=== PATIENT | male | born 1955 | race Caucasian/White ===

== ENCOUNTER 2022-09-03 15:00 | Outpatient (OUT) | payer MEDICAID, SELFPAY | END 2022-09-03 15:01 | disposition home or self-care (01) | LOC: PST 09-06 19:00 | PROVIDERS: PCP Internal Medicine; Visit Provider Surgery | DX: Z01.818 Encounter for other preprocedural examination (principal); Z86.010 Personal history of colon polyps ==

== ENCOUNTER 2022-09-11 06:20 | Day surgery (SDC) | payer BC, MEDICARE, SELFPAY ==
--- NOTE | 2022-09-11 | OP_ITS ---
OPERATION DATE: ??09/11/2022 PREOPERATIVE DIAGNOSIS:? Personal history of colon polyps. POSTOPERATIVE DIAGNOSIS:? Rectal polys x2. PROCEDURE:? Colonoscopy to cecum with hot snare polypectomy x2 for two 4 mm rectal polyps. SURGEON:? John Montalvo M.D. ANESTHESIA:? Monitored anesthesia care. ESTIMATED BLOOD LOSS:? Less than 1 mL. INDICATIONS AND CONSENT:? Patient is a 67-year-old male with a personal history of colon polyps.? Indications, risks, benefits, alternatives of proceeding with surveillance colonoscopy were explained extensively to the patient, including the risks of bleeding, colon perforation or anesthetic complications. ?All of his questions were answered.? Informed consent was obtained. PROCEDURE:? Patient brought to the operating room, placed in the left lateral decubitus position.? Monitored anesthesia care was provided.? Rectal exam was performed which showed no masses or blood.? The scope was inserted into the anal canal.? Under direct visualization was advanced.? With the aid of abdominal compression, it was advanced to the cecum where cecal markings were clearly identified.? There was noted to be a good prep.? Upon withdrawal of the scope, mucosal surfaces were carefully examined.? There were no mass lesions or inflammatory changes.? No significant diverticulosis.? With the upper rectum, there were noted to be two adjacent sessile, erythematous polyps, approximately 4 mm each in size.? These were removed with hot snare polypectomy with good hemostasis.? The scope was retroflexed in the anal canal.? There was no significant hemorrhoidal disease.? Scope was then withdrawn.? Patient tolerated procedure well, was sent to recovery room in good condition. f/u colonoscopy likely in 5 years. CC:? Son Scherer
[2022-09-11 06:36] VITALS: BP 173/92; PULSE 81; RESP 16; TEMP 36.2; O2SAT 93; BMI 33.9
[2022-09-11 06:41] LABS: Glucometer 147 mg/dL (74-106)
[2022-09-11] MEDS: LACTATED RINGER'S SOLUTION 1,000 ML 50 ML IV (06:58)
[2022-09-11 07:58] VITALS: BP 116/58; PULSE 77; RESP 16; O2SAT 98
[2022-09-11 08:08] VITALS: BP 132/71; PULSE 65; RESP 16; O2SAT 96
[2022-09-11 08:22] VITALS: BP 139/75; PULSE 63; RESP 16; O2SAT 96
== END 2022-09-11 08:22 | disposition home or self-care (01) ==
PROVIDERS: PCP Internal Medicine; Visit Provider Surgery
PROC: (CPT 45385; principal; 2022-09-11 07:30)
DX: D12.8 Benign neoplasm of rectum (principal); Z86.010 Personal history of colon polyps; K62.1 Rectal polyp; E11.9 Type 2 diabetes mellitus without complications; I10 Essential (primary) hypertension; Z86.73 Personal history of transient ischemic attack (TIA), and cerebral infarction without residual deficits; E78.00 Pure hypercholesterolemia, unspecified; Z79.02 Long term (current) use of antithrombotics/antiplatelets; Z79.899 Other long term (current) drug therapy; Z79.85 Long-term (current) use of injectable non-insulin antidiabetic drugs; Z87.891 Personal history of nicotine dependence; E66.9 Obesity, unspecified; Z68.33 Body mass index [BMI] 33.0-33.9, adult
CPT/HCPCS: 45385; 36415; 82948; 88305; J2704

== ENCOUNTER 2023-01-02 13:59 | Outpatient (OUT) | payer BC, MEDICARE, SELFPAY ==
--- NOTE | 2023-01-02 14:00 | CA_ITS ---
Patient Name: BURGESS CATES MR#: [id number] : 1955 Exam Date: 01/02/2023 Ordering Doctor: DR Librado Connor D.O. ECHOCARDIOGRAM REPORT PROCEDURE: CA ECHO DOPPLER COMPLETE INDICATIONS: Nonrheumatic aortic valve stenosis COMPARISON: None. DESCRIPTION: COMPLETE ECHOCARDIOGRAM Real-time transthoracic echocardiography with 2D, M-mode, spectral and color flow Doppler performed. QUALITY: Technical quality was good. LEFT VENTRICLE: Normal chamber size. Mild concentric left ventricular hypertrophy. LV EF: Global left ventricular systolic function is hyperdynamic. Visual estimation of left ventricular ejection fraction is 65-70%. No significant wall motion abnormalities. DIASTOLIC: Grade 1 diastolic dysfunction ATRIAL SEPTUM: Not well visualized. LEFT ATRIUM: Normal chamber size. RIGHT ATRIUM: Normal chamber size. RIGHT VENTRICLE: Normal chamber size. Normal right ventricular systolic function. TRICUSPID VALVE: Normal mobility and thickness. No stenosis with trivial regurgitation. No evidence of pulmonary hypertension. RVSP 18mmHg MITRAL VALVE: Normal mobility and thickness. No evidence of mitral valve stenosis. There is no mitral annular calcification. Trivial mitral regurgitation. AORTIC VALVE: Normal trileaflet appearance. Moderately calcified aortic valve. Doppler velocity suggests mild to moderate aortic valve stenosis. DVI 0.3, Vmax 2.9, Mean gradient 20mmHg. Gradients may be elevated in part due to the left ventricular hyperdynamic state. No aortic regurgitation. AORTIC ROOT: Normal diameter and appearance. PULMONIC VALVE: Normal thickness and mobility. Normal with No regurgitation. PERICARDIUM: Anterior free space; trivial effusion versus fat pad. IVC: Collapses with inspirations. Normal size. CONCLUSION: 1. Global left ventricular systolic function is hyperdynamic; visually estimated ejection fraction is 65 to 70% 2. The right ventricle is normal in size and systolic function 3. Mildly increased left ventricular wall thickness 4. Grade 1 diastolic dysfunction 5. Moderate aortic valve stenosis 6. Anterior free space; trivial effusion versus fat pad Adult Echocardiography Procedure Report Left Ventricle LVEDD (3.7 - 5.6 cm): 4.43 cm LVESD (2.2 - 4.0 cm): 3.18 cm LVIVS thickness (0.6 - 1.2 cm): 1.26 cm LVPW thickness (0.5 - 1.0 cm): 1.39 cm e': 0.08 m/s E - e': 10.12 LVOT Max Gradient: 3.61 mm[Hg] LVOT Area (cm2): 0.95 m/s Peak Velocity (LVOT): 0.95 m/s Mean Velocity (LVOT): 0.58 m/s LVOT Diameter 2.34 cm Left Ventricular Ejection Fraction: 70.29 % Left Atrium LA Volume Index (2D A2C): 25.38 ml/m2 Left Atrium Systolic Dimension: 3.22 cm Mitral Valve MV E to A Ratio: 0.86, 0.93 Mitral Valve A-Wave Peak Velocity: 0.91 m/s Mitral Valve E-Wave Peak Velocity: 0.81 m/s Right Ventricle RV Internal Diastolic Dimension: 3.39 cm Aorta AO Root Diam: 3.57 cm Ascending Ao Diam: 3.29 cm Aortic Valve AoV Area (Peak Maximilian): 1.43 cm2, 1.40 cm2 AoV Area (VTI): 1.45 cm2, 1.33 cm2 Peak Velocity(Antegrade Flow): 2.92 m/s, 2.73 m/s, 2.92 m/s Peak Gradient(Antegrade Flow): 34.02 mm[Hg], 29.78 mm[Hg], 34.09 mm[Hg] Mean Velocity(Antegrade Flow): 2.16 m/s, 1.85 m/s, 2.14 m/s Mean Gradient(Antegrade Flow): 20.44 mm[Hg], 15.83 mm[Hg], 20.95 mm[Hg] Velocity Time Integral: 66.19 cm, 52.71 cm, 63.57 cm Tricuspid Valve Peak Velocity (Regurgitant Flow): 1.74 m/s, 1.68 m/s, 1.92 m/s, 1.90 m/s Pulmonic Valve Mean Gradient: 3.40 mm[Hg] Mean Velocity: 0.86 m/s Peak Velocity: 1.18 m/s, 1.17 m/s Peak Gradient: 5.59 mm[Hg], 5.46 mm[Hg] Right Atrium Right Atrium Systolic Pressure: 37.07 ml, 37.07 ml Dictated by: Akshat Pratt M.D. on 01/03/2023 at 15:48 Approved by: Akshat Pratt M.D. on 01/03/2023 at 15:56
== END 2023-01-02 14:00 | disposition home or self-care (01) ==
LOC: CARD 13:59
PROVIDERS: PCP Internal Medicine; Visit Provider Internal Medicine
DX: I35.0 Nonrheumatic aortic (valve) stenosis (principal)
CPT/HCPCS: 93306

== ENCOUNTER 2023-01-02 15:00 | Outpatient (OUT) | payer BC, MEDICARE, SELFPAY ==
[2023-01-02] MEDS: COVID VAC 23-24(12UP)MODERNA/PF 50 MCG/0.5 ML VIAL IM (16:00)
== END 2023-01-02 15:01 | disposition home or self-care (01) ==
LOC: VACCLI 01-21 16:00
PROVIDERS: PCP Internal Medicine
DX: Z23 Encounter for immunization (principal)
CPT/HCPCS: 90480; 91322

== ENCOUNTER 2023-07-11 07:28 | Outpatient (OUT) | payer BC, MEDICARE, SELFPAY ==
--- OUTSIDE RECORDS SUMMARY | 2023-07-11 07:38 | XMS_ITS | CCD ---
Author Organization [facility] Care Team Providers Care [address] Magistrate Name Role Phone PHYSICIAN, DEFAULT Unavailable Unavailable PHYSICIAN, DEFAULT Unavailable Unavailable Wiecek, Sacha Unavailable Unavailable Wiecek, Sacha Unavailable Unavailable Ball, Librado Unavailable Unavailable Ball, Librado Unavailable NIKOLAS, DR KEITA Admitting Unavailable BALL, DR KEITA Attending Unavailable BALL, DR KEITA Primary Care Unavailable REQUEST, DR CALDWELL LISTED Admitting Unavaila ble REQUEST, DR CALDWELL LISTED Attending Unavaila ble REQUEST, DR CALDWELL LISTED Consulting Unavaila ble BALL, DR KEITA Primary Care Unavailable REQUEST, DR CALDWELL LISTED Admitting Unavaila ble REQUEST, DR CALDWELL LISTED Attending Unavaila ble REQUEST, DR CALDWELL LISTED Consulting Unavaila ble BALL, DR KEITA Primary Care Unavailable BALL, DR KEITA Admitting Unavailable BALL, DR KEITA Attending Unavailable BALL, DR KEITA Primary Care Unavailable BALL, DR KEITA Admitting Unavailable BALL, DR KEITA Attending Unavailable BALL, DR KEITA Consulting Unavailable BALL, DR KEITA Primary Care Unavailable BALL, DR KEITA Admitting Unavailable BALL, DR KEITA Attending Unavailable BALL, DR KEITA Consulting Unavailable BALL, DR KEITA Primary Care Unavailable HOY ., DR GONCALVES Attending Unavailable HOY ., DR GONCALVES Consulting Unavailable HOY ., DR GONCALVES Admitting Unavailable BALL, DR KEITA Primary Care Unavailable NILL, John Soriano Attending Unavailable BALL, LIBRADO Referring Unavailable NILL, John Soriano Attending Unavailable NILL, John Soriano Attending Unavailable NILL, John Soriano Attending Unavailable NILL, John Soriano Attending Unavailable BALL, LIBRADO Referring Unavailable Allergies Allergy Classification Reported Allergen(s) Allergy Type Date of Onset Reaction(s) Facility (9 sources) Sulfamethoxazole / Trimethoprim Drug Allergy Unknown [facility] Other (1 source) Sulfonamides (Antibiotic) Drug allergy (disorder) 02-18-19 [facility] (7 sources) sulfADIAZINE Drug Allergy 06-03-19 Unknown, Unknown Reaction [facility] (1 source) Allergies Reconciled Propensity to adverse reactions Unknown [facility] Other (6 sources) Substance with sulfonamide structure and antibacterial mechanism of action (substance) Drug allergy Unknown [facility] Other (6 sources) Sulf-10 Drug allergy Unknown [facility] Other (6 sources) Sulfamethoxazole-Tr imethoprim *ANTI-INFECTIVE AGEN Propensity to adverse reactions Unknown [facility] Other (1 source) patient allergy list reviewed by nurse or physicia Propensity to adverse reactions 06-30-19 Comment:Done [facility] Other (1 source) Sulfamethoxazole / Trimethoprim; Translations: [sulfamethoxazole-t rimethoprim] Drug Allergy [facility] Repository (1 source) Sulfamethoxazole Drug Allergy 06-03-19 24 Unknown Reaction [facility] (1 source) Trimethoprim Drug Allergy 06-03-19 24 Unknown Reaction [facility] Medications Current Medications Medication Drug Class(es) Dates Sig (Normalized) Sig (Original) Accu-Chek SmartView - (6 sources) Accu-Chek SmartView - USE TO TEST BLOOD SUGAR ONCE A DAY for 90 Active amLODIPine 10 mg oral tablet (10 sources) Dihydropyridine Calcium Channel Kristen Start: 06-03-2023 take 10 mg by mouth once daily Amlodipine Active 10 MG PO Daily June 03, 2023 12:00am take 1 tablet by mouth once bernardino y amLODIPine Besylate 10 MG TAKE 1 TABLET BY MOUTH EVERY DAY Active amoxicillin 875 mg oral tablet (1 source) Penicillin-class Antibacterial Start: 06-03-2023 take 875 mg by mouth twice daily Amoxicillin Active 875 MG PO Twice daily 20 10 June 03, 2023 12:00am atorvastatin 20 mg oral tablet (10 sources) HMG-CoA Reductase Inhibitor Start: 06-03-2023 take 20 mg by mouth once daily Atorvastatin Active 20 MG PO Daily June 03, 2023 12:00am take 1 tablet by dixon th every twenty-four hours Atorvastatin Calcium 20 MG 1 tablet Oral ly Once a day Active carvedilol 12.5 mg oral tablet (10 sources) alpha-Adrenergic Kristen, beta-Adrenergic Kristen Start: 06-03-2023 take 12.5 mg by mouth twice daily Carvedilol Active 12.5 MG PO Twice daily June 03, 2023 12:00am Start: 03-11-2023 take 1 tablet by dixon th every twelve hours Carvedilol 12.5 MG 1 tablet with food Orally Twice a day for 30 days Feb, Active take 1 tablet by dixon th every twelve hours Carvedilol 6.25 MG 1 tablet with food Orally Twice a day Active clopidogrel 75 mg oral tablet (10 sources) P2Y12 Platelet Inhibitor Start: 06-03-2023 take 75 mg by mouth once daily Clopidogrel Active 75 MG PO Daily June 03, 2023 12:00am take 1 tablet by mouth once bernardino y Clopidogrel Bisulfate 75 MG TAKE 1 TABLET BY MOUTH EVERY DAY Active dapagliflozin 10 mg oral tablet (10 sources) Sodium-Glucose Cotransporter 2 Inhibitor Start: 06-03-2023 take 1 tablet by mouth once daily Dapagliflozin Propanediol (Farxiga) 10 mg tablet Active 10 MG PO Daily June 03, 2023 12:00am take 1 tablet by mouth once bernardino y Farxiga 10 MG TAKE 1 TABLET BY MOUTH EVERY DAY Active trulicity 4.5 mg/0.5ml solution pen-injector (9 sources) GLP-1 Receptor Agonist inject 0.5 mL by subcutaneous injection every week Trulicity 4.5 MG/0.5ML INJECT 0.5ML SUBCUTANEOUSLY ONCE A WEEK Subcutaneous weekly Active inject 0.5 mL by sub cutaneous injection every week Trulicity 4.5 MG/0.5ML INJECT 0.5ML SUBCUTANEOUSLY ONCE A WEEK Subcutaneous weekly for 28 days Active inject 0.5 mL by sub cutaneous injection every week Trulicity 3 MG/0.5ML INJECT 0.5ML SUBCUTANEOUSLY ONCE A WEEK for 28 Active Trulicity 3 MG/0 .5ML as directed Subcutaneous Active Dulaglutide (Trulicity) 4.5 mg/0.5 mL pen injector (1 source) Start: 06-03-2023 Dulaglutide (T rulicity) 4.5 mg/0.5 mL pen injector Active 4.5 MG SUBCUT every week June 03, 2023 12:00am fluocinolone acetonide 0.1 mg/ml otic solution (8 sources) Corticosteroid Start: 07-01-2022 Fluocinolone A cetonide 0.01 % 5 drops into affected ear Otic weekly as needed for itching for 30 days June, Active Start: 07-01-2022 Fluocinolone A cetonide 0.01 % 5 drops into affected ear Otic weekly as needed for itching for 30 days June, Active hydrALAZINE hydrochloride 10 mg oral tablet (10 sources) Arteriolar Vasodilator Start: 06-03-2023 take 10 mg by mouth twice daily Hydralazine Active 10 MG PO Twice daily June 03, 2023 12:00am take 1 tablet by mouth twice kaleigh ly hydrALAZINE HCl 10 MG TAKE 1 TABLET BY MOUTH TWICE A DAY Active hydroCHLOROthiazide 25 mg / lisinopril 20 mg oral tablet (8 sources) Thiazide Diuretic, Angiotensin Converting Enzyme Inhibitor Lisinopril-hydroCHLO ROthiazide 20-25 MG TAKE 1 TABLET BY MOUTH TWICE A DAY FOR 30 DAYS for 90 Active take 1 tablet by dixon th once daily Lisinopril-hydroCHLOROthiazide 20-25 MG TAKE 1 TABLET BY MOUTH EVERY DAY Active lisinopril 40 mg oral tablet (2 sources) Angiotensin Converting Enzyme Inhibitor Start: 06-03-2023 take 40 mg by mouth once daily Lisinopril Active 40 MG PO Daily June 03, 2023 12:00am Start: 03-11-2023 take 1 tablet by dixon th every twenty-four hours Lisinopril 40 MG 1 tablet Orally Once a day for 30 days Feb, Active metFORMIN hydrochloride 1000 mg oral tablet (10 sources) Biguanide Start: 06-03-2023 take 1000 mg by mouth twice daily at mealtime Metformin Active 1000 MG PO Twice daily with meals June 03, 2023 12:00am take 1 tablet by mouth before br eakfast metFORMIN HCl 1000 MG TAKE 1 TABLET BY MOUTH BEFORE BREAKFAST AND EVENING MEAL Active simvastatin 40 mg oral tablet (2 sources) HMG-CoA Reductase Inhibitor take 1 tablet by mouth once daily Simvastatin 40 MG TAKE 1 TABLET BY MOUTH EVERY DAY for 90 Active Problems Active Problems Problem Classification Problem Date Documented Date Episodic/Chronic Acquired foot deformities (20 sources) Acquired claw toes; Translations: [Other deformities of toe(s) (acquired), left foot] Episodic Acute cerebrovascular disease (11 sources) Cerebral infarction; Translations: [Cerebral infarction, unspecified] 06-03-2023 Chronic Diabetes mellitus with complications (20 sources) Hyperglycemia due to type 2 diabetes mellitus; Translations: [Type 2 diabetes mellitus with hyperglycemia] Chronic Diabetes mellitus without complication (1 source) Type 2 diabetes mellitus without complication; Translations: [Type 2 diabetes mellitus without complications] Chronic Disorders of lipid metabolism (16 sources) Pure hypercholesterolemia; Translations: [Familial hypercholesterolemia] Onset: 02-14-2017 Chronic Essential hypertension (14 sources) Essential hypertension; Translations: [Essential (primary) hypertension] Chronic Heart valve disorders (16 sources) Aortic valve disorder; Translations: [Nonrheumatic aortic (valve) stenosis] Chronic Hyperplasia of prostate (1 source) Benign prostatic hypertrophy without outflow obstruction; Translations: [Hypertrophy (benign) of prostate without urinary obstruction and other lower urinary tract symptoms [LUTS]] Onset: 06-24-2017 Chronic Osteoarthritis (1 source) Osteoarthritis; Translations: [Unspecified osteoarthritis, unspecified site] Chronic Other acquired deformities (10 sources) Joint contracture of the ankle and/or foot; Translations: [Contracture, left ankle] Chronic Other aftercare (9 sources) H/O: high risk medication; Translations: [Other alf (current) drug therapy] Episodic Other aftercare (1 source) Long-term current use of drug therapy; Translations: [Other alf (current) drug therapy] Episodic Other and ill-defined cerebrovascular disease (10 sources) Cerebral atherosclerosis; Translations: [Cerebral atherosclerosis] 06-03-2023 Chronic Other and ill-defined cerebrovascular disease (4 sources) Cerebral atherosclerosis Chronic Other and ill-defined cerebrovascular disease (1 source) Cerebrovascular disease; Translations: [Cerebrovascular disease, unspecified] Onset: 02-17-2011 Chronic Other and unspecified benign neoplasm (9 sources) Benign neoplasm of colon; Translations: [Benign neoplasm of descending colon] Episodic Other circulatory disease (10 sources) Cardiovascular symptoms; Translations: [Other specified symptoms and signs involving the circulatory and respiratory systems] Episodic Other circulatory disease (1 source) Carotid bruit; Translations: [Other specified symptoms and signs involving the circulatory and respiratory systems] 06-03-2023 Episodic Other congenital anomalies (1 source) Congenital spondylolysis of lumbosacral region; Translations: [Congenital spondylolysis, lumbosacral region] Onset: 10-14-2018 Chronic Other connective tissue disease (9 sources) Pain in limb; Translations: [Pain in left foot] Episodic Other connective tissue disease (1 source) Pain in left foot; Translations: [Pain in left foot] Episodic Other ear and sense organ disorders (8 sources) Bilateral auditory canal chronic non-infective otitis externa; Translations: [Other otitis externa, bilateral] Chronic Other ear and sense organ disorders (1 source) Other otitis externa, bilateral Chronic Other ear and sense organ disorders (1 source) Tinnitus; Translations: [Tinnitus, unspecified ear] 06-03-2023 Episodic Other ear and sense organ disorders (1 source) Tinnitus, unspecified ear; Translations: [Tinnitus, unspecified] 06-03-2023 Episodic Other non-traumatic joint disorders (10 sources) Arthralgia of the lower leg; Translations: [Pain in left knee] Episodic Other nutritional; endocrine; and metabolic disorders (9 sources) Body mass index 30+ - obesity; Translations: [Body mass index (BMI) 33.0-33.9, adult] Chronic Other nutritional; endocrine; and metabolic disorders (10 sources) Obesity; Translations: [Other obesity due to excess calories] Chronic Other nutritional; endocrine; and metabolic disorders (4 sources) Other obesity due to excess calories Chronic Other nutritional; endocrine; and metabolic disorders (4 sources) Body mass index (BMI) 33.0-33.9, adult Chronic Other nutritional; endocrine; and metabolic disorders (1 source) Obese class I; Translations: [Body mass index 33.0-33.9, adult] Onset: 02-14-2017 Chronic Other screening for suspected conditions (not mental disorders or infectious disease) (5 sources) Encounter for screening for malignant neoplasm of prostate; Translations: [Encounter for screening for malignant neoplasm of colon] Onset: 07-19-2021 Episodic Other upper respiratory infections (1 source) Acute maxillary sinusitis; Translations: [Acute maxillary sinusitis, unspecified] Episodic Otitis media and related conditions (2 sources) Otitis media of left ear; Translations: [Otitis media, unspecified, left ear] 06-03-2023 Episodic Spondylosis; intervertebral disc disorders; other back problems (11 sources) Lumbar spondylosis; Translations: [Spondylosis without myelopathy or radiculopathy, lumbar region] 06-03-2023 Chronic Spondylosis; intervertebral disc disorders; other back problems (1 source) Low back pain; Translations: [Low back pain, unspecified] Episodic Unclassified (1 source) Long-term current use of drug therapy; Translations: [Long-term (current) use of other medications] Onset: 06-24-2017 Past or Other Problems Problem Classification Problem Date Documented Da te Episodic/Chronic Allergic reactions (1 source) Allergic urticaria; Translations: [Allergic urticaria] Onset: 02-14-2017 Episodic E Codes: Adverse effects of medical drugs (1 source) Adverse reaction to drug; Translations: [Adverse effect of other systemic antibiotics, initial encounter] Onset: 02-14-2017 Episodic Gastrointestinal hemorrhage (1 source) Hematochezia; Translations: [Blood in stool] Onset: 08-04-2017 Episodic Other and unspecified benign neoplasm (1 source) Benign neoplasm of descending colon; Translations: [Benign neoplasm of descending colon] Onset: 09-17-2017 Episodic Other ear and sense organ disorders (1 source) Acute actinic otitis externa; Translations: [Acute actinic otitis externa, bilateral] Onset: 09-23-2017 Episodic Screening and history of mental health and substance abuse codes (1 source) History of tobacco use; Translations: [Personal history of tobacco use, presenting hazards to health] Onset: 02-14-2017 Episodic Unclassified (9 sources) Low back pain with radiation; Translations: [Low back pain with radiation] Viral infection (10 sources) Disease caused by 2019-nCoV; Translations: [COVID-19] Results Test Name Value Interpretation Reference Range Facility Ambulatory Visit Summaryon 0 10-01-2022 Ambulatory Visit Summary BURGESS CATES JR :1955 Visit Date:10/01/2022 Ambulatory Visit Instructions Your Care Team Attending Physician - John MONTALVO MD Primary Care Physician - LIBRADO CONNOR DO This Is Your Medications List amlodipine (amLODIPine 10 mg Tab) carvedilol (carvedilol 3.125 mg Tab) clopidogrel (Plavix 75 mg Tab) dapagliflozin (Farxiga 10 mg oral tablet) dulaglutide (Trulicity Pen 3 mg/0.5 mL subcutaneous solution) hydrALAZINE (hydrALAZINE 10 mg Tab) hydrochlorothiazide-lisin opril (hydrochlorothiazide-kanu nopril 25 mg-20 mg Tab) metformin (metformin 1000 mg Tab) simvastatin (simvastatin 40 mg Tab) Procedures Performed Colonoscopy (09/11/2022), Colonoscopy (09/19/2017), Appendectomy, Correction of hammer toe. Medications What How Much When Instructions Unchanged amlodipine (amLODIPine 10 mg Tab) 1 Tablets By Mouth Every day Unchanged carvedilol (carvedilol 3.125 mg Tab) 1 Tablets By Mouth 2 times a day Unchanged clopidogrel (Plavix 75 mg Tab) 1 Tablets By Mouth Every day Unchanged dapagliflozin (Farxiga 10 mg oral tablet) 1 Tablets By Mouth Every day Unchanged dulaglutide (Trulicity Pen 3 mg/ 0.5 mL subcutaneous solution) 3 Milligram Subcutaneous Every week Unchanged hydrALAZINE (hydrALAZINE 10 mg Tab) 1 Tablets By Mouth 2 times a day Unchanged hydrochlorothiazide-lisin opril (hydrochlorothiazide-kanu nopril 25 mg-20 mg Tab) 1 Tablets By Mouth Every day Unchanged metformin (metformin 1000 mg Tab) 1 Tablets By Mouth 2 times a day Unchanged simvastatin (simvastatin 40 mg Tab) 1 Tablets By Mouth Once a day (in the evening) Allergies sulfamethoxazole-trimetho prim (Unknown) Problems Ongoing - Any problem that you are currently receiving treatment for. Aortic valve disorder Bilateral carotid bruits BMI 33.0-33.9,adult Cerebral atherosclerosis Cerebral infarction Diabetes Essential hypertension Hemiplegia affecting nondominant side History of colon polyps Hyperlipidemia Lumbar spondylosis Obesity Personal history of colonic polyps Pure hypercholesterolemia Normal [facility] General Surgery Office/Clini c Noteon 10-01-2022 General Surgery Office/Clinic Note Chief Complaint colonoscopy follow up HPI Staff 20 day post operative follow up post colonoscopy with rectal polypectomy. History of Present Illness s/p surveillance colonoscopy with rectal polypectomy x2, 4 mm tubular adenoma and 4 mm hyperplastic polyp removed; doing well, denies pain or bleeding. Review of Systems ROS - Provider Constitutional: no fever, no sweats, no weight loss. Eyes: no glasses, no blurred vision, no visual loss. ENMT: no dentures, no hoarseness, no swallowing difficulties, no hearing loss, no ear infection(s), no nose bleeds. Cardiovascular: normal blood pressure, no chest pain, regular heartbeat, no heart murmur. Respiratory: no shortness of breath, no cough, no asthma, no wheezing. Gastrointestinal: no nausea, no vomiting, no diarrhea, no constipation, no blood in stool, no change in bowel habits, no abdominal pain, no hepatitis. Genitourinary: no kidney stones, no urine infection, no dysuria. Musculoskeletal: no pain, no weakness. Skin: no changing moles, no rash, no skin lumps. Neurologic: no seizures, no epilepsy, no headache. Psychiatric: no emotional or psychiatric problem. Heme/Lymph: no bleeding problems, no anemia, no blood clots, no transfusions. Allergy/Immunologic: no swollen lymph nodes/glands, no IV drug abuse. Other: Additional ROS info: Except as noted in the above Review of Systems and in the History of Present Illness, all other systems have been reviewed and are negative or noncontributory. Assessment/Plan 1. Tubular adenoma of rectum (D12.8: Benign neoplasm of rectum) plan surveillance colonoscopy in 5 years, call sooner if problems/questions. 2. Hyperplastic rectal polyp (K62.1: Rectal polyp) see # 1 Follow-up No qualifying data available Problem List/Past Medical History Ongoing Aortic valve disorder Bilateral carotid bruits BMI 33.0-33.9,adult Cerebral atherosclerosis Cerebral infarction Diabetes Essential hypertension Hemiplegia affecting nondominant side History of colon polyps Hyperlipidemia Hyperplastic rectal polyp Lumbar spondylosis Obesity Personal history of colonic polyps Pure hypercholesterolemia Tubular adenoma of rectum Historical No qualifying data Procedure/Surgical History Colonoscopy (09/11/2022), Colonoscopy (09/19/2017), Appendectomy, Correction of hammer toe. Medications amLODIPine 10 mg Tab, 10 mg= 1 tab(s), Oral, Daily carvedilol 3.125 mg Tab, 3.125 mg= 1 tab(s), Oral, BID Farxiga 10 mg oral tablet, 10 mg= 1 tab(s), Oral, Daily hydrALAZINE 10 mg Tab, 10 mg= 1 tab(s), Oral, BID hydrochlorothiazide-lisin opril 25 mg-20 mg Tab, 1 tab(s), Oral, Daily metformin 1000 mg Tab, 1000 mg= 1 tab(s), Oral, BID Plavix 75 mg Tab, 75 mg= 1 tab(s), Oral, Daily simvastatin 40 mg Tab, 40 mg= 1 tab(s), Oral, qPM Trulicity Pen 3 mg/0.5 mL subcutaneous solution, 3 mg, SubCutaneous, qWeek Allergies sulfamethoxazole-trimetho prim (Unknown) Social History Alcohol - Denies Alcohol Use, 08/21/2022 Substance Abuse - Denies Substance Abuse, 08/21/2022 Tobacco Former smoker, quit more than 30 days ago Tobacco Use:. Never Smokeless Tobacco Use:. Cigarettes, 0.5 per day. Started age 21.0 Years. Stopped age 61 Years., 08/21/2022 Family History COPD: Mother. Esophageal cancer: Father. Heart disease: Mother and Sister. Immunizations Vaccine Date Status SARS-CoV-2 (COVID-19) mRNA-1273 vaccine 12/19/2021 Recorded SARS-CoV-2 (COVID-19) Ad26 vaccine 04/24/2020 Recorded Normal [facility] Comment on above: Result Comment: Elec tronically Signed By: RANDY MILLER, John Tejada\Date and Time Signed: 10/01/22 16:41 EDT Reminderson 10-01-2022 Reminders - From: Aimee France LPN To: N - Clinical; Sent: 10/01/2022 16:12:00 EDT Show up: 08/13/2027 07:00:00 EDT Subject: colonoscopy recall Due Date/Time: 09/12/2027 07:00:00 EDT Reminder/Recall Patient due for surveillance colonoscopy 09/12/2027. [facility] Pathology Noteon 09-17-2022 Pathology Note [id number]#1.00CD:[address] [facility] Outside Colonoscopyon 2022 Outside Colonoscopy [id number]:[address] [facility] Lab Reportson 09-11-2022 Lab Reports [id number]:[address] [facility] Ambulatory Visit Summaryon 0 08-22-2022 Ambulatory Visit Summary BURGESS CATES JR :1955 Visit Date:08/21/2022 Ambulatory Visit Instructions Your Diagnosis Personal history of colonic polyps Your Care Team Attending Physician - RANDY MILLER, John Soriano Primary Care Physician - LIBRADO CONNOR DO This Is Your Medications List Contact prescribing physician if questions or concerns amlodipine (amLODIPine 10 mg Tab) carvedilol (carvedilol 3.125 mg Tab) clopidogrel (Plavix 75 mg Tab) dapagliflozin (Farxiga 10 mg oral tablet) dulaglutide (Trulicity Pen 3 mg/0.5 mL subcutaneous solution) hydrALAZINE (hydrALAZINE 10 mg Tab) hydrochlorothiazide-lisin opril (hydrochlorothiazide-kanu nopril 25 mg-20 mg Tab) metformin (metformin 1000 mg Tab) simvastatin (simvastatin 40 mg Tab) Procedures Performed Colonoscopy (09/19/2017), Appendectomy, Correction of hammer toe. Discharge Vitals Heart Rate (Peripheral) 70 Respiratory Rate 16 Blood Pressure 140/70 Height 177.8 cm Height 70 in Weight 106 kg Weight 233.2 lb BMI 33.53 Medications What How Much When Instructions Unchanged amlodipine (amLODIPine 10 mg Tab) 1 Tablets By Mouth Every day Contact prescribing physician if questions or concerns Unchanged carvedilol (carvedilol 3.125 mg Tab) 1 Tablets By Mouth 2 times a day Contact prescribing physician if questions or concerns Unchanged clopidogrel (Plavix 75 mg Tab) 1 Tablets By Mouth Every day Contact prescribing physician if questions or concerns Unchanged dapagliflozin (Farxiga 10 mg oral tablet) 1 Tablets By Mouth Every day Contact prescribing physician if questions or concerns Unchanged dulaglutide (Trulicity Pen 3 mg/ 0.5 mL subcutaneous solution) 3 Milligram Subcutaneous Every week Contact prescribing physician if questions or concerns Unchanged hydrALAZINE (hydrALAZINE 10 mg Tab) 1 Tablets By Mouth 2 times a day Contact prescribing physician if questions or concerns Unchanged hydrochlorothiazide-lisin opril (hydrochlorothiazide-kanu nopril 25 mg-20 mg Tab) 1 Tablets By Mouth Every day Contact prescribing physician if questions or concerns Unchanged metformin (metformin 1000 mg Tab) 1 Tablets By Mouth 2 times a day Contact prescribing physician if questions or concerns Unchanged simvastatin (simvastatin 40 mg Tab) 1 Tablets By Mouth Once a day (in the evening) Contact prescribing physician if questions or concerns Allergies sulfamethoxazole-trimetho prim (Unknown) Problems Ongoing - Any problem that you are currently receiving treatment for. Aortic valve disorder Bilateral carotid bruits BMI 33.0-33.9,adult Cerebral atherosclerosis Cerebral infarction Diabetes Essential hypertension Hemiplegia affecting nondominant side History of colon polyps Hyperlipidemia Lumbar spondylosis Obesity Personal history of colonic polyps Pure hypercholesterolemia Normal [facility] Consent for Procedure/Surger yon 08-22-2022 Consent for Procedure/Surgery [id number]#[id number]:12 7 Normal [facility] Facesheeton 08-22-2022 Facesheet [id number]#[id number]:12 7 Normal [facility] A1C with Estimated Average G luo 07-03-2022 A1C with Estimated Average Glu [facility] Other CBC AUTO DIFFon 07-03-2022 BASO # 0.1 103/ul Normal 0.0-0.1 [facility] Comment on above: Performed By: #### C BC #### [facility] [address] [place] [address] Dr. Tai Godwin Basophils/100 WBC (Bld) 1.0 % Normal 0.2-2.0 [facility] Comment on above: Performed By: #### C BC #### [facility] [address] [place] [address] Dr. Tai Godwin EO # 0.1 103/ul Normal 0.0-0.7 [facility] Comment on above: Performed By: #### C BC #### [facility] [address] [address] [address] Tai Godwin Eosinophils/100 WBC (Bld) 1.2 % Normal 0.9-7.0 [facility] Comment on above: Performed By: #### C BC #### [facility] [address] [place] [address] Dr. Tai Godwin Erythrocyte distribution width (RBC) [Ratio] 14.3 % Normal 11.0-15.0 [facility] Comment on above: Performed By: #### C BC #### [facility] [address] [place] [address] Dr. Tai Godwin Hematocrit (Bld) [Volume fraction] 45.6 % Normal 42.0-54.0 [facility] Comment on above: Performed By: #### C BC #### [facility] [address] [place] [address] Dr. Tai Godwin Hemoglobin (Bld) [Mass/Vol] 15.4 g/dL Normal 14.0-18.0 [facility] Comment on above: Performed By: #### C BC #### [facility] [address] [place] [address] Dr. Tai Godwin IG # 0.03 10e3/ul Normal 0.00-0.03 [facility] Comment on above: Performed By: #### C BC #### [facility] [address] [place] [address] Dr. Tai Godwin IG % 0.3 % Normal 0.0-0.5 [facility] Comment on above: Performed By: #### C BC #### [facility] [address] [place] [address] Dr. Tai Godwin LYMPH # 3.1 103/ul Normal 1.2-3.8 [facility] Comment on above: Performed By: #### C BC #### [facility] [address] [place] [address] Dr. Tai Godwin Lymphocytes/100 WBC (Bld) 30.8 % Normal 20.5-60.0 [facility] Comment on above: Performed By: #### C BC #### [facility] [address] [place] [address] Dr. Tai Godwin MANUAL DIFF REQ NO Normal [facility] Comment on above: Performed By: #### C BC #### [facility] [address] [place] [address] Dr. Tai Godwin MCH (RBC) [Entitic mass] 29.3 pg Normal 25.9-34.0 [facility] Comment on above: Performed By: #### C BC #### [facility] [address] [place] [address] Dr. Tai Godwin MCHC (RBC) [Mass/Vol] 33.8 g/dL Normal 29.9-35.2 [facility] Comment on above: Performed By: #### C BC #### [facility] [address] [address] [address] Tai Godwin MCV (RBC) [Entitic vol] 86.9 fL Normal 80.0-94.0 [facility] Comment on above: Performed By: #### C BC #### [facility] [address] [address] [address] Tai Godwin MONO # 0.7 103/ul Normal 0.3-0.8 [facility] Comment on above: Performed By: #### C BC #### [facility] [address] [address] [address] Tai Godwin Monocytes/100 WBC (Bld) 7.3 % Normal 1.7-12.0 [facility] Comment on above: Performed By: #### C BC #### [facility] [address] [place] [address] Dr. Tai Godwin NEUT # 5.9 103/ul Normal 1.4-6.5 [facility] Comment on above: Performed By: #### C BC #### [facility] [address] [place] [address] Dr. Tai Godwin Neutrophils/100 WBC (Bld) 59.4 % Normal 43.0-75.0 [facility] Comment on above: Performed By: #### C BC #### [facility] [address] [place] [address] Dr. Tai Godwin Platelet mean volume (Bld) [Entitic vol] 10.1 fL Normal 9.5-13.5 [facility] Comment on above: Performed By: #### C BC #### [facility] [address] [place] [address] Dr. Tai Godwin PLT 184 103/ul Normal 150-450 [facility] Comment on above: Performed By: #### C BC #### [facility] [address] [place] [address] Dr. Tai Godwin RBC 5.25 106/ul Normal 4.70-6.10 [facility] Comment on above: Performed By: #### C BC #### [facility] [address] [address] [address] Tai Godwin WBC 9.9 103/ul Normal 4.0-11.0 [facility] Comment on above: Performed By: #### C BC #### [facility] [address] [address] [address] Tai Godwin Complete Blood Count and Dif chicho 07-03-2022 Anisocytosis Ql (Bld) [employer] Other Basophilic stippling LM Ql (Bld) [employer] Other RBC morphology finding Nom (Bld) [employer] Other Comprehensive Metabolic Pane eleazar 07-03-2022 Albumin [Mass/Vol] 4.638290 g/dL 3.4-5.0 g/dL [facility] [employer] Other Calcium [Mass/Vol] 9.0304784 mg/dL 8.5-10 .1 mg/dL [employer] Other CO2 [Moles/Vol] 26.20604061 mmol/L 21.0-3 2.0 mmol/L [employer] Other Creatinine [Mass/Vol] 0.58909642 mg/dL 0.70-1.30 mg/dL [employer] Other Potassium [Moles/Vol] 3.65866216 mmol/L 3.5-5.1 mmol/L [employer] Other Protein [Mass/Vol] 8.731308 g/dL Critically high 6.4-8.2 g /dL [employer] Other Urea nitrogen [Mass/Vol] 12.1960955 mg/dL 7.0-18.0 mg/dL [employer] Other Comprehensive Metabolic Panel see note [employer] Other Comprehensive Metabolic Panel 140 mmol/L 136-145 mmol/L [employer] Other Comprehensive Metabolic Panel 159 mg/dL Critically high 74-106 mg/dL [employer] [facility] [employer] Other Comprehensive Metabolic Panel >60 mL/min/1.73m2 >=60 mL/min/1.73m 2 [employer] Other Comprehensive Metabolic Panel 0.5 mg/dL 0.2-1.0 mg/dL [employer] Other Comprehensive Metabolic Panel 4.4 g/dL [employer] Other GLYCOHEMOGLOBIN A1Con 2022 ADA RECOMMENDATION SEE BELOW Normal [facility] Comment on above: Result Comment: ADA RECOMMENDED LIMIT 4.0 - 6.0 ADA THERAPEUTIC TARGET < 7.0 ACTION SUGGESTED > 7.0 Performed By: #### A 1C #### [facility] [address] [place] [address] Dr. Tai Godwin Glucose [Mass/Vol] 160 mg/dL Normal [facility] Comment on above: Performed By: #### A 1C #### [facility] [address] [place] [address] Dr. Tai Godwin HbA1c (Bld) [Mass fraction] 7.2 % Critically high 4.5-6.2 [facility] Comment on above: Performed By: #### A 1C #### [facility] [address] [place] [address] Dr. Tai Godwin LIPID PROFILEon 07-03-2022 CHOL-HDL RATIO NORM SEE BELOW Normal [facility] Comment on above: Result Comment: 3.3 - 4.4 LOW RISK 4.4 - 7.1 AVERAGE RISK 7.1 - 11.0 MODERATE RISK >11.0 HIGH RISK Performed By: #### L IPID, CMP #### [facility] [address] [address] [address] Tai Godwin Cholesterol [Mass/Vol] 102 mg/dL <=200 mg/dL [facility] Comment on above: Performed By: #### L IPID, CMP #### [facility] [address] [address] [address] Tai Godwin Cholesterol in HDL [Mass/Vol] 46 mg/dL 40-60 mg/dL [facility] Comment on above: Performed By: #### L IPID, CMP #### [facility] [address] [address] [address] Tai Godwin Cholesterol in LDL [Mass/Vol] 45.2 mg/dL Normal [facility] Comment on above: Performed By: #### L IPID, CMP #### [facility] [address] [address] [address] Tai Godwin Cholesterol.total/ Cholesterol in HDL [Mass ratio] 2.2 {ratio} [facility] Comment on above: Performed By: #### L IPID, CMP #### [facility] [address] [address] [address] Tai Godwin HDL NORMAL > or = 60 mg/dl - LO W CARDIOVASCULAR RISK <40 mg/dl - HIGH CARDIOVASCULAR RISK Normal [facility] Comment on above: Performed By: #### L IPID, CMP #### [facility] [address] [address] [address] Tai Godwin LDL CALC NORMAL SEE BELOW Normal [facility] Comment on above: Result Comment: <100 mg/dl OPTIMAL 100 - 129 mg/dl NEAR OR ABOVE OPTIMAL 130 - 159 mg/dl BORDERLINE HIGH 160 - 189 mg/dl HIGH >190 mg/dl VERY HIGH Performed By: #### L IPID, CMP #### [facility] [address] [address] [address] Tai Godwin Triglyceride [Mass/Vol] 54 mg/dL <=150 mg/dL [facility] Comment on above: Performed By: #### L IPID, CMP #### [facility] [address] [address] [address] Tai Godwin VLDL CALC 10.8 mg/dL Normal [facility] Comment on above: Performed By: #### L IPID, CMP #### [facility] [address] [place] [address] Dr. Tai Godwin Lipid Panelon 07-03-2022 Lipid Panel > or = 60 mg/dl - LO W CARDIOVASCULAR RISK <40 mg/dl - HIGH CARDIOVASCULAR RISK [employer] Other Lipid Panel SEE BELOW [employer] Other Lipid Panel 45.2 mg/dL [employer] Other Lipid Panel 10.8 mg/dL [employer] Other MICROALBUMIN, RAND URon 05- mALB 17.1 mg/dL Normal <=30.0 [facility] Comment on above: Performed By: #### M ALBR #### [facility] [address] [place] [address] Dr. Tai Godwin PROF 14(COMP METB)on 023 Albumin [Mass/Vol] 4.0 g/dL Normal 3.4-5.0 [facility] Comment on above: Performed By: #### L IPID, CMP #### [facility] [address] [place] [address] Dr. Tai Godwin Albumin/Globulin [Mass ratio] 0.9 {ratio} [facility] Comment on above: Performed By: #### L IPID, CMP #### [facility] [address] [place] [address] Dr. Tai Godwin ALP [Catalytic activity/Vol] 68 U/L 46-116 U/L [facility] Comment on above: Performed By: #### L IPID, CMP #### [facility] [address] [place] [address] Dr. Tai Godwin ALT [Catalytic activity/Vol] 58 U/L 16-63 U/L [facility] Comment on above: Performed By: #### L IPID, CMP #### [facility] [address] [place] [address] Dr. Tai Godwin Anion gap [Moles/Vol] 15.1 mmol/L [facility] Comment on above: Performed By: #### L IPID, CMP #### [facility] [address] [place] [address] Dr. Tai Godwin AST [Catalytic activity/Vol] 47 U/L Critically high 15-37 U/L [facility] Comment on above: Performed By: #### L IPID, CMP #### [facility] [address] [address] [address] Tai Godwin Bilirubin [Mass/Vol] 0.5 mg/dL Normal 0.2-1.0 [facility] Comment on above: Performed By: #### L IPID, CMP #### [facility] [address] [place] [address] Dr. Tai Godwin Calcium [Mass/Vol] 9.6 mg/dL Normal 8.5-10.1 [facility] Comment on above: Performed By: #### L IPID, CMP #### [facility] [address] [place] [address] Dr. Tai Godwin Chloride [Moles/Vol] 102 mmol/L 98-107 mmol/L [facility] Comment on above: Performed By: #### L IPID, CMP #### [facility] [address] [place] [address] Dr. Tai Godwin CO2 [Moles/Vol] 26.4 mmol/L Normal 21.0-32.0 [facility] Comment on above: Performed By: #### L IPID, CMP #### [facility] [address] [place] [address] Dr. Tai Godwin Creatinine [Mass/Vol] 0.77 mg/dL Normal 0.70-1.30 [facility] Comment on above: Performed By: #### L IPID, CMP #### [facility] [address] [place] [address] Dr. Tai Godwin EGFR-AF FIJIAN >60 Normal >=60 [facility] Comment on above: Performed By: #### L IPID, CMP #### [facility] [address] [place] [address] Dr. Tai Godwin EGFR-NON AF FIJIAN >60 Normal >=60 [facility] Comment on above: Performed By: #### L IPID, CMP #### [facility] [address] [place] [address] Dr. Tai Godwin Globulin (S) [Mass/Vol] 4.4 g/dL Normal [facility] Comment on above: Performed By: #### L IPID, CMP #### [facility] [address] [address] [address] Tai Godwin Glucose [Mass/Vol] 159 mg/dL Critically high 74-106 [facility] Comment on above: Performed By: #### L IPID, CMP #### [facility] [address] [address] [address] Tai Godwin Potassium [Moles/Vol] 3.5 mmol/L Normal 3.5-5.1 [facility] Comment on above: Performed By: #### L IPID, CMP #### [facility] [address] [address] [address] Tai Godwin Protein [Mass/Vol] 8.4 g/dL Critically high 6.4-8.2 [facility] Comment on above: Performed By: #### L IPID, CMP #### [facility] [address] [address] [address] Tai Godwin Sodium [Moles/Vol] 140 mmol/L Normal 136-145 [facility] Comment on above: Performed By: #### L IPID, CMP #### [facility] [address] [address] [address] Tai Godwin Urea nitrogen [Mass/Vol] 12.0 mg/dL Normal 7.0-18.0 [facility] Comment on above: Performed By: #### L IPID, CMP #### [facility] [address] [address] [address] Tai oGdwin Urea nitrogen/Creatinin e [Mass ratio] 15.6 mg/mg [facility] Comment on above: Performed By: #### L IPID, CMP #### [facility] [address] [address] [address] Tai Godwin Physician Referralon 023 Physician Referral [id number] Normal [facility] GLYCOHEMOGLOBIN A1Con 2021 ADA RECOMMENDATION SEE BELOW Normal [facility] Comment on above: Result Comment: ADA RECOMMENDED LIMIT 4.0 - 6.0 ADA THERAPEUTIC TARGET < 7.0 ACTION SUGGESTED > 7.0 Performed By: #### M ALBR #### [facility] [address] [address] [address] Tai Godwin Glucose [Mass/Vol] 174 mg/dL Normal [facility] Comment on above: Performed By: #### M ALBR #### [facility] [address] [place] [address] Dr. Tai Godwin HbA1c (Bld) [Mass fraction] 7.7 % Critically high 4.5-6.2 [facility] Comment on above: Performed By: #### M ALBR #### [facility] [address] [place] [address] Dr. Tai Godwin GLYCOHEMOGLOBIN A1Con 2021 ADA RECOMMENDATION SEE BELOW Normal [facility] Comment on above: Result Comment: ADA RECOMMENDED LIMIT 4.0 - 6.0 ADA THERAPEUTIC TARGET < 7.0 ACTION SUGGESTED > 7.0 Performed By: #### D ATA1C #### [facility] [address] [place] [address] Dr. Tai Godwin Glucose [Mass/Vol] 192 mg/dL Normal [facility] Comment on above: Performed By: #### D ATA1C #### [facility] [address] [place] [address] Dr. Tai Godwin HbA1c (Bld) [Mass fraction] 8.3 % Critically high 4.5-6.2 [facility] Comment on above: Performed By: #### D ATA1C #### [facility] [address] [place] [address] Dr. Tai Godwin CBC AUTO DIFFon 07-13-2021 BASO # 0.1 103/ul Normal 0.0-0.1 [facility] Comment on above: Performed By: #### M ALBR #### [facility] [address] [place] [address] Dr. Tai Gdowin Basophils/100 WBC (Bld) 1.1 % Normal 0.2-2.0 [facility] Comment on above: Performed By: #### M ALBR #### [facility] [address] [place] [address] Dr. Tai Godwin EO # 0.1 103/ul Normal 0.0-0.7 [facility] Comment on above: Performed By: #### M ALBR #### [facility] [address] [place] [address] Dr. Tai Godwin Eosinophils/100 WBC (Bld) 1.2 % Normal 0.9-7.0 [facility] Comment on above: Performed By: #### M ALBR #### [facility] [address] [place] [address] Dr. Tai Godwin Erythrocyte distribution width (RBC) [Ratio] 14.0 % Normal 11.0-15.0 [facility] Comment on above: Performed By: #### M ALBR #### [facility] [address] [place] [address] Dr. Tai Godwin Hematocrit (Bld) [Volume fraction] 45.7 % Normal 42.0-54.0 [facility] Comment on above: Performed By: #### M ALBR #### [facility] [address] [place] [address] Dr. Tai Godwin Hemoglobin (Bld) [Mass/Vol] 14.9 g/dL Normal 14.0-18.0 [facility] Comment on above: Performed By: #### M ALBR #### [facility] [address] [place] [address] Dr. Tai Godwin IG # 0.02 10e3/ul Normal 0.00-0.03 [facility] Comment on above: Performed By: #### M ALBR #### [facility] [address] [place] [address] Dr. Tai Godwin IG % 0.2 % Normal 0.0-0.5 [facility] Comment on above: Performed By: #### M ALBR #### [facility] [address] [place] [address] Dr. Tai Godwin LYMPH # 3.8 103/ul Normal 1.2-3.8 [facility] Comment on above: Performed By: #### M ALBR #### [facility] [address] [place] [address] Dr. Tai Godwin Lymphocytes/100 WBC (Bld) 38.0 % Normal 20.5-60.0 [facility] Comment on above: Performed By: #### M ALBR #### [facility] [address] [place] [address] Dr. Tai Godwin MANUAL DIFF REQ NO Normal [facility] Comment on above: Performed By: #### M ALBR #### [facility] [address] [place] [address] Dr. Tai Godwin MCH (RBC) [Entitic mass] 29.9 pg Normal 25.9-34.0 [facility] Comment on above: Performed By: #### M ALBR #### [facility] [address] [place] [address] Dr. Tai Godwin MCHC (RBC) [Mass/Vol] 32.6 g/dL Normal 29.9-35.2 [facility] Comment on above: Performed By: #### M ALBR #### [facility] [address] [place] [address] Dr. Tai Godwin MCV (RBC) [Entitic vol] 91.6 fL Normal 80.0-94.0 [facility] Comment on above: Performed By: #### M ALBR #### [facility] [address] [place] [address] Dr. Tai Godwin MONO # 0.7 103/ul Normal 0.3-0.8 [facility] Comment on above: Performed By: #### M ALBR #### [facility] [address] [place] [address] Dr. Tai Godwin Monocytes/100 WBC (Bld) 7.0 % Normal 1.7-12.0 [facility] Comment on above: Performed By: #### M ALBR #### [facility] [address] [place] [address] Dr. Tai Godwin NEUT # 5.3 103/ul Normal 1.4-6.5 [facility] Comment on above: Performed By: #### M ALBR #### [facility] [address] [address] [address] Tai Godwin Neutrophils/100 WBC (Bld) 52.5 % Normal 43.0-75.0 [facility] Comment on above: Performed By: #### M ALBR #### [facility] [address] [place] [address] Dr. Tai Godwin Platelet mean volume (Bld) [Entitic vol] 10.2 fL Normal 9.5-13.5 [facility] Comment on above: Performed By: #### M ALBR #### [facility] [address] [place] [address] Dr. Tai Godwin PLT 178 103/ul Normal 150-450 [facility] Comment on above: Performed By: #### M ALBR #### [facility] [address] [place] [address] Dr. Tai Godwin RBC 4.99 106/ul Normal 4.70-6.10 [facility] Comment on above: Performed By: #### M ALBR #### [facility] [address] [place] [address] Dr. Tai Godwin WBC 10.1 103/ul Normal 4.0-11.0 [facility] Comment on above: Performed By: #### M ALBR #### [facility] [address] [place] [address] Dr. Tai Godwin GLYCOHEMOGLOBIN A1Con 2021 ADA RECOMMENDATION SEE BELOW Normal [facility] Comment on above: Result Comment: ADA RECOMMENDED LIMIT 4.0 - 6.0 ADA THERAPEUTIC TARGET < 7.0 ACTION SUGGESTED > 7.0 Performed By: #### M ALBR #### [facility] [address] [place] [address] Dr. Tai Godwin Glucose [Mass/Vol] 180 mg/dL Normal [facility] Comment on above: Performed By: #### M ALBR #### [facility] [address] [place] [address] Dr. Tai Godwin HbA1c (Bld) [Mass fraction] 7.9 % Critically high 4.5-6.2 [facility] Comment on above: Performed By: #### M ALBR #### [facility] [address] [address] [address] Tai Godwin LIPID PROFILEon 07-13-2021 CHOL-HDL RATIO NORM SEE BELOW Normal [facility] Comment on above: Result Comment: 3.3 - 4.4 LOW RISK 4.4 - 7.1 AVERAGE RISK 7.1 - 11.0 MODERATE RISK >11.0 HIGH RISK Performed By: #### L IPID, CMP #### [facility] [address] [address] [address] Tai Godwin Cholesterol [Mass/Vol] 110 mg/dL Normal <=200 [facility] Comment on above: Performed By: #### L IPID, CMP #### [facility] [address] [address] [address] Tai Godwin Cholesterol in HDL [Mass/Vol] 48 mg/dL Normal 40-60 [facility] Comment on above: Performed By: #### L IPID, CMP #### [facility] [address] [address] [address] Tai Godwin Cholesterol in LDL [Mass/Vol] 48.0 mg/dL Normal [facility] Comment on above: Performed By: #### L IPID, CMP #### [facility] [address] [address] [address] Tai Godwin Cholesterol.total/ Cholesterol in HDL [Mass ratio] 2.3 {ratio} Normal [facility] Comment on above: Performed By: #### L IPID, CMP #### [facility] [address] [address] [address] Tai Godwin HDL NORMAL > or = 60 mg/dl - LO W CARDIOVASCULAR RISK <40 mg/dl - HIGH CARDIOVASCULAR RISK Normal [facility] Comment on above: Performed By: #### L IPID, CMP #### [facility] [address] [address] [address] Tai Godwin LDL CALC NORMAL SEE BELOW Normal [facility] Comment on above: Result Comment: <100 mg/dl OPTIMAL 100 - 129 mg/dl NEAR OR ABOVE OPTIMAL 130 - 159 mg/dl BORDERLINE HIGH 160 - 189 mg/dl HIGH >190 mg/dl VERY HIGH Performed By: #### L IPID, CMP #### [facility] [address] [address] [address] Tai Godwin Triglyceride [Mass/Vol] 70 mg/dL Normal <=150 [facility] Comment on above: Performed By: #### L IPID, CMP #### [facility] [address] [place] [address] Dr. Tai Godwin VLDL CALC 14.0 mg/dL Normal [facility] Comment on above: Performed By: #### L IPID, CMP #### [facility] [address] [address] [address] Tai Godwin MICROALBUMIN, RAND URon 06-18 mALB 1.4 mg/L Normal <=30.0 [facility] Comment on above: Performed By: #### M ALBR #### [facility] [address] [place] [address] Dr. Tai Godwin PROF 14(COMP METB)on 022 Albumin [Mass/Vol] 4.0 g/dL Normal 3.4-5.0 [facility] Comment on above: Performed By: #### L IPID, CMP #### [facility] [address] [place] [address] Dr. Tai Godwin Albumin/Globulin [Mass ratio] 0.9 {ratio} Normal [facility] Comment on above: Performed By: #### L IPID, CMP #### [facility] [address] [place] [address] Dr. Tai Godwin ALP [Catalytic activity/Vol] 65 U/L Normal 46-116 [facility] Comment on above: Performed By: #### L IPID, CMP #### [facility] [address] [place] [address] Dr. Tai Godwin ALT [Catalytic activity/Vol] 60 U/L Normal 16-63 [facility] Comment on above: Performed By: #### L IPID, CMP #### [facility] [address] [place] [address] Dr. Tai Godwin Anion gap [Moles/Vol] 14.9 mmol/L Normal [facility] Comment on above: Performed By: #### L IPID, CMP #### [facility] [address] [address] [address] Tai Godwin AST [Catalytic activity/Vol] 38 U/L Critically high 15-37 [facility] Comment on above: Performed By: #### L IPID, CMP #### [facility] [address] [place] [address] Dr. Tai Godwin Bilirubin [Mass/Vol] 0.5 mg/dL Normal 0.2-1.0 [facility] Comment on above: Performed By: #### L IPID, CMP #### [facility] [address] [place] [address] Dr. Tai Godwin Calcium [Mass/Vol] 9.4 mg/dL Normal 8.5-10.1 [facility] Comment on above: Performed By: #### L IPID, CMP #### [facility] [address] [place] [address] Dr. Tai Godwin Chloride [Moles/Vol] 98 mmol/L Normal 98-107 [facility] Comment on above: Performed By: #### L IPID, CMP #### [facility] [address] [place] [address] Dr. Tai Godwin CO2 [Moles/Vol] 27.3 mmol/L Normal 21.0-32.0 [facility] Comment on above: Performed By: #### L IPID, CMP #### [facility] [address] [place] [address] Dr. Tai Godwin Creatinine [Mass/Vol] 0.82 mg/dL Normal 0.70-1.30 [facility] Comment on above: Performed By: #### L IPID, CMP #### [facility] [address] [place] [address] Dr. Tai Godwin EGFR-AF FIJIAN >60 Normal >=60 [facility] Comment on above: Performed By: #### L IPID, CMP #### [facility] [address] [place] [address] Dr. Tai Godwin EGFR-NON AF FIJIAN >60 Normal >=60 [facility] Comment on above: Performed By: #### L IPID, CMP #### [facility] [address] [place] [address] Dr. Tai Godwin Globulin (S) [Mass/Vol] 4.4 g/dL Normal [facility] Comment on above: Performed By: #### L IPID, CMP #### [facility] [address] [place] [address] Dr. Tai Godwin Glucose [Mass/Vol] 178 mg/dL Critically high 74-106 [facility] Comment on above: Performed By: #### L IPID, CMP #### [facility] [address] [place] [address] Dr. Tai Godwin Potassium [Moles/Vol] 4.2 mmol/L Normal 3.5-5.1 [facility] Comment on above: Performed By: #### L IPID, CMP #### [facility] [address] [place] [address] Dr. Tai Godwin Protein [Mass/Vol] 8.4 g/dL Critically high 6.4-8.2 [facility] Comment on above: Performed By: #### L IPID, CMP #### [facility] [address] [place] [address] Dr. Tai Godwin Sodium [Moles/Vol] 136 mmol/L Normal 136-145 [facility] Comment on above: Performed By: #### L IPID, CMP #### [facility] [address] [place] [address] Dr. Tai Godwin Urea nitrogen [Mass/Vol] 14.0 mg/dL Normal 7.0-18.0 [facility] Comment on above: Performed By: #### L IPID, CMP #### [facility] [address] [place] [address] Dr. Tai Godwin Urea nitrogen/Creatinin e [Mass ratio] 17.1 mg/mg Normal [facility] Comment on above: Performed By: #### L IPID, CMP #### [facility] [address] [place] [address] Dr. Tai Godwin History and Physicalon 10-06 History and Physical [id number]#1.00OTGTLUCRETIA [facility] Operative Report - Surgeon/P jose guadalupe 10-06-2017 Operative Report - Surgeon/Physician [id number]#1.00OTCARROLLUniversity Hospitals Conneaut [facility] Coding Summaryon 09-29-2017 Coding Summary CODING DATE: 018 [facility] STATUS: Home PAYOR: [employer] APC DESCRIPTION 5312 Level 2 Lower GI Procedures ADMIT DX: REASON FOR VISIT DX: R19.5 Other fecal abnormalities FINAL DX: PRINCIPAL: D12.6 Benign neoplasm of colon, unspecified SECONDARY: PYMT PROC APC STAT DESCRIPTION DOCTOR NAME DATE 71581 5312 T Colonoscopy, flexible; Sacha Antonio MD 09/19/2017 with removal of tumor(s), polyp(s), or other lesion(s) by snare technique NOTE: The code number assigned matches the documented diagnosis and / or procedure in the patient's chart. However, the narrative phrase printed from the coding software may appear abbreviated, or result in slightly different terminology. Coded By: Carmelita Mcgregor Date Saved: 09/29/2017 01:52 pm [facility] - AP Resultson 8 Lab - AP Results [id number]#1.00[facility] Consent Formson 09-22-2017 Consent Forms [id number]#1.00OTGTUniversity Hospitals [facility]aut [facility] Intraoperative Noteon 2017 Intraoperative Note [id number]#1.00OTRiver[facility] Institute Intraoperative Note [id number]#1.00OTRiverview Health Institute Telemetry Stripson 8 Telemetry Strips [id number]#1.00OTGTUniversity Hospitals [facility] Inpatient Clinical Summaryon 09-19-2017 [facility]Clinical Discharge SummaryPERSON INFORMATIONName BURGESS CATES Jr Age 62 Years [birth year]/Sex MALE Language Qatari PCP Librado Connor EMarital Status Med Service Ambulatory SurgeryMRN [id number] Acct# Arrival 09/19/17 06:13:16Visit Reason COLONOSCOPY Acuity LOS 017 20:27Address:[address] [facility] [address]Rgaxfon:PROVIDER INFORMATIONVITALS INFORMATIONVital Sign Triage LatestTemp OralTemp TemporalTemp IntravascularTemp AxillaryTemp [id number] Sat 98 % 100 %Respiratory Rate 18 br/min 73 br/minPeripheral Pulse Rate 87 bpm 80 bpmApical Heart RateBlood Pressure 161 mmHg / 81 mmHg 93 mmHg / 69 mmHgComment:MEDICAL INFORMATIONAllergy Info:No known allergiesPrescriptions Given:Home Meds DisplayamLODIPine (amLODIPine 10 mg oral tablet) 1 tab(s) ( 10 mg ), PO, Daily, # 30 tab(s), 0 Refill(s)clopidogrel (clopidogrel 75 mg oral tablet) 1 tab(s) ( 75 mg ), PO, Daily, # 30 tab(s), 0 Refill(s)dapagliflozin (Farxiga 5 mg oral tablet) 0 Refill(s)hydrALAZINE (hydrALAZINE 10 mg oral tablet) 1 tab(s) ( 10 mg ), PO, BID, # 60 tab(s), 0 Refill(s)hydrochlorothiaz sd-lisinopril (Lisinopril/HCTZ 20/25 mg) 0 Refill(s)metFORMIN (metFORMIN 1000 mg oral tablet) 1 tab(s) ( 1,000 mg ), PO, BID, # 180 tab(s), 0 Refill(s)simvastatin (simvastatin 40 mg oral tablet) 1 tab(s) ( 40 mg ), PO, Once a day (at bedtime), # 90 tab(s), 0 Refill(s)SITagliptin (Januvia 100 mg oral tablet) 1 tab(s) ( 100 mg ), PO, Daily, # 30 tab(s), 0 Refill(s)Medication List:Continue These Medications:amLODIPine (amLODIPine 10 mg oral tablet) 10 mg Oral every dayclopidogrel (clopidogrel 75 mg oral tablet) 75 mg Oral every daydapagliflozin (Farxiga 5 mg oral tablet)hydrALAZINE (hydrALAZINE 10 mg oral tablet) 10 mg Oral 2 times a dayhydrochlorothiazide-li sinopril (Lisinopril/HCTZ 20/25 mg)metFORMIN (metFORMIN 1000 mg oral tablet) 1,000 mg Oral 2 times a daysimvastatin (simvastatin 40 mg oral tablet) 40 mg Oral once a day (at bedtime)SITagliptin (Januvia 100 mg oral tablet) 100 mg Oral every dayComment:Lab and Radiology ResultsLaboratory or Other Results This Visit (last charted value for your 09/19/2017 visit) Nursing Point of Care Testing 09/19/2017 7:05 AM Blood Glucose, Capillary. POC: 156 mg/dL -- Normal range between ( 60 and 150 )DIET & ACTIVITYPatient Activity Level:As ToleratedPatient Diet:RegularPatient Activity Restrictions:No drivingDISCHARGE INFORMATIONDischarge Disposition:Discharge Location:[facility] REASON INCOMPLETE INFORMATIONPATIENT EDUCATION INFORMATIONInstructions:Mesha washington up:With: Address: When:Sacha Antoino [address] [place] [address], [address] [place] [address] Business (1) Within 10 to 12 daysComments:Call for follow up appointmentWith: Address: When:Librado Connor [address] [place] [address] Business (1)DIAGNOSISColonic polyp; Heme positive stoolComment:PHYS DOC NOTES Normal [facility] Inpatient Patient Summaryon 09-19-2017 Inpatient Patient Summary [address] [id number] patient Discharge InstructionsName: CARRIE CATES JrOB: [birth year] Address: [address] [place], [place] [id number] Care Provider:Name: Librado Connor EPhone: After you are discharged if you find you have any questions, please, call [phone] ext [phone] to speak to a nurse.Discharge Diagnosis: Colonic polyp; Heme positive stoolIf you received any narcotics, sedation, or any other medication that causes drowsiness for the next 24 hours, unless otherwise directed:? Do not drive a car.? Do not operate machinery such as power tools, lawn mowers, drills, sewing machines, or stoves? Avoid alcoholic beverages and drugs for allergies, nerves, or sleep? Do not make important personal or business decisions or sign any legal documentsOhio State [facility]ing Hospital would like to thank you for allowing us to assist you with your healthcare needs. The following includes patient education materials and information regarding your injury/illness.BURGESS CATES Jr has been given the following list of follow-up instructions, prescriptions, and patient education materials:Follow-up InstructionsWith: Address: When:Sacha Antonio [address] [facility], [address] [place] [address] Business (1) Within 10 to 12 daysComments:Call for follow up appointmentWith: Address: When:Librado Connor [address] [place] [address] Business (1)MedicationsDuring the course of your visit, your medication list was updated with the most current information. The details of those changes are reflected below:Medications to Continue That Have Not ChangedOther MedicationsamLODIPine (amLODIPine 10 mg oral tablet) 1 tab(s) Oral every day.clopidogrel (clopidogrel 75 mg oral tablet) 1 tab(s) Oral every day.dapagliflozin (Farxiga 5 mg oral tablet)hydrALAZINE (hydrALAZINE 10 mg oral tablet) 1 tab(s) Oral 2 times a day.hydrochlorothiazide-l isinopril (Lisinopril/HCTZ 20/25 mg)metFORMIN (metFORMIN 1000 mg oral tablet) 1 tab(s) Oral 2 times a day.simvastatin (simvastatin 40 mg oral tablet) 1 tab(s) Oral once a day (at bedtime).SITagliptin (Januvia 100 mg oral tablet) 1 tab(s) Oral every day.It is important to always keep an active list of medications available so that you can share with other providers and manage your medications appropriately. As an additional courtesy, we are also providing you with your final active medications list that you can keep with you.amLODIPine (amLODIPine 10 mg oral tablet) 1 tab(s) Oral every day.clopidogrel (clopidogrel 75 mg oral tablet) 1 tab(s) Oral every day.dapagliflozin (Farxiga 5 mg oral tablet)hydrALAZINE (hydrALAZINE 10 mg oral tablet) 1 tab(s) Oral 2 times a day.hydrochlorothiazide-l isinopril (Lisinopril/HCTZ 20/25 mg)metFORMIN (metFORMIN 1000 mg oral tablet) 1 tab(s) Oral 2 times a day.simvastatin (simvastatin 40 mg oral tablet) 1 tab(s) Oral once a day (at bedtime).SITagliptin (Januvia 100 mg oral tablet) 1 tab(s) Oral every day.Take only the medications listed above. Contact your doctor prior to taking any medications not on this list.Diet & ActivityPatient Activity Level: As ToleratedPatient Diet: RegularPatient Activity Restrictions: No drivingComment:Patient education materials, if any, will display belowViruses or BacteriaWhat?s got you sick?Antibiotics only treat bacterial infections. Viral illnesses cannot be treated with antibiotics. When an antibiotic is not prescribed, ask your healthcare professional for tips on how to relieve symptoms and feel better. Usual CauseIllness Viruses Bacteria Antibiotic NeededCold/Runny Nose NOBronchitis/Chest Cold (in otherwise healthy children and adults) NOWhooping Cough YesFlu NOStrep Throat YesSore Throat (except strep) NOFluid in the middle ear (otitis media with effusion) NOUrinary Tract Infection YesAntibiotics Aren?t Always the Answerwww.cdc.gov/getsmar t GETSMARTKnow When Antibiotics [place] Department of Health and Human ServicesCenters for Disease Control and Prevention October 2013 [facility] MAGR Endo Intraoperative Rec ordon 09-19-2017 MAGR Endo Intraoperative Record MAGR Endo Intra-Op Record Summary Primary Physician: Sacha Antonio MD Finalized Date/Time: 09/19/17 07:46:44 Pt. Name: BURGESS Monica CATES Jr/Sex: 1955 MALE Med Rec #: [id number] Physician: Sacha Antonio MD Financial #: [id number] Pt. Type: D Room/Bed: / Admit/Disch: 09/19/17 06:13:16 - Institution: Case Times EN MAGR Entry 1 Patient In Room Time 09/19/17 07:20:00 Out Room Time 09/19/17 07:45:00 Anesthesia Start Time 09/19/17 07:27:00 Stop Time 09/19/17 07:44:00 Surgery Start Time 09/19/17 07:27:00 Stop Time 09/19/17 07:44:00 Last Modified By: Angie Pedersen RN 09/19/17 07:45:53 General Comments: 0732 cecum time Case Attendance EN MAGR Entry 1 Entry 2 Entry 3 Case Attendee Sacha Antonio MD, Barbara RN Fresch, Lora RN Role Performed Surgeon - Primary Plater Barrel Plater Barrel Time In 09/19/17 07:20:00 09/19/17 07:20:00 09/19/17 07:20:00 Time Out 09/19/17 07:45:00 09/19/17 07:45:00 09/19/17 07:45:00 Procedure Colonoscopy Colonoscopy Colonoscopy Last Modified By: Angie Pedersen RN, Barbara RN Long, Barbara RN 09/19/17 07:45:57 09/19/17 07:45:57 09/19/17 07:45:57 Entry 4 Case Attendee Charlene Aguilera Role Performed Scrub Personnel Time In 09/19/17 07:20:00 Time Out 09/19/17 07:45:00 Procedure Colonoscopy Last Modified By: Angie Pedersen RN 09/19/17 07:45:57 Surgical Procedures EN MAGR Pre-Care Text: A.20 Verifies operative procedure, surgical site, and laterality Im.150 Develops individualized plan of care Entry 1 Procedure Colonoscopy Primary Procedure Yes Primary Surgeon Sacha Antonio MD Surgeon Comment COLONOSCOPY Start 09/19/17 07:27:00 Stop 09/19/17 07:44:00 Anesthesia Type Conscious Sedation Surgical Service General Wound Class Clean-Contaminated Last Modified By: Angie Pedersen RN 09/19/17 07:45:47 Post-Care Text: O.730 The patient's care is consistent with the individualized perioperative plan of care General Case Data EN MAGR Pre-Care Text: A.350.1 Classifies surgical wound Entry 1 Case Information OR MAGR Endo Room Case Level Level 3 Wound Class Clean-Contaminated Specialty Gastroenterology ASA Class 2 Diagnosis Preop Diagnosis HEME POSTIVE STOOL Postop Same As Preop No Postop Diagnosis HEME POSTIVE STOOL Last Modified By: Angie Pedersen RN 09/19/17 07:22:38 Post-Care Text: O.760 Patient receives consistent and comparable care regardless of the setting Time Out EN MAGR Entry 1 Time out date/time 09/19/17 07:26:00 All team members Yes have introduced themselves by name and role Surgeon, Yes Surgeon reviews Yes anesthesia, nurse critical or confirm patient, unexpected steps, site, procedure operative duration, anticipated blood loss Anesthesia team No Nursing team Yes reviews any reviews sterility patient-specific (including concerns indicator results) and equipment issues/concerns Antibiotic Antibiotic N/A prophylaxis given within the last 60 minutes Is essential N/A imaging displayed? Last Modified By: Angie Pedersen RN 09/19/17 07:33:23 Patient Positioning EN MAGR Pre-Care Text: A.280 Identifies baseline musculoskeletal status Im.40 Positions the patient Im.80 Applies safety devices Entry 1 Procedure Colonoscopy Body Position Lateral Left Arm Position Resting at Side Right Arm Position Resting at Side Left Leg Position Extended Right Leg Position Extended Feet Uncrossed? Yes Press Points Checked Yes Additional LATERAL LEFT SIDE Outcome Met (O.80) Yes Information Last Modified By: Angie Pedersen RN 09/19/17 07:25:34 Post-Care Text: E.290 Evaluates musculoskeletal status O.80 Patient is free from signs and symptoms of injury related to positioning Cautery EN MAGR Pre-Care Text: A.240 Assesses baseline skin condition A.40 Verifies presence of prosthetics or corrective devices Im.50 Implements protective measures to prevent injury due to electrical sources Entry 1 ESU Type Electrosurgical Unit Identification [id number] Number ESU Settings Syntegrity Coag Setting 20 Grounding Pad Details Grounding Pad Yes Grounding Pad Site Thigh Needed? Grounding Pad Site Right Within Expiration Yes Detail Date? Outcome Met (O.10) Yes Last Modified By: Angie Pedersen RN 09/19/17 07:33:49 Post-Care Text: E.10 Evaluates for signs and symptoms of physical injury to skin and tissue O.10 Patient is free from signs and symptoms of injury related to thermal sources Cultures and Specimens EN MAGR Pre-Care Text: A.350 Assesses susceptibility for infection A.10 Confirms patient identity Im.320 Manages culture specimen collection Im.330 Manages specimen handling and disposition Entry 1 Cultures Ordered No Specimens Ordered Yes Outcome Met (O.40) Yes Last Modified By: Angie Pedersen RN 09/19/17 07:34:21 Post-Care Text: E.40 Evaluates correct processes have been performed for specimen handling and disposition O.40 Patient's specimen(s) is managed in the appropriate manner Communication EN MAGR Pre-Care Text: A.520 Identifies barriers to communication (Patient and Family Communications) A.20 Verifies operative procedure, surgical site, and laterality (Hand-off Communications) Im.500 Provides status reports to family members Im.150 Develops individualized plan of care Entry 1 Communication Face to face Communication By Marcie Flores RN Date and Time 09/19/17 07:45:00 Outcome Met (0.50) Yes Last Modified By: Angie Pedersen RN 09/19/17 07:45:44 Post-Care Text: E.520 Evaluates psychosocial response to plan of care E.800 Ensures continuity of care O.500 Patient or designated support person demonstrates knowledge of the expected psychosocial responses to the procedure O.50 Patient's current status is communicated throughout the continuum of care Case Comments Finalized By: Angie Pedersen RN Document Signatures Signed By: Angie Pedersen RN 09/19/17 07:46 [facility] MAGR Endo Postoperative Brayan rdon 09-19-2017 MAGR Endo Postoperative Record MAGR Endo Phase II Record Summary Primary Physician: Sacha Antonio MD Finalized Date/Time: 09/19/17 08:52:37 Pt. Name: LOAN Cervantes /Sex: 1955 MALE Med Rec #: [id number] Physician: Sacha Antonio MD Financial #: [id number] Pt. Type: D Room/Bed: / Admit/Disch: 09/19/17 06:13:16 - Institution: Phase II Case Times EN MAGR Pre-Care Text: Patient is free from s/s of injury. Patient remains free from compromised physical state related to surgery or anesthesia. Patient comfort maintained. Patient/family verbalize understanding of discharge instructions. Entry 1 In PACU II 09/19/17 07:48:00 Discharge from PACU 09/19/17 08:55:00 II Last Modified By: Sandra Mckeon RN 09/19/17 08:52:35 Post-Care Text: The patient remains free from s/s of injury. Patient's vital signs stable, circulation maintained, return to preop mental and physical status, opsite/dressing intact, minimal or absent nausea and vomiting, tolerates po intake. Patient verbalizes adequate pain control. Patient/family express understanding of discharge instructions. Finalized By: Sandra Mckeon RN Document Signatures Signed By: Sandra Mckeon RN 09/19/17 08:52 [facility] MAGR Endo Preoperative Recor don 09-19-2017 MAGR Endo Preoperative Record MAGR Endo Pre-Op Record Summary Primary Physician: Sacha Antonio MD Finalized Date/Time: 09/19/17 07:17:51 Pt. Name: LOAN BURGESS Billy /Sex: 1955 MALE Med Rec #: [id number] Physician: Sacha Antonio MD Financial #: [id number] Pt. Type: D Room/Bed: / Admit/Disch: 09/19/17 06:13:16 - Institution: Pre-Op [facility] Pre-Care Text: Patient will be optimally prepared for surgery. Patient is free from s/s of injury. Provide information to patient/family related to plan of care. Verify patient allergies. Confirm identity and verify consent before the operative or invasive procedure. Entry 1 Patient Arrival Time 09/19/17 06:30:00 Preop Departure 09/19/17 07:17:00 Last Modified By: Sandra Mckeon RN 09/19/17 07:17:47 Post-Care Text: Patient is prepared mentally and physically and is ready for surgery. The patient remains free from s/s of injury. Patient/family express understanding of plan of care and participate in decisions affecting his or her perioperrative plan of care. Allergies documented appropriately. Patient identifiers and consent correct. General Comments: arrives ambulatory to [facility], denies recent cp, sob, new illnesses, pacemaker, defibrillator or sleep apnea Finalized By: Sandra Mckeon RN Document Signatures Signed By: Sandra Mckeon RN 09/19/17 07:17 [facility] Operative Report - Surgeon/P jose guadalupe 09-19-2017 Operative Report - Surgeon/Physician DATE OF PROCEDURE: 09/19/17URGEON: Sacha Antonio MDANESTHESIA: Conscious sedation with Versed 8 mg IV and Demerol 50 mg IV.PREOPERATIVE DIAGNOSIS: Heme positive stools.POSTOPERATIVE DIAGNOSIS: Polyp at 45 cm.PROCEDURE: Colonoscopy with snare polypectomy.FINDINGS: As above.DISPOSITION: To the holding area in fair condition.INDICATIONS: The patient is a 62-year-old man with heme positive stools. Hehas never had a colonoscopy.PROCEDURE: The patient was brought into the endoscopy suite and placed inthe left lateral decubitus position. He was sedated with Versed and Demerol.Digital rectal examination was performed that showed no evidence of anymasses, hemorrhoids or fissures. The colonoscope was lubricated andintroduced into the anus and advanced slowly. At 45 cm, a pedunculated polypwas visualized. The colonoscope continued to be advanced until reaching thececum. Cecal markings were identified. The scope was then removed. The polypat 45 cm was removed using electrocautery snare. There was some oozing fromthe base of the polyp and this was cauterized using the snare. Hemostasiswas evident. The colonoscope was retroflexed and there was no evidence ofany lesions. The patient tolerated the procedure without any difficulty.He will follow up with me in 2 weeks.Sacha Antonio M.D.JOB #: [id number]: 09/19/2017T: 09/19/2017[Electronically Signed on: 09/30/2017 16:04 EDT] Sacha Antonio MD[Verified on: 09/30/2017 16:04 EDT] Sacha Antonio MD[Transcribed on: 09/19/2017 08:02 EDT][facility] Vital Signs Date Time Vital Sign Value Performing Clinician Facility 06-03-2023 09:35-0400 Body height 177.[address] [facility] 06-03-2023 09:35-0400 Body mass index (BMI) [Ratio] 32.7 kg/m2 [facility] 06-03-2023 09:35-0400 Body weight 103.[address] [facility] 06-03-2023 09:35-0400 Diastolic blood pressure 88 mm[Hg] [facility] 06-03-2023 09:35-0400 Systolic blood pressure 172 mm[Hg] [facility] 03-11-2023 08:30-0500 Body height 177.8 cm Librado Ball Other [facility] 03-11-2023 08:30-0500 Body mass index (BMI) [Ratio] 33.26 kg/m2 Librado Ball Other [facility] [employer] Other 03-11-2023 08:30-0500 Body weight 105.14 kg Librado Ball Other [facility] 03-11-2023 08:30-0500 Diastolic blood pressure 76 mm[Hg] Librado Ball Other [facility] 03-11-2023 08:30-0500 Respiratory rate 12 /min Librado Ball Other [facility] [employer] Other 03-11-2023 08:30-0500 Systolic blood pressure 156 mm[Hg] Librado Ball Other [facility] 11-12-2022 10:00-0400 Body height 177.8 cm Librado Ball Other [facility] [employer] Other 11-12-2022 10:00-0400 Body mass index (BMI) [Ratio] 33.34 kg/m2 Librado Ball Other [facility] [employer] Other 11-12-2022 10:00-0400 Body weight 105.42 kg Librado Ball Other [facility] Other 11-12-2022 10:00-0400 Diastolic blood pressure 81 mm[Hg] Librado Ball Other [facility] Other 11-12-2022 10:00-0400 Respiratory rate 12 /min Librado Ball Other [facility] Other 11-12-2022 10:00-0400 Systolic blood pressure 174 mm[Hg] Librado Ball Other [facility] Other 07-01-2022 09:30-0400 Body height 177.8 cm Librado Ball Other [facility] Other 07-01-2022 09:30-0400 Body mass index (BMI) [Ratio] 33.28 kg/m2 Librado Ball Other [facility] Other 07-01-2022 09:30-0400 Body weight 105.24 kg Librado Ball Other [facility] Other 07-01-2022 09:30-0400 Diastolic blood pressure 79 mm[Hg] Librado Ball Other [facility] Other 07-01-2022 09:30-0400 Respiratory rate 12 /min Librado Ball Other [facility] Other 07-01-2022 09:30-0400 Systolic blood pressure 183 mm[Hg] Librado Ball Other [facility] Other 07-01-2022 08:30-0400 Body height 177.8 cm Librado Ball Other [facility] Other 07-01-2022 08:30-0400 Body mass index (BMI) [Ratio] 33.28 kg/m2 Librado Ball Other [facility] Other 07-01-2022 08:30-0400 Body weight 105.24 kg Librado Ball Other [facility] Other 07-01-2022 08:30-0400 Diastolic blood pressure 79 mm[Hg] Librado Ball Other [facility] Other 07-01-2022 08:30-0400 Respiratory rate 12 /min Librado Ball Other [facility] Other 07-01-2022 08:30-0400 Systolic blood pressure 183 mm[Hg] Librado Ball Other [facility] Other Encounters Encounter Date Encounter Type Care Provider Facility Start: 06-03-2023 End: 06-03-2023 ambulatory [facility] Work Phone: Start: 06-03-2023 End: 06-03-2023 Patient encounter procedure [facility] Work Phone: Start: 03-11-2023 End: 03-11-2023 ambulatory Librado Ball Other [facility] Other Start: 03-11-2023 Office outpatient vi sit 25 minutes Librado Ball [facility] Start: 03-11-2023 End: 03-11-2023 Patient encounter procedure [facility]- Start: 01-06-2023 End: 01-06-2023 ambulatory Librado Ball Other [facility] Other Start: 01-06-2023 Telephone encounter Librado Ball [facility] Start: 01-04-2023 End: 01-04-2023 ambulatory Librado Ball Other [facility] Other Start: 01-04-2023 Telephone encounter Librado Ball [facility] Start: 11-12-2022 End: 11-12-2022 ambulatory Librado Ball Other [facility] Other Start: 11-12-2022 Office outpatient vi sit 25 minutes Librado Connor [facility] Start: 10-01-2022 End: 10-02-2022 ambulatory John R NILL Facility:[facility] Start: 09-12-2022 End: 09-12-2022 ambulatory Librado Connor Other [facility] Other Start: 09-12-2022 Telephone encounter Librado Connor [facility] Start: 09-11-2022 End: 09-12-2022 ambulatory John R NILL Facility:CD:[id number] Start: 08-21-2022 End: 08-22-2022 ambulatory John R NILL Facility:[facility] Start: 07-03-[address] LIBRADO CONNOR Facili ty:[facility] Start: 07-02-2022 ambulatory John R NILL Facility :[facility] Start: 07-02-2022 ambulatory John R NILL Facility :[facility] Start: 07-01-2022 End: 07-01-2022 ambulatory Librado Connor Other [facility] Other Start: 07-01-2022 Encounter for genera l adult medical examination without abnormal findings Librado Connor [facility] Start: 07-01-2022 Periodic preventive med est patient 65yrs& older Librado Connor [facility] Start: 07-01-2022 Telephone encounter Librado Connor [facility] Start: 01-28-2022 Encounter for genera l adult medical examination without abnormal findings DR LIBRADO CONNOR [facility] Start: 01-25-2022 End: 01-26-[address] NONE LISTED REQUEST Facility:[facility] Start: 01-23-2022 End: 01-24-[address] LIBRADO CONNOR Facility:[facility] Start: 01-23-2022 End: 01-24-2022 Encounter for general adult medical examination without abnormal findings DR LIBRADO CONNOR Facility:[facility] Start: 12-19-2021 End: 12-20-[address] IVANNA HERNANDEZ . Facility:[facility] Start: 10-31-2021 End: 11-01-[address] NONE LISTED REQUEST Facility:[facility] Start: 07-13-2021 End: 07-14-[address] LIBRADO CONNOR Facility:[facility] Start: 07-12-2021 Adult health examination Librado Connor Other [facility] Other Start: 09-19-2017 End: 09-20-2017 Patient encounter Sacha Antonio Facility:[facility] Start: 01-17-2017 End: 01-17-2017 Ambulatory DEFAULT PHYSICIAN Facility:[facility] Procedures Date Procedure Procedure Detail Performing Clinician Start: 07-03-2022 End: 07-03-[address] LIBRADO CONNOR Comment on above: Performed By: #### M ALBR #### [facility] [address] [address] [address] Tai Godwin Start: 07-13-[address] KIRSTIN CONNOR Comment on above: Performed By: #### P SASC #### [facility] [address] [address] [address] Tai Godwin Start: 06-24-2017 General examination of patient Librado Connor Other Start: 06-24-2017 Screening for malign ant neoplasm of colon Librado Connor Other Start: 06-24-2017 Screening for malign ant neoplasm of prostate Librado Connor Other Depression screening Ashley Connor Other Screening for malign ant neoplasm of prostate Librado Connor Other Immunizations Immunization Date Immunization Notes Care Provider Fa cili 11-12-2022 influenza virus vaccine, unspecified formulation [facility] 11-12-2022 influenza, high dose seasonal, preservative-free Librado Connor Other [facility] Other 12-19-2021 COVID-19 Vaccine Moderna - Documentation Purposes Only Librado Connor Other [facility] 11-29-2020 influenza virus vaccine, split virus (incl. purified surface antigen) Librado Connor Other [facility] Other 11-29-2020 influenza virus vaccine, unspecified formulation [facility] 11-29-2020 influenza, injectabl e, quadrivalent, preservative free Librado Connor Other [facility] 04-24-2020 COVID-19 Vaccine Ayesha - Documentation Purposes Only Librado Connor Other [facility] Payers Date Payer Category Payer [employer] [id number] 2019 Unknown [id number] 1958 [facility] [place] Blue Shield [id number] 1958 Medicare [id number] 2.1 [id number] 1959 Self-pay 1959 Unknown [id number] 1956 Unknown [id number] 2.16.84 [id number] 1956 Unknown [id number] 2.16.84 [id number] 1956 Unknown [id number] 2.16.84 [id number] 1956 Unknown [id number] 2.16.8 [id number] 1956 Unknown [id number] 2.16.8 [id number] 1956 Unknown [id number] 2.16.8 [id number] 1956 Unknown [id number] 2.16.8 [id number] 1956 Unknown [id number] 2.16.8 [id number] Unknown Unknown [id number] 2.16.84 [id number] Unknown [id number] 2.16.84 [id number] Unknown [id number] 2.16.84 [id number] Unknown [id number] 2.16.84 [id number] Social History Date Type Detail Facility Sex Assigned At [facility] Other Start: 06-03-2023 [facility] Start: 1955 Sex Assigned At Male F [facility] Clinical Notes 07-01-2022 to 03-11-2023 Note Date & Type Note Facility 03-11-2023 Evaluation note Encounter Date Diagnosis Assessment Notes Feb, Type 2 diabetes mellitus with diabetic polyneuropathy, without long-term current use of insulin (ICD-10 - E11.42) Inspect feet daily for cuts and calluses.Recommen d diabetic shoes and inserts to prevent callus formation.Fall precautions. Feb, Controlled type 2 diabetes mellitus with hyperglycemia, without long-term current use of insulin (ICD-10 - E11.65) This patient is following a comprehensive diabetic treatment plan. They are checking their feet daily for calluses and nonhealing ulcers. They are being seen for yearly dilated eye examinations. Goals: SBP less than 130, LDL less than 100, FBS less than 140, A1C less than 7%. They are checking their BS daily, will which are reviewed at the office visit. Continue regular routine monitoring of A1C, Microalbumin, Dilated eye exam and Foot exam Due for A1C w/ goal < 7% Feb, Essential (primary) hypertension (ICD-10 - I10) This patient is instructed to consume a healthy, low-fat, low-salt diet. They are also encouraged to continue exercise to achieve/maintain a normal BMI. Patient is instructed on home BP measurements: - rest for 5 minutes w/o talking.- positioned w/ feet on floor and arm supported.- average best 2/3 readings w/ goal < 135/85.- update office w/ home readings in 2 weeks. Increasing Lisinopril to 40mg Increasing Carvedilol to 12.5mg d/c HCTZ may initiated MRA Feb, Nonrheumatic aortic (valve) stenosis (ICD-10 - I35.0) Echo: 07/2020 - LVEF 65%, LAE, LOVELY 1.3, velocity 199, gradient 42/20 ECHO: 12/2022 - LVEF 65 to 70% - Moderate aortic valve stenosis - LOVELY 1.4cm, Velocity 292, Gradient 34/20 Stressed importance of improved BP control. Denies CP, palpitations or lightheadedness Reviewed Echo results and will continue to monitor on annual basis. Feb, Hyperlipidemia type II (ICD-10 - E78.01) Instructed on diet and exercise with continued statin therapy.Discussed the beneficial effects of lowering cholesterol in reducing the risk for cerebrovascular and cardiovascular disease. Feb, Cerebral atherosclerosis (ICD-10 - I67.2) No focal neurologic deficits. Reviewed stroke symptoms and instructed to go to ER for suspicious symptoms. Contionue secondary preventive measures. Feb, Other obesity due to excess calories (ICD-10 - E66.09) This patient has been instructed on a low-fat, high-fiber diet. They are instructed to reduce calories, portion sizes and snacks. It is recommended that they exercise for 30 minutes, 3-5 times weekly. Feb, Body mass index [BMI] 33.0-33.9, adult (ICD-10 - Z68.33) [facility] Other 11-18-2023 Evaluation note* Encounter Date Diagnosis Assessment Notes Treatment Notes Treatment Clinical Notes Dec, Nonrheumatic aortic (valve) stenosis (ICD-10 - I35.0) Echo: LVEF 65%, LAE, LOVELY 1.3, velocity 199, gradient 2020 Echo: LVEF 65 to 70%, RV is normal, LVH, velocity 292, gradient 34/20 - 2022 [facility] Other 11-18-2023 Evaluation note* Encounter Date Diagnosis Assessment Notes Treatment Notes Treatment Clinical Notes Dec, Nonrheumatic aortic (valve) stenosis (ICD-10 - I35.0) Echo: LVEF 65%, LAE, LOVELY 1.3, velocity 199, gradient 42/ - 2020 Echo: LVEF 65 to 70%, RV is normal, LVH, [facility] Other 09-26-2023 Evaluation note* Encounter Date Diagnosis Assessment Notes Treatment Notes Treatment Clinical Notes Oct, Type 2 diabetes mellitus with diabetic polyneuropathy, without long-term current use of insulin (ICD-10 - E11.42) Inspect feet daily for cuts and calluses.Recommend diabetic shoes and inserts to prevent callus formation.Fall precautions. Oct, Controlled type 2 diabetes mellitus with hyperglycemia, without long-term current use of insulin (ICD-10 - E11.65) This patient is following a comprehensive diabetic treatment plan. They are checking their feet daily for calluses and nonhealing ulcers. They are being seen for yearly dilated eye examinations. Goals: SBP less than 130, LDL less than 100, FBS less than 140, A1C less than 7%. They are checking their BS daily, will which are reviewed at the office visit. Continue regular routine monitoring of A1C,] Microalbumin, Dilated eye exam and Foot exam Last A1C 7.7% Increase Trulicity to 4.5 weekly Oct, Essential (primary) hypertension (ICD-10 - I10) This patient is instructed to consume a healthy, low-fat, low-salt diet. They are also encouraged to continue exercise to achieve/maintain a normal BMI. Increase Lisinopril/HCTZ to bid Patient is instructed on home BP measurements: - rest for 5 minutes w/o talking- positioned w/ feet on floor and arm supported- average best 2/3 readings w/ goal < 135/85 Oct, Nonrheumatic aortic (valve) stenosis (ICD-10 - I35.0) Echo: 07/2020 - LVEF 65%, LAE, LOVELY 1.3, velocity 199, gradient 42/20 Asymptomatic w/o CP, tachycardia or syncope. Must improve control of SBP Echo to quantitate degree of Oct, Hyperlipidemia type II (ICD-10 - E78.01) Instructed on diet and exercise with continued statin therapy.Discussed the beneficial effects of lowering cholesterol in reducing the risk for cerebrovascular and cardiovascular disease. Oct, Cerebral atherosclerosis (ICD-10 - I67.2) Continue secondary prevention measures. Continue Plavix despite minor bleeding compliations Oct, Other obesity due to excess calories (ICD-10 - E66.09) This patient has been instructed on a low-fat, high-fiber diet. They are instructed to reduce calories, portion sizes and snacks. It is recommended that they exercise for 30 minutes, 3-5 times weekly. Oct, Body mass index [BMI ] 33.0-33.9, adult (ICD-10 - Z68.33) Goal BMI is < 30 Instructed on diet and exercise GLP-1 use for DM should be helpful in reducing caloric intake [facility] Other 07-05-2023 NoteChief Complaint consultation for surveillance colonoscopy HPI Staff 67 year old male presents on consultation from Dr. Connor for surveillance colonoscopy. Last colonoscopy completed 09/2017 with tubular adenoma. Denies abdominal or rectal pain. No rectal bleeding or change in bowel habits. Denies nausea or vomiting. No unexplained weight loss. No known family historyof colon cancer. History of Present Illness 67 yo male with h/o DMII, htn, hyperlipidemia, CVA, referred for surveillance colonoscopy; last colonoscopy 2017 with removal of 7 mm tubular adenoma from sigmoid colon; denies change in bms or bloodin stools, no abd complaints; abd operations significant for appendectomy; on Plavix daily, no asa or NSAID use; no SBE prophylaxis; no fmhx of colon cancer or IBD; no tobacco use. Review of Systems PHQ Score Initial Depression Screen Score: 0 ROS - Provider Constitutional: no fever, no sweats, no weight loss. Eyes: no glasses, no blurred vision, no visual loss. ENMT: no dentures, no hoarseness, no swallowing difficulties, no hearing loss, no ear infection(s),no nose bleeds. Cardiovascular: normal blood pressure, no chest pain, regular heartbeat, no heart murmur. Respiratory: no shortness of breath, no cough, no asthma, no wheezing. Gastrointestinal: no nausea, no vomiting, no diarrhea, no constipation, no blood in stool, no change in bowel habits, no abdominal pain, no hepatitis. Genitourinary: no kidney stones, no urine infection, no dysuria. Musculoskeletal: no pain, no weakness. Skin: no changing moles, no rash, no skin lumps. Neurologic: no seizures, no epilepsy, no headache. Psychiatric: no emotional or psychiatric problem. Heme/Lymph: no bleeding problems, no anemia, no blood clots, no transfusions. Allergy/Immunologic: no swollen lymph nodes/glands, no IV drug abuse. Other: Additional ROS info: Except as noted in the above Review of Systems and in the History of Present Illness, all other systems have been reviewed and are negative or noncontributory. Physical Exam Vitals & Measurements HR: 70(Peripheral) RR: 16 BP: 140/70 HT: 70 in HT: 177.8 cm WT: 106 kg WT: 233.2 lb BMI: 33.53 HEENT: normal conjunctiva, sclera clear, no scleral icterus, EOM intact, PERRLA, oral mucosa moist without lesions. Neck: trachea midline, no mass, symmetric, no thyromegaly or nodules, no adenopathy Respiratory: lungs CTA, respirations non labored. Cardiovascular: regular rate and rhythm, no murmur, no pedal edema or varicosities. Gastrointestinal: obese, soft, non distended, no tenderness, no masses, small, reducible umbilical henria, nontender, diastasis recti yes, no hepatosplenomegaly; normal bs Lymphatic: no cervical adenopathy, no supraclavicular adenopathy. Musculoskeletal: abnormal gait, digits and nails without infection, nodes, cyanosis, clubbing. lefthemiplegia Skin: no rashes, no lesions, no ulcers, no subcutaneous nodules, induration. Psychiatric/Neuro: oriented to time, place, person, judgement normal, affect appropriate for age, insight intact, no focal deficits. Tests: review of old records completed, Discussed surgical options, risks, and possible complications with patient. Assessment/Plan 1. Personal history of colonic polyps (Z86.010: Personal history of colonic polyps) plan surveillance colonoscopy under anesthesia, informed consent obtained. Follow-up No qualifying data available Problem List/Past Medical History Ongoing Aortic valve disorder Bilateral carotid bruits BMI 33.0-33.9,adult Cerebral atherosclerosis Cerebral infarction Diabetes Essential hypertension Hemiplegia affecting nondominant side History of colon polyps Hyperlipidemia Lumbar spondylosis Obesity Personal history of colonic polyps Pure hypercholesterolemia Historical No qualifying data Procedure/Surgical History Colonoscopy (09/19/2017), Appendectomy, Correction of hammer toe. Medications amLODIPine 10 mg Tab, 10 mg= 1 tab(s), Oral, Daily carvedilol 3.125 mg Tab, 3.125 mg= 1 tab(s), Oral, BID Farxiga 10 mg oral tablet, 10 mg= 1 tab(s), Oral, Daily hydrALAZINE 10 mg Tab, 10 mg= 1 tab(s), Oral, BID hydrochlorothiazide-lisinopril 25 mg-20 mg Tab, 1 tab(s), Oral, Daily metformin 1000 mg Tab, 1000 mg= 1 tab(s), Oral, BID Plavix 75 mg Tab, 75 mg= 1 tab(s), Oral, Daily simvastatin 40 mg Tab, 40 mg= 1 tab(s), Oral, qPM Trulicity Pen 3 mg/0.5 mL subcutaneous solution, 3 mg, SubCutaneous, qWeek Allergies sulfamethoxazole-trimethoprim (Unknown) Social History Alcohol - Denies Alcohol Use, 08/21/2022 Substance Abuse - Denies Substance Abuse, 08/21/2022 Tobacco Former smoker, quit more than 30 days ago Tobacco Use:. Never Smokeless Tobacco Use:. Cigarettes, 0.5 per day. Started age 21.0 Years. Stopped age 61 Years., 08/21/2022 Family History COPD: Mother. Esophageal cancer: Father. Heart disease: Mother and Sister. Immunizations Vaccine Date Status SARS-CoV-2 (COVID-19) (more content not included)...[facility] Comment on above:Result Comment: Electronically Signed By: RANDY MILLER, John Tejada\Date and Time Signed: 08/21/22 13:40 [id number] Evaluation note* Encounter Date Diagnosis Assessment Notes Treatment Notes Treatment Clinical Notes June, Wellness examination (ICD-10 - Z00.00) Healthy diet and exercise. Reviewed age-appropriate preventive testing recommended. June, Type 2 diabetes mellitus with diabetic polyneuropathy, without long-term current use of insulin (ICD-10 - E11.42) Inspect feet daily for cuts and calluses.Recommend diabetic shoes and inserts to prevent callus formation.Fall precautions. June, Controlled type 2 diabetes mellitus with hyperglycemia, without long-term current use of insulin (ICD-10 - E11.65) This patient is following a comprehensive diabetic treatment plan. They are checking their feet daily for calluses and nonhealing ulcers. They are being seen for yearly dilated eye examinations. Goals: SBP less than 130, LDL less than 100, FBS less than 140, AC and A1C less than 7%. They are checking their BS daily, will which are reviewed at the office visit. A1C: [ ] Microalbumin: [ ] Eye exam: [ ] Foot exam: [ ] Gradual improvement w/ A1C, goal < 7% June, Essential (primary) hypertension (ICD-10 - I10) This patient is instructed to consume a healthy, low-fat, low-salt diet. They are also encouraged to continue exercise to achieve/maintain a normal BMI. June, Nonrheumatic aortic (valve) stenosis (ICD-10 - I35.0) Mild noted on Echo in 2020 Denies CP, tachycardia or syncope. Plan to repeat next year. Instructed on strict control of BP June, Hyperlipidemia type II (ICD-10 - E78.01) Instructed on diet and exercise with continued statin therapy.Discussed the beneficial effects of lowering cholesterol in reducing the risk for cerebrovascular and cardiovascular disease. June, Other obesity due to excess calories (ICD-10 - E66.09) June, Cerebral atherosclerosis (ICD-10 - I67.2) June, Body mass index [BMI ] 33.0-33.9, adult (ICD-10 - Z68.33) June, Screening PSA (prostate specific antigen) (ICD-10 - Z12.5) June, Screening for colon cancer (ICD-10 - Z12.11) [facility] Other 05-15-2023 Evaluation note* Encounter Date Diagnosis Assessment Notes Treatment Notes Treatment Clinical Notes June, 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) [facility] Other Evaluation noteNo [facility] Other Evaluation note* Diagnosis Onset Date Resolution Status Left otitis media acute Tinnitus acute [facility] Work Phone: History general Narrative - Reported* Type Description Date Medical History Adenomatous polyp of descending colon Medical History Cerebral atherosclerosis Medical History HEMIPLEGIA OF LEFT N ONDOMINANT SIDE DUE TO CEREBROVASCULAR DISEASE Medical History Hyperlipidemia type II Medical History Nonrheumatic aortic (valve) sten osis Medical History Essential (primary) hypertension Medical History Type 2 diabetes carley itus with diabetic polyneuropathy, without long-term current use of insulin Medical History Controlled type 2 di abetes mellitus with hyperglycemia, without long-term current use of insulin Medical History Acute pain of left knee Medical History COVID Medical History Bilateral carotid bruits Medical History Lumbar spondylosis Medical History Low back pain with radiation Medical History Claw toe, left Medical History Contracture of left ankle Medical History Calcaneus deformity, acquired, l eft Medical History Foot pain, left Medical History High risk medication use Medical History Cerebrovascular accident (CVA) Surgical History RELEASE OF HAMMERTOE OF LEFT FO OT 2013 Surgical History APPENDECTOMY 1960 Surgical History FOOT SURGERY - LEFT Surgical History COLONOSCOPY 2018 Hospitalization History SEE SURGICAL HX [facility] Other History general Narrative - Reported* Type Description Date Medical History Adenomatous polyp of descending colon Medical History Cerebral atherosclerosis Medical History HEMIPLEGIA OF LEFT N ONDOMINANT SIDE DUE TO CEREBROVASCULAR DISEASE Medical History Hyperlipidemia type II Medical History Nonrheumatic aortic (valve) sten osis Medical History Essential (primary) hypertension Medical History Type 2 diabetes carley itus with diabetic polyneuropathy, without long-term current use of insulin Medical History Controlled type 2 di abetes mellitus with hyperglycemia, without long-term current use of insulin Medical History Acute pain of left knee Medical History COVID Medical History Bilateral carotid bruits Medical History Lumbar spondylosis Medical History Low back pain with radiation Medical History Claw toe, left Medical History Contracture of left ankle Medical History Calcaneus deformity, acquired, l eft Medical History Foot pain, left Medical History High risk medication use Medical History Cerebrovascular accident (CVA) Surgical History RELEASE OF HAMMERTOE OF LEFT FO OT 2013 Surgical History APPENDECTOMY 1960 Surgical History FOOT SURGERY - LEFT Surgical History COLONOSCOPY 2018 Surgical History Colonoscopy w/ polypectomy, rep eat in 5 years 08/2022 Hospitalization History SEE SURGICAL HX [facility] Other History general Narrative - Reported* Type Description Date Medical History Adenomatous polyp of descending colon Medical History Cerebral atherosclerosis Medical History HEMIPLEGIA OF LEFT N ONDOMINANT SIDE DUE TO CEREBROVASCULAR DISEASE Medical History Hyperlipidemia type II Medical History Nonrheumatic aortic (valve) sten osis Medical History Essential (primary) hypertension Medical History Type 2 diabetes carley itus with diabetic polyneuropathy, without long-term current use of insulin Medical History Controlled type 2 di abetes mellitus with hyperglycemia, without long-term current use of insulin Medical History Acute pain of left knee Medical History COVID Medical History Bilateral carotid bruits Medical History Lumbar spondylosis Medical History Low back pain with radiation Medical History Claw toe, left Medical History Contracture of left ankle Medical History Calcaneus deformity, acquired, l eft Medical History Foot pain, left Medical History High risk medication use Medical History Cerebrovascular accident (CVA) Surgical History RELEASE OF HAMMERTOE OF LEFT FO OT 2013 Surgical History APPENDECTOMY 1960 Surgical History FOOT SURGERY - LEFT Surgical History COLONOSCOPY 2017 Surgical History Colonoscopy w/ polypectomy, rep eat in 5 years 08/2022 Surgical History B/L Cataract extraction 08/2022 Hospitalization History SEE SURGICAL HX [facility] Other Reason for referral (narrative)* Reason *FU 07/08 Referral for screening colonoscopy Diagnosis 1 Screening for colon cancer (Z12.11) Referral Organization [facility] [employer] Referring Provider First Name Librado Referring Provider Last Name Nikolas Referring Provider Specialty Internal [facility] Referred Organization [facility] Referred Provider John Montalvo Referred Address [address], [place],[address] Referred Provider Specialty Surgery Referral Priority Routine General Notes Asymptomatic, low ri sk patient. Naila Sosa 07/01/2022 12:14:34 PM >received today, notes locked, referral faxed Clinical Notes [id number] [facility] Other reason for referral (narrative)* Reason 08/21/22 Referral for screening colonoscopy Diagnosis 1 Screening for colon cancer (Z12.11) Referral Organization [facility] Nikolas [facility] artie Referring Provider First Name Librado Referring Provider Last Name Nikolas Referring Provider Specialty Internal [facility] Referred Organization [facility] Referred Provider John Montalvo Referred Address [address], [place],[address] Referred Provider Specialty Surgery Referral Priority Routine Referral Appointment Date 2022-08-21 General Notes Asymptomatic, low ri sk patient. Naila Sosa 07/01/2022 12:14:34 PM >received today, notes locked, referral faxed Naila Sosa 07/04/2022 09:23:22 AM >received fax that they need 2018 report in order to schedule pt. all we have is the path report, so I faxed that Naila Sosa 07/11/2022 07:48:02 AM >faxed first attempt letter Naila Sosa 07/12/2022 09:56:26 AM >received fax with appt date Clinical Notes [id number] [facility] Other Summary Purpose Family History Relationship Condition Age at Onset Recorded Date/T chloé father Malignant neoplasm of esophagus Unknown Malignant neoplasm Unknown Not Specified Disorder of lung Unknown Heart disease Unknown sister Heart disease Unknown Advance Directives Advance Directive Response Recorded Date/ Time Advance Directives No March 12, 2023 1:04pm Chief Complaint and Reason for Visit Chief Complaint 4 Month Follow Up left ear infection Reason for Visit Left otitis media Tinnitus Additional Source Comments (unrecognized sect ion and content) No Status Records FoundNo Status Records FoundNo Status Records FoundNo Status Records FoundNo Status Records Found INFORMATION SOURCE (unrecogn ized section and content) DATE CREATED AUTHOR 08/12/2017 [facility] DATE CREATED AUTHOR AUTHOR'S ORGANIZ ATION 10/07/2017 [facility] DATE CREATED AUTHOR AUTHOR'S ORGANIZ ATION 07/03/2022 [facility] DATE CREATED AUTHOR AUTHOR'S ORGANIZ ATION 07/03/2022 [facility] DATE CREATED AUTHOR AUTHOR'S ORGANIZ ATION 10/02/2022 [facility] REASON FOR VISIT (unrecogniz ed section and content) WELLNESSNo InformationWELLNE SSNo Information4 month Follow upNo InformationNo InformationEcho results4 month Follow up Care Teams (unrecognized sec tion and content) Team Status: Active Member Role Status Dates Librado Connor DO Primary Care Provider Active Team Status: Inactive Member Role Status Dates Librado Connor DO Attending Provider Active Sta rt: March 11, 2023 End: March 11, 2023 Team Status: Inactive Member Role Status Dates Librado Connor DO Primary Care Provider Active Start: June 03, 2023 End: June 03, 2023 Kinjal Butler APRN LPN CARE MANAGER-C Attending Provider Act mateo Start: June 03, 2023 End: June 03, 2023 Goals (unrecognized section and content) Goals may be documented in a n alternate section FOR RECORDS PERTAINING TO PATIENTS WHO ARE OR HAVE BEEN ENROLLED IN A CHEMICAL DEPENDENCY/SUBSTANCEABUSE PROGRAM, SOME INFORMATION MAY BE OMITTED. This clinical summary was aggregated from multiple sources. Caution should be exercised in using it in the provision of clinical care. This summary normalizes information from multiple sources, and as a consequence, information in this document may materially change the coding, format and clinical context of patient data. In addition, data may be omitted in some cases. CLINICAL DECISIONS SHOULD BE BASED ON THE PRIMARY CLINICAL RECORDS. [facility] [employer] [facility]. provides no warranty or guarantee of the accuracy or completeness of information in this document.
[2023-07-11 07:50] LABS: Basophils Absolute Auto 0.1 10^3/uL (0.0-0.1); Basophils Percent Auto 1.1 % (0.2-2.0); Eosinophils Absolute Auto 0.1 10^3/uL (0.0-0.7); Eosinophils Percent Auto 0.9 % (0.9-7.0); Hematocrit 45.4 % (42.0-54.0); Hemoglobin 14.6 g/dL (14.0-18.0); Immature Granulocytes Abs Auto 0.03 10^3/uL (0.00-0.03); Immature Granulocytes Pct Auto 0.3 % (0.0-0.5); Lymphocytes Absolute Auto 3.8 10^3/uL (1.2-3.8); Lymphocytes Percent Auto 31.6 % (20.5-60.0); Mean Corpuscular HGB Conc 32.2 g/dL (29.9-35.2); Mean Corpuscular Hemoglobin 28.2 pg (25.9-34.0); Mean Corpuscular Volume 87.8 fL (80.0-94.0); Mean Platelet Volume 10.2 fL (9.5-13.5); Monocytes Absolute Auto 0.7 10^3/uL (0.3-0.8); Monocytes Percent Auto 6.2 % (1.7-12.0); Neutrophils Absolute Auto 7.2 10^3/uL (1.4-6.5); Neutrophils Percent Auto 59.9 % (43.0-75.0); Platelet Count 180 10^3/uL (150-450); Red Blood Count 5.17 10^6/uL (4.70-6.10); Red Cell Distribution Width 14.7 % (11.0-15.0)
[2023-07-11 08:04] LABS: Microalbumin Urine Random 24.1 mg/dL (<=30.0)
[2023-07-11 08:06] LABS: Estimated Average Glucose 183 mg/dL
[2023-07-11 09:03] LABS: Alanine Aminotransferase 49 U/L (16-63); Albumin Level 3.9 g/dL (3.4-5.0); Alkaline Phosphatase 82 U/L (46-116); Anion Gap 16.5; Aspartate Amino Transferase 30 U/L (15-37); BUN Creatinine Ratio 20.5; Bilirubin Total 0.5 mg/dL (0.2-1.0); Calcium 9.4 mg/dL (8.5-10.1); Carbon Dioxide 24.5 mmol/L (21.0-32.0); Chloride 101 mmol/L (98-107); Chol HDL Ratio 2.4; Cholesterol 122 mg/dL (<=200); Estimated GFR (African America >60 (>=60); Estimated GFR (Non-African Ame >60 (>=60); Globulin 4.1 g/dL; Glucose 217 mg/dL (74-106); HDL Cholesterol 50 mg/dL (40-60); LDL Cholesterol Calculated 55.8 mg/dL; Sodium 138 mmol/L (136-145); Triglycerides 81 mg/dL (<=150); VLDL CHOLESTEROL 16.2 mg/dL
[2023-07-11 10:17] LABS: Prostate Specific Antigen Scrn 0.75 ng/mL (<=4.00)
== END 2023-07-11 07:29 | disposition home or self-care (01) ==
LOC: LAB 07:28
PROVIDERS: PCP Internal Medicine; Visit Provider Internal Medicine
DX: Z00.00 Encounter for general adult medical examination without abnormal findings (principal)
CPT/HCPCS: 36415; 80053; 80061; 82043; 83036; 85025; G0103

== ENCOUNTER 2023-09-10 12:05 | Emergency (ER) | payer BC, MEDICARE, SELFPAY ==
--- OUTSIDE RECORDS SUMMARY | 2023-09-10 12:15 | XMS_ITS ---
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 Name Role Phone PHYSICIAN, DEFAULT Unavailable Unavailable [...] sources) Sulfamethoxazole / Trimethoprim Drug Allergy Unknown [facility] Other (1 source) Sulfonamides (Antibiotic) Drug allergy (disorder) 02-18-19 [facility] (8 sources) sulfADIAZINE Drug Allergy 06-03-19 Unknown, Unknown Reaction [facility] (1 source) Allergies Reconciled Propensity to adverse reactions Unknown [facility] Other (6 sources) Substance with sulfonamide structure and antibacterial mechanism of action (substance) Drug allergy Unknown [facility] Other (6 sources) Sulf-10 Drug allergy Unknown [facility] Other (6 sources) Sulfamethoxazole-Tr imethoprim *ANTI-INFECTIVE AGEN Propensity to adverse reactions Unknown [facility] Other (1 source) patient allergy list reviewed by nurse or physicia Propensity to adverse reactions 06-30-19 Comment:Done [facility] Other (1 source) Sulfamethoxazole / Trimethoprim; Translations: [sulfamethoxazole-t rimethoprim] Drug Allergy [facility] (2 sources) Sulfamethoxazole Drug Allergy 06-03-19 24 Unknown Reaction [facility] (2 sources) Trimethoprim Drug Allergy 06-03-19 Unknown Reaction [facility] Encounters Encounter Date Encounter Type Care Provider Facility Start: 07-10-2023 End: 07-10-2023 ambulatory [facility] Work Phone: Start: 07-10-2023 End: 07-10-2023 Encounter for general adult medical examination without abnormal findings [facility] Start: 07-10-2023 End: 07-10-2023 Patient encounter procedure [facility] Work Phone: Start: 06-10-2023 Non-patient / Non-visit [facility] Work Phone: Start: 06-03-2023 End: 06-03-2023 ambulatory [facility] Work Phone: Start: 06-03-2023 End: 06-03-2023 Patient encounter procedure [facility] Work Phone: Start: 03-11-2023 End: 03-11-2023 ambulatory Librado Connor Other [facility] Other Start: 03-11-2023 Office outpatient vi sit 25 minutes Librado Connor [facility] Start: 03-11-2023 End: 03-11-2023 Patient encounter procedure [facility] Start: 01-06-2023 End: 01-06-2023 ambulatory Librado Connor Other [facility] Other Start: 01-06-2023 Telephone encounter Librado Connor [facility] Start: 01-04-2023 End: 01-04-2023 ambulatory Librado Connor Other [facility] Other Start: 01-04-2023 Telephone encounter Librado JADE [facility] Start: 11-12-2022 End: 11-12-2022 ambulatory Librado Connor Other [facility] Other Start: 11-12-2022 Office outpatient vi sit 25 minutes Librado Connor [facility] Start: 10-01-2022 End: 10-02-2022 ambulatory John R YESIKAL Facility: [facility] Start: 09-12-2022 End: 09-12-2022 ambulatory Librado Connor Other [facility] Other Start: 09-12-2022 Telephone encounter Librado JADE [facility] Start: 09-11-2022 End: 09-12-2022 ambulatory John R NILL Facility:CD:[id number] Start: 08-21-2022 End: 08-22-2022 ambulatory John R NILL Facility: [facility] Start: 07-03-[address] LIBRADO CONNOR Facili ty:[facility] Start: 07-02-2022 ambulatory John R NILL Facility : [place] Start: 07-02-2022 ambulatory John R NILL Facility : [facility] Start: 07-01-2022 End: 07-01-2022 ambulatory Librado Nikolas Other [facility] Other Start: 07-01-2022 Encounter for genera l adult medical examination without abnormal findings Librado Connor [facility] Start: 07-01-2022 Periodic preventive med est patient 65yrs& older Librado Connor [facility] Start: 07-01-2022 Telephone encounter [facility] Start: 01-28-2022 Encounter for genera l adult medical examination without abnormal findings DR LIBRADO CONNOR [facility] Start: 01-25-2022 End: 01-26-2022 ambulatory NONE LISTED REQUEST Facility:[facility] Start: 01-23-2022 End: 01-24-[address] LIBRADO CONNOR Facility:[facility] Start: 01-23-2022 End: 01-24-2022 Encounter for general adult medical examination without abnormal findings DR LIBRADO CONNOR Facility:[facility] Start: 12-19-2021 End: 12-20-[address] IVANNA HERNANDEZ . Facility:[facility] Start: 10-31-2021 End: 11-01-2021 ambulatory NONE LISTED REQUEST Facility:[facility] Start: 07-13-2021 End: 07-14-[address] LIBRADO CONNOR Facility:[facility] Start: 07-12-2021 Adult health examination Librado Connor Other [facility] Other Start: 09-19-2017 End: 09-20-2017 Patient encounter Sacha Antonio Facility:[facility] Start: 01-17-2017 End: 01-17-2017 Ambulatory DEFAULT PHYSICIAN Facility:[facility] Medical Equipment Procedure Code Equipment Code Equipment Origin al Text Equipment Identifier Dates Blood Sugar Diagnostic (Accu-Chek Smartview Test Strip) strip Start: 06-20-2023 Blood Sugar Diagnostic (Accu-Chek Smartview Test Strip) strip Start: 06-20-2023 End: 06-20-2023 Immunizations Immunization Date Immunization Notes Care Provider Nabor davis 11-12-2022 influenza virus vaccine, unspecified formulation [facility] 11-12-2022 influenza, high dose seasonal, preservative-free Librado Connor Other [facility] Other 12-19-2021 COVID-19 Vaccine Moderna - Documentation Purposes Only Librado Connor Other [facility] 11-29-2020 influenza virus vaccine, split virus (incl. purified surface antigen) Librado Connor Other [facility] Other 11-29-2020 influenza virus vaccine, unspecified formulation [facility] 11-29-2020 influenza, injectabl e, quadrivalent, preservative free Librado Connor Other [facility] 04-24-2020 COVID-19 Vaccine Ayesha - Documentation Purposes Only Librado Connor Other [facility] Medications Current Medications Medication Drug Class(es) Dates Sig (Normalized) Sig (Original) Accu-Chek SmartView - (6 sources) Accu-Chek SmartView - USE TO TEST BLOOD SUGAR ONCE A DAY for 90 Active amLODIPine 10 mg oral tablet (11 sources) Dihydropyridine Calcium Channel Kristen Start: 06-03-2023 take 10 mg by mouth once daily Amlodipine Active 10 MG PO Daily June 03, 2023 12:00am take 1 tablet by mouth once bernardino y amLODIPine Besylate 10 MG TAKE 1 TABLET BY MOUTH EVERY DAY Active atorvastatin 20 mg oral tablet (11 sources) HMG-CoA Reductase Inhibitor Start: 06-03-2023 take 20 mg by mouth once daily Atorvastatin Active 20 MG PO Daily June 03, 2023 12:00am take 1 tablet by dixon th every twenty-four hours Atorvastatin Calcium 20 MG 1 tablet Oral ly Once a day Active carvedilol 12.5 mg oral tablet (11 sources) alpha-Adrenergic Kristen, beta-Adrenergic Kristen Start: 06-03-2023 [...] day Active clopidogrel 75 mg oral tablet (11 sources) P2Y12 Platelet Inhibitor Start: 06-03-2023 take 75 mg by mouth once daily Clopidogrel Active 75 MG PO Daily June 03, 2023 12:00am take 1 tablet by mouth once bernardino y Clopidogrel Bisulfate 75 MG TAKE 1 TABLET BY MOUTH EVERY DAY Active dapagliflozin 10 mg oral tablet (12 sources) Sodium-Glucose Cotransporter 2 Inhibitor Start: 06-19-2023 take 1 tablet by mouth once daily Dapagliflozin Propanediol (Farxiga) 10 mg tablet Active 0 .ROUTE .COMPLEX 90 June 19, 2023 10:52pm TAKE 1 TABLET BY MOUTH EVERY DAY Start: 06-03-2023 End: 06-19-2023 take 1 tablet by mouth once daily Dapagliflozin Propanediol (Farxiga) 10 mg tablet Discontinued 10 MG PO Daily June 03, 2023 12:00am June 19, 2023 10:52pm take 1 tablet by dixon th once daily Farxiga 10 MG TAKE 1 TABLET BY [...] 3 MG/0 .5ML as directed Subcutaneous Active fluocinolone acetonide 0.1 mg/ml otic solution (8 sources) Corticosteroid Start: 07-01-2022 Fluocinolone A cetonide 0.01 % 5 drops into affected ear Otic weekly as needed for itching for 30 days June, Active Start: 07-01-2022 Fluocinolone A cetonide 0.01 % 5 drops into affected ear Otic weekly as needed for itching for 30 days June, Active hydrALAZINE hydrochloride 10 mg oral tablet (11 sources) Arteriolar Vasodilator Start: 06-03-2023 take 10 [...] DAY Active lisinopril 40 mg oral tablet (3 sources) Angiotensin Converting Enzyme Inhibitor Start: 06-03-2023 take 40 mg by mouth once daily Lisinopril Active 40 MG PO Daily June 03, 2023 12:00am Start: 03-11-2023 take 1 tablet by dixon th every twenty-four hours Lisinopril 40 MG 1 tablet Orally Once a day for 30 days Feb, Active metFORMIN hydrochloride 1000 mg oral tablet (12 sources) Biguanide Start: 06-05-2023 take 1 tablet by mouth before breakfast Metformin Active 0 .ROUTE .COMPLEX 180 June 05, 2023 7:39am TAKE 1 TABLET BY MOUTH BEFORE BREAKFAST AND EVENING MEAL Start: 06-03-2023 End: 06-05-2023 take 1000 mg by mouth twice daily at mealtime Metformin Discontinued 1000 MG PO Twice daily with meals June 03, 2023 12:00am June 05, 2023 7:39am take 1 tablet by dixon th before breakfast metFORMIN HCl 1000 MG TAKE 1 TABLET BY MOUTH BEFORE BREAKFAST AND EVENING MEAL Active Semaglutide (Rybelsus) 3 mg tablet (1 source) Start: 07-10-2023 take 1 tablet by mouth once daily Semaglutide (Rybelsus) 3 mg tablet Active 3 MG PO Daily 30 July 10, 2023 12:00am simvastatin 40 mg oral tablet (3 sources) HMG-CoA Reductase Inhibitor Start: 06-10-2023 take 40 mg by mouth once daily Simvastatin Active 40 MG PO Daily June 10, 2023 12:00am take 1 tablet by mouth once bernardino y Simvastatin 40 MG TAKE 1 TABLET BY MOUTH EVERY DAY for 90 Active Completed/Discontinued Medications Medication Drug Class(es) Dates Sig (Normalized) Sig (Original) amoxicillin 875 mg oral tablet (2 sources) Penicillin-class Antibacterial Start: 06-03-2023 End: 07-10-2023 take 875 mg by mouth twice daily Amoxicillin Discontinued 875 MG PO Twice daily 06 12June 03, 2023 12:00am July 10, 2023 8:58am Dulaglutide (Trulicity) 4.5 mg/0.5 mL pen injector (2 sources) Start: 06-03-2023 End: 07-10-2023 Dulaglutide (Trulicity) 4.5 mg/0.5 mL pen injector Discontinued 4.5 MG SUBCUT every week June 03, 2023 12:00am July 10, 2023 9:15am Start: 06-03-2023 Dulaglutide (T rulicity) 4.5 mg/0.5 mL pen injector Active 4.5 MG SUBCUT every week June 03, 2023 12:00am Payers Date Payer Category Payer [employer] [id number] 2019 Unknown [id number] 1959 [employer] [id number] 1958 Medicare [id number] 2.1 [id number] 1958 Self-pay 1959 Unknown [id number] 1955 Unknown [id number] 2.16.84 [id number] 1955 Unknown [id number] 2.16.84 [id number] 1955 Unknown [id number] 2.16.84 [id number] 1955 Unknown [id number] 2.16.8 [id number] 1955 Unknown [id number] 2.16.8 [id number] 1955 Unknown [id number] 2.16.8 [id number] 1955 Unknown [id number] 2.16.8 [id number] 1955 Unknown [id number] 2.16.8 [id number] Unknown Unknown [id number] 2.16.84 [id number] Unknown [id number] 2.16.84 [id number] Unknown [id number] 2.16.84 [id number] Unknown [id number] 2.16.84 [id number] Plan of Treatment Date Care Activity Detail Author Comprehensive metabo lic 2000 panel - Serum or Plasma [facility] enter Microalbumin [Mass/volume] in Urine [facility] Problems Active Problems Problem Classification Problem Date Documented Date Episodic/Chronic Acquired foot deformities (20 sources) Acquired claw toes; Translations: [Other deformities of toe(s) (acquired), left foot] Episodic Acute cerebrovascular disease (12 sources) Cerebral infarction; Translations: [Cerebral infarction, unspecified] 06-03-2023 Chronic Diabetes mellitus with complications (20 sources) Hyperglycemia due to type 2 diabetes mellitus; Translations: [Type 2 diabetes mellitus with hyperglycemia] Chronic Diabetes mellitus without complication (1 source) Type 2 diabetes mellitus without complication; Translations: [Type 2 diabetes mellitus without complications] Chronic Disorders of lipid metabolism (18 sources) Pure hypercholesterolemia; Translations: [Familial hypercholesterolemia] Onset: 02-14-2017 Chronic Essential hypertension (16 sources) Essential hypertension; Translations: [Essential (primary) hypertension] Chronic Heart valve disorders (18 sources) Aortic valve disorder; Translations: [Nonrheumatic aortic [...] sources) H/O: high risk medication; Translations: [Other fdc (current) drug therapy] Episodic Other aftercare (1 source) Long-term current use of drug therapy; Translations: [Other long term care phlebotomist (current) drug therapy] Episodic Other and ill-defined cerebrovascular disease (11 sources) Cerebral atherosclerosis; Translations: [Cerebral atherosclerosis] 06-03-2023 Chronic Other and ill-defined cerebrovascular disease (5 sources) Cerebral atherosclerosis; Translations: [Cerebral atherosclerosis] Chronic Other and ill-defined cerebrovascular disease (1 source) Cerebrovascular disease; Translations: [Cerebrovascular disease, unspecified] Onset: 02-17-2011 Chronic Other and unspecified benign neoplasm (9 sources) Benign neoplasm of colon; Translations: [Benign neoplasm of descending colon] Episodic Other circulatory disease (10 sources) Cardiovascular symptoms; Translations: [Other specified symptoms and signs involving the circulatory and respiratory systems] Episodic Other circulatory disease (2 sources) Carotid bruit; Translations: [Other specified symptoms and [...] Spondylosis; intervertebral disc disorders; other back problems (12 sources) Lumbar spondylosis; Translations: [Spondylosis without myelopathy [...] sources) Disease caused by 2019-nCoV; Translations: [COVID-19] Procedures Date Procedure Procedure Detail Performing Clinician Start: 07-03-2022 End: 07-03-[address] LIBRADO CONNOR Comment on above: Performed By: #### M ALBR #### [facility] [address] [address] [address] Tai Godwin Start: 07-13-[address] KIRSTIN CONNOR Comment on above: Performed By: #### P SASC #### [facility] [address] [address] [address] Tai Godwin Start: 06-24-2017 General examination of patient Librado Connor Other Start: 06-24-2017 Screening for malign ant neoplasm of colon Librado Connor Other Start: 06-24-2017 Screening for malign ant neoplasm of prostate Librado Connor Other Depression screening Ashley Connor Other Screening for malign ant neoplasm of prostate Librado Connor Other Results Test Name Value Interpretation Reference Range [...] history of colonic polyps Pure hypercholesterolemia Normal [facility] General Surgery Office/Clini c Noteon 10-01-2022 [...] SARS-CoV-2 (COVID-19) Ad26 vaccine 04/24/2020 Recorded Normal [facility] Comment on above: Result Comment: Elec tronically Signed By: RANDY MILLER, John Soriano\.br\Date and Time Signed: 10/01/22 16:41 EDT Reminderson 10-01-2022 Reminders - From: Aimee France LPN To: N - Clinical; Sent: 10/01/2022 16:12:00 EDT Show up: 08/13/2027 07:00:00 EDT Subject: colonoscopy recall Due Date/Time: 09/12/2027 07:00:00 EDT Reminder/Recall Patient due for surveillance colonoscopy 09/12/2027. Normal [facility] Pathology Noteon 09-17-2022 Pathology Note [id number]:12 7 Normal [facility] Outside Colonoscopyon 2022 Outside Colonoscopy [id number]#1.00CD:12 7 Normal [facility] Lab Reportson 09-11-2022 Lab Reports [id number]#1.00CD:12 7 Normal [facility] Ambulatory Visit Summaryon 0 08-22-2022 Ambulatory [...] history of colonic polyps Pure hypercholesterolemia Normal [facility] Consent for Procedure/Surger yon 08-22-2022 Consent for Procedure/Surgery [id number]#1.00CD:12 7 Normal [facility] Facesheeton 08-22-2022 Facesheet [id number]#1.00CD:12 7 Normal [facility] A1C with Estimated Average G luon 07-03-2022 A1C with Estimated Average Glu [facility] Other CBC AUTO DIFFon 07-03-2022 BASO # 0.1 103/ul Normal 0.0-0.1 [facility] Comment on above: Performed By: #### C BC #### [facility] [address] [place] [address] Dr. Tai Godwin Basophils/100 WBC (Bld) 1.0 % Normal 0.2-2.0 [facility] Comment on above: Performed By: #### C BC #### [facility] [address] [place] [address] Dr. Tai Godwin EO # 0.1 103/ul Normal 0.0-0.7 [facility] Comment on above: Performed By: #### C BC #### [facility] [address] [place] [address] Dr. Tai Godwin Eosinophils/100 WBC (Bld) 1.2 % Normal 0.9-7.0 [facility] Comment on above: Performed By: #### C BC #### [facility] [address] [place] [address] Dr. Tai Godwin Erythrocyte distribution width (RBC) [Ratio] 14.3 % Normal 11.0-15.0 [facility] Comment on above: Performed By: #### C BC #### [facility] [address] [place] [address] Dr. Tai Godwin Hematocrit (Bld) [Volume fraction] 45.6 % Normal 42.0-54.0 [facility] Comment on above: Performed By: #### C BC #### [facility] [address] [place] [address] Dr. Tai Godwin Hemoglobin (Bld) [Mass/Vol] 15.4 g/dL Normal 14.0-18.0 [facility] Comment on above: Performed By: #### C BC #### [facility] [address] [place] [address] Dr. Tai Godwin IG # 0.03 10e3/ul Normal 0.00-0.03 [facility] Comment on above: Performed By: #### C BC #### [facility] [address] [place] [address] Dr. Tai Godwin IG % 0.3 % Normal 0.0-0.5 [facility] Comment on above: Performed By: #### C BC #### [facility] [address] [place] [address] Dr. Tai Godwin LYMPH # 3.1 103/ul Normal 1.2-3.8 [facility] Comment on above: Performed By: #### C BC #### [facility] [address] [place] [address] Dr. Tai Godwin Lymphocytes/100 WBC (Bld) 30.8 % Normal 20.5-60.0 [facility] Comment on above: Performed By: #### C BC #### [facility] [address] [place] [address] Dr. Tai Godwin MANUAL DIFF REQ NO Normal [facility] Comment on above: Performed By: #### C BC #### [facility] [address] [place] [address] Dr. Tai Godwin MCH (RBC) [Entitic mass] 29.3 pg Normal 25.9-34.0 [facility] Comment on above: Performed By: #### C BC #### [facility] [address] [place] [address] Dr. Tai Godwin MCHC (RBC) [Mass/Vol] 33.8 g/dL Normal 29.9-35.2 [facility] Comment on above: Performed By: #### C BC #### [facility] [address] [place] [address] Dr. Tai Godwin MCV (RBC) [Entitic vol] 86.9 fL Normal 80.0-94.0 [facility] Comment on above: Performed By: #### C BC #### [facility] [address] [place] [address] Dr. Tai Godwin MONO # 0.7 103/ul Normal 0.3-0.8 [facility] Comment on above: Performed By: #### C BC #### [facility] [address] [place] [address] Dr. Tai Godwin Monocytes/100 WBC (Bld) 7.3 % Normal 1.7-12.0 [facility] Comment on above: Performed By: #### C BC #### [facility] [address] [place] [address] Dr. Tai Godwin NEUT # 5.9 103/ul Normal 1.4-6.5 [facility] Comment on above: Performed By: #### C BC #### [facility] [address] [place] [address] Dr. Tai Godwin Neutrophils/100 WBC (Bld) 59.4 % Normal 43.0-75.0 [facility] Comment on above: Performed By: #### C BC #### [facility] [address] [place] [address] Dr. Tai Godwin Platelet mean volume (Bld) [Entitic vol] 10.1 fL Normal 9.5-13.5 [facility] Comment on above: Performed By: #### C BC #### [facility] [address] [place] [address] Dr. Tai Godwin PLT 184 103/ul Normal 150-450 [facility] Comment on above: Performed By: #### C BC #### [facility] [address] [place] [address] Dr. Tai Godwin RBC 5.25 106/ul Normal 4.70-6.10 [facility] Comment on above: Performed By: #### C BC #### [facility] [address] [place] [address] Dr. Tai Godwin WBC 9.9 103/ul Normal 4.0-11.0 [facility] Comment on above: Performed By: #### C BC #### [facility] [address] [address] [address] Tai Godwin Complete Blood Count and Dif chicho 07-03-2022 Anisocytosis Ql (Bld) [facility] Other Basophilic stippling LM Ql (Bld) [facility] Other RBC morphology finding Nom (Bld) [facility] Other Comprehensive Metabolic Pane eleazar 07-03-2022 Albumin [Mass/Vol] 4.972181 g/dL 3.4-5.0 g/dL [facility] Other Calcium [Mass/Vol] 9.8436479 mg/dL 8.5-10 .1 mg/dL [facility] Other CO2 [Moles/Vol] 26.15221895 mmol/L 21.0-3 2.0 mmol/L [facility] Other Creatinine [Mass/Vol] 0.52785357 mg/dL 0.70-1.30 mg/dL [facility] Other Potassium [Moles/Vol] 3.79841547 mmol/L 3.5-5.1 mmol/L [facility] Other Protein [Mass/Vol] 8.946028 g/dL Critically high 6.4-8.2 g /dL [facility] Other Urea nitrogen [Mass/Vol] 12.5450464 mg/dL 7.0-18.0 mg/dL [facility] Other Comprehensive Metabolic Panel see note [facility] Other Comprehensive Metabolic Panel 140 mmol/L 136-145 mmol/L [facility] Other Comprehensive Metabolic Panel 159 mg/dL Critically high 74-106 mg/dL [facility] Other Comprehensive Metabolic Panel >60 mL/min/1.73m2 >=60 mL/min/1.73m 2 [facility] Other Comprehensive Metabolic Panel 0.5 mg/dL 0.2-1.0 mg/dL [facility] Other Comprehensive Metabolic Panel 4.4 g/dL [facility] Other GLYCOHEMOGLOBIN A1Con 2022 ADA RECOMMENDATION SEE BELOW Normal [facility] Comment on above: Result Comment: ADA RECOMMENDED LIMIT 4.0 - 6.0 ADA THERAPEUTIC TARGET < 7.0 ACTION SUGGESTED > 7.0 Performed By: #### A 1C #### [facility] [address] [place] [address] Dr. Tai Godwin Glucose [Mass/Vol] 160 mg/dL Normal [facility] Comment on above: Performed By: #### A 1C #### [facility] [address] [place] [address] Dr. Tai Godwin HbA1c (Bld) [Mass fraction] 7.2 % Critically high 4.5-6.2 [facility] Comment on above: Performed By: #### A 1C #### [facility] [address] [place] [address] Dr. Tai Godwin LIPID PROFILEon 07-03-2022 CHOL-HDL RATIO NORM SEE BELOW Normal [facility] Comment on above: Result Comment: 3.3 - 4.4 LOW RISK 4.4 - 7.1 AVERAGE RISK 7.1 - 11.0 MODERATE RISK >11.0 HIGH RISK Performed By: #### L IPID, CMP #### [facility] [address] [place] [address] Dr. Tai Godwin Cholesterol [Mass/Vol] 102 mg/dL <=200 mg/dL [facility] Comment on above: Performed By: #### L IPID, CMP #### [facility] [address] [place] [address] Dr. Tai Godwin Cholesterol in HDL [Mass/Vol] 46 mg/dL 40-60 mg/dL [facility] Comment on above: Performed By: #### L IPID, CMP #### [facility] [address] [place] [address] Dr. Tai Godwin Cholesterol in LDL [Mass/Vol] 45.2 mg/dL Normal [facility] Comment on above: Performed By: #### L IPID, CMP #### [facility] [address] [address] [address] Tai Godwin Cholesterol.total/ Cholesterol in HDL [Mass ratio] 2.2 {ratio} [facility] Comment on above: Performed By: #### L IPID, CMP #### [facility] [address] [address] [address] Tai Godwin HDL NORMAL > or = 60 mg/dl - LO W CARDIOVASCULAR RISK <40 mg/dl - HIGH CARDIOVASCULAR RISK Normal [facility] Comment on above: Performed By: #### L IPID, CMP #### [facility] [address] [address] [address] Tai Godwin LDL CALC NORMAL SEE BELOW Normal [facility] Comment on above: Result Comment: <100 mg/dl OPTIMAL 100 - 129 mg/dl NEAR OR ABOVE OPTIMAL 130 - 159 mg/dl BORDERLINE HIGH 160 - 189 mg/dl HIGH >190 mg/dl VERY HIGH Performed By: #### L IPID, CMP #### [facility] [address] [address] [address] Tai [place] Triglyceride [Mass/Vol] 54 mg/dL <=150 mg/dL [facility] Comment on above: Performed By: #### L IPID, CMP #### [facility] [address] [address] [address] Tai [place] VLDL CALC 10.8 mg/dL Normal [facility] Comment on above: Performed By: #### L IPID, CMP #### [facility] [address] [address] [address] Tai [place] Lipid Panelon 07-03-2022 Lipid Panel > or = 60 mg/dl - LO W CARDIOVASCULAR RISK <40 mg/dl - HIGH CARDIOVASCULAR RISK [facility] Other Lipid Panel SEE BELOW [facility] Other Lipid Panel 45.2 mg/dL [facility] Other Lipid Panel 10.8 mg/dL [facility] Other MICROALBUMIN, RAND URon 05- mALB 17.1 mg/dL Normal <=30.0 [facility] Comment on above: Performed By: #### M ALBR #### [facility] [address] [address] [address] Tai [place] PROF 14(COMP METB)on 023 Albumin [Mass/Vol] 4.0 g/dL Normal 3.4-5.0 [facility] Comment on above: Performed By: #### L IPID, CMP #### [facility] [address] [address] [address] Tai [place] Albumin/Globulin [Mass ratio] 0.9 {ratio} [facility] Comment on above: Performed By: #### L IPID, CMP #### [facility] [address] [place] [address] Dr. Tai [place] ALP [Catalytic activity/Vol] 68 U/L 46-116 U/L [facility] Comment on above: Performed By: #### L IPID, CMP #### [facility] [address] [address] [address] Tai [place] ALT [Catalytic activity/Vol] 58 U/L 16-63 U/L [facility] Comment on above: Performed By: #### L IPID, CMP #### [facility] [address] [address] [address] Tai [place] Anion gap [Moles/Vol] 15.1 mmol/L [facility] Comment on above: Performed By: #### L IPID, CMP #### [facility] [address] [address] [address] Tai [place] AST [Catalytic activity/Vol] 47 U/L Critically high 15-37 U/L [facility] Comment on above: Performed By: #### L IPID, CMP #### [facility] [address] [address] [address] Tai [place] Bilirubin [Mass/Vol] 0.5 mg/dL Normal 0.2-1.0 [facility] Comment on above: Performed By: #### L IPID, CMP #### [facility] [address] [address] [address] Tai [place] Calcium [Mass/Vol] 9.6 mg/dL Normal 8.5-10.1 [facility] Comment on above: Performed By: #### L IPID, CMP #### [facility] [address] [place] [address] Dr. Tai [place] Chloride [Moles/Vol] 102 mmol/L 98-107 mmol/L [facility] Comment on above: Performed By: #### L IPID, CMP #### [facility] [address] [place] [address] Dr. Tai [place] CO2 [Moles/Vol] 26.4 mmol/L Normal 21.0-32.[address] [facility] Comment on above: Performed By: #### L IPID, CMP #### [facility] [address] [place] [address] Dr. Tai [place] Creatinine [Mass/Vol] 0.77 mg/dL Normal 0.70-1.30 [facility] Comment on above: Performed By: #### L IPID, CMP #### [facility] [address] [place] [address] Dr. Tai [place] EGFR-AF ARMENIAN >60 Normal >=[address] [facility] Comment on above: Performed By: #### L IPID, CMP #### [facility] [address] [place] [address] Dr. Tai [place] EGFR-NON AF ARMENIAN >60 Normal >=60 [facility] Comment on above: Performed By: #### L IPID, CMP #### [facility] [address] [place] [address] Dr. Tai [place] Globulin (S) [Mass/Vol] 4.4 g/dL Normal [facility] Comment on above: Performed By: #### L IPID, CMP #### [facility] [address] [place] [address] Dr. Tai [place] Glucose [Mass/Vol] 159 mg/dL Critically high 74-106 T [facility] Comment on above: Performed By: #### L IPID, CMP #### [facility] [address] [place] [address] Dr. Tai [place] Potassium [Moles/Vol] 3.5 mmol/L Normal 3.5-5.1 [facility] Comment on above: Performed By: #### L IPID, CMP #### [facility] [address] [place] [address] Dr. Tai [place] Protein [Mass/Vol] 8.4 g/dL Critically high 6.4-8.2 [facility] Comment on above: Performed By: #### L IPID, CMP #### [facility] [address] [place] [address] Dr. Tai [place] Sodium [Moles/Vol] 140 mmol/L Normal 136-145 [facility] Comment on above: Performed By: #### L IPID, CMP #### [facility] [address] [place] [address] Dr. Tai [place] Urea nitrogen [Mass/Vol] 12.0 mg/dL Normal 7.0-18.0 [facility] Comment on above: Performed By: #### L IPID, CMP #### [facility] [address] [place] [address] Dr. Tai [place] Urea nitrogen/Creatinin e [Mass ratio] 15.6 mg/mg [facility] Comment on above: Performed By: #### L IPID, CMP #### [facility] [address] [place] [address] Dr. Tai [place] Physician Referralon 023 Physician Referral [id number]:12 7 Normal [facility] GLYCOHEMOGLOBIN A1Con 2021 ADA RECOMMENDATION SEE BELOW Normal [facility] Comment on above: Result Comment: ADA RECOMMENDED LIMIT 4.0 - 6.0 ADA THERAPEUTIC TARGET < 7.0 ACTION SUGGESTED > 7.0 Performed By: #### M ALBR #### [facility] [address] [place] [address] Dr. Tai [place] Glucose [Mass/Vol] 174 mg/dL Normal [facility] Comment on above: Performed By: #### M ALBR #### [facility] [address] [place] [address] Dr. Tai [place] HbA1c (Bld) [Mass fraction] 7.7 % Critically high 4.5-6.2 [facility] Comment on above: Performed By: #### M ALBR #### [facility] [address] [place] [address] Dr. Tai [place] GLYCOHEMOGLOBIN A1Con 2021 ADA RECOMMENDATION SEE BELOW Normal [facility] Comment on above: Result Comment: ADA RECOMMENDED LIMIT 4.0 - 6.0 ADA THERAPEUTIC TARGET < 7.0 ACTION SUGGESTED > 7.0 Performed By: #### D ATA1C #### [facility] [address] [place] [address] Dr. Tai [place] Glucose [Mass/Vol] 192 mg/dL Normal [facility] Comment on above: Performed By: #### D ATA1C #### [facility] [address] [place] [address] Dr. Tai [place] HbA1c (Bld) [Mass fraction] 8.3 % Critically high 4.5-6.2 [facility] Comment on above: Performed By: #### D ATA1C #### [facility] [address] [place] [address] Dr. Tai [place] CBC AUTO DIFFon 07-13-2021 BASO # 0.1 103/ul Normal 0.0-0.1 [facility] Comment on above: Performed By: #### M ALBR #### [facility] [address] [place] [address] Dr. Tai [place] Basophils/100 WBC (Bld) 1.1 % Normal 0.2-2.0 [facility] Comment on above: Performed By: #### M ALBR #### [facility] [address] [place] [address] Dr. Tai [place] EO # 0.1 103/ul Normal 0.0-0.7 [facility] Comment on above: Performed By: #### M ALBR #### [facility] [address] [place] [address] Dr. Tai [place] Eosinophils/100 WBC (Bld) 1.2 % Normal 0.9-7.0 [facility] Comment on above: Performed By: #### M ALBR #### [facility] [address] [place] [address] Dr. Tai [place] Erythrocyte distribution width (RBC) [Ratio] 14.0 % Normal 11.0-15.0 [facility] Comment on above: Performed By: #### M ALBR #### [facility] [address] [place] [address] Dr. Tai [place] Hematocrit (Bld) [Volume fraction] 45.7 % Normal 42.0-54.0 [facility] Comment on above: Performed By: #### M ALBR #### [facility] [address] [place] [address] Dr. Tai [place] Hemoglobin (Bld) [Mass/Vol] 14.9 g/dL Normal 14.0-18.0 [facility] Comment on above: Performed By: #### M ALBR #### [facility] [address] [place] [address] Dr. Tai [place] IG # 0.02 10e3/ul Normal 0.00-0.03 [facility] Comment on above: Performed By: #### M ALBR #### [facility] [address] [place] [address] Dr. Tai [place] IG % 0.2 % Normal 0.0-0.5 [facility] Comment on above: Performed By: #### M ALBR #### [facility] [address] [place] [address] Dr. Tai [place] LYMPH # 3.8 103/ul Normal 1.2-3.8 [facility] Comment on above: Performed By: #### M ALBR #### [facility] [address] [place] [address] Dr. Tai [place] Lymphocytes/100 WBC (Bld) 38.0 % Normal 20.5-60.0 [facility] Comment on above: Performed By: #### M ALBR #### [facility] [address] [place] [address] Dr. Tai [place] MANUAL DIFF REQ NO Normal [facility] Comment on above: Performed By: #### M ALBR #### [facility] [address] [place] [address] Dr. Tai Godwin MCH (RBC) [Entitic mass] 29.9 pg Normal 25.9-34.0 [facility] Comment on above: Performed By: #### M ALBR #### [facility] [address] [place] [address] Dr. Tai [place] MCHC (RBC) [Mass/Vol] 32.6 g/dL Normal 29.9-35.2 [facility] Comment on above: Performed By: #### M ALBR #### [facility] [address] [place] [address] Dr. Tai [place] MCV (RBC) [Entitic vol] 91.6 fL Normal 80.0-94.0 [facility] Comment on above: Performed By: #### M ALBR #### [facility] [address] [place] [address] Dr. Tai Godwin MONO # 0.7 103/ul Normal 0.3-0.8 [facility] Comment on above: Performed By: #### M ALBR #### [facility] [address] [place] [address] Dr. Tai God[place] Monocytes/100 WBC (Bld) 7.0 % Normal 1.7-12.0 [facility] Comment on above: Performed By: #### M ALBR #### [facility] [address] [place] [address] Dr. Tai Godwin NEUT # 5.3 103/ul Normal 1.4-6.5 [facility] Comment on above: Performed By: #### M ALBR #### [facility] [address] [place] [address] Dr. Tai Godwin Neutrophils/100 WBC (Bld) 52.5 % Normal 43.0-75.0 [facility] Comment on above: Performed By: #### M ALBR #### [facility] [address] [address] [address] Tai [place] Platelet mean volume (Bld) [Entitic vol] 10.2 fL Normal 9.5-13.5 [facility] Comment on above: Performed By: #### M ALBR #### [facility] [address] [place] [address] Dr. Tai God[place] PLT 178 103/ul Normal 150-450 [facility] Comment on above: Performed By: #### M ALBR #### [facility] [address] [place] [address] Dr. Tai God[place] RBC 4.99 106/ul Normal 4.70-6.10 [facility] Comment on above: Performed By: #### M ALBR #### [facility] [address] [place] [address] Dr. Tai [place] WBC 10.1 103/ul Normal 4.0-11.0 [facility] Comment on above: Performed By: #### M ALBR #### [facility] [address] [place] [address] Dr. Tai [place] GLYCOHEMOGLOBIN A1Con 2021 ADA RECOMMENDATION SEE BELOW Normal [facility] Comment on above: Result Comment: ADA RECOMMENDED LIMIT 4.0 - 6.0 ADA THERAPEUTIC TARGET < 7.0 ACTION SUGGESTED > 7.0 Performed By: #### M ALBR #### [facility] [address] [place] [address] Dr. Tai [place] Glucose [Mass/Vol] 180 mg/dL Normal [facility] Comment on above: Performed By: #### M ALBR #### [facility] [address] [place] [address] Dr. Tai Godwin HbA1c (Bld) [Mass fraction] 7.9 % Critically high 4.5-6.2 [facility] Comment on above: Performed By: #### M ALBR #### [facility] [address] [place] [address] Dr. Tai [place]win LIPID PROFILEon 07-13-2021 CHOL-HDL RATIO NORM SEE BELOW Normal [facility] Comment on above: Result Comment: 3.3 - 4.4 LOW RISK 4.4 - 7.1 AVERAGE RISK 7.1 - 11.0 MODERATE RISK >11.0 HIGH RISK Performed By: #### L IPID, CMP #### [facility] [address] [address] [address] Tai [place] Cholesterol [Mass/Vol] 110 mg/dL Normal <=200 [facility] Comment on above: Performed By: #### L IPID, CMP #### [facility] [address] [address] [address] Tai [place] Cholesterol in HDL [Mass/Vol] 48 mg/dL Normal 40-60 [facility] Comment on above: Performed By: #### L IPID, CMP #### [facility] [address] [address] [address] Tai [place]win Cholesterol in LDL [Mass/Vol] 48.0 mg/dL Normal [facility] Comment on above: Performed By: #### L IPID, CMP #### [facility] [address] [address] [address] Tai [place]win Cholesterol.total/ Cholesterol in HDL [Mass ratio] 2.3 {ratio} Normal [facility] Comment on above: Performed By: #### L IPID, CMP #### [facility] [address] [address] [address] Tai [place] HDL NORMAL > or = 60 mg/dl - LO W CARDIOVASCULAR RISK <40 mg/dl - HIGH CARDIOVASCULAR RISK Normal [facility] Comment on above: Performed By: #### L IPID, CMP #### [facility] [address] [address] [address] Tai [place] LDL CALC NORMAL SEE BELOW Normal [facility] Comment on above: Result Comment: <100 mg/dl OPTIMAL 100 - 129 mg/dl NEAR OR ABOVE OPTIMAL 130 - 159 mg/dl BORDERLINE HIGH 160 - 189 mg/dl HIGH >190 mg/dl VERY HIGH Performed By: #### L IPID, CMP #### [facility] [address] [address] [address] Tai [place] Triglyceride [Mass/Vol] 70 mg/dL Normal <=150 [facility] Comment on above: Performed By: #### L IPID, CMP #### [facility] [address] [address] [address] Tai [place] VLDL CALC 14.0 mg/dL Normal [facility] Comment on above: Performed By: #### L IPID, CMP #### [facility] [address] [place] [address] Dr. Tai [place] MICROALBUMIN, RAND URon 06-18 mALB 1.4 mg/L Normal <=30.0 [facility] Comment on above: Performed By: #### M ALBR #### [facility] [address] [place] [address] Dr. Tai [place] PROF 14(COMP METB)on 022 Albumin [Mass/Vol] 4.0 g/dL Normal 3.4-5.0 [facility] Comment on above: Performed By: #### L IPID, CMP #### [facility] [address] [place] [address] Dr. Tai Godwin Albumin/Globulin [Mass ratio] 0.9 {ratio} Normal [facility] Comment on above: Performed By: #### L IPID, CMP #### [facility] [address] [place] [address] Dr. Tai Godwin ALP [Catalytic activity/Vol] 65 U/L Normal 46-116 [facility] Comment on above: Performed By: #### L IPID, CMP #### [facility] [address] [place] [address] Dr. Tai [place] ALT [Catalytic activity/Vol] 60 U/L Normal 16-63 [facility] Comment on above: Performed By: #### L IPID, CMP #### [facility] [address] [place] [address] Dr. Tai Godwin Anion gap [Moles/Vol] 14.9 mmol/L Normal [facility] Comment on above: Performed By: #### L IPID, CMP #### [facility] [address] [place] [address] Dr. Tai [place] AST [Catalytic activity/Vol] 38 U/L Critically high 15-37 [facility] Comment on above: Performed By: #### L IPID, CMP #### [facility] [address] [place] [address] Dr. Tai [place] Bilirubin [Mass/Vol] 0.5 mg/dL Normal 0.2-1.0 [facility] Comment on above: Performed By: #### L IPID, CMP #### [facility] [address] [place] [address] Dr. Tai [place] Calcium [Mass/Vol] 9.4 mg/dL Normal 8.5-10.1 [facility] Comment on above: Performed By: #### L IPID, CMP #### [facility] [address] [place] [address] Dr. Tai [place] Chloride [Moles/Vol] 98 mmol/L Normal 98-107 [facility] Comment on above: Performed By: #### L IPID, CMP #### [facility] [address] [place] [address] Dr. Tai Godwin CO2 [Moles/Vol] 27.3 mmol/L Normal 21.0-32.[address] [facility] Comment on above: Performed By: #### L IPID, CMP #### [facility] [address] [place] [address] Dr. Tai [place] Creatinine [Mass/Vol] 0.82 mg/dL Normal 0.70-1.30 [facility] Comment on above: Performed By: #### L IPID, CMP #### [facility] [address] [place] [address] Dr. Tai [place] EGFR-AF ARMENIAN >60 Normal >=60 [facility] Comment on above: Performed By: #### L IPID, CMP #### [facility] [address] [place] [address] Dr. Tai [place] EGFR-NON AF ARMENIAN >60 Normal >=60 [facility] Comment on above: Performed By: #### L IPID, CMP #### [facility] [address] [place] [address] Dr. Tai [place] Globulin (S) [Mass/Vol] 4.4 g/dL Normal [facility] Comment on above: Performed By: #### L IPID, CMP #### [facility] [address] [place] [address] Dr. Tai [place] Glucose [Mass/Vol] 178 mg/dL Critically high 74-106 [facility] Comment on above: Performed By: #### L IPID, CMP #### [facility] [address] [place] [address] Dr. Tai [place] Potassium [Moles/Vol] 4.2 mmol/L Normal 3.5-5.1 [facility] Comment on above: Performed By: #### L IPID, CMP #### [facility] [address] [place] [address] Dr. Tai [place] Protein [Mass/Vol] 8.4 g/dL Critically high 6.4-8.2 [facility] Comment on above: Performed By: #### L IPID, CMP #### [facility] [address] [place] [address] Dr. Tai [place] Sodium [Moles/Vol] 136 mmol/L Normal 136-145 [facility] Comment on above: Performed By: #### L IPID, CMP #### [facility] [address] [place] [address] Dr. Tai [place] Urea nitrogen [Mass/Vol] 14.0 mg/dL Normal 7.0-18.0 [facility] Comment on above: Performed By: #### L IPID, CMP #### [facility] [address] [place] [address] Dr. Tai [place] Urea nitrogen/Creatinin e [Mass ratio] 17.1 mg/mg Normal [facility] Comment on above: Performed By: #### L IPID, CMP #### [facility] [address] [place] [address] Dr. Tai [place] History and Physicalon 10-06 History and Physical [id number]#1.00OTGTIF F Normal [facility] Operative Report - Surgeon/P jose guadalupe 10-06-2017 Operative Report - Surgeon/Physician [id number]#1.00OTGTLUCRETIA [facility] Coding Summaryon 09-29-2017 Coding Summary CODING DATE: 018 [facility] STATUS: Home PAYOR: [employer] APC DESCRIPTION 5312 Level 2 Lower GI Procedures ADMIT DX: REASON FOR VISIT DX: R19.5 Other fecal abnormalities FINAL DX: PRINCIPAL: D12.6 Benign neoplasm of colon, unspecified SECONDARY: PYMT PROC APC STAT DESCRIPTION DOCTOR NAME DATE 70295 5334 T Colonoscopy, flexible; Sacha Antonio MD 09/19/2017 with removal of tumor(s), polyp(s), or other lesion(s) by snare technique NOTE: The code number assigned matches the documented diagnosis and / or procedure in the patient's chart. However, the narrative phrase printed from the coding software may appear abbreviated, or result in slightly different terminology. Coded By: Carmelita Mcgregor Date Saved: 09/29/2017 01:52 pm [facility] - AP Resultson 8 Lab - AP Results [id number]#1.00[facility] Consent Formson 09-22-2017 Consent Forms [id number]#1.00OTGTIF [facility] Intraoperative Noteon 2017 Intraoperative Note [id number]#1.00[facility] Intraoperative Note [id number]#1.00OTGTIF [facility] Telemetry Stripson 8 Telemetry Strips [id number]#1.00[facility] Inpatient Clinical Summaryon 09-19-2017 Inpatient Clinical Summary [facility] SURGERYClinical Discharge SummaryPERSON INFORMATIONName BURGESS CATES Jr Age 62 Years 56Sex MALE Language Peruvian PCP Librado Connor EMarital Status Med Service Ambulatory SurgeryMRN [id number] Acct# Arrival 09/19/17 06:13:16Visit Reason COLONOSCOPY Acuity LOS 017 20:27Address:[address] [place] [address]Xmnvhee:PROVIDER INFORMATIONVITALS INFORMATIONVital Sign Triage LatestTemp OralTemp TemporalTemp IntravascularTemp AxillaryTemp [id number] Sat 98 % 100 %Respiratory Rate 18 [...] ToleratedPatient Diet:RegularPatient Activity Restrictions:No drivingDISCHARGE INFORMATIONDischarge Disposition:Discharge Location:DEPART REASON INCOMPLETE INFORMATIONPATIENT EDUCATION INFORMATIONInstructions:Mesha [place] up:With: Address: When:Sacha Antonio [address] [place] [address], [address] [place], [place] [id number] Business (1) Within 10 to 12 daysComments:Call for follow up appointmentWith: Address: When:Librado Connor [address] [place] [address] Business (1)DIAGNOSISColonic polyp; Heme positive stoolComment:PHYS DOC NOTES Normal [facility] Inpatient Patient Summaryon 09-19-2017 Inpatient Patient Summary [address] [id number] patient Discharge InstructionsName: CARRIE CATES JrOB: [birth year] Address: [address] [place] [address] Care Provider:Name: Librado Connor EPhone: After you are discharged if you find you have any questions, please, call [phone] ext [phone] to speak to a nurse.Discharge Diagnosis: Colonic [...] or business decisions or sign any legal documentsPromedica Flower Hospital would like to thank you for allowing us to assist you with your healthcare needs. The following includes patient education materials and information regarding your injury/illness.BURGESS CATES Jr has been given the following list of follow-up instructions, prescriptions, and patient education materials:Follow-up InstructionsWith: Address: When:Sacha Antonio [address] [facility], [address] [place] [address] Business (1) Within 10 to 12 daysComments:Call for follow up appointmentWith: Address: When:Librado Connor [address] [place] [address] Business (1)MedicationsDuring the course of [...] for Disease Control and Prevention October 2013 [facility] Endo Intraoperative Rec ordon 09-19-2017 [facility] Intraoperative Record [facility] Intra-Op Record Summary Primary Physician: Sacha Antonio MD Finalized Date/Time: 09/19/17 07:46:44 Pt. Name: BURGESS Monica CATES Jr/Sex: 1955 MALE Med Rec #: [id number] Physician: Sacha Antonio MD Financial #: [id number] Pt. Type: D Room/Bed: / Admit/Disch: 09/19/17 [...] Lora RN Role Performed Surgeon - Primary In Flight Crew Member In Flight Crew Member Time In 09/19/17 07:20:00 09/19/17 07:20:00 09/19/17 [...] Signed By: Angie Pedersen RN 09/19/17 07:46 [facility]o Postoperative Brayan rdon 09-19-2017 [facility] Postoperative Record [facility] Phase II Record Summary Primary Physician: Sacha Antonio MD Finalized Date/Time: 09/19/17 08:52:37 Pt. Name: BURGESS CATES Jr /Sex: 1955 MALE Med Rec #: [id number] Physician: Sacha Antonio MD Financial #: [id number] Pt. Type: D Room/Bed: / Admit/Disch: 09/19/17 [...] Signed By: Sandra Mckeon RN 09/19/17 08:52 [facility]-19-2017 [facility] Preoperative Record [facility] Pre-Op Record Summary Primary Physician: Sacha Antonio MD Finalized Date/Time: 09/19/17 07:17:51 Pt. Name: BURGESS CATES Jr /Sex: 1955 MALE Med Rec #: [id number] Physician: Sacha Antonio MD Financial #: [id number] Pt. Type: D Room/Bed: / Admit/Disch: 09/19/17 06:13:16 - Institution: Pre-Op Case Times EN MAGR Pre-Care Text: Patient will be optimally prepared [...] consent correct. General Comments: arrives ambulatory to [facility], denies recent cp, sob, new illnesses, pacemaker, defibrillator or sleep apnea Finalized By: Sandra Mckeon RN Document Signatures Signed By: Sandra Mckeon RN 09/19/17 07:17 [facility] Operative Report - Surgeon/P jose guadalupe [...] me in 2 weeks.Sacha Antonio M.D.JOB #: [id number]: 09/19/2017T: 09/19/2017[Electronically Signed on: 09/30/2017 16:04 EDT] Sacha Antonio MD[Verified on: 09/30/2017 16:04 EDT] Sacha Antonio MD[Transcribed on: 09/19/2017 08:02 EDT][facility] Social History Date Type Detail Facility Start: 06-03-2023 Tobacco smoking stat us NHIS Never smoked tobacco (finding) [facility] Start: 1955 Sex Assigned At Male F [facility] Sex Assigned At [facility] Other Vital Signs Date Time Vital Sign Value Performing Clinician Facility 07-10-2023 08:58-0400 Body height 177.8 cm [facility] 07-10-2023 08:58-0400 Body mass index (BMI) [Ratio] 33.3 kg/m2 [facility] 07-10-2023 08:58-0400 Body weight 105.29 kg [facility] 07-10-2023 08:58-0400 Diastolic blood pressure 89 mm[Hg] [facility] 07-10-2023 08:58-0400 Heart rate 69 /min [facility] 07-10-2023 08:58-0400 Respiratory rate 12 /min [facility] 07-10-2023 08:58-0400 Systolic blood pressure 191 mm[Hg] [facility] 06-03-2023 09:35-0400 Body height 177.8 cm [facility] 06-03-2023 09:35-0400 Body mass index (BMI) [Ratio] 32.7 kg/m2 [facility] 06-03-2023 09:35-0400 Body weight 103.41 kg [facility] 06-03-2023 09:35-0400 Diastolic blood pressure 88 mm[Hg] [facility] 06-03-2023 09:35-0400 Systolic blood pressure 172 mm[Hg] [facility] 03-11-2023 08:30-0500 Body height 177.8 cm Librado Ball Other [facility] 03-11-2023 08:30-0500 Body mass index (BMI) [Ratio] 33.26 kg/m2 Librado Ball Other [facility] Other 03-11-2023 08:30-0500 Body weight 105.14 kg Librado Ball Other [facility] 03-11-2023 08:30-0500 Diastolic blood pressure 76 mm[Hg] Librado Ball Other [facility] 03-11-2023 08:30-0500 Respiratory rate 12 /min Librado Ball Other [facility] Other 03-11-2023 08:30-0500 Systolic blood pressure 156 mm[Hg] Librado Ball Other [facility] 11-12-2022 10:00-0400 Body height 177.8 cm Librado Ball Other [facility] Other 11-12-2022 10:00-0400 Body mass index (BMI) [Ratio] 33.34 kg/m2 Librado Ball Other [facility] Other 11-12-2022 10:00-0400 Body weight 105.42 kg Librado Ball Other [facility] Other 11-12-2022 10:00-0400 Diastolic blood pressure 81 mm[Hg] Librado Ball Other [facility] Other 11-12-2022 10:00-0400 Respiratory rate 12 /min Librado Ball Other [facility] Other 11-12-2022 10:00-0400 Systolic blood pressure 174 mm[Hg] Librado Ball Other [facility] Other 07-01-2022 09:30-0400 Body height 177.8 cm Librado Ball Other [facility] Other 07-01-2022 09:30-0400 Body mass index (BMI) [Ratio] 33.28 kg/m2 Librado Ball Other [facility] Other 07-01-2022 09:30-0400 Body weight 105.24 kg Librado Ball Other [facility] Other 07-01-2022 09:30-0400 Diastolic blood pressure 79 mm[Hg] Librado Ball Other [facility] Other 07-01-2022 09:30-0400 Respiratory rate 12 /min Librado Connor Other [facility] Other 07-01-2022 09:30-0400 Systolic blood pressure 183 mm[Hg] Librado Connor Other [facility] Other Clinical Notes 07-01-2022 to 03-11-2023 Note Date [...] index [BMI] 33.0-33.9, adult (ICD-10 - Z68.33) [facility] Other 11-18-2023 Evaluation note* Encounter Date Diagnosis Assessment Notes Treatment Notes Treatment Clinical Notes Dec, Nonrheumatic aortic (valve) stenosis (ICD-10 - I35.0) Echo: LVEF 65%, LAE, LOVELY 1.3, velocity 199, gradient 2020 Echo: LVEF 65 to 70%, RV is normal, LVH, velocity 292, gradient 34/2022 [facility] Other 11-18-2023 Evaluation note* Encounter Date Diagnosis Assessment Notes Treatment Notes Treatment Clinical Notes Dec, Nonrheumatic aortic (valve) stenosis (ICD-10 - I35.0) Echo: LVEF 65%, LAE, LOVELY 1.3, velocity 199, gradient /2020 Echo: LVEF 65 to 70%, RV is normal, LVH, [facility] Other 09-26-2023 Evaluation note* Encounter Date Diagnosis [...] should be helpful in reducing caloric intake [facility] Other 07-05-2023 NoteChief Complaint consultation for surveillance colonoscopy [facility] 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 Other Evaluation note* Diagnosis Onset Date Resolution Status Left otitis media acute Tinnitus acute [facility] Work Phone: Evaluation note* Diagnosis Onset Date Resolution Status Cerebral atherosclerosis acu te Essential (primary) hypertension acute Hypercholesterolemia acute Nonrheumatic aortic (valve) stenosis acute Wellness examination noneact mateo [facility] Work Phone: History general Narrative - [...] History COLONOSCOPY 2018 Hospitalization History SEE SURGICAL [facility] Other History general Narrative - Reported* Type [...] 5 years 08/2022 Hospitalization History SEE SURGICAL [facility] Other Hisjpet general Narrative - Reported* Type Description Date [...] extraction 08/2022 Hospitalization History SEE SURGICAL HX [facility] Other Repchj for referral (narrative)* Reason *FU 07/08 Referral for screening colonoscopy Diagnosis 1 Screening for colon cancer (Z12.11) Referral Organization [facility] artie Referring Provider First Name Librado Referring Provider Last Name Nikolas Referring Provider Specialty Internal Ks jonathan Referred Organization [facility] Referred Provider John Montalvo Referred Address [address] [place], [place],[address] Referred Provider Specialty Surgery Referral Priority Routine General Notes Asymptomatic, low ri sk patient. Naila Sosa 07/01/2022 12:14:34 PM >received today, notes locked, referral faxed Clinical Notes [id number] [facility] Other Regbpa for referral (narrative)* Reason 08/21/22 Referral for screening colonoscopy Diagnosis 1 Screening for colon cancer (Z12.11) Referral Organization [facility] artie Referring Provider First Name Librado Referring Provider Last Name Nikolas Referring Provider Specialty Internal Ks dicine Referred Organization [facility] Referred Provider John Montalvo Referred Address [address] [place], [place],[address] Referred Provider Specialty Surgery Referral Priority Routine [...] >received fax with appt date Clinical Notes [id number] [facility] Other Summary Purpose Family History Relationship Condition [...] Reason for Visit Left otitis media Tinnitus Chief Complaint left ear infection Amb Documentation 3 month follow up Reason for Visit Cerebral atheroscler osis Essential (primary) hypertension Hypercholesterolemia Nonrheumatic aortic (valve) stenosis Wellness examination Additional Source Comments (unrecognized sect ion and content) No Status Records FoundNo Status Records FoundNo Status Records FoundNo Status Records FoundNo Status Records Found INFORMATION SOURCE (unrecogn ized section and content) DATE CREATED AUTHOR 08/12/2017 [facility] DATE CREATED AUTHOR AUTHOR'S ORGANIZ ATION 10/07/2017 [facility] DATE CREATED AUTHOR AUTHOR'S ORGANIZ ATION 07/03/2022 [facility] DATE CREATED AUTHOR AUTHOR'S ORGANIZ ATION 07/03/2022 [facility] DATE CREATED AUTHOR AUTHOR'S ORGANIZ ATION 10/02/2022 [facility] REASON FOR VISIT (unrecogniz ed section and [...] June 03, 2023 End: June 03, 2023 JAYNE CardC Attending Provider [facility] Start: June 03, 2023 End: June 03, 2023 Team Status: Active Member Role Status Dates Librado Connor DO Primary Care Provider Active Start: June 10, 2023 LILIA Kate Attending Provider Active Start : June 10, 2023 Team Status: Inactive Member Role Status Dates Librado Connor , DO Primary Care Provide r, Attending Provider Active Start: July 10, 2023 End: July 10, 2023 Goals (unrecognized section and content) Goals [...] BE BASED ON THE PRIMARY CLINICAL RECORDS. [facility] [employer] provides no warranty or guarantee of the accuracy or completeness of information in this document.
[2023-09-10 12:21] VITALS: BP 140/99; PULSE 66; TEMP 36.6; O2SAT 97; BMI 33.9
[2023-09-10 12:58] LABS: Basophils Absolute Auto 0.1 10^3/uL (0.0-0.1); Basophils Percent Auto 0.8 % (0.2-2.0); Eosinophils Absolute Auto 0.3 10^3/uL (0.0-0.7); Eosinophils Percent Auto 2.4 % (0.9-7.0); Hematocrit 48.4 % (42.0-54.0); Immature Granulocytes Abs Auto 0.03 10^3/uL (0.00-0.03); Immature Granulocytes Pct Auto 0.2 % (0.0-0.5); Lymphocytes Absolute Auto 4.5 10^3/uL (1.2-3.8); Mean Corpuscular HGB Conc 33.1 g/dL (29.9-35.2); Mean Corpuscular Hemoglobin 29.1 pg (25.9-34.0); Mean Corpuscular Volume 88.2 fL (80.0-94.0); Mean Platelet Volume 10.3 fL (9.5-13.5); Monocytes Absolute Auto 1.1 10^3/uL (0.3-0.8); Monocytes Percent Auto 8.6 % (1.7-12.0); Neutrophils Absolute Auto 6.7 10^3/uL (1.4-6.5); Platelet Count 237 10^3/uL (150-450); Red Blood Count 5.49 10^6/uL (4.70-6.10); Red Cell Distribution Width 14.5 % (11.0-15.0); White Blood Count 12.7 10^3/uL (4.0-11.0)
--- NOTE | 2023-09-10 12:58 | ED.NAVMDI1 ---
HPI - Nausea/Vomiting/Diarrhea General Chief complaint: Nausea/Vomiting/Diarrhea Stated complaint: DIARRHEA, POSSIBLE DEHYDRATION Time Seen by Provider: 09/10/23 12:36 Source: patient and family Mode of arrival: walk-in Limitations: no limitations History of Present Illness HPI Narrative: Patient presents to ED with complaints of diarrhea for the past 5 days. He said he ate at [employer] and then later that night started feeling nauseated and having stomach cramping. He said he had diarrhea ever since. He did have some vomiting yesterday. He is diabetic. No fevers, no acute abdominal pain. He denies any blood in the stool. He denies history of C. difficile. He was worried about dehydration because his lips seem dry and the thought he looked a little bit pale this morning so they came in for further evaluation. He is resting comfortably in the bed in no acute distress. Related Data Home Medications ?Medication ?Instructions ?Recorded ?Confirmed amlodipine 10 mg tablet 10 mg PO DAILY 09/03/22 09/10/23 carvedilol 3.125 mg tablet 3.125 mg PO BID 09/03/22 09/10/23 clopidogrel 75 mg tablet (Plavix) 75 mg PO DAILY 09/03/22 09/10/23 dapagliflozin propanediol 10 mg 10 mg PO DAILY 09/03/22 09/10/23 tablet (Farxiga) dulaglutide 3 mg/0.5 mL 4.5 mg subcut QWEEK 09/03/22 09/10/23 subcutaneous pen injector (Trulicity) hydralazine 10 mg tablet 10 mg PO BID 09/03/22 09/10/23 lisinopril 20 1 tab PO DAILY 09/03/22 09/10/23 mg-hydrochlorothiazide 25 mg tablet metformin 1,000 mg tablet 1,000 mg PO BID 09/03/22 09/10/23 simvastatin 40 mg tablet 40 mg PO DAILY 09/03/22 09/10/23 Previous Rx's ?Medication ?Instructions ?Recorded ciprofloxacin HCl 500 mg tablet 500 mg PO BID 5 days #10 tabs 09/10/23 (Cipro) Allergies Allergy/AdvReac Type Severity Reaction Status Date / Time sulfamethoxazole Allergy Mild Hives Verified 09/10/23 12:25 [From Bactrim] trimethoprim [From Bactrim] Allergy Mild Hives Verified 09/10/23 12:25 Review of Systems ROS Status of ROS 10 or more systems reviewed and unremarkable except as noted in history and below [facility] Medical History (Updated 09/10/23 @ 14:01 by Domonique Loya DO) Obesity ?E66.9 - Obesity, unspecified (ICD-10) Lumbar spondylosis ?M47.816 - Spondylosis without myelopathy or radiculopathy, lumbar region (ICD-10) Hyperlipidemia ?E78.5 - Hyperlipidemia, unspecified (ICD-10) Hypertension ?I10 - Essential (primary) hypertension (ICD-10) Diabetes ?E11.9 - Type 2 diabetes mellitus without complications (ICD-10) Cerebral infarction ?I63.9 - Cerebral infarction, unspecified (ICD-10) Cerebral atherosclerosis ?I67.2 - Cerebral atherosclerosis (ICD-10) Bilateral carotid bruits ?R09.89 - Other specified symptoms and signs involving the circulatory and respiratory systems (ICD-10) Aortic valve disorder ?I35.9 - Nonrheumatic aortic valve disorder, unspecified (ICD-10) Surgical History (Updated 09/03/22 @ 14:13 by Vivi Hubbard) H/O hammer toe correction ?Z98.890 - Other specified postprocedural states (ICD-10) ?Z87.39 - Personal history of other diseases of the musculoskeletal system and connective tissue (ICD-10) History of appendectomy ?Z90.49 - Acquired absence of other specified parts of digestive tract (ICD-10) H/O colonoscopy ?Z98.890 - Other specified postprocedural states (ICD-10) Family History (Updated 09/03/22 @ 14:14 by Vivi Hubbard) Mother Family history of COPD (chronic obstructive pulmonary disease) Heart disease Father Family history of cancer Sister Heart disease Social History (Updated 09/11/22 @ 06:33 by Deysi Mercado) Within the past year, how often did you have a drink containing alcohol: never Score interpretation: A score less than 4 is consistent with normal alcohol consumption. Smoking status: Former smoker What tobacco products do you use: cigarettes Packs per day: 0.5 Years smoked: 39 Smoking pack-years: 19.50 Smoking quit date/years: <= 15 years ago Non-prescribed substance use: denies use Highest level of school completed/degree received: high school graduate Exam Narrative Exam Narrative: General: alert, no acute distress Cardiovascular: regular rate and rhythm, normal peripheral perfusion. Respiratory: Lungs CTA, respirations non labored. Extremities: no deformity, no trauma. Neurological: oriented x 4, LOC appropriate for age. Abdomen soft nontender nondistended no peritoneal Signs no rebound no guarding Constitutional Vital Signs, click to edit/add: Last Vital Signs Temp 97.9 F 09/10/23 12:21 Pulse 66 09/10/23 12:21 Resp 18 09/10/23 12:21 BP 140/99 H 09/10/23 12:21 Pulse Ox 97 09/10/23 12:21 O2 Del Method Room Air 09/10/23 12:21 Course Vital Signs Vital signs: Vital Signs Temperature 97.9 F 09/10/23 12:21 Pulse Rate 66 09/10/23 12:21 Respiratory Rate 18 09/10/23 12:21 Blood Pressure 140/99 H 09/10/23 12:21 Pulse Oximetry 97 09/10/23 12:21 Oxygen Delivery Method Room Air 09/10/23 12:21 Temperature 97.9 F 09/10/23 12:21 Pulse Rate 66 09/10/23 12:21 Respiratory Rate 18 09/10/23 12:21 Blood Pressure 140/99 H 09/10/23 12:21 Pulse Oximetry 97 09/10/23 12:21 Oxygen Delivery Method Room Air 09/10/23 12:21 MDM - Nausea/Vomiting/Diarrhea MDM Narrative Medical decision making narrative: Labs are nonacute including potassium and BUN/creatinine. Patient was feeling better after IV fluids. I will send the patient home on a 5-day course of Cipro for the diarrhea. If he is not improving after the Cipro, please return to ED or follow-up with family doctor as he may need some further testing including stool studies. Patient's vitals are stable and he is comfortable care plan for home. Differential Diagnosis Differential diagnosis: Likely food poisoning, gastroenteritis and dehydration Medical Records Attestation: I reviewed the patient's medical records. Lab Data Attestation: I reviewed the patient's lab results. Labs: Lab Results 09/10/23 Range/Units 12:36 WBC 12.7 H (4.0-11.0) 10^3/uL RBC 5.49 (4.70-6.10) 10^6/uL Hgb 16.0 (14.0-18.0) g/dL Hct 48.4 (42.0-54.0) % MCV 88.2 (80.0-94.0) fL MCH 29.1 (25.9-34.0) pg MCHC 33.1 (29.9-35.2) g/dL RDW 14.5 (11.0-15.0) % Plt Count 237 (150-450) 10^3/uL MPV 10.3 (9.5-13.5) fL Neut % (Auto) 53.0 (43.0-75.0) % Lymph % (Auto) 35.0 (20.5-60.0) % [place] % (Auto) 8.6 (1.7-12.0) % Eos % (Auto) 2.4 (0.9-7.0) % Baso % (Auto) 0.8 (0.2-2.0) % Neut # (Auto) 6.7 H (1.4-6.5) 10^3/uL Lymph # (Auto) 4.5 H (1.2-3.8) 10^3/uL [place] # (Auto) 1.1 H (0.3-0.8) 10^3/uL Eos # (Auto) 0.3 (0.0-0.7) 10^3/uL Baso # (Auto) 0.1 (0.0-0.1) 10^3/uL Abs Immat Gran (auto) 0.03 (0.00-0.03) 10^3/uL Imm/Tot Granulo (auto) 0.2 (0.0-0.5) % Sodium 136 (136-145) mmol/L Potassium 3.9 (3.5-5.1) mmol/L Chloride 102 (98-107) mmol/L Carbon Dioxide 20.7 L (21.0-32.0) mmol/L Anion Gap 17.2 BUN 26.0 H (7.0-18.0) mg/dL Creatinine 1.01 (0.70-1.30) mg/dL Est GFR ( Amer) >60 (>=60) Est GFR (Non-Af Amer) >60 (>=60) BUN/Creatinine Ratio 25.7 Glucose 151 H (74-106) mg/dL Calcium 10.2 H (8.5-10.1) mg/dL Total Bilirubin 0.6 (0.2-1.0) mg/dL AST 23 (15-37) U/L ALT 47 (16-63) U/L Alkaline Phosphatase 86 (46-116) U/L Total Protein 8.2 (6.4-8.2) g/dL Albumin 4.1 (3.4-5.0) g/dL Globulin 4.1 g/dL Albumin/Globulin Ratio 1.0 Discharge Plan Discharge Stand Alone Forms: Portal Instructions Chief Complaint: Nausea/Vomiting/Diarrhea Clinical Impression: Gastroenteritis Patient Disposition: Home, Self-Care Time of Disposition Decision: 14:01 Mode of Transportation: Private Vehicle Prescriptions / Home Meds: New ciprofloxacin HCl [Cipro] 500 mg tablet 500 mg PO BID 5 Days Qty: 10 0RF No Action amlodipine 10 mg tablet 10 mg PO DAILY carvedilol 3.125 mg tablet 3.125 mg PO BID Rx Instructions: must administer with a meal/food dapagliflozin propanediol [Farxiga] 10 mg tablet 10 mg PO DAILY hydralazine 10 mg tablet 10 mg PO BID lisinopril-hydrochlorothiazide 20-25 mg tablet 1 tab PO DAILY metformin 1,000 mg tablet 1,000 mg PO BID clopidogrel [Plavix] 75 mg tablet 75 mg PO DAILY simvastatin 40 mg tablet 40 mg PO DAILY Trulicity 3 mg/0.5 mL pen injector 4.5 mg subcut QWEEK Print Language: Chinese Instructions: Acute Diarrhea (ED) Referrals: Librado Connor DO [Primary Care Provider] - 1 week
[2023-09-10] MEDS: 0.9 % SODIUM CHLORIDE 1,000 ML 1000 ML IV (13:04)
[2023-09-10 13:13] LABS: Alanine Aminotransferase 47 U/L (16-63); Albumin Level 4.1 g/dL (3.4-5.0); Alkaline Phosphatase 86 U/L (46-116); Anion Gap 17.2; Aspartate Amino Transferase 23 U/L (15-37); BUN Creatinine Ratio 25.7; Bilirubin Total 0.6 mg/dL (0.2-1.0); Calcium 10.2 mg/dL (8.5-10.1); Carbon Dioxide 20.7 mmol/L (21.0-32.0); Chloride 102 mmol/L (98-107); Estimated GFR (African America >60 (>=60); Estimated GFR (Non-African Ame >60 (>=60); Globulin 4.1 g/dL; Glucose 151 mg/dL (74-106); Potassium 3.9 mmol/L (3.5-5.1); Sodium 136 mmol/L (136-145); Total Protein 8.2 g/dL (6.4-8.2)
== END 2023-09-10 14:17 | disposition home or self-care (01) ==
PROVIDERS: Emergency Provider Emergency Medicine; PCP Internal Medicine
DX: K52.9 Noninfective gastroenteritis and colitis, unspecified (principal); E11.9 Type 2 diabetes mellitus without complications; Z79.84 Long term (current) use of oral hypoglycemic drugs; Z79.85 Long-term (current) use of injectable non-insulin antidiabetic drugs; Z87.891 Personal history of nicotine dependence
CPT/HCPCS: 36415; 80053; 85025; 99283

== ENCOUNTER 2024-06-17 14:10 | Outpatient (OUT) | payer BC, MEDICARE, SELFPAY ==
--- NOTE | 2024-06-17 15:25 | PM.WCHP ---
Wound Care H&P: HPI History of Present Illness Narrative: The patient is a pleasant 68-year-old gentleman with history of previous stroke with residual left-sided hemiparesis, also history of type 2 diabetes with last A1c of 8.1. He presents today for routine nail care. He has no complaints of foot pain at this time. [facility] Medical History (Updated 06/17/24 @ 15:35 by NEERU Soto) Obesity ?E66.9 - Obesity, unspecified (ICD-10) Lumbar spondylosis ?M47.816 - Spondylosis without myelopathy or radiculopathy, lumbar region (ICD-10) Hyperlipidemia ?E78.5 - Hyperlipidemia, unspecified (ICD-10) Hypertension ?I10 - Essential (primary) hypertension (ICD-10) Diabetes ?E11.9 - Type 2 diabetes mellitus without complications (ICD-10) Cerebral infarction ?I63.9 - Cerebral infarction, unspecified (ICD-10) Cerebral atherosclerosis ?I67.2 - Cerebral atherosclerosis (ICD-10) Bilateral carotid bruits ?R09.89 - Other specified symptoms and signs involving the circulatory and respiratory systems (ICD-10) Aortic valve disorder ?I35.9 - Nonrheumatic aortic valve disorder, unspecified (ICD-10) Surgical History (Updated 09/03/22 @ 14:13 by Vivi Hubbard) H/O hammer toe correction ?Z98.890 - Other specified postprocedural states (ICD-10) ?Z87.39 - Personal history of other diseases of the musculoskeletal system and connective tissue (ICD-10) History of appendectomy ?Z90.49 - Acquired absence of other specified parts of digestive tract (ICD-10) H/O colonoscopy ?Z98.890 - Other specified postprocedural states (ICD-10) Family History (Updated 09/03/22 @ 14:14 by Vivi Hubbard) Mother Family history of COPD (chronic obstructive pulmonary disease) Heart disease Father Family history of cancer Sister Heart disease Social History (Updated 09/11/22 @ 06:33 by Deysi Mercado) Within the past year, how often did you have a drink containing alcohol: never Score interpretation: A score less than 4 is consistent with normal alcohol consumption. Smoking status: Former smoker What tobacco products do you use: cigarettes Packs per day: 0.5 Years smoked: 39 Smoking pack-years: 19.50 Smoking quit date/years: <= 15 years ago Non-prescribed substance use: denies use Highest level of school completed/degree received: high school graduate Meds Home Medications and Allergies Home Medications ?Medication ?Instructions ?Recorded ?Confirmed ?Type amlodipine 10 mg tablet 10 mg PO DAILY 09/03/22 09/10/23 History carvedilol 3.125 mg tablet 3.125 mg PO BID 09/03/22 09/10/23 History clopidogrel 75 mg tablet (Plavix) 75 mg PO DAILY 09/03/22 09/10/23 History dapagliflozin propanediol 10 mg 10 mg PO DAILY 09/03/22 09/10/23 History tablet (Farxiga) dulaglutide 3 mg/0.5 mL 4.5 mg subcut QWEEK 09/03/22 09/10/23 History subcutaneous pen injector (Trulicity) hydralazine 10 mg tablet 10 mg PO BID 09/03/22 09/10/23 History lisinopril 20 1 tab PO DAILY 09/03/22 09/10/23 History mg-hydrochlorothiazide 25 mg tablet metformin 1,000 mg tablet 1,000 mg PO BID 09/03/22 09/10/23 History simvastatin 40 mg tablet 40 mg PO DAILY 09/03/22 09/10/23 History ciprofloxacin HCl 500 mg tablet 500 mg PO BID 5 days #10 tabs 09/10/23 Rx (Cipro) Allergies Allergy/AdvReac Type Severity Reaction Status Date / Time sulfamethoxazole (From Allergy Mild Hives Verified 09/10/23 12:25 Bactrim) trimethoprim (From Bactrim) Allergy Mild Hives Verified 09/10/23 12:25 Exam Narrative: Exam Narrative: Derm: Skin is diffusely dry. No ulcerative or preulcerative lesions are noted. Toenails 1 through 10 are elongated, thickened, mycotic, and dystrophic. No evidence of paronychia on examination. Vascular: DP pulses are 2/4 bilaterally. PT pulses nonpalpable on the left, but 1/4 on the right. Capillary refill is less than 3 seconds. Superficial varicosities are noted bilaterally. Skin is warm to the touch. There is trace foot and ankle edema bilaterally. Digital hair is absent. There is hemosiderin staining of the lower legs bilaterally. Musculoskeletal: Hammertoe deformities of the lesser toes on the left. Mallet toe deformity of the hallux on the left. Generalized weakness noted of the left leg Neuro: Protective sensation intact in 5/5 areas tested with the monofilament on each foot. Vibratory sensation is normal. He is hyperreflexic on the right side and Achilles reflexes absent on the left. Assessment and Plan Assessment and Plan (1) Type 2 diabetes mellitus with other circulatory complications: (2) Tinea unguium: (3) Gait instability: (4) Unsteady gait when walking: (5) Hemiparesis affecting left side as late effect of cerebrovascular accident: Plan Routine nail care performed. Follow-up in 3 months or as needed. Acute Procedures Podiatry Nail Debridement Class B Findings Absent posterior tibial pulse: left Advanced trophic changes as evidenced by any three of the following: decreased hair growth, nail changes (thickening), pigmentary changes (discoloring) and skin texture (thin or shiny) Class C Findings Temperature changes: No Edema: Yes Nail debridement paresthesia (abnormal spontaneous sensations in the feet): No Burning: No Qualifies If: Qualifiers If:: A patient qualifies for nail debridement if they have: 1 class A finding (Q7) 2 class B findings (Q8) OR 1 class B & 2 class C findings in addition to a primary condition (Q9) Nail Procedure Nail Procedure Time out: Yes Nail procedure: other (Toenail debridement) Number of affected nails: 10 Location (toes): left, right, first digit, second digit, third digit, fourth digit and fifth digit Procedure successful: Yes Patient tolerated procedure: well and no complications Additional comments: Toenails 1 through 10 were sharply debrided with nail nippers without incident and to the patient's satisfaction.
== END 2024-06-17 14:11 | disposition home or self-care (01) ==
LOC: WC 14:10
PROVIDERS: Visit Provider Physician Assistant
DX: E11.59 Type 2 diabetes mellitus with other circulatory complications (principal); B35.1 Tinea unguium; R26.89 Other abnormalities of gait and mobility; I69.954 Hemiplegia and hemiparesis following unspecified cerebrovascular disease affecting left non-dominant side; R26.2 Difficulty in walking, not elsewhere classified
CPT/HCPCS: 11721

== ENCOUNTER 2024-08-09 07:02 | Outpatient (OUT) | payer BC, MEDICARE, SELFPAY ==
--- OUTSIDE RECORDS SUMMARY | 2024-08-09 07:05 | XMS_ITS | CCD ---
Author Organization [facility] Providers Care Trout Farmer Name Role Phone PHYSICIAN, DEFAULT Unavailable Unavailable [...] sources) Sulfamethoxazole / Trimethoprim Drug Allergy Unknown Acucela Other (1 source) Sulfonamides (Antibiotic) Drug allergy (disorder) 02-18-19 [facility] Repository (12 sources) sulfADIAZINE Drug Allergy 06-03-19 Unknown, Unknown Reaction [facility] (1 source) Allergies Reconciled Propensity to adverse reactions Unknown Acucela Other (6 sources) Substance with sulfonamide structure and antibacterial mechanism of action (substance) Drug allergy Unknown Acucela Other (6 sources) Sulf-10 Drug allergy Unknown Acucela Other (6 sources) Sulfamethoxazole-Tr imethoprim *ANTI-INFECTIVE AGEN Propensity to adverse reactions Unknown Acucela Other (1 source) patient allergy list reviewed by nurse or physicia Propensity to adverse reactions 06-30-19 Comment:Done Acucela Other (1 source) Sulfamethoxazole / Trimethoprim; Translations: [sulfamethoxazole-t rimethoprim] Drug Allergy [facility] Repository (6 sources) Sulfamethoxazole Drug Allergy 06-03-19 Unknown Reaction [facility] (6 sources) Trimethoprim Drug Allergy 06-03-19 Unknown Reaction [facility] Medications Current Medications Medication Drug Class(es) Dates Sig (Normalized) Sig (Original) Accu-Chek SmartView - (6 sources) Accu-Chek SmartView - USE TO TEST BLOOD SUGAR ONCE A DAY for 90 Active amLODIPine 10 mg oral tablet (20 sources) Dihydropyridine Calcium Channel Kristen Start: 09-21-2023 End: 09-22-2023 take 1 tablet by mouth once daily Amlodipine 10 mg tablet Active 0 .ROUTE .COMPLEX September 22, 2023 11:02am TAKE 1 TABLET BY MOUTH EVERY DAY Start: 06-03-2023 End: 09-21-2023 take 1 tablet by mouth once daily Amlodipine 10 mg tablet Discontinued 10 MG PO Daily June 03, 2023 12:00am September 21, 2023 11:51am take 1 tablet by dixon th once daily amLODIPine Besylate 10 MG TAKE 1 TABLET BY MOUTH EVERY DAY Active atorvastatin 20 mg oral tablet (19 sources) HMG-CoA Reductase Inhibitor Start: 06-03-2023 End: 11-06-2023 take 1 tablet by mouth once daily in the evening Atorvastatin 20 mg tablet Active 20 MG PO Every evening November 06, 2023 12:00am take 1 tablet by dixon th every twenty-four hours Atorvastatin Calcium 20 MG 1 tablet Oral ly Once a day Active carvedilol 12.5 mg oral tablet (18 sources) alpha-Adrenergic Kristen, beta-Adrenergic Kristen Start: 11-18-2023 take 1 tablet by mouth twice daily at mealtime Carvedilol 12.5 mg tablet Active 0 .ROUTE .COMPLEX 180 November 18, 2023 8:52pm TAKE 1 TABLET BY MOUTH TWICE A DAY WITH FOOD FOR 30 DAYS Start: 06-03-2023 End: 11-18-2023 take 1 tablet by mouth twice daily Carvedilol 12.5 mg tablet Discontinued 12.5 MG PO Twice daily June 03, 2023 12:00am November 18, 2023 8:52pm Start: 03-11-2023 take 1 tablet by dixon th every twelve hours Carvedilol 12.5 MG 1 tablet with food Orally Twice a day for 30 days Feb, Active take 1 tablet by dixon th every twelve hours Carvedilol 6.25 MG 1 tablet with food Orally Twice a day Active clopidogrel 75 mg oral tablet (20 sources) [id number] Platelet Inhibitor Start: 09-21-2023 End: 09-22-2023 take 1 tablet by mouth once daily Clopidogrel 75 mg tablet Active 0 .ROUTE .COMPLEX 90 September 22, 2023 11:02am TAKE 1 TABLET BY MOUTH EVERY DAY Start: 06-03-2023 End: 09-21-2023 take 1 tablet by mouth once daily Clopidogrel 75 mg tablet Discontinued 75 MG PO Daily June 03, 2023 12:00am September 21, 2023 11:51am take 1 tablet by dixon th once daily Clopidogrel Bisulfate 75 MG TAKE 1 TABLET [...] 3 MG/0 .5ML as directed Subcutaneous Active eplerenone 25 mg oral tablet (1 source) Aldosterone Antagonist Start: 07-14-2024 take 1 tablet by mouth once daily Eplerenone 25 mg tablet Active 25 MG PO Daily July 14, 2024 12:00am fluocinolone acetonide 0.1 mg/ml otic solution (8 sources) Corticosteroid Start: 07-01-2022 Fluocinolone Acetonide 0.01 % 5 drops into affected ear Otic weekly as needed for itching for 30 days June, Active Start: 07-01-2022 Fluocinolone A cetonide 0.01 % 5 drops into affected ear Otic weekly as needed for itching for 30 days June, Active hydrALAZINE hydrochloride 10 mg oral tablet (18 sources) Arteriolar Vasodilator Start: 11-18-2023 take 1 tablet by mouth twice daily Hydralazine 10 mg tablet Active 0 .ROUTE .COMPLEX 180 November 18, 2023 8:52pm TAKE 1 TABLET BY MOUTH TWICE A DAY Start: 06-03-2023 End: 11-18-2023 take 1 tablet by mouth twice daily Hydralazine 10 mg tablet Discontinued 10 MG PO Twice daily June 03, 2023 12:00am November 18, 2023 8:52pm take 1 tablet by dixon th twice daily hydrALAZINE HCl 10 MG TAKE 1 TABLET [...] 1 TABLET BY MOUTH EVERY DAY Active hydrocortisone 10 mg/ml / neomycin 3.5 mg/ml / polymyxin b 76434 unt/ml otic suspension (2 sources) Aminoglycoside Antibacterial, Polymyxin-class Antibacterial, Corticosteroid Start: 01-08-2024 Jykacxjn-Bniedmtpv-Sr 3.5-10,000-1 mg/mL-unit/mL-% drops,suspension Active 4 DROPS OTIC Every 8 hours 10 7 January 08, 2024 1:00am lisinopril 40 mg oral tablet (10 sources) Angiotensin Converting Enzyme Inhibitor Start: 11-18-2023 take 1 tablet by mouth once daily Lisinopril 40 mg tablet Active 0 .ROUTE .COMPLEX November 18, 2023 8:52pm TAKE 1 TABLET BY MOUTH EVERY DAY FOR 30 DAYS Start: 06-03-2023 End: 11-18-2023 take 1 tablet by mouth once daily Lisinopril 40 mg tablet Discontinued 40 MG PO Daily June 03, 2023 12:00am November 18, 2023 8:52pm Start: 03-11-2023 take 1 tablet by dixon th every twenty-four hours Lisinopril 40 MG 1 tablet Orally Once a day for 30 days Feb, Active metFORMIN hydrochloride 1000 mg oral tablet (20 sources) Biguanide Start: 11-11-2023 take 1 tablet by mouth once daily Metformin 1,000 mg tablet Active 1000 MG PO Daily 90 November 11, 2023 9:46am Start: 06-05-2023 End: 11-11-2023 take 1 tablet by mouth before breakfast Metformin 1,000 mg tablet Discontinued 0 .ROUTE .COMPLEX 180 June 05, 2023 7:39am November 11, 2023 9:47am TAKE 1 TABLET BY MOUTH BEFORE BREAKFAST AND EVENING MEAL Start: 06-05-2023 End: 11-11-2023 take 1 tablet by mouth before breakfast Metformin Discontinued 0 .ROUTE .COMPLEX 180 June 05, 2023 7:39am November 11, 2023 9:47am TAKE 1 TABLET BY MOUTH BEFORE BREAKFAST AND EVENING MEAL Start: 06-03-2023 End: 06-05-2023 take 1 tablet by mouth twice daily at mealtime Metformin 1,000 mg tablet Discontinued 1000 MG PO Twice daily with meals June 03, 2023 12:00am June 05, 2023 7:39am take 1 tablet by dixon th before breakfast metFORMIN HCl 1000 MG TAKE 1 TABLET BY MOUTH BEFORE BREAKFAST AND EVENING MEAL Active Semaglutide (1 source) Start: 03-16-2024 Semaglutide (O zempic) 0.25 mg or 0.5 mg (2 mg/3 mL) pen injector Active 0.25 MG SUBCUT every week 1.472 March 16, 2024 1:00am for 4 weeks Completed/Discontinued Medications Medication Drug Class(es) Dates Sig (Normalized) Sig (Original) amoxicillin 875 mg oral tablet (8 sources) Penicillin-class Antibacterial Start: 01-08-2024 End: 07-14-2024 take 1 tablet by mouth twice daily Amoxicillin 875 mg tablet Discontinued 875 MG PO Twice daily 14 January 08, 2024 1:00am July 14, 2024 8:32am Start: 06-03-2023 End: 07-10-2023 take 1 tablet by mouth twice daily Amoxicillin 875 mg tablet Discontinued 875 MG PO Twice daily 20 June 03, 2023 12:00am July 10, 2023 8:58am dapagliflozin 10 mg oral tablet (20 sources) Sodium-Glucose Cotransporter 2 Inhibitor Start: 06-19-2023 End: 03-30-2024 take 1 tablet by mouth once daily Dapagliflozin Propanediol (Farxiga) 10 mg tablet Discontinued 0 .ROUTE .COMPLEX June 19, 2023 10:52pm March 30, 2024 1:41pm TAKE 1 TABLET BY MOUTH EVERY DAY Start: 06-03-2023 End: 06-19-2023 take 1 tablet by mouth once daily Dapagliflozin Propanediol (Farxiga) 10 mg tablet Discontinued 10 MG PO Daily June 03, 2023 12:00am June 19, 2023 10:52pm take 1 tablet by dixon th once daily Farxiga 10 MG TAKE 1 TABLET BY MOUTH EVERY DAY Active Dulaglutide (Trulicity) 4.5 mg/0.5 mL pen injector (13 sources) Start: 11-30-2023 End: 03-16-2024 inject 4.5 mg by subcutaneous injection every week Dulaglutide (Trulicity) 4.5 mg/0.5 mL pen injector Discontinued 0 .ROUTE .COMPLEX November 30, 2023 12:20pm March 16, 2024 9:52am INJECT 4.5MG SUBCUTANEOUSLY ONCE A WEEK; Start: 11-30-2023 inject 4.5 mg by sub cutaneous injection every week Dulaglutide (Trulicity) 4.5 mg/0.5 mL pen injector Active 0 .ROUTE .COMPLEX November 30, 2023 11:20am INJECT 4.5MG SUBCUTANEOUSLY ONCE A WEEK; Start: 08-28-2023 End: 11-30-2023 Dulaglutide (Trulicity) 4.5 mg/0.5 mL pen injector Discontinued 4.5 MG SUBCUT every week August 28, 2023 12:00am November 30, 2023 12:21pm Start: 08-28-2023 End: 11-30-2023 Dulaglutide (Trulicity) 4.5 mg/0.5 mL pen injector Discontinued 4.5 MG SUBCUT every week August 27, 2023 11:00pm November 30, 2023 11:21am Start: 08-28-2023 Dulaglutide (T rulicity) 4.5 mg/0.5 mL pen injector Active 4.5 MG SUBCUT every week August 28, 2023 12:00am Start: 06-03-2023 End: 07-10-2023 Dulaglutide (Trulicity) 4.5 mg/0.5 mL pen injector Discontinued 4.5 MG SUBCUT every week June 02, 2023 11:00pm July 10, 2023 8:15am Start: 06-03-2023 End: 07-10-2023 Dulaglutide (Trulicity) 4.5 mg/0.5 mL pen injector Discontinued 4.5 MG SUBCUT every week June 03, 2023 12:00am July 10, 2023 9:15am Start: 06-03-2023 Dulaglutide (T rulicity) 4.5 mg/0.5 mL pen injector Active 4.5 MG SUBCUT every week June 03, 2023 12:00am Semaglutide (1 source) Start: 08-12-2023 End: 08-28-2023 take 7 mg by mouth once daily Semaglutide Discontinued 7 MG PO Daily August 12, 2023 5:46pm August 28, 2023 3:36pm Semaglutide (Rybelsus) 3 mg tablet (5 sources) Start: 07-10-2023 End: 08-12-2023 take 1 tablet by mouth once daily Semaglutide (Rybelsus) 3 mg tablet Discontinued 3 MG PO Daily July 09, 2023 11:00pm August 12, 2023 4:46pm Start: 07-10-2023 End: 08-12-2023 take 1 tablet by mouth once daily Semaglutide (Rybelsus) 3 mg tablet Discontinued 3 MG PO Daily July 10, 2023 12:00am August 12, 2023 5:46pm Start: 07-10-2023 take 1 tablet by dixon once daily Semaglutide (Rybelsus) 3 mg tablet Active 3 MG PO Daily July 10, 2023 12:00am Semaglutide 7 mg tablet (3 sources) Start: 08-12-2023 End: 08-28-2023 take 1 tablet by mouth once daily Semaglutide 7 mg tablet Discontinued 7 MG PO Daily August 12, 2023 5:46pm August 28, 2023 3:36pm Start: 08-12-2023 End: 08-28-2023 take 1 tablet by mouth once daily Semaglutide 7 mg tablet Discontinued 7 MG PO Daily August 12, 2023 4:46pm August 28, 2023 2:36pm simvastatin 40 mg oral tablet (15 sources) HMG-CoA Reductase Inhibitor Start: 11-06-2023 End: 11-06-2023 take 1 tablet by mouth once daily Simvastatin 40 mg tablet Discontinued 40 MG PO Daily November 06, 2023 12:00am November 06, 2023 12:39pm Start: 07-28-2023 End: 09-22-2023 take 1 tablet by mouth once daily Simvastatin 40 mg tablet Discontinued 0 .ROUTE .COMPLEX 90 July 28, 2023 6:03pm September 22, 2023 11:14am TAKE 1 TABLET BY MOUTH EVERY DAY Start: 06-10-2023 End: 07-28-2023 take 1 tablet by mouth once daily Simvastatin 40 mg tablet Discontinued 40 MG PO Daily June 10, 2023 12:00am July 28, 2023 6:04pm take 1 tablet by dixon th once daily Simvastatin 40 MG TAKE 1 TABLET BY MOUTH EVERY DAY for 90 Active Problems Active Problems Problem Classification Problem Date Documented Date Episodic/Chronic Acquired foot deformities (20 sources) Acquired claw toes; Translations: [Other deformities of toe(s) (acquired), left foot] Episodic Acute cerebrovascular disease (15 sources) Cerebral infarction; Translations: [Cerebral infarction, unspecified] 06-03-2023 Chronic Diabetes mellitus with complications (20 sources) Hyperglycemia due to type 2 diabetes mellitus; Translations: [Type 2 diabetes mellitus with hyperglycemia] Chronic Diabetes mellitus without complication (1 source) Type 2 diabetes mellitus without complication; Translations: [Type 2 diabetes mellitus without complications] Chronic Disorders of lipid metabolism (20 sources) Pure hypercholesterolemia; Translations: [Familial hypercholesterolemia] Onset: 02-14-2017 Chronic Essential hypertension (20 sources) Essential hypertension; Translations: [Essential (primary) hypertension] Chronic Heart valve disorders (20 sources) Aortic valve disorder; Translations: [Nonrheumatic aortic (valve) stenosis] Chronic Comment on above: Echo: LVEF 65%, LOVELY 1.45, Velocity 292, gradient / - 01/2023 Hyperplasia of prostate (1 source) Benign prostatic [...] sources) H/O: high risk medication; Translations: [Other longwall foreman (current) drug therapy] Episodic Other aftercare (1 source) Long-term current use of drug therapy; Translations: [Other detention (current) drug therapy] Episodic Other and ill-defined cerebrovascular disease (15 sources) Cerebral atherosclerosis; Translations: [Cerebral atherosclerosis] 06-03-2023 Chronic Comment on above: Carotid US: < 50% B/ L - 2017 Other and ill-defined cerebrovascular disease (9 sources) Cerebral atherosclerosis; Translations: [Cerebral atherosclerosis] Chronic [...] and respiratory systems] Episodic Other circulatory disease (6 sources) Carotid bruit; Translations: [Other specified symptoms [...] Chronic Other ear and sense organ disorders (2 sources) Otitis externa; Translations: [Unspecified otitis externa, left ear] 01-08-2024 Chronic Other ear and sense organ disorders (1 source) Unspecified otitis externa, left ear; Translations: [Infective otitis externa, unspecified] 01-08-2024 Chronic Other ear and sense organ disorders (1 source) Tinnitus; Translations: [Tinnitus, unspecified ear] 06-03-2023 Episodic Other ear and sense organ disorders (1 source) Tinnitus, unspecified ear; Translations: [Tinnitus, unspecified] 06-03-2023 Episodic Other ear and sense organ disorders (2 sources) Impacted cerumen; Translations: [Impacted cerumen, unspecified ear] 01-08-2024 Episodic Other ear and sense organ disorders (1 source) Impacted cerumen, unspecified ear; Translations: [Impacted cerumen] 01-08-2024 Episodic Other non-traumatic joint disorders (10 sources) Arthralgia of the lower leg; Translations: [Pain in left knee] Episodic Other nutritional; endocrine; and metabolic disorders (9 sources) Body mass index 30+ - obesity; Translations: [Body mass index (BMI) 33.0-33.9, adult] Chronic Other nutritional; endocrine; and metabolic disorders (14 sources) Obesity; Translations: [Other obesity due to excess calories] 11-11-2023 Chronic Other nutritional; endocrine; and metabolic disorders (4 sources) Other obesity due to excess calories Chronic Other nutritional; endocrine; and metabolic disorders (4 sources) Body mass index (BMI) 33.0-33.9, adult Chronic Other nutritional; endocrine; and metabolic disorders (1 source) Obese class I; Translations: [Body mass index 33.0-33.9, adult] Onset: 02-14-2017 Chronic Other nutritional; endocrine; and metabolic disorders (4 sources) Hypercalcemia; Translations: [Hypercalcemia] 11-08-2023 Chronic Other nutritional; endocrine; and metabolic disorders (3 sources) Hypercalcemia; Translations: [Hypercalcemia] 11-11-2023 Chronic Other nutritional; endocrine; and metabolic disorders (3 sources) Obesity, unspecified; Translations: [Obesity, unspecified] 11-11-2023 Chronic Other screening for suspected conditions (not mental disorders or infectious disease) (7 sources) Encounter for screening for malignant neoplasm of prostate; Translations: [Encounter for screening for malignant neoplasm of colon] Onset: 07-19-2021 Episodic Comment on above: PSA: 0.75 - 06/2023 Other upper respiratory infections (1 source) Acute maxillary sinusitis; Translations: [Acute maxillary sinusitis, unspecified] Episodic Otitis media and related conditions (2 sources) Otitis media of left ear; Translations: [Otitis media, unspecified, left ear] 06-03-2023 Episodic Spondylosis; intervertebral disc disorders; other back problems (16 sources) Lumbar spondylosis; Translations: [Spondylosis without myelopathy [...] Test Name Value Interpretation Reference Range Facility Basophils Auto (Bld) [#/Vol] on 09-10-2023 Basophils (Bld) [#/Vol] 0.1 10 3/uL 0.0-0.1 [facility] Basophils/100 WBC Auto (Bld) on 09-10-2023 Basophils/100 WBC (Bld) 0.8 % 0.2-2.0 [facility] Eosinophils/100 WBC Auto (Bl d)on 09-10-2023 Eosinophils/100 WBC (Bld) 2.4 % 0.9-7.0 [facility] Erythrocyte distribution wid th Auto (RBC) [Ratio]on 09-10-2023 Erythrocyte distribution width (RBC) [Ratio] 14.5 % 11.0-15.0 [facility] Estimated glomerular filtrat ion rate (GFR) non- Americanon 09-10-2023 GFR/1.73 sq M.predicted among non-blacks MDRD (S/P/Bld) [Vol rate/Area] mL/min/{1.73_m2} >=60 [facility] Globulin Calc (S) [Mass/Vol] on 09-10-2023 Globulin (S) [Mass/Vol] 4.1 g/dL [facility] Hematocrit Auto (Bld) [Volum e fraction]on 09-10-2023 Hematocrit (Bld) [Volume fraction] 48.4 % 42.0-54.0 [facility] Hemoglobin [Mass/volume] in Bloodon 09-10-2023 Hemoglobin (Bld) [Mass/Vol] 16.0 g/dL 14.0-18.0 [facility] Laboratory - Chemistry and C hemistry - challengeon 09-10-2023 Albumin [Mass/Vol] 4.1 g/dL 3.4-5.0 [facility] ALP [Catalytic activity/Vol] 86 U/L 46-116 [facility] ALT [Catalytic activity/Vol] 47 U/L 16-63 [facility] AST [Catalytic activity/Vol] 23 U/L 15-37 [facility] Bilirubin [Mass/Vol] 0.6 mg/dL 0.2-1.0 [facility] Calcium [Mass/Vol] 10.2 mg/dL High 8.5-10.1 [facility] Chloride [Moles/Vol] 102 mmol/L 98-107 [facility] CO2 [Moles/Vol] 20.7 mmol/L Low 21.0-32.0 [facility] Creatinine [Mass/Vol] 1.01 mg/dL 0.70-1.30 [facility] GFR/1.73 sq M.predicted MDRD (S/P/Bld) [Vol rate/Area] mL/min/{1.73_m2} >=60 [facility] Glucose [Mass/Vol] 151 mg/dL High 74-106 [facility] Potassium [Moles/Vol] 3.9 mmol/L 3.5-5.1 [facility] Protein [Mass/Vol] 8.2 g/dL 6.4-8.2 [facility] Sodium [Moles/Vol] 136 mmol/L 136-145 [facility] Urea nitrogen [Mass/Vol] 26.0 mg/dL High 7.0-18.0 [facility] Urea nitrogen/Creatinin e [Mass ratio] 25.7 mg/mg [facility] Laboratory - Hematology and Cell countson 09-10-2023 Immature granulocytes/100 WBC (Bld) 0.2 % 0.0-0.5 [facility] Leukocytes [#/volume] correc demian for nucleated erythrocytes in Blood by Automated counon 09-10-2023 WBC corrected for nucl RBC Auto (Bld) [#/Vol] 12.7 10 3/uL High 4.0-11.0 [facility] Lymphocytes Auto (Bld) [#/Vo l]on 09-10-2023 Lymphocytes (Bld) [#/Vol] 4.5 10 3/uL High 1.2-3.8 [facility] Lymphocytes/100 WBC Auto (Bl d)on 09-10-2023 Lymphocytes/100 WBC (Bld) 35.0 % 20.5-60.0 [facility] MCH Auto (RBC) [Entitic mass ]on 09-10-2023 MCH (RBC) [Entitic mass] 29.1 pg 25.9-34.0 [facility] MCHC Auto (RBC) [Mass/Vol]on 09-10-2023 MCHC (RBC) [Mass/Vol] 33.1 g/dL 29.9-35.2 [facility] MCV Auto (RBC) [Entitic vol] on 09-10-2023 MCV (RBC) [Entitic vol] 88.2 fL 80.0-94.0 [facility] Monocytes Auto (Bld) [#/Vol] on 09-10-2023 Monocytes (Bld) [#/Vol] 1.1 10 3/uL High 0.3-0.8 [facility] Monocytes/100 WBC Auto (Bld) on 09-10-2023 Monocytes/100 WBC (Bld) 8.6 % 1.7-12.0 [facility] Neutrophils Auto (Bld) [#/Vo l]on 09-10-2023 Neutrophils (Bld) [#/Vol] 6.7 10 3/uL High 1.4-6.5 [facility] Neutrophils/100 WBC Auto (Bl d)on 09-10-2023 Neutrophils/100 WBC (Bld) 53.0 % 43.0-75.0 [facility] No Panel Informationon 09-09 Eosinophils # (Auto) 0.3 10 3/uL 0.0-0.7 [facility] Immature Granulocyte # (Auto) 0.03 10 3/uL 0.00-0.03 [facility] Platelet mean volume Auto (B ld) [Entitic vol]on 09-10-2023 Platelet mean volume (Bld) [Entitic vol] 10.3 fL 9.5-13.5 [facility] Platelets Auto (Bld) [#/Vol] on 09-10-2023 Platelets (Bld) [#/Vol] 237 10 3/uL 150-450 [facility] RBC Auto (Bld) [#/Vol]on RBC (Bld) [#/Vol] 5.49 10 6/uL 4.70-6.10 [facility] Serum or plasma albumin/glob ulin mass ratioon 09-10-2023 Albumin/Globulin [Mass ratio] 1.0 {ratio} [facility] Serum or plasma anion gap de terminationon 09-10-2023 Anion gap [Moles/Vol] 17.2 mmol/L [facility] Ambulatory Visit Summaryon 0 10-01-2022 Ambulatory Visit Summary BURGESS CATES JR :1955 Visit Date:10/01/2022 Ambulatory Visit Instructions Your Care Team Attending Physician - RANDY [...] history of colonic polyps Pure hypercholesterolemia Normal [facility] General Surgery Office/Clini c Noteon 10-01-2022 General [...] SARS-CoV-2 (COVID-19) Ad26 vaccine 04/24/2020 Recorded Normal [facility] Comment on above: Result Comment: Elec tronically Signed By: RANDY MILLER, John Tejada\Date and Time Signed: 10/01/22 16:41 EDT Reminderson 10-01-2022 Reminders - From: Aimee France LPN To: N - Clinical; Sent: 10/01/2022 16:12:00 EDT Show up: 08/13/2027 07:00:00 EDT Subject: colonoscopy recall Due Date/Time: 09/12/2027 07:00:00 EDT Reminder/Recall Patient due for surveillance colonoscopy 09/12/2027. Normal [facility] Pathology Noteon 09-17-2022 Pathology Note [id number]#[id number]:12 7 Normal [facility] Outside Colonoscopyon 2022 Outside Colonoscopy [id number]#[id number]:12 7 Normal [facility] Lab Reportson 09-11-2022 Lab Reports [id number]#[id number]:12 7 Normal [facility] Ambulatory Visit Summaryon 0 08-22-2022 Ambulatory Visit Summary BURGESS CATES JR :1955 Visit Date:08/21/2022 Ambulatory Visit Instructions Your Diagnosis Personal history of colonic polyps Your Care Team Attending Physician - RANDY MILLER, John Soriano Primary Care Physician - NIKOLAS STYLES, LIBRADO This Is Your Medications List Contact prescribing [...] history of colonic polyps Pure hypercholesterolemia Normal [facility] Consent for Procedure/Surger yon 08-22-2022 Consent for Procedure/Surgery [id number]#[id number]:12 7 Normal [facility] Facesheeton 08-22-2022 Facesheet [id number]#[id number]:12 7 Normal [facility] A1C with Estimated Average [facility] 07-03-2022 A1C with Estimated Average Glu Acucela Other CBC AUTO DIFFon 07-03-2022 BASO # 0.1 103/ul Normal 0.0-0.1 [facility] Comment on above: Performed By: #### C BC #### [facility] [address] [place] [address] Dr. Tai Godwin Basophils/100 WBC (Bld) 1.0 % Normal 0.2-2.0 [facility] Comment on above: Performed By: #### C BC #### [facility] [address] [place] [address] Dr. Tai Godwin EO # 0.1 103/ul Normal 0.0-0.7 [facility] Comment on above: Performed By: #### C BC #### [facility] [address] [place] [address] Dr. Tai Godwin Eosinophils/100 WBC (Bld) 1.2 % Normal 0.9-7.0 [facility] Comment on above: Performed By: #### C BC #### [facility] [address] [place] [address] Dr. Tai Godwin Erythrocyte distribution width (RBC) [Ratio] 14.3 % Normal 11.0-15.0 [facility] Comment on above: Performed By: #### C BC #### [facility] [address] [place] [address] Dr. Tai Godwin Hematocrit (Bld) [Volume fraction] 45.6 % Normal 42.0-54.0 [facility] Comment on above: Performed By: #### C BC #### [facility] [address] [place] [address] Dr. Tai Godwin Hemoglobin (Bld) [Mass/Vol] 15.4 g/dL Normal 14.0-18.0 [facility] Comment on above: Performed By: #### C BC #### [facility] [address] [place] [address] Dr. Tai Godwin IG # 0.03 10e3/ul Normal 0.00-0.03 [facility] Comment on above: Performed By: #### C BC #### [facility] [address] [place] [address] Dr. Tai Godwin IG % 0.3 % Normal 0.0-0.5 [facility] Comment on above: Performed By: #### C BC #### [facility] [address] [place] [address] Dr. Tai Godwin LYMPH # 3.1 103/ul Normal 1.2-3.8 [facility] Comment on above: Performed By: #### C BC #### [facility] [address] [place] [address] Dr. Tai Godwin Lymphocytes/100 WBC (Bld) 30.8 % Normal 20.5-60.0 [facility] Comment on above: Performed By: #### C BC #### [facility] [address] [place] [address] Dr. Tai Godwin MANUAL DIFF REQ NO Normal [facility] Comment on above: Performed By: #### C BC #### [facility] [address] [place] [address] Dr. Tai Godwin MCH (RBC) [Entitic mass] 29.3 pg Normal 25.9-34.0 [facility] Comment on above: Performed By: #### C BC #### [facility] [address] [place] [address] Dr. Tai Godwin MCHC (RBC) [Mass/Vol] 33.8 g/dL Normal 29.9-35.2 [facility] Comment on above: Performed By: #### C BC #### [facility] [address] [place] [address] Dr. Tai Godwin MCV (RBC) [Entitic vol] 86.9 fL Normal 80.0-94.0 [facility] Comment on above: Performed By: #### C BC #### [facility] [address] [place] [address] Dr. Tai Godwin MONO # 0.7 103/ul Normal 0.3-0.8 [facility] Comment on above: Performed By: #### C BC #### [facility] [address] [place] [address] Dr. Tai Godwin Monocytes/100 WBC (Bld) 7.3 % Normal 1.7-12.0 [facility] Comment on above: Performed By: #### C BC #### [facility] [address] [place] [address] Dr. Tai Godwin NEUT # 5.9 103/ul Normal 1.4-6.5 [facility] Comment on above: Performed By: #### C BC #### [facility] [address] [address] [address] Tai Godwin Neutrophils/100 WBC (Bld) 59.4 % Normal 43.0-75.0 [facility] Comment on above: Performed By: #### C BC #### [facility] [address] [address] [address] Tai Godwin Platelet mean volume (Bld) [Entitic vol] 10.1 fL Normal 9.5-13.5 [facility] Comment on above: Performed By: #### C BC #### [facility] [address] [address] [address] Tai Godwin PLT 184 103/ul Normal 150-450 [facility] Comment on above: Performed By: #### C BC #### [facility] [address] [place] [address] Dr. Tai Godwin RBC 5.25 106/ul Normal 4.70-6.10 [facility] Comment on above: Performed By: #### C BC #### [facility] [address] [address] [address] Tai Godwin WBC 9.9 103/ul Normal 4.0-11.0 [facility] Comment on above: Performed By: #### C BC #### [facility] [address] [place] [address] Dr. Tai Godwin Complete Blood Count and Dif chicho 07-03-2022 Anisocytosis Ql (Bld) [facility] Other Basophilic stippling LM Ql (Bld) [facility] Other RBC morphology finding Nom (Bld) [facility] Other Comprehensive Metabolic Pane eleazar 07-03-2022 Albumin [Mass/Vol] 4.326618 g/dL 3.4-5.0 g/dL N [email or web address] Other Calcium [Mass/Vol] 9.8334748 mg/dL 8.5-10 .1 mg/dL [facility] Other CO2 [Moles/Vol] 26.24280078 mmol/L 21.0-3 2.0 mmol/L [facility] Other Creatinine [Mass/Vol] 0.60949350 mg/dL 0.70-1.30 mg/dL [facility] Other Potassium [Moles/Vol] 3.89059105 mmol/L 3.5-5.1 mmol/L [facility] Other Protein [Mass/Vol] 8.042593 g/dL Critically high 6.4-8.2 g /dL [facility] Other Urea nitrogen [Mass/Vol] 12.3790748 mg/dL 7.0-18.0 mg/dL [facility] Other Comprehensive Metabolic Panel see note [facility] Other Comprehensive Metabolic Panel 140 mmol/L 136-145 mmol/L [facility] Other Comprehensive Metabolic Panel 159 mg/dL Critically high 74-106 mg/dL [facility] Other Comprehensive Metabolic Panel >60 mL/min/1.73m2 >=60 mL/min/1.73m 2 [facility] Other Comprehensive Metabolic Panel 0.5 mg/dL 0.2-1.0 mg/dL [facility] Other Comprehensive Metabolic Panel 4.4 g/dL [facility] Other GLYCOHEMOGLOBIN A1Con 2022 ADA RECOMMENDATION SEE BELOW Normal [facility] Comment on above: Result Comment: ADA RECOMMENDED LIMIT 4.0 - 6.0 ADA THERAPEUTIC TARGET < 7.0 ACTION SUGGESTED > 7.0 Performed By: #### A 1C #### [facility] [address] [place] [address] Dr. Tai Godwin Glucose [Mass/Vol] 160 mg/dL Normal [facility] Comment on above: Performed By: #### A 1C #### [facility] [address] [address] [address] Tai Godwin HbA1c (Bld) [Mass fraction] 7.2 % Critically high 4.5-6.2 [facility] Comment on above: Performed By: #### A 1C #### [facility] [address] [address] [address] Tai Godwin LIPID PROFILEon 07-03-2022 CHOL-HDL RATIO NORM SEE BELOW Normal [facility] Comment on above: Result Comment: 3.3 - 4.4 LOW RISK 4.4 - 7.1 AVERAGE RISK 7.1 - 11.0 MODERATE RISK >11.0 HIGH RISK Performed By: #### L IPID, CMP #### [facility] [address] [address] [address] Tai Godwin Cholesterol [Mass/Vol] 102 mg/dL <=200 mg/dL [facility] Comment on above: Performed By: #### L IPID, CMP #### [facility] [address] [address] [address] Tai Godwin Cholesterol in HDL [Mass/Vol] 46 mg/dL 40-60 mg/dL [facility] Comment on above: Performed By: #### L IPID, CMP #### [facility] [address] [address] [address] Tai Godwin Cholesterol in LDL [Mass/Vol] 45.2 mg/dL Normal [facility] Comment on above: Performed By: #### L IPID, CMP #### [facility] [address] [address] [address] Tai Godwin Cholesterol.total/ Cholesterol in HDL [Mass ratio] 2.2 {ratio} [facility] Comment on above: Performed By: #### L IPID, CMP #### [facility] [address] [address] [address] Tai Godwin HDL NORMAL > or = 60 mg/dl - LO W CARDIOVASCULAR RISK <40 mg/dl - HIGH CARDIOVASCULAR RISK Normal [facility] Comment on above: Performed By: #### L IPID, CMP #### [facility] [address] [address] [address] Tai Godwin LDL CALC NORMAL SEE BELOW Normal [facility] Comment on above: Result Comment: <100 mg/dl OPTIMAL 100 - 129 mg/dl NEAR OR ABOVE OPTIMAL 130 - 159 mg/dl BORDERLINE HIGH 160 - 189 mg/dl HIGH >190 mg/dl VERY HIGH Performed By: #### L IPID, CMP #### [facility] [address] [address] [address] Tai Godwin Triglyceride [Mass/Vol] 54 mg/dL <=150 mg/dL [facility] Comment on above: Performed By: #### L IPID, CMP #### [facility] [address] [address] [address] Tai Godwin VLDL CALC 10.8 mg/dL Normal [facility] Comment on above: Performed By: #### L IPID, CMP #### [facility] [address] [address] [address] Tai Godwin Lipid Panelon 07-03-2022 Lipid Panel > or = 60 mg/dl - LO W CARDIOVASCULAR RISK <40 mg/dl - HIGH CARDIOVASCULAR RISK [facility] Other Lipid Panel SEE BELOW [facility] Other Lipid Panel 45.2 mg/dL [facility] Other Lipid Panel 10.8 mg/dL [facility] Other MICROALBUMIN, RAND URon 05- mALB 17.1 mg/dL Normal <=30.0 [facility] Comment on above: Performed By: #### M ALBR #### [facility] [address] [address] [address] Tai Godwin PROF 14(COMP METB)on 023 Albumin [Mass/Vol] 4.0 g/dL Normal 3.4-5.0 [facility] Comment on above: Performed By: #### L IPID, CMP #### [facility] [address] [address] [address] Tai Godwin Albumin/Globulin [Mass ratio] 0.9 {ratio} [facility] Comment on above: Performed By: #### L IPID, CMP #### [facility] [address] [address] [address] Tai Godwin ALP [Catalytic activity/Vol] 68 U/L 46-116 U/L [facility] Comment on above: Performed By: #### L IPID, CMP #### [facility] [address] [place] [address] Dr. Tai Godwin ALT [Catalytic activity/Vol] 58 U/L 16-63 U/L [facility] Comment on above: Performed By: #### L IPID, CMP #### [facility] [address] [place] [address] Dr. Tai Godwin Anion gap [Moles/Vol] 15.1 mmol/L [facility] Comment on above: Performed By: #### L IPID, CMP #### [facility] [address] [place] [address] Dr. Tai Godwin AST [Catalytic activity/Vol] 47 U/L Critically high 15-37 U/L [facility] Comment on above: Performed By: #### L IPID, CMP #### [facility] [address] [place] [address] Dr. Tai Godwin Bilirubin [Mass/Vol] 0.5 mg/dL Normal 0.2-1.0 [facility] Comment on above: Performed By: #### L IPID, CMP #### [facility] [address] [place] [address] Dr. Tai Godwin Calcium [Mass/Vol] 9.6 mg/dL Normal 8.5-10.1 [facility] Comment on above: Performed By: #### L IPID, CMP #### [facility] [address] [place] [address] Dr. Tai Godwin Chloride [Moles/Vol] 102 mmol/L 98-107 mmol/L [facility] Comment on above: Performed By: #### L IPID, CMP #### [facility] [address] [place] [address] Dr. Tai Godwin CO2 [Moles/Vol] 26.4 mmol/L Normal 21.0-32.0 [facility] Comment on above: Performed By: #### L IPID, CMP #### [facility] [address] [address] [address] Tai Godwin Creatinine [Mass/Vol] 0.77 mg/dL Normal 0.70-1.30 [facility] Comment on above: Performed By: #### L IPID, CMP #### [facility] [address] [address] [address] Tai Godwin EGFR-AF LAO >60 Normal >=60 [facility] Comment on above: Performed By: #### L IPID, CMP #### [facility] [address] [address] [address] Tai Godwin EGFR-NON AF LAO >60 Normal >=60 [facility] Comment on above: Performed By: #### L IPID, CMP #### [facility] [address] [address] [address] Tai Godwin Globulin (S) [Mass/Vol] 4.4 g/dL Normal [facility] Comment on above: Performed By: #### L IPID, CMP #### [facility] [address] [address] [address] Tai Godwin Glucose [Mass/Vol] 159 mg/dL Critically high 74-106 [facility] Comment on above: Performed By: #### L IPID, CMP #### [facility] [address] [address] [address] Tai Godwin Potassium [Moles/Vol] 3.5 mmol/L Normal 3.5-5.1 [facility] Comment on above: Performed By: #### L IPID, CMP #### [facility] [address] [address] [address] Tai Godwin Protein [Mass/Vol] 8.4 g/dL Critically high 6.4-8.2 [facility] Comment on above: Performed By: #### L IPID, CMP #### [facility] [address] [address] [address] Tai Godwin Sodium [Moles/Vol] 140 mmol/L Normal 136-145 [facility] Comment on above: Performed By: #### L IPID, CMP #### [facility] [address] [address] [address] Tai Godwin Urea nitrogen [Mass/Vol] 12.0 mg/dL Normal 7.0-18.0 [facility] Comment on above: Performed By: #### L IPID, CMP #### [facility] [address] [place] [address] Dr. Tai Godwin Urea nitrogen/Creatinin e [Mass ratio] 15.6 mg/mg [facility] Comment on above: Performed By: #### L IPID, CMP #### [facility] [address] [place] [address] Dr. Tai Godwin Physician Referralon 023 Physician Referral [id number] Normal [facility] GLYCOHEMOGLOBIN A1Con 2021 ADA RECOMMENDATION SEE BELOW Normal [facility] Comment on above: Result Comment: ADA RECOMMENDED LIMIT 4.0 - 6.0 ADA THERAPEUTIC TARGET < 7.0 ACTION SUGGESTED > 7.0 Performed By: #### M ALBR #### [facility] [address] [place] [address] Dr. Tai Godwin Glucose [Mass/Vol] 174 mg/dL Normal [facility] Comment on above: Performed By: #### M ALBR #### [facility] [address] [place] [address] Dr. Tai Godwin HbA1c (Bld) [Mass fraction] 7.7 % Critically high 4.5-6.2 [facility] Comment on above: Performed By: #### M ALBR #### [facility] [address] [place] [address] Dr. Tai Godwin GLYCOHEMOGLOBIN A1Con 2021 ADA RECOMMENDATION SEE BELOW Normal [facility] Comment on above: Result Comment: ADA RECOMMENDED LIMIT 4.0 - 6.0 ADA THERAPEUTIC TARGET < 7.0 ACTION SUGGESTED > 7.0 Performed By: #### D ATA1C #### [facility] [address] [place] [address] Dr. Tai Godwin Glucose [Mass/Vol] 192 mg/dL Normal [facility] Comment on above: Performed By: #### D ATA1C #### [facility] [address] [place] [address] Dr. Tai Godwin HbA1c (Bld) [Mass fraction] 8.3 % Critically high 4.5-6.2 [facility] Comment on above: Performed By: #### D ATA1C #### [facility] [address] [place] [address] Dr. aTi Godwin CBC AUTO DIFFon 07-13-2021 BASO # 0.1 103/ul Normal 0.0-0.1 [facility] Comment on above: Performed By: #### M ALBR #### [facility] [address] [place] [address] Dr. Tai Godwin Basophils/100 WBC (Bld) 1.1 % Normal 0.2-2.0 [facility] Comment on above: Performed By: #### M ALBR #### [facility] [address] [place] [address] Dr. Tai Godwin EO # 0.1 103/ul Normal 0.0-0.7 [facility] Comment on above: Performed By: #### M ALBR #### [facility] [address] [place] [address] Dr. Tai Godwin Eosinophils/100 WBC (Bld) 1.2 % Normal 0.9-7.0 [facility] Comment on above: Performed By: #### M ALBR #### [facility] [address] [place] [address] Dr. Tai Godwin Erythrocyte distribution width (RBC) [Ratio] 14.0 % Normal 11.0-15.0 [facility] Comment on above: Performed By: #### M ALBR #### [facility] [address] [place] [address] Dr. Tai Godwin Hematocrit (Bld) [Volume fraction] 45.7 % Normal 42.0-54.0 [facility] Comment on above: Performed By: #### M ALBR #### [facility] [address] [address] [address] Tai Godwin Hemoglobin (Bld) [Mass/Vol] 14.9 g/dL Normal 14.0-18.0 [facility] Comment on above: Performed By: #### M ALBR #### [facility] [address] [place] [address] Dr. Tai Godwin IG # 0.02 10e3/ul Normal 0.00-0.03 [facility] Comment on above: Performed By: #### M ALBR #### [facility] [address] [place] [address] Dr. Tai Godwin IG % 0.2 % Normal 0.0-0.5 [facility] Comment on above: Performed By: #### M ALBR #### [facility] [address] [place] [address] Dr. Tai Godwin LYMPH # 3.8 103/ul Normal 1.2-3.8 [facility] Comment on above: Performed By: #### M ALBR #### [facility] [address] [place] [address] Dr. Tai Godwin Lymphocytes/100 WBC (Bld) 38.0 % Normal 20.5-60.0 [facility] Comment on above: Performed By: #### M ALBR #### [facility] [address] [place] [address] Dr. Tai Godwin MANUAL DIFF REQ NO Normal [facility] Comment on above: Performed By: #### M ALBR #### [facility] [address] [place] [address] Dr. Tai Godwin MCH (RBC) [Entitic mass] 29.9 pg Normal 25.9-34.0 [facility] Comment on above: Performed By: #### M ALBR #### [facility] [address] [place] [address] Dr. Tai Godwin MCHC (RBC) [Mass/Vol] 32.6 g/dL Normal 29.9-35.2 [facility] Comment on above: Performed By: #### M ALBR #### [facility] [address] [place] [address] Dr. Tai Godwin MCV (RBC) [Entitic vol] 91.6 fL Normal 80.0-94.0 [facility] Comment on above: Performed By: #### M ALBR #### [facility] [address] [place] [address] Dr. Tai Godwin MONO # 0.7 103/ul Normal 0.3-0.8 [facility] Comment on above: Performed By: #### M ALBR #### [facility] [address] [place] [address] Dr. Tai Godwin Monocytes/100 WBC (Bld) 7.0 % Normal 1.7-12.0 [facility] Comment on above: Performed By: #### M ALBR #### [facility] [address] [place] [address] Dr. Tai Godwin NEUT # 5.3 103/ul Normal 1.4-6.5 [facility] Comment on above: Performed By: #### M ALBR #### [facility] [address] [place] [address] Dr. Tai Godwin Neutrophils/100 WBC (Bld) 52.5 % Normal 43.0-75.0 [facility] Comment on above: Performed By: #### M ALBR #### [facility] [address] [place] [address] Dr. Tai Godwin Platelet mean volume (Bld) [Entitic vol] 10.2 fL Normal 9.5-13.5 [facility] Comment on above: Performed By: #### M ALBR #### [facility] [address] [place] [address] Dr. Tai Godwin PLT 178 103/ul Normal 150-450 [facility] Comment on above: Performed By: #### M ALBR #### [facility] [address] [place] [address] Dr. Tai Godwin RBC 4.99 106/ul Normal 4.70-6.10 [facility] Comment on above: Performed By: #### M ALBR #### [facility] [address] [place] [address] Dr. Tai Godwin WBC 10.1 103/ul Normal 4.0-11.0 [facility] Comment on above: Performed By: #### M ALBR #### [facility] [address] [address] [address] Tai Godwin GLYCOHEMOGLOBIN A1Con 2021 ADA RECOMMENDATION SEE BELOW Normal [facility] Comment on above: Result Comment: ADA RECOMMENDED LIMIT 4.0 - 6.0 ADA THERAPEUTIC TARGET < 7.0 ACTION SUGGESTED > 7.0 Performed By: #### M ALBR #### [facility] [address] [address] [address] Tai Godwin Glucose [Mass/Vol] 180 mg/dL Normal [facility] Comment on above: Performed By: #### M ALBR #### [facility] [address] [place] [address] Dr. Tai Godwin HbA1c (Bld) [Mass fraction] 7.9 % Critically high 4.5-6.2 [facility] Comment on above: Performed By: #### M ALBR #### [facility] [address] [place] [address] Dr. Tai Godwin LIPID PROFILEon 07-13-2021 CHOL-HDL RATIO NORM SEE BELOW Normal [facility] Comment on above: Result Comment: 3.3 - 4.4 LOW RISK 4.4 - 7.1 AVERAGE RISK 7.1 - 11.0 MODERATE RISK >11.0 HIGH RISK Performed By: #### L IPID, CMP #### [facility] [address] [place] [address] Dr. Tai Godwin Cholesterol [Mass/Vol] 110 mg/dL Normal <=200 [facility] Comment on above: Performed By: #### L IPID, CMP #### [facility] [address] [place] [address] Dr. Tai Godwin Cholesterol in HDL [Mass/Vol] 48 mg/dL Normal 40-60 [facility] Comment on above: Performed By: #### L IPID, CMP #### [facility] [address] [place] [address] Dr. Tai Godwin Cholesterol in LDL [Mass/Vol] 48.0 mg/dL Normal [facility] Comment on above: Performed By: #### L IPID, CMP #### [facility] [address] [address] [address] Tai Godwin Cholesterol.total/ Cholesterol in HDL [Mass ratio] 2.3 {ratio} Normal [facility] Comment on above: Performed By: #### L IPID, CMP #### [facility] [address] [address] [address] Tai Godwin HDL NORMAL > or = 60 mg/dl - LO W CARDIOVASCULAR RISK <40 mg/dl - HIGH CARDIOVASCULAR RISK Normal [facility] Comment on above: Performed By: #### L IPID, CMP #### [facility] [address] [address] [address] Tai Godwin LDL CALC NORMAL SEE BELOW Normal [facility] Comment on above: Result Comment: <100 mg/dl OPTIMAL 100 - 129 mg/dl NEAR OR ABOVE OPTIMAL 130 - 159 mg/dl BORDERLINE HIGH 160 - 189 mg/dl HIGH >190 mg/dl VERY HIGH Performed By: #### L IPID, CMP #### [facility] [address] [address] [address] Tai Godwin Triglyceride [Mass/Vol] 70 mg/dL Normal <=150 [facility] Comment on above: Performed By: #### L IPID, CMP #### [facility] [address] [place] [address] Dr. Tai Godwin VLDL CALC 14.0 mg/dL Normal [facility] Comment on above: Performed By: #### L IPID, CMP #### [facility] [address] [address] [address] Tai Godiwn MICROALBUMIN, RAND URon 06-18 mALB 1.4 mg/L Normal <=30.0 [facility] Comment on above: Performed By: #### M ALBR #### [facility] [address] [address] [address] Tai Godwin PROF 14(COMP METB)on 022 Albumin [Mass/Vol] 4.0 g/dL Normal 3.4-5.0 [facility] Comment on above: Performed By: #### L IPID, CMP #### [facility] [address] [address] [address] Tai Godwin Albumin/Globulin [Mass ratio] 0.9 {ratio} Normal [facility] Comment on above: Performed By: #### L IPID, CMP #### [facility] [address] [address] [address] Tai Godwin ALP [Catalytic activity/Vol] 65 U/L Normal 46-116 [facility] Comment on above: Performed By: #### L IPID, CMP #### [facility] [address] [address] [address] Tai Godwin ALT [Catalytic activity/Vol] 60 U/L Normal 16-63 [facility] Comment on above: Performed By: #### L IPID, CMP #### [facility] [address] [address] [address] Tai Godwin Anion gap [Moles/Vol] 14.9 mmol/L Normal [facility] Comment on above: Performed By: #### L IPID, CMP #### [facility] [address] [address] [address] Tai Godwin AST [Catalytic activity/Vol] 38 U/L Critically high 15-37 [facility] Comment on above: Performed By: #### L IPID, CMP #### [facility] [address] [address] [address] Tai Godwin Bilirubin [Mass/Vol] 0.5 mg/dL Normal 0.2-1.0 [facility] Comment on above: Performed By: #### L IPID, CMP #### [facility] [address] [address] [address] Tai Godwin Calcium [Mass/Vol] 9.4 mg/dL Normal 8.5-10.1 [facility] Comment on above: Performed By: #### L IPID, CMP #### [facility] [address] [address] [address] Tai Godwin Chloride [Moles/Vol] 98 mmol/L Normal 98-107 [facility] Comment on above: Performed By: #### L IPID, CMP #### [facility] [address] [address] [address] Tai Godwin CO2 [Moles/Vol] 27.3 mmol/L Normal 21.0-32.0 [facility] Comment on above: Performed By: #### L IPID, CMP #### [facility] [address] [address] [address] Tai Godwin Creatinine [Mass/Vol] 0.82 mg/dL Normal 0.70-1.30 [facility] Comment on above: Performed By: #### L IPID, CMP #### [facility] [address] [address] [address] Tai Godwin EGFR-AF LAO >60 Normal >=60 [facility] Comment on above: Performed By: #### L IPID, CMP #### [facility] [address] [place] [address] Dr. Tai Godwin EGFR-NON AF LAO >60 Normal >=60 [facility] Comment on above: Performed By: #### L IPID, CMP #### [facility] [address] [address] [address] Tai Godwin Globulin (S) [Mass/Vol] 4.4 g/dL Normal [facility] Comment on above: Performed By: #### L IPID, CMP #### [facility] [address] [address] [address] Tai Godwin Glucose [Mass/Vol] 178 mg/dL Critically high 74-106 [facility] Comment on above: Performed By: #### L IPID, CMP #### [facility] [address] [address] [address] Tai Godwin Potassium [Moles/Vol] 4.2 mmol/L Normal 3.5-5.1 [facility] Comment on above: Performed By: #### L IPID, CMP #### [facility] [address] [address] [address] Tai Godwin Protein [Mass/Vol] 8.4 g/dL Critically high 6.4-8.2 T [facility] Comment on above: Performed By: #### L IPID, CMP #### [facility] [address] [address] [address] Tai Godwin Sodium [Moles/Vol] 136 mmol/L Normal 136-145 [facility] Comment on above: Performed By: #### L IPID, CMP #### [facility] [address] [address] [address] Tai Godwin Urea nitrogen [Mass/Vol] 14.0 mg/dL Normal 7.0-18.0 [facility] Comment on above: Performed By: #### L IPID, CMP #### [facility] [address] [place] [address] Dr. Tai Godwin Urea nitrogen/Creatinin e [Mass ratio] 17.1 mg/mg Normal [facility] Comment on above: Performed By: #### L IPID, CMP #### [facility] [address] [place] [address] Dr. Tai Godwin History and Physicalon 10-06 History and Physical [id number]#1.00OTGTIF F [facility] Operative Report - Surgeon/P jose guadalupe 10-06-2017 Operative Report - Surgeon/Physician [id number]#1.00OTGTIF F [facility] Coding Summaryon 09-29-2017 Coding Summary CODING DATE: 018 [facility] STATUS: Home PAYOR: [facility] APC DESCRIPTION 5312 Level 2 Lower GI Procedures ADMIT DX: REASON FOR VISIT DX: R19.5 Other fecal abnormalities FINAL DX: PRINCIPAL: D12.6 Benign neoplasm of colon, unspecified SECONDARY: PYMT PROC APC STAT DESCRIPTION DOCTOR NAME DATE [id number] 4275 T Colonoscopy, flexible; Sacha Antonio MD 09/19/2017 with removal of tumor(s), polyp(s), or other lesion(s) by snare technique NOTE: The code number assigned matches the documented diagnosis and / or procedure in the patient's chart. However, the narrative phrase printed from the coding software may appear abbreviated, or result in slightly different terminology. Coded By: Carmelita Mcgregor Date Saved: 09/29/2017 01:52 pm [facility] Lab - AP Resultson 8 Lab - AP Results [id number]#1.00OTGTIF [facility] Consent Formson 09-22-2017 Consent Forms [id number]#1.00OTGTIF [facility] Intraoperative Noteon 2017 Intraoperative Note [id number] Intraoperative Note [id number]#[facility] 8 Telemetry Strips [id number]#1.00[facility] Clinical Summaryon 09-19-2017 Inpatient Clinical Summary [facility] SURGERYClinical Discharge SummaryPERSON INFORMATIONName BURGESS CATES Jr Age 62 Years 07/[birth year]/Sex MALE Language Hungarian PCP Librado Connor EMar[facility] [birth year] Acct# Arrival 09/19/17 06:13:16Visit Reason COLONOSCOPY Acuity LOS 017 20:27Address:[address] [address]Comment:PROVIDER INFORMATIONVITALS INFORMATIONVital Sign Triage LatestTemp OralTemp TemporalTemp IntravascularTemp AxillaryTemp Iknxgu06 Sat 98 % 100 %Respiratory Rate 18 [...] EDUCATION INFORMATIONInstructions:Mesha washington up:With: Address: When:Sacha Antonio [address], [address] [place] [address] Business (1) Within 10 to 12 daysComments:Call for follow up appointmentWith: Address: When:Librado Connor [address] [place] [address] Business (1)DIAGNOSISColonic polyp; Heme positive stoolComment:PHYS DOC NOTES Normal [facility] Inpatient Patient Summaryon 09-19-2017 Inpatient Patient Summary [address] [address] patient Discharge InstructionsName: DEJAH CATES JrSDOB: [birth year] Address: [address] [place] [address] Care Provider:Name: Librado Connor EPhone: After you are discharged if you find you have any questions, please, call [phone] ext [phone] to speak to a nurse.Discharge Diagnosis: Colonic [...] or business decisions or sign any legal documentsK[facility]tering Health [facility] would like to thank you for allowing us to assist you with your healthcare needs. The following includes patient education materials and information regarding your injury/illness.BURGESS CATES Jr has been given the following list of follow-up instructions, prescriptions, and patient education materials:Follow-up InstructionsWith: Address: When:Sacha Antonio [address], [address] [place] [address] Business (1) Within 10 to 12 daysComments:Call for follow up appointmentWith: Address: When:Librado Connor [address] [place] [address] [id number] Business (1)MedicationsDuring the course of your visit, [...] Always the Answerwww.cdc.gov/getsmar t GETSMARTKnow When Antibiotics Amilcar.[place] Department of Health and Human ServicesWadsworth-Rittman Hospitalers for Disease Control and Prevention October 2013 [facility] ordon 09-19-2017 [facility] Intraoperative Record [facility] Intra-Op Record Summary Primary Physician: Sacha Antonio MD Finalized Date/Time: 09/19/17 07:46:44 Pt. Name: BURGESS Tran CATES JrO.B./Sex: 1955 MALE Med Rec #: [id number] Physician: Sacha Antonio MD Financial #: [id number] Pt. Type: D Room/Bed: / Admit/Disch: 09/19/17 [...] Lora RN Role Performed Surgeon - Primary Insurance Coder Insurance Coder Time In 09/19/17 07:20:00 09/19/17 07:20:00 09/19/17 [...] Signed By: Angie Pedersen RN 09/19/17 07:46 [facility] Endo Postoperative Brayan rdon 09-19-2017 [facility] Endo Postoperative Record [facility] Phase II Record Summary Primary Physician: Sacha Antonio MD Finalized Date/Time: 09/19/17 08:52:37 Pt. Name: BURGESS Monica CATES Jr/Sex: 1955 MALE Med Rec #: [id number] Physician: Sacha Antonio MD Financial #: [id number] Pt. Type: D Room/Bed: / Admit/Disch: 09/19/17 [...] Signed By: Sandra Mckeon RN 09/19/17 08:52 [facility] Endo Preoperative Recor don 09-19-2017 [facility]o Preoperative Record [facility] Pre-Op Record Summary Primary Physician: Sacha Antonio MD Finalized Date/Time: 09/19/17 07:17:51 Pt. Name: BURGESS Monica CATES Jr/Sex: 1955 MALE Med Rec #: [id number] Physician: Sacha Antonio MD Financial #: [id number] Pt. Type: D Room/Bed: / Admit/Disch: 09/19/17 [...] consent correct. General Comments: arrives ambulatory [facility], denies recent cp, sob, new illnesses, pacemaker, defibrillator or sleep apnea Finalized By: Sandra Mckeon RN Document Signatures Signed By: Sandra Mckeon RN 09/19/17 07:17 [facility] Operative Report - Surgeon/P jose guadalupe 09-19-2017 Operative Report - Surgeon/Physician DATE OF PROCEDURE: 09/19/17URGEON: DULCE MedranoTHESIA: Conscious sedation with Versed 8 mg IV [...] me in 2 weeks.Sacha Antonio M.D.JOB #: [id number]: 09/19/2017T: 09/19/2017[Electronically Signed on: 09/30/2017 16:04 EDT] Sacha Antonio MD[Verified on: 09/30/2017 16:04 EDT] Sacha Antonio MD[Transcribed on: 09/19/2017 08:02 EDT][facility] Vital Signs Date Time Vital Sign Value Performing Clinician Facility 07-14-2024 08:36-0400 Body height 177.8 cm [facility] 07-14-2024 08:36-0400 Body mass index (BMI) [Ratio] 32.8 kg/m2 [facility] 07-14-2024 08:36-0400 Body weight 103.98 kg [facility] 07-14-2024 08:36-0400 Diastolic blood pressure 89 mm[Hg] [facility] 07-14-2024 08:36-0400 Heart rate 74 /min [facility] 07-14-2024 08:36-0400 Respiratory rate 12 /min [facility] 07-14-2024 08:36-0400 Systolic blood pressure 139 mm[Hg] [facility] 03-16-2024 08:35-0500 Body height 177.8 cm [facility] 03-16-2024 08:35-0500 Body mass index (BMI) [Ratio] 32.5 kg/m2 [facility] 03-16-2024 08:35-0500 Body weight 103.02 kg [facility] 03-16-2024 08:35-0500 Diastolic blood pressure 89 mm[Hg] [facility] 03-16-2024 08:35-0500 Heart rate 67 /min [facility] 03-16-2024 08:35-0500 Respiratory rate 12 /min [facility] 03-16-2024 08:35-0500 Systolic blood pressure 139 mm[Hg] [facility] 01-08-2024 10:43-0500 Body mass index (BMI) [Ratio] 33 kg/m2 [facility] 01-08-2024 10:43-0500 Diastolic blood pressure 89 mm[Hg] [facility] 01-08-2024 10:43-0500 Systolic blood pressure 139 mm[Hg] [facility] 01-08-2024 10:29-0500 Body height 177.8 cm [facility] 01-08-2024 10:29-0500 Body weight 104.32 kg [facility] 01-08-2024 10:29-0500 Heart rate 66 /min [facility] 01-08-2024 10:29-0500 Respiratory rate 12 /min [facility] 11-11-2023 09:32-0400 Body height 177.8 cm [facility] 11-11-2023 09:32-0400 Body mass index (BMI) [Ratio] 33.3 kg/m2 [facility] 11-11-2023 09:32-0400 Body weight 105.46 kg [facility] 11-11-2023 09:32-0400 Diastolic blood pressure 89 mm[Hg] [facility] 11-11-2023 09:32-0400 Heart rate 65 /min [facility] 11-11-2023 09:32-0400 Respiratory rate 16 /min [facility] 11-11-2023 09:32-0400 SaO2% (BldA) [Mass fraction] 96 % [facility] 11-11-2023 09:32-0400 Systolic blood pressure 139 mm[Hg] [facility] 07-10-2023 08:58-0400 Body height 177.8 cm [facility] 07-10-2023 08:58-0400 Body mass index (BMI) [Ratio] 33.3 kg/m2 [facility] 07-10-2023 08:58-0400 Body weight 105.29 kg [facility] 07-10-2023 08:58-0400 Diastolic blood pressure 89 mm[Hg] [facility] 07-10-2023 08:58-0400 Heart rate 69 /min [facility] 07-10-2023 08:58-0400 Respiratory rate 12 /min [facility] 07-10-2023 08:58-0400 Systolic blood pressure 191 mm[Hg] [facility] 06-03-2023 09:35-0400 Body height 177.8 cm [facility] 06-03-2023 09:35-0400 Body mass index (BMI) [Ratio] 32.7 kg/m2 [facility] 06-03-2023 09:35-0400 Body weight 103.41 kg [facility] 06-03-2023 09:35-0400 Diastolic blood pressure 88 mm[Hg] [facility] 06-03-2023 09:35-0400 Systolic blood pressure 172 mm[Hg] [facility] 03-11-2023 08:30-0500 Body height 177.8 cm Librado Ball Other [facility] 03-11-2023 08:30-0500 Body mass index (BMI) [Ratio] 33.26 kg/m2 Librado Ball Other [facility] [employer] Other 03-11-2023 08:30-0500 Body weight 105.14 kg Librado Ball Other [facility] 03-11-2023 08:30-0500 Diastolic blood pressure 76 mm[Hg] Librado Ball Other [facility] 03-11-2023 08:30-0500 Respiratory rate 12 /min Librado Ball Other [facility] [employer] Other 03-11-2023 08:30-0500 Systolic blood pressure 156 mm[Hg] Librado Ball Other [facility] 11-12-2022 10:00-0400 Body height 177.8 cm Librado Ball Other [facility] Other 11-12-2022 10:00-0400 Body mass index (BMI) [Ratio] 33.34 kg/m2 Librado Ball Other [facility] Other 11-12-2022 10:00-0400 Body weight 105.42 kg Librado Ball Other [facility] Other 11-12-2022 10:00-0400 Diastolic blood pressure 81 mm[Hg] Librado Ball Other [facility] Other 11-12-2022 10:00-0400 Respiratory rate 12 /min Librado Ball Other [facility] Other 11-12-2022 10:00-0400 Systolic blood pressure 174 mm[Hg] Librado Ball Other [facility] Other 07-01-2022 09:30-0400 Body height 177.8 cm Librado Ball Other [facility] Other 07-01-2022 09:30-0400 Body mass index (BMI) [Ratio] 33.28 kg/m2 Librado Ball Other [facility] Other 07-01-2022 09:30-0400 Body weight 105.24 kg Librado Ball Other [facility] Other 07-01-2022 09:30-0400 Diastolic blood pressure 79 mm[Hg] Librado Ball Other [facility] Other 07-01-2022 09:30-0400 Respiratory rate 12 /min Librado Ball Other [facility] Other 07-01-2022 09:30-0400 Systolic blood pressure 183 mm[Hg] Librado Ball Other [facility] Other 07-01-2022 08:30-0400 Body height 177.8 cm Librado Ball Other [facility] Other 07-01-2022 08:30-0400 Body mass index (BMI) [Ratio] 33.28 kg/m2 Librado Ball Other [facility] Other 07-01-2022 08:30-0400 Body weight 105.24 kg Librado Ball Other [facility] Other 07-01-2022 08:30-0400 Diastolic blood pressure 79 mm[Hg] Librado Ball Other [facility] Other 07-01-2022 08:30-0400 Respiratory rate 12 /min Librado Ball Other [facility] Other 07-01-2022 08:30-0400 Systolic blood pressure 183 mm[Hg] Librado Ball Other [facility] Other Encounters Encounter Date Encounter Type Care Provider Facility Start: 07-14-2024 End: 07-14-2024 ambulatory [facility] Work Phone: Start: 07-14-2024 End: 07-14-2024 Encounter for general adult medical examination without abnormal findings [facility] Start: 07-14-2024 End: 07-14-2024 Patient encounter procedure [facility] Physician [facility] Work Phone: Start: 03-16-2024 End: 03-16-2024 ambulatory [facility] Work Phone: Start: 03-16-2024 End: 03-16-2024 Patient encounter procedure [facility] Physician [facility] Work Phone: Start: 01-08-2024 End: 01-08-2024 ambulatory [facility] Work Phone: Start: 01-08-2024 End: 01-08-2024 Patient encounter procedure [facility] Work Phone: Start: 11-11-2023 End: 11-11-2023 ambulatory [facility] Work Phone: Start: 11-11-2023 End: 11-11-2023 Patient encounter procedure [facility] Physician [facility] Work Phone: Start: 09-10-2023 Non-patient / Non-visit [facility] Physician [facility] [employer] Work Phone: Start: 07-10-2023 End: 07-10-2023 ambulatory [facility] Work Phone: Start: 07-10-2023 End: 07-10-2023 Encounter for general adult medical examination without abnormal findings [facility] Start: 07-10-2023 End: 07-10-2023 Patient encounter procedure [facility] Physician [facility] Work Phone: Start: 06-10-2023 Non-patient / Non-visit [facility] Physician [facility] Work Phone: Start: 06-03-2023 End: 06-03-2023 ambulatory [facility] Work Phone: Start: 06-03-2023 End: 06-03-2023 Patient encounter procedure [facility] Work Phone: Start: 03-11-2023 End: 03-11-2023 ambulatory Librado Connor Other [facility] Other Start: 03-11-2023 Office outpatient vi sit 25 minutes Librado Connor [facility] Start: 03-11-2023 End: 03-11-2023 Patient encounter procedure [facility]- Start: 01-06-2023 End: 01-06-2023 ambulatory Librado Connor Other [facility] Other Start: 01-06-2023 Telephone encounter Librado Connor [facility] Start: 01-04-2023 End: 01-04-2023 ambulatory Librado Connor Other [facility] Other Start: 01-04-2023 Telephone encounter Librado JADE [facility] Start: 11-12-2022 End: 11-12-2022 ambulatory Librado Connor Other [facility] Other Start: 11-12-2022 Office outpatient vi sit 25 minutes Librado Connor [facility] Start: 10-01-2022 End: 10-02-2022 ambulatory [facility] Start: 09-12-2022 End: 09-12-2022 ambulatory Librado Connor Other [facility] Other Start: 09-12-2022 Telephone encounter Librado JADE [facility] Start: 09-11-2022 End: 09-12-2022 ambulatory John R NILL Facility:[id number] Start: 08-21-2022 End: 08-22-2022 ambulatory [facility] NILL [facility] Start: 07-03-[address] LIBRADO CONNOR Facili ty:[facility]1 Start: 07-02-2022 [facility] Start: 07-02-2022 [facility]ulatory [facility] Start: 07-01-2022 End: 07-01-2022 ambulatory Librado Connor Other [facility] Other Start: 07-01-2022 Encounter for genera l adult medical examination without abnormal findings Librado Connor [facility] Start: 07-01-2022 Periodic preventive med est patient 65yrs& older Librado Connor [facility] Start: 07-01-2022 Telephone encounter Librado JADE [facility] Start: 01-28-2022 Encounter for genera l adult medical examination without abnormal findings DR LIBRADO CONNOR [facility] Start: 01-25-2022 End: 01-26-2022 ambulatory NONE LISTED [...] 07-12-2021 Adult health examination Librado Connor Other [employer] Other Start: 09-19-2017 End: 09-20-2017 [facility] Start: 01-17-2017 End: 01-17-2017 Ambulatory DEFAULT PHYSICIAN Facility:[facility] Procedures Date Procedure Procedure Detail Performing Clinician Start: 07-03-2022 End: 07-03-[address] LIBRADO CNONOR Comment on above: Performed By: #### M ALBR #### [facility] [address] [place] [address] Dr. Tai Godwin Start: 07-13-[address] KIRSTIN CONNOR Comment on above: Performed By: #### P SASC #### [facility] [address] [place] [address] Dr. Tai Godwin Start: 06-24-2017 General examination of patient Librado Connor Other Start: 06-24-2017 Screening for malign ant neoplasm of colon Librado Connor Other Start: 06-24-2017 Screening for malign ant neoplasm of prostate Librado Connor Other Depression screening Ashley Connor Other Screening for malign ant neoplasm of prostate Librado Connor Other Plan of Treatment Date Care Activity Detail Author Comprehensive metabo lic 1999 panel - Serum or Plasma [facility] enter Comprehensive metabo lic 2000 panel - Serum or Plasma [facility] enter Microalbumin [Mass/volume] in Urine [facility] US Heart Transthoracic [facility] Immunizations Immunization Date Immunization Notes Care Provider Fa cilisherry 11-11-2023 influenza, high dose seasonal, preservative-free [facility] 11-12-2022 influenza virus vaccine, unspecified formulation [facility] 11-12-2022 influenza, high dose seasonal, preservative-free Librado Connor Other [facility] [employer] Other 12-19-2021 COVID-19 Vaccine Moderna - Documentation Purposes Only Librado Connor Other [facility] 11-29-2020 influenza virus vaccine, split virus (incl. purified surface antigen) Librado Connor Other [employer] [facility] [employer] Other 11-29-2020 influenza virus vaccine, unspecified formulation [facility] 11-29-2020 influenza, injectabl e, quadrivalent, preservative free Librado Connor Other [facility] 04-24-2020 COVID-19 Vaccine Ayesha - Documentation Purposes Only Librado Connor Other [facility] Payers Date Payer Category Payer [facility] [id number] 2019 Unknown [id number] 1959 [facility] [id number] 1958 Medicare [id number] 2.1 [id number] 1959 Self-pay 1959 Unknown [id number] 1955 Unknown [id number] 2.16.84 [id number] 1955 Unknown [id number] 2.16.84 [id number] 1955 Unknown [id number] 2.16.84 [id number] 1955 Unknown [id number] 2.16.8 [id number] 1955 Unknown [id number] 2.16.8 [id number] 1955 Unknown [id number] 2.16.8 [id number] 1955 Unknown [id number] 2.16.8 [id number] 1955 Unknown [id number] 2.16.8 [id number] Unknown Unknown [id number] 2.16.84 [id number] Unknown [id number] 2.16.84 [id number] Unknown [id number] 2.16.84 [id number] Unknown [id number] 2.16.84 [id number] Social History Date Type Detail Facility Sex Assigned At [facility] Other Start: 06-03-2023 End: 07-14-2024 Tobacco smoking status CAIS Never smoked tobacco (finding) [facility] Start: 1955 Sex Assigned At Male F [facility] Start: 01-08-2024 End: 07-14-2024 Sex Male (finding) [facility] Medical Equipment Procedure Code Equipment Code Equipment Origin al Text Equipment Identifier Dates Blood Sugar Diagnostic (Accu-Chek Smartview Test Strip) strip Start: 06-20-2023 Blood Sugar Diagnostic (Accu-Chek Smartview Test Strip) strip Start: 06-20-2023 End: 06-20-2023 Blood Sugar Diagnostic (Accu-Chek Smartview Test Strip) strip Start: 06-20-2023 Blood Sugar Diagnostic (Accu-Chek Smartview Test Strip) strip Start: 06-20-2023 End: 06-20-2023 Blood Sugar Diagnostic (Accu-Chek Smartview Test Strip) strip Start: 06-20-2023 Blood Sugar Diagnostic (Accu-Chek Smartview Test Strip) strip Start: 06-20-2023 End: 06-20-2023 Blood Sugar Diagnostic (Accu-Chek Smartview Test Strip) strip Start: 06-20-2023 Blood Sugar Diagnostic (Accu-Chek Smartview Test Strip) strip Start: 06-20-2023 End: 06-20-2023 Blood Sugar Diagnostic (Accu-Chek Smartview Test Strip) strip Start: 06-20-2023 Blood Sugar Diagnostic (Accu-Chek Smartview Test Strip) strip Start: 06-20-2023 End: 06-20-2023 Clinical Notes 07-01-2022 to 01-08-2024 Note Date & Type Note Facility 01-08-2024 Evaluation note Diagnosis Onset Date Resolution Cerumen impaction acute 2023 10:25am Essential (primary) hypertension acute January 08, 2024 10:25am External otitis of left ear acute January 08, 2024 10:25am Cerebral atherosclerosis acute March 16, 2024 8:23am Essential (primary) hypertension acute March 16, 2024 8:23am Hypercholesterolemia acute Donny2024 8:23am Nonrheumatic aortic (valve) stenosis acute March 16, 2024 8:23am Obesity acute March 16, 2024 8:23am Type 2 diabetes mellitus with hyperglycemia acute March 16, 2024 8:23am [facility] Work Phone: 1(268) 398-575409-24-2024 Evaluation note* Diagnosis Onset Date Resolution Status Admit Date Cerebral atherosclerosis acute November 11, 2023 9:23am Essential (primary) hypertension acu te November 11, 2023 9:23am Hypercalcemia acute October 192023 9:23am Hypercholesterolemia acute Oct 9:23am Nonrheumatic aortic (valve) stenosis acute November 11, 2023 9:23am Obesity acute October 9:23am Type 2 diabetes mellitus wit h hyperglycemia acute November 11, 2023 9:23am [facility] Work Phone: 1(286) 736-382901-23-2024 Evaluation note* Encounter Date Diagnosis Assessment Notes Treatment Notes Treatment Clinical Notes Feb, Type 2 diabetes mellitus with [...] 3-5 times weekly. Feb, Body mass index [BMI ] 33.0-33.9, adult (ICD-10 - Z68.33) [facility] Other 11-18-2023 Evaluation note* Encounter Date Diagnosis Assessment Notes Treatment Notes Treatment Clinical Notes Dec, Nonrheumatic aortic (valve) stenosis (ICD-10 - I35.0) Echo: LVEF 65%, LAE, LOVELY 1.3, velocity 199, gradient 2020 Echo: LVEF 65 to 70%, RV is normal, LVH, velocity 292, gradient /2022 [facility] Other 11-18-2023 Evaluation note* Encounter Date Diagnosis Assessment Notes Treatment Notes Treatment Clinical Notes Dec, Nonrheumatic aortic (valve) stenosis (ICD-10 - I35.0) Echo: LVEF 65%, LAE, LOVELY 1.3, velocity 199, gradient 2020 Echo: LVEF 65 to 70%, RV is normal, LVH, [facility] Other 09-26-2023 Evaluation note* Encounter Date Diagnosis [...] should be helpful in reducing caloric intake [facility] Other 07-05-2023 NoteChief Complaint consultation for surveillance colonoscopy [facility] Staff 67 year old male presents on [...] Date Status SARS-CoV-2 (COVID-19) (more content not included)...[facility] Comment on above:Result Comment: Electronically Signed By: RANDY MILLER, John Tejada\Date and Time Signed: 08/21/22 13:40 [id number] Evaluation note* Encounter Date Diagnosis Assessment Notes [...] Screening for colon cancer (ICD-10 - Z12.11) [facility] Other 05-15-2023 Evaluation note* Encounter Date Diagnosis Assessment Notes Treatment Notes Treatment Clinical Notes June, 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) [facility] Other Evaluation noteNo InformationNort Ticket [employer] Other Evaluation note* Diagnosis Onset Date Resolution Status Left otitis media acute Tinnitus acute [facility] Work Phone: Evaluation note* Diagnosis Onset Date Resolution Status Cerebral atherosclerosis acu te Essential (primary) hypertension acute Hypercholesterolemia acute Nonrheumatic aortic (valve) stenosis acute Wellness examination noneact mateo [facility] Work Phone: Evaluation note* Diagnosis Onset Date Resolution Status Cerebral atherosclerosis acu te Essential (primary) hypertension acute Hypercalcemia acute Hypercholesterolemia acute Nonrheumatic aortic (valve) stenosis acute Obesity acute Type 2 diabetes mellitus with hyperglycemia acute [facility] Work Phone: Evaluation note* Diagnosis Onset Date Resolution Status Admit Date Cerebral atherosclerosis acute July 14, 2024 8:31am Essential (primary) hypertension acu te July 14, 2024 8:31am Hypercalcemia acute July 14, 2 025 8:31am Hypercholesterolemia acute July 14, 2024 8:31am Nonrheumatic aortic (valve) stenosis acute July 14, 2024 8:31am Screening PSA (prostate spec ific antigen) acute July 14, 2024 8:31am Type 2 diabetes mellitus wit h hyperglycemia acute July 14, 2024 8:31am Wellness examination noneactive July 14, 2024 8:31am [facility] Work Phone: History general Narrative - [...] COLONOSCOPY 2018 Hospitalization History SEE SURGICAL HX [facility] Other History general Narrative - Reported* Type [...] years 08/2022 Hospitalization History SEE SURGICAL HX [facility] Other History general Narrative - Reported* Type [...] extraction 08/2022 Hospitalization History SEE SURGICAL HX [facility] Other Reason for referral (narrative)* Reason *FU 07/08 Referral for screening colonoscopy Diagnosis 1 Screening for colon cancer (Z12.11) Referral Organization [facility] BTC Trip Claudio alva Referring Provider First Name Librado Referring Provider Last Name Nikolas Referring Provider Specialty Internal Al dicblade Referred Organization [facility] Referred Provider John Montalvo Referred Address [address], [place],[address] Referred Provider Specialty Surgery Referral Priority Routine General Notes Asymptomatic, low ri sk patient. Naila Sosa 07/01/2022 12:14:34 PM >received today, notes locked, referral faxed Clinical Notes [id number] [facility] Other Reason for referral (narrative)* Reason 08/21/22 Referral for screening colonoscopy Diagnosis 1 Screening for colon cancer (Z12.11) Referral Organization [facility] [employer] artie Referring Provider First Name Librado Referring Provider Last Name Nikolas Referring Provider Specialty Internal Al dicine Referred Organization [facility] Referred Provider John Montalvo Referred Address [address], [place],[address] Referred Provider Specialty Surgery Referral Priority Routine [...] >received fax with appt date Clinical Notes [id number] [facility] Other Summary Purpose Family History Relationship Condition Age at Onset Recorded Date/T chloé father Malignant neoplasm of esophagus Unknown Malignant neoplasm Unknown Not Specified Disorder of lung Unknown Heart disease Unknown sister Heart disease Unknown Relationship Condition Age at Onset Recorded Date/T chloé father Malignant neoplasm of esophagus Unknown Malignant neoplasm Unknown mother Disorder of lung Unknown Heart disease Unknown sister Heart disease Unknown Advance Directives Advance Directive Response Recorded Date/ Time Advance Directives No March 12, 2023 1:04pm Advance Directive Response Recorded Date/ Time Advance Directives No March 12, 2023 12:04pm Chief Complaint and Reason for Visit Chief Complaint 4 Month Follow Up left ear infection Reason for Visit Left otitis media Tinnitus Chief Complaint left ear infection Amb Documentation 3 month follow up Reason for Visit Cerebral atheroscler osis Essential (primary) hypertension Hypercholesterolemia Nonrheumatic aortic (valve) stenosis Wellness examination Chief Complaint 4 month f/u Reason for Visit Cerebral atheroscler osis Essential (primary) hypertension Hypercalcemia Hypercholesterolemia Nonrheumatic aortic (valve) stenosis Obesity Type 2 diabetes mellitus with hyperglycemia Chief Complaint Admit Date 4 month f/u November 11, 2023 9:23am bilateral ear pain January 08, 2024 10:25am Reason for Visit Admit Date Cerebral atherosclerosis November 11, 2023 9:23am Essential (primary) hypertension Septemb 2023 9:23am Hypercalcemia November 11, 2023 9:23am Hypercholesterolemia November 10 9:23am Nonrheumatic aortic (valve) stenosis Sep tember 2023 9:23am Obesity November 11, 2023 9:23am Type 2 diabetes mellitus with hyperglyce joaquin November 11, 2023 9:23am Chief Complaint Admit Date bilateral ear pain January 08, 2024 10:25am 4 month f/u March 16, 2024 8 :23am Reason for Visit Admit Date Cerumen impaction January 08, 2024 10:25am Essential (primary) hypertension Novembe r 2023 10:25am External otitis of left ear December 10:25am Cerebral atherosclerosis March 16, 2 025 8:23am Essential (primary) hypertension March 16, 2024 8:23am Hypercholesterolemia March 16, 2024 8:23am Nonrheumatic aortic (valve) stenosis Bird uary 2024 8:23am Obesity March 16, 2024 8 :23am Type 2 diabetes mellitus with hyperglyce joaquin March 16, 2024 8:23am Chief Complaint Admit Date 3 month f/u July 14, 2024 8:31a m Reason for Visit Admit Date Cerebral atherosclerosis July 14, 2024 8:31am Essential (primary) hypertension June 8:31am Hypercalcemia July 14, 2024 8:31a m Hypercholesterolemia July 14, 2024 8:31 am Nonrheumatic aortic (valve) stenosis July 14, 2024 8:31am Screening PSA (prostate specific antigen ) July 14, 2024 8:31am Type 2 diabetes mellitus with hyperglyce joaquin July 14, 2024 8:31am Wellness examination July 14, 2024 8:31 am Additional Source Comments (unrecognized sect ion and content) No Status Records FoundNo Status Records FoundNo Status Records FoundNo Status Records FoundNo Status Records Found INFORMATION SOURCE (unrecogn ized section and content) DATE CREATED AUTHOR 08/12/2017 [facility] DATE CREATED AUTHOR AUTHOR'S ORGANIZ ATION 10/07/2017 [facility] DATE CREATED AUTHOR AUTHOR'S ORGANIZ ATION 07/03/2022 [facility] DATE CREATED AUTHOR AUTHOR'S ORGANIZ ATION 07/03/2022 [facility] DATE CREATED AUTHOR AUTHOR'S ORGANIZ ATION 10/02/2022 [facility] REASON FOR VISIT (unrecogniz ed section and content) WELLNESSNo InformationWELLNE SSNo Information4 month Follow upNo InformationNo InformationEcho results4 month Follow up Care Teams (unrecognized sec tion and content) Team Status: Active Member Role Status Dates Librado Connor , Primary Care Provider Active Team Status: Inactive Member Role Status Dates Librado Connor DO Primary Care Provide r, Attending Provider Active Start: November 11, 2023 End: November 11, 2023 Team Status: Inactive Member Role Status Dates Librado Connor DO Primary Care Provide r, Attending Provider Active Start: January 08, 2024 End: January 08, 2024 Team Status: Active Member Role Status Dates Librado Connor DO Primary Care Provider Active Start: September 10, 2023 Domonique Loya DO Attending Provider Active Sta rt: September 10, 2023 Team Status: Inactive Member Role Status Chele Connor DO Attending Provider Active Sta rt: March 11, 2023 End: March 11, 2023 Team Status: Inactive Member Role Status Dates Librado Connor DO Primary Care Provider Active Start: June 03, 2023 End: June 03, 2023 Kinjal Butler APRN AUTHOR-C Attending Provider Act mateo Start: June 03, 2023 End: June 03, 2023 Team Status: Active Member Role Status Dates Librado Connor DO Primary Care Provider Active Start: June 10, 2023 LILIA Kate Attending Provider Active Start : June 10, 2023 Team Status: Inactive Member Role Status Chele Connor DO Primary Care Provide r, Attending Provider Active Start: July 10, 2023 End: July 10, 2023 Team Status: Inactive Member Role Status Dates Librado Connor DO Primary Care Provide r, Attending Provider Active Start: March 16, 2024 End: March 16, 2024 Team Status: Inactive Member Role Status Chele Connor DO Primary Care Provide r, Attending Provider Active Start: July 14, 2024 End: July 14, 2024 Goals (unrecognized section and content) Goals may [...] BE BASED ON THE PRIMARY CLINICAL RECORDS. [employer] provides no warranty or guarantee of the accuracy or completeness of information in this document.
== END 2024-08-09 07:03 | disposition home or self-care (01) ==
LOC: US 07:03
PROVIDERS: PCP Internal Medicine; Visit Provider Internal Medicine
DX: E11.65 Type 2 diabetes mellitus with hyperglycemia (principal); E78.00 Pure hypercholesterolemia, unspecified; I10 Essential (primary) hypertension; Z12.5 Encounter for screening for malignant neoplasm of prostate; I67.2 Cerebral atherosclerosis; R09.89 Other specified symptoms and signs involving the circulatory and respiratory systems
CPT/HCPCS: 93880

== ENCOUNTER 2024-08-19 07:29 | Outpatient (OUT) | payer BC, MEDICARE, SELFPAY ==
--- OUTSIDE RECORDS SUMMARY | 2023-09-29 05:45 | XMS_ITS ---
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 Wood Preserving Plant Name Role Phone None, Unknown or Primary Care Provider Unavailab Alicia Escobar Unavailable [phone] Allergies Allergen (clinical drug ingredient) Drug/Non Drug Allergy documented on EMR Reaction Allergy Type Onset Date Status Substance with sulfonamide structure and antibacterial mechanism of action (substance) Sulfa Antibiotics Unknown Drug Allergy Active REASON FOR VISIT Nail Care Medications Medication SIG (Take, Route, Frequency, Duration) Notes Start Date End Date Status Trulicity 3mg/0.5mL 3 mg/0.5mL As directed Subcutaneous Once weekly Active Farxiga 10 MG 1 tablet Orally Once a day Active hydrALAZINE HCl 10 MG 1 tablet with food Orally Four times a day Active Lisinopril-hydroCHLOROthia zide 20-25 MG 1 tablet Orally Once a day Active metFORMIN HCl 1000 MG 1 tablet with a me al Orally Once a day Active amLODIPine Besylate 10 MG 1 tablet Orally Once a day Active Atorvastatin Calcium 20 MG 1 tablet Orally Once a day Active Carvedilol 6.25 MG 1 tablet with food O rally Twice a day Active Clopidogrel Bisulfate 75 MG 1 tablet Orally Once a day A ctive Social History Tobacco Use: Social History Observation Description Date Details (start date - stop date) Former Smoker 02/18/1976 - 02/17/2015 Tobacco Use/Smoking Question Answer Notes Patient is a former smoker When did you start smoking? 02/18/1976 When did you stop smoking? 02/17/2015 How long has it been since you last smoked? 5-10 years Section Notes: former smoker, quit in 2016 Vital Signs Temperature 97.8 degrees Fahrenheit 09/29/19 24 Heart Rate 72 /min 09/29/2023 Height 68 in 09/29/2023 Weight 235 lbs 09/29/2023 BMI 35.73 kg/m2 09/29/2023 Oximetry 98 % 09/29/2023 Encounters Encounter Location Date Provider Diagnosis [facility] (PODIATRY) [address] [place] [address] [place] [address] 09/29/2023 Alicia Hayden Skin callus L84 and Type 2 diabetes mellitus with diabetic neuropathy, unspecified whether intermediate insulin use E11.40 Assessments Encounter Date Diagnosis (ICD Code) Assessment Notes Treatment Notes Treatment Clinical Notes Section Notes 09/29/2023 Skin callus (ICD-10 - L84) 09/29/2023 Type 2 diabetes mellitus with diabetic neuropathy, unspecified whether intermediate insulin use (ICD-10 - E11.40) Plan Of Treatment No Information Progress Notes * Brandon CATESOB:[birth year] (68 yo M)Acc No.[id number]:09/29/2023 Nurse Visit Patient: Lorelei Burgess JUJU Provider: Andrez Blake PA-C :1955 A ge:68 Y S ex:Male Date:09/29/2023 Address:[address] [place], [place] [address] Pcp:Unknown or None Check In:09:35 AM ESTCheck O ut:09:56 AM EST Subjective: * Chief Complaints: * N ail Care * HPI: G eneral: Patient in office today for nailcare. Nails were trimmed and filed with no issues. 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, unspecified hemiplegia type Modified On:11/20/2022U Status:confirmed L84 Skin callus Modified On:12/31/2022U Status:confirmed B35.1 Tinea unguium Modified On:12/31/2022/U Status:confirmed M21.6X2 Other acquired defor mities of left foot Modified On:12/31/2022/U Status:confirmed M20.32 Hallux varus (acquir ed), left foot Modified On:12/31/2022/U Status:confirmed Z76.89 Persons encountering health services in other specified circumstances Modified On:05/08/2023W/U Status:confirmed * Medical History: * Surgical History: r elease of hammertoe left foot 2014appendectomy 1960 * Hospitalization/Major Diagno stic Procedure: s ee above * Family History: F ather: esophageal cancer, diagnosed with Other malignant neoplasm of unspecified site. M other: respiratory diseases, diagnosed with Unspecified heart disease. S ister(s): diagnosed with Unspecified heart disease. P aternal Grandfather: diagnosed with Diabetes mellitus without mention of complication, type II or unspecified type, not stated as uncontrolled. M aternal Grandmother: diagnosed with Other malignant neoplasm of unspecified site. * Social History: T obacco Use: T obacco Use/Smoking P atient is a f ormelodie smoker W hen did you start smoking? 0 02/18/1976 W hen did you stop smoking? 0 02/17/2015 H ow long has it been since you last smoked?�5-10 years f ormer smoker, quit in 2015. * Medications: T akingamLODIPine Besylate 10 MG Tablet 1 tablet Orally Once a day Atorvastatin Calcium 20 MG Tablet 1 tablet Orally Once a day Carvedilol 6.25 MG Tablet 1 tablet with food Orally Twice a day Clopidogrel Bisulfate 75 MG Tablet 1 tablet Orally Once a day Farxiga(Dapagliflozin Propanediol) 10 MG Tablet 1 tablet Orally Once a day hydrALAZINE HCl 10 MG Tablet 1 tablet with food Orally Four times a day Lisinopril-hydroCHLOROthiazide 20-25 MG Tablet 1 tablet Orally Once a day metFORMIN HCl 1000 MG Tablet 1 tablet with a meal Orally Once a day Trulicity 3mg/0.5mL 3 mg/0.5mL Solution Pen-injector As directed Subcutaneous Once weekly Medication List reviewed and reconciled with the patientTaking amLODIPine Besylate 10 MG Tablet 1 tablet Orally Once a day Taking Atorvastatin Calcium 20 MG Tablet 1 tablet Orally Once a day Taking Carvedilol 6.25 MG Tablet 1 tablet with food Orally Twice a day Taking Clopidogrel Bisulfate 75 MG Tablet 1 tablet Orally Once a day Taking Farxiga(Dapagliflozin Propanediol) 10 MG Tablet 1 tablet Orally Once a day Taking hydrALAZINE HCl 10 MG Tablet 1 tablet with food Orally Four times a day Taking Lisinopril-hydroCHLOROthiazide 20-25 MG Tablet 1 tablet Orally Once a day Taking metFORMIN HCl 1000 MG Tablet 1 tablet with a meal Orally Once a day Taking Trulicity 3mg/0.5mL 3 mg/0.5mL Solution Pen-injector As directed Subcutaneous Once weekly Medication List reviewed and reconciled with the patient * Allergies: S tatiana Linette[Allergies Verified] Objective: * Vitals: W t:235lbs, Ht: 68 in, Temp:97.8F, HR:72/min, BMI:35.73Index, Pain scale:01-10, Oxygen sat %:98%, Ht-cm: 172.72 cm, Wt-k.59 kg. Assessment: * Assessment: 1. S kin callus - L84 (Primary) 2 . T ype 2 diabetes mellitus with diabetic neuropathy, unspecified whether manager intermediate insulin use - E11.40 Plan: * Treatment: * Procedure Codes: 9 9211 OFFICEOUTPT VISIT, EST * * Sign off status: Completed Visit Status: C HK (Check Out) true * Provider: Andrez Blake PA-C Date: 0 09/29/2023 [facility]Leanna/eTransmitting on: 0 08/19/2024 07:31 AM EDT History and Physical Notes * HPI (History of Present Illness) Category Sub-Category Detail Notes Category Not es General Patient in offi ce today for nailcare. Nails were trimmed and filed with no issues.
--- OUTSIDE RECORDS SUMMARY | 2023-12-29 09:00 | XMS_ITS ---
Author Organization The [facility] in [place] Address [address] [place] [address] Care Team Providers Care Forcer Maker Name Role Phone None, Unknown or Primary Care Provider Unavailab Alicia Escobar Unavailable [phone] Allergies Allergen (clinical drug ingredient) Drug/Non Drug [...] Once a day A ctive Vital Signs Temperature 97.1 degrees Fahrenheit 12/29/19 24 Heart Rate 67 /min 12/29/2023 Height 68 in 12/29/2023 Weight 235 lbs 12/29/2023 BMI 35.73 kg/m2 12/29/2023 Oximetry 99 % 12/29/2023 Encounters Encounter Location Date Provider Diagnosis [facility] (PODIATRY) [address] [place] [address] [place] [address] 12/29/2023 Alicia Blake Type 2 diabetes mellitus with diabetic neuropathy, unspecified whether jail insulin use E11.40 ; Tinea unguium B35.1 and 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, unspecified hemiplegia type I69.352 Assessments Encounter Date Diagnosis (ICD Code) Assessment Notes Treatment Notes Treatment Clinical Notes Section Notes 12/29/2023 Type 2 diabetes mellitus with diabetic neuropathy, unspecified whether rn long term care insulin use (ICD-10 - E11.40) 12/29/2023 Tinea unguium (ICD-10 - B35.1) 12/29/2023 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, unspecified hemiplegia type (ICD-10 - I69.352) Plan Of Treatment Next Appt Details Follow Up: 3 Months, Reason: Progress Notes * Brandon CATESOB:[birth year] (68 yo M)Acc No.[id number]:12/29/2023 Nurse Visit Patient: Lorelei Burgess JUJU Provider: Andrez Blake PA-C :1955 A ge:68 Y S ex:Male Date:12/29/2023 Address:[address] [place], [place] [id number] Pcp:Unknown or None Check In:12:55 PM ESTCheck [...] carley itus with diabetic neuropathy, unspecified whether rn long term care insulin use Modified On:12/31/2022/U Status:confirmed E11.40 Type [...] diabetes mellitus with diabetic neuropathy, unspecified whether rn long term care insulin use - E11.40 (Primary) 2 . [...] Andrez Blake PA-C Date: 02/27/2023 [facility]Leanna/eTransmitting on: 0 08/19/2024 07:31 AM EDT [...]
--- OUTSIDE RECORDS SUMMARY | 2024-03-29 09:00 | XMS_ITS ---
Author Organization The [facility] in [place] Address [address] [place] [address] Care Team Providers Care Print Cutter Name Role Phone None, Unknown or Primary Care Provider Unavailab Alicia Escobar Unavailable [phone] REASON FOR VISIT Nail Care Encounters Encounter Location Date Provider Diagnosis [facility] (PODIATRY) [address] [place] [address] [place] [address] 03/29/2024 Alicia Blake Plan Of Treatment No Information Progress Notes * LOAN BrandonOB:[birth year] (69 yo M)Acc No.[id number]:03/29/2024 UNLOCKED PROGRESS NOTE Nurse Visit Patient: Vero STUARTgess Provider: Andrez Blake PA-C :1955 A ge:68 Y S ex:Male Date:03/29/2024 Address:[address] [place], [place] [id number] Pcp:Unknown or None Subjective: * Chief Complaints: * 1 . Nail Care. * Medical History: Objective: * Vitals: Assessment: Plan: * Treatment: * * Electronic signature of Steph Blake PA-C on 08/19/2024 at 07:31 AM EDT Sign off status: Pending Visit Status: N /S N/C (No Show/No Charge) * Provider: Andrez Blake PA-C Date: 0 03/29/2024 Generated for Printi ng/Faxing/eTransmitting on: 0 08/19/2024 07:31 AM EDT
--- OUTSIDE RECORDS SUMMARY | 2024-08-19 07:31 | XMS_ITS | Clinical Summary ---
Author Organization [facility] Address [address] [place] [address] Care Team Providers Care Stereoptician Name Role Phone Unavailable Primary Care Provider Unavailabl e Social History Tobacco Use Types Packs/Day Years Used Date Smoking Tobacco: Never Assessed Sex and Gender Information Value Date Recorded Sex Assigned at Not on file Legal Sex Male 6:58 PM EDT Gender Identity Not on file Sexual Orientation Not on file Last Filed Vital Signs Vital Sign Reading Time Taken Comments Blood Pressure 134/76 08/28/2020 12:00 PM EDT Pulse - - Temperature - - Respiratory Rate - - Oxygen Saturation - - Inhaled Oxygen Concentration - - Weight 106 kg (233 lb) 08/28/2020 12:00 PM EDT Height 170.2 cm (5' 7 ) 08/28/2020 12:00 PM EDT Body Mass Index 36.49 08/28/2020 12:00 PM EDT Plan of Treatment Not on file
--- OUTSIDE RECORDS SUMMARY | 2024-08-19 07:31 | XMS_ITS | Patient Health Record ---
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 Name Role Phone None, Unknown or Primary Care Provider Unavailab Alicia Escobar Unavailable [phone] Allergies Allergen (clinical drug ingredient) Drug/Non Drug Allergy documented on EMR Reaction Allergy Type Onset Date Status Substance with sulfonamide structure and antibacterial mechanism of action (substance) Sulfa Antibiotics Unknown Drug Allergy Active Reason For Referral No Information Medications Medication SIG (Take, Route, Frequency, Duration) Notes Start Date End Date Status metFORMIN HCl 1000 MG 1 tablet with a me al Orally Once a day Active Trulicity 3mg/0.5mL 3 mg/0.5mL As directed Subcutaneous Once weekly Active amLODIPine Besylate 10 MG 1 tablet Orally Once a day Active Atorvastatin Calcium 20 MG 1 tablet Orally Once a day Active Carvedilol 6.25 MG 1 tablet with food O rally Twice a day Active Clopidogrel Bisulfate 75 MG 1 tablet Orally Once a day A ctive Farxiga 10 MG 1 tablet Orally Once a day Active hydrALAZINE HCl 10 MG 1 tablet with food Orally Four times a day Active Lisinopril-hydroCHLOROthia zide 20-25 MG 1 tablet Orally Once a day Active Social History Tobacco Use: Social History Observation Description Date Details (start date - stop date) Former Smoker 02/18/1976 - 02/17/2015 Tobacco Use/Smoking Question Answer Notes Patient is a former smoker When did you start smoking? 02/18/1976 When did you stop smoking? 02/17/2015 How long has it been since you last smoked? 5-10 years Section Notes: former smoker, quit in 2015 former smoker, quit in 2015 former smoker, quit in 2015 former smoker, quit in 2015 former smoker, quit in 2015 Problems Problem Type SNOMED Code ICD Code Onset Dates Problem Status W/U Status Risk Notes Problem 777790932 Tinea unguium (B35.1) Active confirmed Problem 02620338 Type 2 diabetes mellitus with diabetic neuropathy, unspecified (E11.40) Active confirmed Problem 159430563 Hallux varus (acquired), left foot (M20.32) Active confirmed Problem 7357411771129525 Other acquired deformities of left foot (M21.6X2) Active confirmed Problem 311156675 Persons encountering health services in other specified circumstances (Z76.89) Active confirmed Problem 766922642 Skin callus (L84) Active confirmed Problem 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, unspecified hemiplegia type (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) Active confirmed Problem 633717053909336 Type 2 diabetes mellitus with diabetic neuropathy, unspecified whether gold leaf layer insulin use (E11.40) Active confirmed Vital Signs Heart Rate 67 /min 12/29/2023 Temperature 97.1 degrees Fahrenheit 12/29/2023 Oximetry 99 % 12/29/2023 Height 68 in 12/29/2023 Weight 235 lbs 12/29/2023 BMI 35.73 kg/m2 12/29/2023 Encounters Encounter Location Date Provider Diagnosis [facility] ([facility] [address] [place] [address] [place] [address] 09/29/2023 Alicia Maceen Skin callus L84 and Type 2 diabetes mellitus with diabetic neuropathy, unspecified whether nursing home insulin use E11.40 [facility] ([facility] [address] [place] [address] [place] [address] 12/29/2023 Alicia Hayden Type 2 diabetes mellitus with diabetic neuropathy, unspecified whether nursing home insulin use E11.40 ; Tinea unguium B35.1 and 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, unspecified hemiplegia type I69.352 Assessments Encounter Date Diagnosis (ICD Code) Assessment Notes Treatment Notes Treatment Clinical Notes Section Notes 09/29/2023 Skin callus (ICD-10 - L84) 09/29/2023 Type 2 diabetes mellitus with diabetic neuropathy, unspecified whether gold leaf layer insulin use (ICD-10 - E11.40) 12/29/2023 Type 2 diabetes mellitus with diabetic neuropathy, unspecified whether gold leaf layer insulin use (ICD-10 - E11.40) 12/29/2023 Tinea unguium (ICD-10 - B35.1) 12/29/2023 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, unspecified hemiplegia type (ICD-10 - I69.352) Plan Of Treatment No Information Insurance Providers Payer Name Payer Address Payer Phone Subscriber Number Group Number Insured Name Patient Relationship to Insured Coverage Start Date Coverage End Date [employer] PPO PLUS LOCAL PLAN [address] [place] [address] [phone] [id number] Burgess Allen Self - patient is the insured [place] [address] [place] [place] [address] [phone] [id number] Burgess Allen Self - patient is the insured [facility] OUT OF STATE [address] [place] [address] [id number] Burgess Allen Self - patient is the insured Medical (General) History Medical History History ICD Code Left foot pain M79.672 Cavovarus deformity of foot, acquired, 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
--- OUTSIDE RECORDS SUMMARY | 2024-08-19 07:32 | XMS_ITS | CCD ---
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 Name Role Phone PHYSICIAN, DEFAULT Unavailable Unavailable [...] sources) Sulfamethoxazole / Trimethoprim Drug Allergy Unknown eigital Other (1 source) Sulfonamides (Antibiotic) Drug allergy (disorder) 02-18-19 [facility] (12 sources) sulfADIAZINE Drug Allergy 06-03-19 Unknown, Unknown Reaction [facility] (1 source) Allergies Reconciled Propensity to adverse reactions Unknown eigital Other (6 sources) Substance with sulfonamide structure and antibacterial mechanism of action (substance) Drug allergy Unknown eigital Other (6 sources) Sulf-10 Drug allergy Unknown eigital Other (6 sources) Sulfamethoxazole-Tr imethoprim *ANTI-INFECTIVE AGEN Propensity to adverse reactions Unknown eigital Other (1 source) patient allergy list reviewed by nurse or physicia Propensity to adverse reactions 06-30-19 Comment:Done eigital Other (1 source) Sulfamethoxazole / Trimethoprim; Translations: [sulfamethoxazole-t rimethoprim] Drug Allergy [facility] Repository (6 sources) Sulfamethoxazole Drug Allergy 06-03-19 Unknown Reaction [facility] (6 sources) Trimethoprim Drug Allergy 06-03-19 Unknown Reaction [facility] Medications Current Medications Medication Drug Class(es) Dates [...] / neomycin 3.5 mg/ml / polymyxin b 23683 unt/ml otic suspension (2 sources) Aminoglycoside Antibacterial, Polymyxin-class Antibacterial, Corticosteroid Start: 01-08-2024 Sbrtfjqb-Lmyrcpjra-Pg 3.5-10,000-1 mg/mL-unit/mL-% drops,suspension Active 4 DROPS OTIC [...] sources) H/O: high risk medication; Translations: [Other skilled nursing (current) drug therapy] Episodic Other aftercare (1 source) Long-term current use of drug therapy; Translations: [Other long term acute care registered nurse (current) drug therapy] Episodic Other and ill-defined [...] Basophils (Bld) [#/Vol] 0.1 10 3/uL 0.0-0.1 [facility] Basophils/100 WBC Auto (Bld) on 09-10-2023 Basophils/100 WBC (Bld) 0.8 % 0.2-2.0 [facility] Eosinophils/100 WBC Auto (Bl d)on 09-10-2023 Eosinophils/100 WBC (Bld) 2.4 % 0.9-7.0 [facility] Erythrocyte distribution wid th Auto (RBC) [Ratio]on 09-10-2023 Erythrocyte distribution width (RBC) [Ratio] 14.5 % 11.0-15.0 [facility] Estimated glomerular filtrat ion rate (GFR) non- Americanon 09-10-2023 GFR/1.73 sq M.predicted among non-blacks MDRD (S/P/Bld) [Vol rate/Area] mL/min/{1.73_m2} >=60 [facility] Globulin Calc (S) [Mass/Vol] on 09-10-2023 Globulin (S) [Mass/Vol] 4.1 g/dL [facility] Hematocrit Auto (Bld) [Volum e fraction]on 09-10-2023 Hematocrit (Bld) [Volume fraction] 48.4 % 42.0-54.0 [facility] Hemoglobin [Mass/volume] in Bloodon 09-10-2023 Hemoglobin (Bld) [Mass/Vol] 16.0 g/dL 14.0-18.0 [facility] Laboratory - Chemistry and C hemistry - challengeon 09-10-2023 Albumin [Mass/Vol] 4.1 g/dL 3.4-5.0 [facility] ALP [Catalytic activity/Vol] 86 U/L 46-116 [facility] ALT [Catalytic activity/Vol] 47 U/L 16-63 [facility] AST [Catalytic activity/Vol] 23 U/L 15-37 [facility] Bilirubin [Mass/Vol] 0.6 mg/dL 0.2-1.0 [facility] Calcium [Mass/Vol] 10.2 mg/dL High 8.5-10.1 [facility] Chloride [Moles/Vol] 102 mmol/L 98-107 [facility] CO2 [Moles/Vol] 20.7 mmol/L Low 21.0-32.0 [facility] Creatinine [Mass/Vol] 1.01 mg/dL 0.70-1.30 [facility] GFR/1.73 sq M.predicted MDRD (S/P/Bld) [Vol rate/Area] mL/min/{1.73_m2} >=60 [facility] Glucose [Mass/Vol] 151 mg/dL High 74-106 [facility] Potassium [Moles/Vol] 3.9 mmol/L 3.5-5.1 [facility] Protein [Mass/Vol] 8.2 g/dL 6.4-8.2 [facility] Sodium [Moles/Vol] 136 mmol/L 136-145 [facility] Urea nitrogen [Mass/Vol] 26.0 mg/dL High 7.0-18.0 [facility] Urea nitrogen/Creatinin e [Mass ratio] 25.7 mg/mg [facility] Laboratory - Hematology and Cell countson 09-10-2023 Immature granulocytes/100 WBC (Bld) 0.2 % 0.0-0.5 [facility] Leukocytes [#/volume] correc demian for nucleated erythrocytes in Blood by Automated counon 09-10-2023 WBC corrected for nucl RBC Auto (Bld) [#/Vol] 12.7 10 3/uL High 4.0-11.0 [facility] Lymphocytes Auto (Bld) [#/Vo l]on 09-10-2023 Lymphocytes (Bld) [#/Vol] 4.5 10 3/uL High 1.2-3.8 [facility] Lymphocytes/100 WBC Auto (Bl d)on 09-10-2023 Lymphocytes/100 WBC (Bld) 35.0 % 20.5-60.0 [facility] MCH Auto (RBC) [Entitic mass ]on 09-10-2023 MCH (RBC) [Entitic mass] 29.1 pg 25.9-34.0 [facility] MCHC Auto (RBC) [Mass/Vol]on 09-10-2023 MCHC (RBC) [Mass/Vol] 33.1 g/dL 29.9-35.2 [facility] MCV Auto (RBC) [Entitic vol] on 09-10-2023 MCV (RBC) [Entitic vol] 88.2 fL 80.0-94.0 [facility] Monocytes Auto (Bld) [#/Vol] on 09-10-2023 Monocytes (Bld) [#/Vol] 1.1 10 3/uL High 0.3-0.8 [facility] Monocytes/100 WBC Auto (Bld) on 09-10-2023 Monocytes/100 WBC (Bld) 8.6 % 1.7-12.0 [facility] Neutrophils Auto (Bld) [#/Vo l]on 09-10-2023 Neutrophils (Bld) [#/Vol] 6.7 10 3/uL High 1.4-6.5 [facility] Neutrophils/100 WBC Auto (Bl d)on 09-10-2023 Neutrophils/100 WBC (Bld) 53.0 % 43.0-75.0 [facility] No Panel Informationon 09-09 Eosinophils # (Auto) 0.3 10 3/uL 0.0-0.7 [facility] Immature Granulocyte # (Auto) 0.03 10 3/uL 0.00-0.03 [facility] Platelet mean volume Auto (B ld) [Entitic vol]on 09-10-2023 Platelet mean volume (Bld) [Entitic vol] 10.3 fL 9.5-13.5 [facility] Platelets Auto (Bld) [#/Vol] on 09-10-2023 Platelets (Bld) [#/Vol] 237 10 3/uL 150-450 [facility] RBC Auto (Bld) [#/Vol]on RBC (Bld) [#/Vol] 5.49 10 6/uL 4.70-6.10 [facility] Serum or plasma albumin/glob ulin mass ratioon 09-10-2023 Albumin/Globulin [Mass ratio] 1.0 {ratio} [facility] Serum or plasma anion gap de terminationon 09-10-2023 Anion gap [Moles/Vol] 17.2 mmol/L [facility] Ambulatory Visit Summaryon 0 10-01-2022 Ambulatory Visit [...] of colonic polyps Pure hypercholesterolemia Normal [facility] General Surgery Office/Clini c Noteon 10-01-2022 General [...] (COVID-19) Ad26 vaccine 04/24/2020 Recorded Normal [facility] Comment on above: Result Comment: Elec tronically Signed By: RANDY MILLER, John Tejada\Date and Time Signed: 10/01/22 16:41 EDT Reminderson 10-01-2022 Reminders - From: Aimee France LPN To: N - Clinical; Sent: 10/01/2022 16:12:00 EDT Show up: 08/13/2027 07:00:00 EDT Subject: colonoscopy recall Due Date/Time: 09/12/2027 07:00:00 EDT Reminder/Recall Patient due for surveillance colonoscopy 09/12/2027. Normal [facility] Pathology Noteon 09-17-2022 Pathology Note [id number]#1.00CD:12 7 Normal [facility] Outside Colonoscopyon 2022 Outside Colonoscopy [id number]#1.00CD:12 7 Normal [facility] Lab Reportson 09-11-2022 Lab Reports [id number]#1.00CD:12 7 Normal [facility] Ambulatory Visit Summaryon 0 08-22-2022 Ambulatory Visit [...] history of colonic polyps Pure hypercholesterolemia Normal [facility] Consent for Procedure/Surger yon 08-22-2022 Consent for Procedure/Surgery [id number]#[id number]:12 7 Normal [facility] Facesheeton 08-22-2022 Facesheet [id number]#1.00CD:12 7 Normal [facility] A1C with Estimated [facility] 07-03-2022 A1C with Estimated Average Glu eigital Other CBC AUTO DIFFon 07-03-2022 BASO # 0.1 103/ul Normal 0.0-0.1 [facility] Comment on above: Performed By: #### C BC #### [facility] [address] [place] [address] Dr. Tai Godwin Basophils/100 WBC (Bld) 1.0 % Normal 0.2-2.0 [facility] Comment on above: Performed By: #### C BC #### [facility] [address] [place] [address] Dr. Tai Godwin EO # 0.1 103/ul Normal 0.0-0.7 [facility] Comment on above: Performed By: #### C BC #### [facility] [address] [place] [address] Dr. Tai Godwin Eosinophils/100 WBC (Bld) 1.2 % Normal 0.9-7.0 [facility] Comment on above: Performed By: #### C BC #### [facility] [address] [place] [address] Dr. Tai Godwin Erythrocyte distribution width (RBC) [Ratio] 14.3 % Normal 11.0-15.0 [facility] Comment on above: Performed By: #### C BC #### [facility] [address] [place] [address] Dr. Tai Godwin Hematocrit (Bld) [Volume fraction] 45.6 % Normal 42.0-54.0 [facility] Comment on above: Performed By: #### C BC #### [facility] [address] [place] [address] Dr. Tai Godwin Hemoglobin (Bld) [Mass/Vol] 15.4 g/dL Normal 14.0-18.0 [facility] Comment on above: Performed By: #### C BC #### [facility] [address] [place] [address] Dr. Tai Godwin IG # 0.03 10e3/ul Normal 0.00-0.03 [facility] Comment on above: Performed By: #### C BC #### [facility] [address] [place] [address] Dr. Tai Godwin IG % 0.3 % Normal 0.0-0.5 [facility] Comment on above: Performed By: #### C BC #### [facility] [address] [place] [address] Dr. Tai Godwin LYMPH # 3.1 103/ul Normal 1.2-3.8 [facility] Comment on above: Performed By: #### C BC #### [facility] [address] [place] [address] Dr. Tai Godwin Lymphocytes/100 WBC (Bld) 30.8 % Normal 20.5-60.0 [facility] Comment on above: Performed By: #### C BC #### [facility] [address] [place] [address] Dr. Tai Godwin MANUAL DIFF REQ NO Normal [facility] Comment on above: Performed By: #### C BC #### [facility] [address] [place] [address] Dr. Tai Godwin MCH (RBC) [Entitic mass] 29.3 pg Normal 25.9-34.0 [facility] Comment on above: Performed By: #### C BC #### [facility] [address] [place] [address] Dr. Tai Gowdin MCHC (RBC) [Mass/Vol] 33.8 g/dL Normal 29.9-35.2 [facility] Comment on above: Performed By: #### C BC #### [facility] [address] [place] [address] Dr. Tai Godwin MCV (RBC) [Entitic vol] 86.9 fL Normal 80.0-94.0 [facility] Comment on above: Performed By: #### C BC #### [facility] [address] [place] [address] Dr. Tai Godwin MONO # 0.7 103/ul Normal 0.3-0.8 [facility] Comment on above: Performed By: #### C BC #### [facility] [address] [place] [address] Dr. Tai Godwin Monocytes/100 WBC (Bld) 7.3 % Normal 1.7-12.0 [facility] Comment on above: Performed By: #### C BC #### [facility] [address] [place] [address] Dr. Tai Godwin NEUT # 5.9 103/ul Normal 1.4-6.5 [facility] Comment on above: Performed By: #### C BC #### [facility] [address] [address] [address] Tai Godwin Neutrophils/100 WBC (Bld) 59.4 % Normal 43.0-75.0 [facility] Comment on above: Performed By: #### C BC #### [facility] [address] [address] [address] Tai Godwin Platelet mean volume (Bld) [Entitic vol] 10.1 fL Normal 9.5-13.5 [facility] Comment on above: Performed By: #### C BC #### [facility] [address] [address] [address] Tai Godwin PLT 184 103/ul Normal 150-450 [facility] Comment on above: Performed By: #### C BC #### [facility] [address] [place] [address] Dr. Tai Godwin RBC 5.25 106/ul Normal 4.70-6.10 [facility] Comment on above: Performed By: #### C BC #### [facility] [address] [address] [address] Tai Godwin WBC 9.9 103/ul Normal 4.0-11.0 [facility] Comment on above: Performed By: #### C BC #### [facility] [address] [place] [address] Dr. Tai Godwin Complete Blood Count and Dif chicho 07-03-2022 Anisocytosis Ql (Bld) eigital Other Basophilic stippling LM Ql (Bld) eigital Other RBC morphology finding Nom (Bld) eigital Other Comprehensive Metabolic Pane eleazar 07-03-2022 Albumin [Mass/Vol] 4.328662 g/dL 3.4-5.0 g/dL [facility] Other Calcium [Mass/Vol] 9.5818930 mg/dL 8.5-10 .1 mg/dL eigital Other CO2 [Moles/Vol] 26.98006132 mmol/L 21.0-3 2.0 mmol/L [facility] Other Creatinine [Mass/Vol] 0.50803176 mg/dL 0.70-1.30 mg/dL eigital Other Potassium [Moles/Vol] 3.71330509 mmol/L 3.5-5.1 mmol/L e[facility]ital Other Protein [Mass/Vol] 8.061839 g/dL Critically high 6.4-8.2 g /dL eigital Other Urea nitrogen [Mass/Vol] 12.3844512 mg/dL 7.0-18.0 mg/dL eigital Other Comprehensive Metabolic Panel see note eigital Other Comprehensive Metabolic Panel 140 mmol/L 136-145 mmol/L eigital Other Comprehensive Metabolic Panel 159 mg/dL Critically high 74-106 mg/dL eigital Other Comprehensive Metabolic Panel >60 mL/min/1.73m2 >=60 mL/min/1.73m 2 eigital Other Comprehensive Metabolic Panel 0.5 mg/dL 0.2-1.0 mg/dL eigital Other Comprehensive Metabolic Panel 4.4 g/dL eigital Other GLYCOHEMOGLOBIN A1Con 2022 ADA RECOMMENDATION SEE BELOW Normal [facility] Comment on above: Result Comment: ADA RECOMMENDED LIMIT 4.0 - 6.0 ADA THERAPEUTIC TARGET < 7.0 ACTION SUGGESTED > 7.0 Performed By: #### A 1C #### [facility] [address] [place] [address] Dr. Tai Godwin Glucose [Mass/Vol] 160 mg/dL Normal [facility] Comment on above: Performed By: #### A 1C #### [facility] [address] [address] [address] Tai Godwin HbA1c (Bld) [Mass fraction] 7.2 % Critically high 4.5-6.2 [facility] Comment on above: Performed By: #### A 1C #### [facility] [address] [address] [address] Tai Godwin LIPID PROFILEon 07-03-2022 CHOL-HDL RATIO NORM SEE BELOW Normal [facility] Comment on above: Result Comment: 3.3 - 4.4 LOW RISK 4.4 - 7.1 AVERAGE RISK 7.1 - 11.0 MODERATE RISK >11.0 HIGH RISK Performed By: #### L IPID, CMP #### [facility] [address] [address] [address] Tai Godwin Cholesterol [Mass/Vol] 102 mg/dL <=200 mg/dL [facility] Comment on above: Performed By: #### L IPID, CMP #### [facility] [address] [address] [address] Tai Godwin Cholesterol in HDL [Mass/Vol] 46 mg/dL 40-60 mg/dL [facility] Comment on above: Performed By: #### L IPID, CMP #### [facility] [address] [address] [address] Tai Godwin Cholesterol in LDL [Mass/Vol] 45.2 mg/dL Normal [facility] Comment on above: Performed By: #### L IPID, CMP #### [facility] [address] [address] [address] Tai Godwin Cholesterol.total/ Cholesterol in HDL [Mass ratio] 2.2 {ratio} [facility] Comment on above: Performed By: #### L IPID, CMP #### [facility] [address] [address] [address] Tai Godwin HDL NORMAL > or = 60 mg/dl - LO W CARDIOVASCULAR RISK <40 mg/dl - HIGH CARDIOVASCULAR RISK Normal [facility] Comment on above: Performed By: #### L IPID, CMP #### [facility] [address] [address] [address] Tai Godwin LDL CALC NORMAL SEE BELOW Normal [facility] Comment on above: Result Comment: <100 mg/dl OPTIMAL 100 - 129 mg/dl NEAR OR ABOVE OPTIMAL 130 - 159 mg/dl BORDERLINE HIGH 160 - 189 mg/dl HIGH >190 mg/dl VERY HIGH Performed By: #### L IPID, CMP #### [facility] [address] [address] [address] Tai Godwin Triglyceride [Mass/Vol] 54 mg/dL <=150 mg/dL [facility] Comment on above: Performed By: #### L IPID, CMP #### [facility] [address] [address] [address] Tai Godwin VLDL CALC 10.8 mg/dL Normal [facility] Comment on above: Performed By: #### L IPID, CMP #### [facility] [address] [address] [address] Tai Godwin Lipid Panelon 07-03-2022 Lipid Panel > or = 60 mg/dl - LO W CARDIOVASCULAR RISK <40 mg/dl - HIGH CARDIOVASCULAR RISK eigital Other Lipid Panel SEE BELOW eigital Other Lipid Panel 45.2 mg/dL eigital Other Lipid Panel 10.8 mg/dL eigital Other MICROALBUMIN, RAND URon 05- mALB 17.1 mg/dL Normal <=30.0 [facility] Comment on above: Performed By: #### M ALBR #### [facility] [address] [address] [address] Tai Godwin PROF 14(COMP METB)on 023 Albumin [Mass/Vol] 4.0 g/dL Normal 3.4-5.[address] [facility] Comment on above: Performed By: #### L IPID, CMP #### [facility] [address] [address] [address] Tai Godwin Albumin/Globulin [Mass ratio] 0.9 {ratio} [facility] Comment on above: Performed By: #### L IPID, CMP #### [facility] [address] [address] [address] Tai Godwin ALP [Catalytic activity/Vol] 68 U/L 46-116 U/L [facility] Comment on above: Performed By: #### L IPID, CMP #### [facility] [address] [place] [address] Dr. Tai Godwin ALT [Catalytic activity/Vol] 58 U/L 16-63 U/L [facility] Comment on above: Performed By: #### L IPID, CMP #### [facility] [address] [place] [address] Dr. Tai Godwin Anion gap [Moles/Vol] 15.1 mmol/L [facility] Comment on above: Performed By: #### L IPID, CMP #### [facility] [address] [place] [address] Dr. Tai Godwin AST [Catalytic activity/Vol] 47 U/L Critically high 15-37 U/L [facility] Comment on above: Performed By: #### L IPID, CMP #### [facility] [address] [place] [address] Dr. Tai Godwin Bilirubin [Mass/Vol] 0.5 mg/dL Normal 0.2-1.0 [facility] Comment on above: Performed By: #### L IPID, CMP #### [facility] [address] [place] [address] Dr. Tai Godwin Calcium [Mass/Vol] 9.6 mg/dL Normal 8.5-10.[address] [facility] Comment on above: Performed By: #### L IPID, CMP #### [facility] [address] [place] [address] Dr. Tai Godwin Chloride [Moles/Vol] 102 mmol/L 98-107 mmol/L [facility] Comment on above: Performed By: #### L IPID, CMP #### [facility] [address] [place] [address] Dr. Tai Godwin CO2 [Moles/Vol] 26.4 mmol/L Normal 21.0-32.0 [facility] Comment on above: Performed By: #### L IPID, CMP #### [facility] [address] [address] [address] Tai Godwin Creatinine [Mass/Vol] 0.77 mg/dL Normal 0.70-1.30 [facility] Comment on above: Performed By: #### L IPID, CMP #### [facility] [address] [address] [address] Tai Godwin EGFR-AF IRAQI >60 Normal >=60 [facility] Comment on above: Performed By: #### L IPID, CMP #### [facility] [address] [address] [address] Tai Godwin EGFR-NON AF IRAQI >60 Normal >=60 [facility] Comment on above: Performed By: #### L IPID, CMP #### [facility] [address] [address] [address] aTi Godwin Globulin (S) [Mass/Vol] 4.4 g/dL Normal [facility] Comment on above: Performed By: #### L IPID, CMP #### [facility] [address] [address] [address] Tai Godwin Glucose [Mass/Vol] 159 mg/dL Critically high 74-106 [facility] Comment on above: Performed By: #### L IPID, CMP #### [facility] [address] [address] [address] Tai Godwin Potassium [Moles/Vol] 3.5 mmol/L Normal 3.5-5.1 [facility] Comment on above: Performed By: #### L IPID, CMP #### [facility] [address] [address] [address] Tai Godwin Protein [Mass/Vol] 8.4 g/dL Critically high 6.4-8.2 [facility] Comment on above: Performed By: #### L IPID, CMP #### [facility] [address] [address] [address] Tai Godwin Sodium [Moles/Vol] 140 mmol/L Normal 136-[address] [facility] Comment on above: Performed By: #### L IPID, CMP #### [facility] [address] [address] [address] Tai Godwin Urea nitrogen [Mass/Vol] 12.0 mg/dL Normal 7.0-18.0 [facility] Comment on above: Performed By: #### L IPID, CMP #### [facility] [address] [place] [address] Dr. Tai Godwin Urea nitrogen/Creatinin e [Mass ratio] 15.6 mg/mg [facility] Comment on above: Performed By: #### L IPID, CMP #### [facility] [address] [place] [address] Dr. Tai Godwin Physician Referralon 023 Physician Referral [id number]:12 [id number] Normal [facility] GLYCOHEMOGLOBIN A1Con 2021 ADA RECOMMENDATION SEE BELOW Normal [facility] Comment on above: Result Comment: ADA RECOMMENDED LIMIT 4.0 - 6.0 ADA THERAPEUTIC TARGET < 7.0 ACTION SUGGESTED > 7.0 Performed By: #### M ALBR #### [facility] [address] [place] [address] Dr. Tai Godwin Glucose [Mass/Vol] 174 mg/dL Normal [facility] Comment on above: Performed By: #### M ALBR #### [facility] [address] [place] [address] Dr. Tai Godwin HbA1c (Bld) [Mass fraction] 7.7 % Critically high 4.5-6.2 [facility] Comment on above: Performed By: #### M ALBR #### [facility] [address] [place] [address] Dr. Tai Godwin GLYCOHEMOGLOBIN A1Con 2021 ADA RECOMMENDATION SEE BELOW Normal [facility] Comment on above: Result Comment: ADA RECOMMENDED LIMIT 4.0 - 6.0 ADA THERAPEUTIC TARGET < 7.0 ACTION SUGGESTED > 7.0 Performed By: #### D ATA1C #### [facility] [address] [place] [address] Dr. Tai Godwin Glucose [Mass/Vol] 192 mg/dL Normal [facility] Comment on above: Performed By: #### D ATA1C #### [facility] [address] [place] [address] Dr. Tai Godwin HbA1c (Bld) [Mass fraction] 8.3 % Critically high 4.5-6.2 [facility] Comment on above: Performed By: #### D ATA1C #### [facility] [address] [place] [address] Dr. Tai Godwin CBC AUTO DIFFon 07-13-2021 BASO # 0.1 103/ul Normal 0.0-0.1 [facility] Comment on above: Performed By: #### M ALBR #### [facility] [address] [place] [address] Dr. Tai Godwin Basophils/100 WBC (Bld) 1.1 % Normal 0.2-2.0 [facility] Comment on above: Performed By: #### M ALBR #### [facility] [address] [place] [address] Dr. Tai Godwin EO # 0.1 103/ul Normal 0.0-0.7 [facility] Comment on above: Performed By: #### M ALBR #### [facility] [address] [place] [address] Dr. Tai Godwin Eosinophils/100 WBC (Bld) 1.2 % Normal 0.9-7.0 [facility] Comment on above: Performed By: #### M ALBR #### [facility] [address] [place] [address] Dr. Tai Godwin Erythrocyte distribution width (RBC) [Ratio] 14.0 % Normal 11.0-15.0 [facility] Comment on above: Performed By: #### M ALBR #### [facility] [address] [place] [address] Dr. Tai Godwin Hematocrit (Bld) [Volume fraction] 45.7 % Normal 42.0-54.0 [facility] Comment on above: Performed By: #### M ALBR #### [facility] [address] [address] [address] Tai Godwin Hemoglobin (Bld) [Mass/Vol] 14.9 g/dL Normal 14.0-18.0 [facility] Comment on above: Performed By: #### M ALBR #### [facility] [address] [place] [address] Dr. Tai Godwin IG # 0.02 10e3/ul Normal 0.00-0.03 [facility] Comment on above: Performed By: #### M ALBR #### [facility] [address] [place] [address] Dr. Tai Godwin IG % 0.2 % Normal 0.0-0.5 [facility] Comment on above: Performed By: #### M ALBR #### [facility] [address] [place] [address] Dr. Tai Godwin LYMPH # 3.8 103/ul Normal 1.2-3.8 [facility] Comment on above: Performed By: #### M ALBR #### [facility] [address] [place] [address] Dr. Tai Godwin Lymphocytes/100 WBC (Bld) 38.0 % Normal 20.5-60.0 [facility] Comment on above: Performed By: #### M ALBR #### [facility] [address] [place] [address] Dr. Tai Godwin MANUAL DIFF REQ NO Normal [facility] Comment on above: Performed By: #### M ALBR #### [facility] [address] [place] [address] Dr. Tai Godwin MCH (RBC) [Entitic mass] 29.9 pg Normal 25.9-34.0 [facility] Comment on above: Performed By: #### M ALBR #### [facility] [address] [place] [address] Dr. Tai Godwin MCHC (RBC) [Mass/Vol] 32.6 g/dL Normal 29.9-35.2 [facility] Comment on above: Performed By: #### M ALBR #### [facility] [address] [place] [address] Dr. Tai Godwin MCV (RBC) [Entitic vol] 91.6 fL Normal 80.0-94.0 [facility] Comment on above: Performed By: #### M ALBR #### [facility] [address] [place] [address] Dr. Tai Godwin MONO # 0.7 103/ul Normal 0.3-0.8 [facility] Comment on above: Performed By: #### M ALBR #### [facility] [address] [place] [address] Dr. Tai Godwin Monocytes/100 WBC (Bld) 7.0 % Normal 1.7-12.0 [facility] Comment on above: Performed By: #### M ALBR #### [facility] [address] [place] [address] Dr. Tai Godwin NEUT # 5.3 103/ul Normal 1.4-6.5 [facility] Comment on above: Performed By: #### M ALBR #### [facility] [address] [place] [address] Dr. Tai Godwin Neutrophils/100 WBC (Bld) 52.5 % Normal 43.0-75.0 [facility] Comment on above: Performed By: #### M ALBR #### [facility] [address] [place] [address] Dr. Tai Godwin Platelet mean volume (Bld) [Entitic vol] 10.2 fL Normal 9.5-13.5 [facility] Comment on above: Performed By: #### M ALBR #### [facility] [address] [place] [address] Dr. Tai Godwin PLT 178 103/ul Normal 150-450 [facility] Comment on above: Performed By: #### M ALBR #### [facility] [address] [place] [address] Dr. Tai Godwin RBC 4.99 106/ul Normal 4.70-6.10 [facility] Comment on above: Performed By: #### M ALBR #### [facility] [address] [place] [address] Dr. Tai Godwin WBC 10.1 103/ul Normal 4.0-11.0 [facility] Comment on above: Performed By: #### M ALBR #### [facility] [address] [address] [address] Tai Godwin GLYCOHEMOGLOBIN A1Con 2021 ADA RECOMMENDATION SEE BELOW Normal [facility] Comment on above: Result Comment: ADA RECOMMENDED LIMIT 4.0 - 6.0 ADA THERAPEUTIC TARGET < 7.0 ACTION SUGGESTED > 7.0 Performed By: #### M ALBR #### [facility] [address] [address] [address] Tai Godwin Glucose [Mass/Vol] 180 mg/dL Normal [facility] Comment on above: Performed By: #### M ALBR #### [facility] [address] [place] [address] Dr. Tai Godwin HbA1c (Bld) [Mass fraction] 7.9 % Critically high 4.5-6.2 [facility] Comment on above: Performed By: #### M ALBR #### [facility] [address] [place] [address] Dr. Tai Godwin LIPID PROFILEon 07-13-2021 CHOL-HDL RATIO NORM SEE BELOW Normal [facility] Comment on above: Result Comment: 3.3 - 4.4 LOW RISK 4.4 - 7.1 AVERAGE RISK 7.1 - 11.0 MODERATE RISK >11.0 HIGH RISK Performed By: #### L IPID, CMP #### [facility] [address] [place] [address] Dr. Tai Godwin Cholesterol [Mass/Vol] 110 mg/dL Normal <=200 [facility] Comment on above: Performed By: #### L IPID, CMP #### [facility] [address] [place] [address] Dr. Tai Godwin Cholesterol in HDL [Mass/Vol] 48 mg/dL Normal 40-60 [facility] Comment on above: Performed By: #### L IPID, CMP #### [facility] [address] [place] [address] Dr. Tai Godwin Cholesterol in LDL [Mass/Vol] 48.0 mg/dL Normal [facility] Comment on above: Performed By: #### L IPID, CMP #### [facility] [address] [address] [address] Tai Godwin Cholesterol.total/ Cholesterol in HDL [Mass ratio] 2.3 {ratio} Normal [facility] Comment on above: Performed By: #### L IPID, CMP #### [facility] [address] [address] [address] Tai Godwin HDL NORMAL > or = 60 mg/dl - LO W CARDIOVASCULAR RISK <40 mg/dl - HIGH CARDIOVASCULAR RISK Normal [facility] Comment on above: Performed By: #### L IPID, CMP #### [facility] [address] [address] [address] Tai Godwin LDL CALC NORMAL SEE BELOW Normal [facility] Comment on above: Result Comment: <100 mg/dl OPTIMAL 100 - 129 mg/dl NEAR OR ABOVE OPTIMAL 130 - 159 mg/dl BORDERLINE HIGH 160 - 189 mg/dl HIGH >190 mg/dl VERY HIGH Performed By: #### L IPID, CMP #### [facility] [address] [address] [address] Tai Godwin Triglyceride [Mass/Vol] 70 mg/dL Normal <=150 [facility] Comment on above: Performed By: #### L IPID, CMP #### [facility] [address] [place] [address] Dr. Tai Godwin VLDL CALC 14.0 mg/dL Normal [facility] Comment on above: Performed By: #### L IPID, CMP #### [facility] [address] [address] [address] Tai Godwin MICROALBUMIN, RAND URon 06-18 mALB 1.4 mg/L Normal <=30.0 [facility] Comment on above: Performed By: #### M ALBR #### [facility] [address] [address] [address] Tai Godwin PROF 14(COMP METB)on 022 Albumin [Mass/Vol] 4.0 g/dL Normal 3.4-5.0 [facility] Comment on above: Performed By: #### L IPID, CMP #### [facility] [address] [address] [address] Tai Godwin Albumin/Globulin [Mass ratio] 0.9 {ratio} Normal [facility] Comment on above: Performed By: #### L IPID, CMP #### [facility] [address] [address] [address] Tai Godwin ALP [Catalytic activity/Vol] 65 U/L Normal 46-116 [facility] Comment on above: Performed By: #### L IPID, CMP #### [facility] [address] [address] [address] Tai Godwin ALT [Catalytic activity/Vol] 60 U/L Normal 16-63 [facility] Comment on above: Performed By: #### L IPID, CMP #### [facility] [address] [address] [address] Tai Godwin Anion gap [Moles/Vol] 14.9 mmol/L Normal [facility] Comment on above: Performed By: #### L IPID, CMP #### [facility] [address] [address] [address] Tai Godwin AST [Catalytic activity/Vol] 38 U/L Critically high 15-37 [facility] Comment on above: Performed By: #### L IPID, CMP #### [facility] [address] [address] [address] Tai Godwin Bilirubin [Mass/Vol] 0.5 mg/dL Normal 0.2-1.0 [facility] Comment on above: Performed By: #### L IPID, CMP #### [facility] [address] [address] [address] Tai Godwin Calcium [Mass/Vol] 9.4 mg/dL Normal 8.5-10.1 [facility] Comment on above: Performed By: #### L IPID, CMP #### [facility] [address] [address] [address] Tai Godwin Chloride [Moles/Vol] 98 mmol/L Normal 98-107 [facility] Comment on above: Performed By: #### L IPID, CMP #### [facility] [address] [address] [address] Tai Godwin CO2 [Moles/Vol] 27.3 mmol/L Normal 21.0-32.0 [facility] Comment on above: Performed By: #### L IPID, CMP #### [facility] [address] [address] [address] Tai Godwin Creatinine [Mass/Vol] 0.82 mg/dL Normal 0.70-1.30 [facility] Comment on above: Performed By: #### L IPID, CMP #### [facility] [address] [address] [address] Tai Godwin EGFR-AF IRAQI >60 Normal >=60 [facility] Comment on above: Performed By: #### L IPID, CMP #### [facility] [address] [place] [address] Dr. Tai Godwin EGFR-NON AF IRAQI >60 Normal >=60 [facility] Comment on above: Performed By: #### L IPID, CMP #### [facility] [address] [address] [address] Tai Godwin Globulin (S) [Mass/Vol] 4.4 g/dL Normal [facility] Comment on above: Performed By: #### L IPID, CMP #### [facility] [address] [address] [address] Tai Godwin Glucose [Mass/Vol] 178 mg/dL Critically high 74-106 [facility] Comment on above: Performed By: #### L IPID, CMP #### [facility] [address] [address] [address] Tai Godwin Potassium [Moles/Vol] 4.2 mmol/L Normal 3.5-5.1 [facility] Comment on above: Performed By: #### L IPID, CMP #### [facility] [address] [address] [address] Tai Godwin Protein [Mass/Vol] 8.4 g/dL Critically high 6.4-8.2 [facility] Comment on above: Performed By: #### L IPID, CMP #### [facility] [address] [address] [address] Tai Godwin Sodium [Moles/Vol] 136 mmol/L Normal 136-[address] [facility] Comment on above: Performed By: #### L IPID, CMP #### [facility] [address] [address] [address] Tai Godwin Urea nitrogen [Mass/Vol] 14.0 mg/dL Normal 7.0-18.0 [facility] Comment on above: Performed By: #### L IPID, CMP #### [facility] [address] [place] [address] Dr. Tai Godwin Urea nitrogen/Creatinin e [Mass ratio] 17.1 mg/mg Normal [facility] Comment on above: Performed By: #### L IPID, CMP #### [facility] [address] [place] [address] Dr. Tai Godwin History and Physicalon 10-06 History and Physical [id number]#1.00OTGTIF F [facility] Operative Report - Surgeon/P jose guadalupe 10-06-2017 Operative Report - Surgeon/Physician [id number]#1.00OTGTIF F [facility] Coding Summaryon 09-29-2017 Coding Summary CODING DATE: 018 [facility] STATUS: Home PAYOR: [facility] APC DESCRIPTION 5312 Level 2 Lower GI Procedures ADMIT DX: REASON FOR VISIT DX: R19.5 Other fecal abnormalities FINAL DX: PRINCIPAL: D12.6 Benign neoplasm of colon, unspecified SECONDARY: PYMT PROC APC STAT DESCRIPTION DOCTOR NAME DATE [id number] T Colonoscopy, flexible; Sacha Antonio MD 09/19/2017 with removal of tumor(s), polyp(s), or other lesion(s) by snare technique NOTE: The code number assigned matches the documented diagnosis and / or procedure in the patient's chart. However, the narrative phrase printed from the coding software may appear abbreviated, or result in slightly different terminology. Coded By: Carmelita Mcgregor Date Saved: 09/29/2017 01:52 pm [facility] - AP Resultson 8 Lab - AP Results [id number]#1.00OTGTIF [facility] Consent Formson 09-22-2017 Consent Forms [id number]#1.00OTGTIF [facility] Intraoperative Noteon 2017 Intraoperative Note [id number]#1.[place] Intra[place] [id number]#[facility] 8 Telemetry Strips [id number]#1.[facility] Clinical Summaryon 09-19-2017 Inpatient Clinical Summary [facility] SURGERYClinical Discharge SummaryPERSON INFORMATIONName BURGESS CATES Jr Age 62 Years [birth year]/Sex MALE Language Greek PCP Librado Connor EMarital Status [facility] Service Ambulatory SurgeryN 16-16-54 Acct# Arrival 09/19/17 06:13:16Visit Reason COLONOSCOPY Acuity LOS 017 20:27[address] [address]Comment:PROVIDER INFORMATIONVITALS INFORMATIONVital Sign Triage LatestTemp OralTemp TemporalTemp IntravascularTemp AxillaryTemp Ecqcyy74 Sat 98 % 100 %Respiratory Rate 18 [...] INFORMATIONInstructions:Mesha washing[place] up:With: Address: When:Sacha Antonio [address], [address] [place] [address] Business (1) Within 10 to 12 daysComments:Call for follow up appointmentWith: Address: When:Librado Connor [address] [place] [address] Business (1)DIAGNOSISColonic polyp; Heme positive stoolComment:PHYS DOC NOTES Normal [facility] Inpatient Patient Summaryon 09-19-2017 Inpatient Patient Summary [address] [address] patient Discharge InstructionsName: DEJAH CATES JrSDOB: [birth year] Address: [address] [place] [address] Care Provider:Name: Librado Connor EPhone: After you are discharged if you find you have any questions, please, call [phone] ext [phone] to speak to a nurse.Discharge Diagnosis: Colonic [...] or business decisions or sign any legal documentsSt. Mary'[facility] would like to thank you for allowing us to assist you with your healthcare needs. The following includes patient education materials and information regarding your injury/illness.BURGESS CATES Jr has been given the following list of follow-up instructions, prescriptions, and patient education materials:Follow-up InstructionsWith: Address: When:Sacha Antonio [address], [address] [place] [address] Business (1) Within 10 to 12 daysComments:Call for follow up appointmentWith: Address: When:Librado Connor [address] [place] [address] [phone] Business (1)MedicationsDuring the course of your visit, [...] Antibiotics [place] Department of Health and Human ServicesSouthern [facility] Medical Centerers for Disease Control and Prevention October 2013 [facility] ordon 09-19-2017 [facility] Intraoperative Record [facility] Intra-Op Record Summary Primary Physician: Sacha Antonio MD Finalized Date/Time: 09/19/17 07:46:44 Pt. Name: BURGESS Tran CATES JrO.B./Sex: 1955 MALE Med Rec #: [id number] Physician: Sacha Antonio MD Financial #: [id number] Pt. Type: D Room/Bed: / Admit/Disch: 09/19/17 [...] Lora RN Role Performed Surgeon - Primary Waxer Floor Waxer Floor Time In 09/19/17 07:20:00 09/19/17 07:20:00 09/19/17 [...] CATES Jr/Sex: 1955 MALE Med Rec #: [id number] Physician: Sacha Antonio MD Financial #: [id number] Pt. Type: D Room/Bed: / Admit/Disch: 09/19/17 [...] Signed By: Sandra Mckeon RN 09/19/17 08:52 [facility] Endo Preoperative Recor don 09-19-2017 [facility] Preoperative Record [facility] Pre-Op Record Summary Primary Physician: Sacha Antonio MD Finalized Date/Time: 09/19/17 07:17:51 Pt. Name: BURGESS Monica CATES Jr/Sex: 1955 MALE Med Rec #: [id number] Physician: Sacha Antonio MD Financial #: [id number] Pt. Type: D Room/Bed: / Admit/Disch: 09/19/17 [...] consent correct. General Comments: arrives ambulatory to [facility], denies recent cp, sob, new illnesses, pacemaker, defibrillator or sleep apnea Finalized By: Sandra Mckeon RN Document Signatures Signed By: Sandra Mckeon RN 09/19/17 07:17 [facility] Operative Report - Surgeon/P jose guadalupe [...] me in 2 weeks.Sacha Antonio M.D.JOB #: [id number]: 09/19/2017T: 09/19/2017[Electronically Signed on: 09/30/2017 16:04 EDT] Sacha Antonio MD[Verified on: 09/30/2017 16:04 EDT] Sacha Antonio MD[Transcribed on: 09/19/2017 08:02 EDT][facility] Vital Signs Date Time Vital Sign Value Performing Clinician Facility 07-14-2024 08:36-0400 Body height 177.8 cm [facility] 07-14-2024 08:36-0400 Body mass index (BMI) [Ratio] 32.8 kg/m2 [facility] 07-14-2024 08:36-0400 Body weight 103.98 kg [facility] 07-14-2024 08:36-0400 Diastolic blood pressure 89 mm[Hg] [facility] 07-14-2024 08:36-0400 Heart rate 74 /min [facility] 07-14-2024 08:36-0400 Respiratory rate 12 /min [facility] 07-14-2024 08:36-0400 Systolic blood pressure 139 mm[Hg] [facility] 03-16-2024 08:35-0500 Body height 177.8 cm [facility] 03-16-2024 08:35-0500 Body mass index (BMI) [Ratio] 32.5 kg/m2 [facility] 03-16-2024 08:35-0500 Body weight 103.02 kg [facility] 03-16-2024 08:35-0500 Diastolic blood pressure 89 mm[Hg] [facility] 03-16-2024 08:35-0500 Heart rate 67 /min [facility] 03-16-2024 08:35-0500 Respiratory rate 12 /min [facility] 03-16-2024 08:35-0500 Systolic blood pressure 139 mm[Hg] [facility] 01-08-2024 10:43-0500 Body mass index (BMI) [Ratio] 33 kg/m2 [facility] 01-08-2024 10:43-0500 Diastolic blood pressure 89 mm[Hg] [facility] 01-08-2024 10:43-0500 Systolic blood pressure 139 mm[Hg] [facility] 01-08-2024 10:29-0500 Body height 177.8 cm [facility] 01-08-2024 10:29-0500 Body weight 104.32 kg [facility] 01-08-2024 10:29-0500 Heart rate 66 /min [facility] 01-08-2024 10:29-0500 Respiratory rate 12 /min [facility] 11-11-2023 09:32-0400 Body height 177.8 cm [facility] 11-11-2023 09:32-0400 Body mass index (BMI) [Ratio] 33.3 kg/m2 [facility] 11-11-2023 09:32-0400 Body weight 105.46 kg [facility] 11-11-2023 09:32-0400 Diastolic blood pressure 89 mm[Hg] [facility] 11-11-2023 09:32-0400 Heart rate 65 /min [facility] 11-11-2023 09:32-0400 Respiratory rate 16 /min [facility] 11-11-2023 09:32-0400 SaO2% (BldA) [Mass fraction] 96 % [facility] 11-11-2023 09:32-0400 Systolic blood pressure 139 mm[Hg] [facility] 07-10-2023 08:58-0400 Body height 177.8 cm [facility] 07-10-2023 08:58-0400 Body mass index (BMI) [Ratio] 33.3 kg/m2 [facility] 07-10-2023 08:58-0400 Body weight 105.29 kg [facility] 07-10-2023 08:58-0400 Diastolic blood pressure 89 mm[Hg] [facility] 07-10-2023 08:58-0400 Heart rate 69 /min [facility] 07-10-2023 08:58-0400 Respiratory rate 12 /min [facility] 07-10-2023 08:58-0400 Systolic blood pressure 191 mm[Hg] [facility] 06-03-2023 09:35-0400 Body height 177.8 cm [facility] 06-03-2023 09:35-0400 Body mass index (BMI) [Ratio] 32.7 kg/m2 [facility] [facility] 06-03-2023 09:35-0400 Body weight 103.41 kg [facility] 06-03-2023 09:35-0400 Diastolic blood pressure 88 mm[Hg] [facility] 06-03-2023 09:35-0400 Systolic blood pressure 172 mm[Hg] [facility] 03-11-2023 08:30-0500 Body height 177.8 cm Librado Ball Other [facility] 03-11-2023 08:30-0500 Body mass index (BMI) [Ratio] 33.26 kg/m2 Librado Ball Other [facility] Other 03-11-2023 08:30-0500 Body weight 105.14 kg Librado Ball Other [facility] 03-11-2023 08:30-0500 Diastolic blood pressure 76 mm[Hg] Librado Ball Other [facility] 03-11-2023 08:30-0500 Respiratory rate 12 /min Librado Ball Other [facility] Other 03-11-2023 08:30-0500 Systolic blood pressure 156 mm[Hg] Librado Ball Other [facility] 11-12-2022 10:00-0400 Body height 177.8 cm Librado Ball Other [facility] Other 11-12-2022 10:00-0400 Body mass index (BMI) [Ratio] 33.34 kg/m2 Librado Ball Other [facility] Other 11-12-2022 10:00-0400 Body weight 105.42 kg Librado Ball Other [facility] Other 11-12-2022 10:00-0400 Diastolic blood pressure 81 mm[Hg] Librado Ball Other [facility] Other 11-12-2022 10:00-0400 Respiratory rate 12 /min Librado Ball Other [facility] Other 11-12-2022 10:00-0400 Systolic blood pressure 174 mm[Hg] Librado Ball Other [facility] Other 07-01-2022 09:30-0400 Body height 177.8 cm Librado Ball Other [facility] Other 07-01-2022 09:30-0400 Body mass index (BMI) [Ratio] 33.28 kg/m2 Librado Ball Other [facility] Other 07-01-2022 09:30-0400 Body weight 105.24 kg Librado Ball Other [facility] Other 07-01-2022 09:30-0400 Diastolic blood pressure 79 mm[Hg] Librado Ball Other [facility] Other 07-01-2022 09:30-0400 Respiratory rate 12 /min Librado Ball Other [facility] Other 07-01-2022 09:30-0400 Systolic blood pressure 183 mm[Hg] Librado Ball Other [facility] Other 07-01-2022 08:30-0400 Body height 177.8 cm Librado Ball Other [facility] Other 07-01-2022 08:30-0400 Body mass index (BMI) [Ratio] 33.28 kg/m2 Librado Ball Other [facility] Other 07-01-2022 08:30-0400 Body weight 105.24 kg Librado Ball Other [facility] Other 07-01-2022 08:30-0400 Diastolic blood pressure 79 mm[Hg] Librado Ball Other [facility] Other 07-01-2022 08:30-0400 Respiratory rate 12 /min Librado Ball Other [facility] Other 07-01-2022 08:30-0400 Systolic blood pressure 183 mm[Hg] Librado Ball Other [facility] Other Encounters Encounter Date Encounter Type Care Provider Facility Start: 07-14-2024 End: 07-14-2024 ambulatory [facility] Work Phone: Start: 07-14-2024 End: 07-14-2024 Encounter for general adult medical examination without abnormal findings [facility] Start: 07-14-2024 End: 07-14-2024 Patient encounter procedure [facility] Work Phone: Start: 03-16-2024 End: 03-16-2024 ambulatory [facility] Work Phone: Start: 03-16-2024 End: 03-16-2024 Patient encounter procedure [facility] Work Phone: Start: 01-08-2024 End: 01-08-2024 ambulatory [facility] Work Phone: Start: 01-08-2024 End: 01-08-2024 Patient encounter procedure [facility] Work Phone: Start: 11-11-2023 End: 11-11-2023 ambulatory [facility] Work Phone: Start: 11-11-2023 End: 11-11-2023 Patient encounter procedure [facility] Work Phone: Start: 09-10-2023 Non-patient / Non-visit [facility] Work Phone: Start: 07-10-2023 End: 07-10-2023 ambulatory [facility] Work Phone: Start: 07-10-2023 End: 07-10-2023 Encounter for general adult medical examination without abnormal findings [facility] Start: 07-10-2023 End: 07-10-2023 Patient encounter procedure [facility] Work Phone: Start: 06-10-2023 Non-patient / Non-visit [facility] [facility] Work Phone: Start: 06-03-2023 End: 06-03-2023 ambulatory [facility] Work Phone: Start: 06-03-2023 End: 06-03-2023 Patient encounter procedure [facility] Work Phone: Start: 03-11-2023 End: 03-11-2023 ambulatory Librado Connor Other [facility] Other Start: 03-11-2023 Office outpatient vi sit 25 minutes Librado Connor [facility] Start: 03-11-2023 End: 03-11-2023 Patient encounter procedure [facility]- Start: 01-06-2023 End: 01-06-2023 ambulatory Librado Connor Other [facility] Other Start: 01-06-2023 Telephone encounter Librado Connor [facility] Start: 01-04-2023 End: 01-04-2023 ambulatory Librado Connor Other [facility] Other Start: 01-04-2023 Telephone encounter Librado JADE [facility] Start: 11-12-2022 End: 11-12-2022 ambulatory Librado Connor Other [facility] Other Start: 11-12-2022 Office outpatient vi sit 25 minutes Librado Connor [facility] Start: 10-01-2022 End: 10-02-2022 ambulatory John NAPOLESL Facility:[facility] Start: 09-12-2022 End: 09-12-2022 ambulatory Librado Connor Other [facility] Other Start: 09-12-2022 Telephone encounter Librado JADE [facility] Start: 09-11-2022 End: 09-12-2022 ambulatory John R NILL Facility:CD:[id number] Start: 08-21-2022 End: 08-22-2022 ambulatory John R NILL Facility:[facility] Start: 07-03-[address] LIBRADO CONNOR Facili ty:[facility] Start: 07-02-2022 [facility]ulatory [facility] Start: 07-02-2022 [facility]ulatory [facility] Start: 07-01-2022 End: 07-01-2022 ambulatory Librado Connor Other [facility] Other Start: 07-01-2022 Encounter for genera l adult medical examination without abnormal findings Librado Connor [facility] Start: 07-01-2022 Periodic preventive med est patient 65yrs& older Librado Connor [facility] Start: 07-01-2022 Telephone encounter Librado JADE [facility] Start: 01-28-2022 Encounter for genera l adult medical examination without abnormal findings DR LIBRADO CONNOR [facility] Start: 01-25-2022 End: 01-26-2022 ambulatory NONE LISTED [...] 07-12-2021 Adult health examination Librado Connor Other [place] [facility] Other Start: 09-19-2017 End: 09-20-2017 [facility] Start: 01-17-2017 End: 01-17-2017 Ambulatory DEFAULT PHYSICIAN Facility:[facility] Procedures Date Procedure Procedure Detail Performing Clinician Start: 07-03-2022 End: 07-03-[address] LIBRADO CONNOR Comment on above: Performed By: #### M ALBR #### [facility] [address] [place] [address] Dr. Tai Godwin Start: 07-13-[address] KIRSTIN CONNOR Comment on above: Performed By: #### P SASC #### [facility] [address] [place] [address] Dr. Tai Godwin Start: 06-24-2017 General examination [...] lic 1999 panel - Serum or Plasma [facility] enter Comprehensive metabo lic 2000 panel - Serum or Plasma [facility] enter Microalbumin [Mass/volume] in Urine [facility] US Heart Transthoracic [facility] Immunizations Immunization Date Immunization Notes Care Provider Fa cilisherry 11-11-2023 influenza, high dose seasonal, preservative-free [facility] 11-12-2022 influenza virus vaccine, unspecified formulation [facility] 11-12-2022 influenza, high dose seasonal, preservative-free Librado Connor Other [facility] Other 12-19-2021 COVID-19 Vaccine Moderna - Documentation Purposes Only Librado Connor Other [facility] 11-29-2020 influenza virus vaccine, split virus (incl. purified surface antigen) Librado Connor Other [employer] [facility] Other 11-29-2020 influenza virus vaccine, unspecified formulation [facility] 11-29-2020 influenza, injectabl e, quadrivalent, preservative free Librado Connor Other [facility] 04-24-2020 COVID-19 Vaccine Ayesha - Documentation Purposes Only Librado Connor Other [facility] Payers Date Payer Category Payer [facility] [id number] 2019 Unknown [id number] 1959 [facility] [id number] 1958 Medicare [id number] 2.1 [id number] 1959 Self-pay 1959 Unknown [id number] 1955 Unknown [id number] 2.16.84 [id number] 1955 Unknown [id number] 2.16.84 [id number] 1955 Unknown [id number] 2.16.84 [id number] 1955 Unknown [id number] 2.16.8 [id number] 1955 Unknown [id number] 2.16.8 [id number] 1955 Unknown [id number] 2.16.8 [id number] 1955 Unknown [id number] 2.16.8 [id number] 1955 Unknown [id number] 2.16.8 40.1.208759.3.579.2.727 Unknown Unknown [id number] 2.16.84 0.1.150016.3.579.2.593 Unknown [id number] 2.16.84 [id number] Unknown [id number] 2.16.84 [id number] Unknown [id number] 2.16.84 [id number] Social History Date Type Detail Facility Sex Assigned At [facility] Other Start: 06-03-2023 End: 07-14-2024 Tobacco smoking status PAIS Never smoked tobacco (finding) [facility] Start: 1955 Sex Assigned At Male [facility] Start: 01-08-2024 End: 07-14-2024 Sex Male (finding) [facility] Medical Equipment Procedure Code Equipment Code Equipment [...] 2024 8:23am [facility] Work Phone: 1(808) 252-312009-24-2024 Evaluation note* Diagnosis Onset Date Resolution Status [...] 2023 9:23am [facility] Work Phone: 1(513) 755-245901-23-2024 Evaluation note* Encounter Date Diagnosis Assessment Notes [...] [BMI ] 33.0-33.9, adult (ICD-10 - Z68.33) [facility] Other 11-18-2023 Evaluation note* Encounter Date Diagnosis Assessment Notes Treatment Notes Treatment Clinical Notes Dec, Nonrheumatic aortic (valve) stenosis (ICD-10 - I35.0) Echo: LVEF 65%, LAE, LOVELY 1.3, velocity 199, gradient 2020 Echo: LVEF 65 to 70%, RV is normal, LVH, velocity 292, gradient /2022 [facility] Other 11-18-2023 Evaluation note* Encounter Date Diagnosis Assessment Notes Treatment Notes Treatment Clinical Notes Dec, Nonrheumatic aortic (valve) stenosis (ICD-10 - I35.0) Echo: LVEF 65%, LAE, LOVELY 1.3, velocity 199, gradient 2020 Echo: LVEF 65 to 70%, RV is normal, LVH, [facility] Other 09-26-2023 Evaluation note* Encounter Date Diagnosis [...] should be helpful in reducing caloric intake [facility] Other 07-05-2023 NoteChief Complaint consultation for surveillance colonoscopy [facility] Staff 67 year old male presents [...] Date Status SARS-CoV-2 (COVID-19) (more content not included)...[facility] Comment on above:Result Comment: Electronically Signed By: RANDY MILLER, John Tejada\Date and Time Signed: 08/21/22 13:40 [id number] Evaluation note* Encounter Date Diagnosis Assessment Notes [...] Screening for colon cancer (ICD-10 - Z12.11) [facility] Other 05-15-2023 Evaluation note* Encounter Date Diagnosis Assessment Notes Treatment Notes Treatment Clinical Notes June, 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) [facility] Other Evaluation noteNo InformationNort [facility] Other Evaluation note* Diagnosis Onset Date Resolution [...] COLONOSCOPY 2018 Hospitalization History SEE SURGICAL HX [facility] Other History general Narrative - Reported* Type [...] years 08/2022 Hospitalization History SEE SURGICAL HX [facility] Other History general Narrative - Reported* Type [...] extraction 08/2022 Hospitalization History SEE SURGICAL HX [facility] Other Reason for referral (narrative)* Reason *FU 07/08 Referral for screening colonoscopy Diagnosis 1 Screening for colon cancer (Z12.11) Referral Organization [facility] Referring Provider First Name Librado Referring Provider Last Name Nikolas Referring Provider Specialty Internal [place] dicblade Referred Organization [facility] Referred Provider John Montalvo Referred Address [address] [place], [place],[address] Referred Provider Specialty Surgery Referral Priority Routine General Notes Asymptomatic, low ri sk patient. Naila Sosa 07/01/2022 12:14:34 PM >received today, notes locked, referral faxed Clinical Notes [id number] [facility] Other Reason for referral (narrative)* Reason 08/21/22 Referral for screening colonoscopy Diagnosis 1 Screening for colon cancer (Z12.11) Referral Organization [facility] Referring Provider First Name Librado Referring Provider Last Name Nikolas Referring Provider Specialty Internal [place] dicine Referred Organization [facility] Referred Provider John Montalvo Referred Address [address], [place],[address] Referred Provider Specialty Surgery Referral Priority Routine Referral Appointment Date 2022-08-21 General Notes Asymptomatic, low ri sk patient. Naial Sosa 07/01/2022 12:14:34 PM >received today, notes locked, referral faxed Naila Sosa 07/04/2022 09:23:22 AM >received fax that they need 2018 report in order to schedule pt. all we have is the path report, so I faxed that Naila Sosa 07/11/2022 07:48:02 AM >faxed first attempt letter Naila Sosa 07/12/2022 09:56:26 AM >received fax with appt date Clinical Notes [id number] [facility] Other Summary Purpose Family History Relationship Condition [...] section and content) DATE CREATED AUTHOR 08/12/2017 [facility] DATE CREATED AUTHOR AUTHOR'S ORGANIZ ATION 10/07/2017 [facility] DATE CREATED AUTHOR AUTHOR'S ORGANIZ ATION 07/03/[address] [facility] DATE CREATED AUTHOR AUTHOR'S ORGANIZ ATION 07/03/2022 [facility] DATE CREATED AUTHOR AUTHOR'S ORGANIZ ATION 10/02/[address] [facility] REASON FOR VISIT (unrecogniz ed section and [...] End: June 03, 2023 Kinjal Butler APRN [employer] Attending Provider Act mateo Start: June 03, [...] BE BASED ON THE PRIMARY CLINICAL RECORDS. [employer] provides no warranty or guarantee of the accuracy or completeness of information in this document.
[2024-08-19 07:59] LABS: Microalbum Creatinine Ratio Ur 154.1 mg/g (0.0-29.9)
[2024-08-19 08:04] LABS: Alanine Aminotransferase 56 U/L (16-63); Albumin Globulin Ratio 0.9; Albumin Level 3.5 g/dL (3.4-5.0); Alkaline Phosphatase 87 U/L (46-116); Anion Gap 15.6; Aspartate Amino Transferase 30 U/L (15-37); Blood Urea Nitrogen 10.0 mg/dL (7.0-18.0); Calcium 8.8 mg/dL (8.5-10.1); Carbon Dioxide 24.3 mmol/L (21.0-32.0); Chloride 104 mmol/L (98-107); Cholesterol 111 mg/dL (<=200); Estimated GFR (African America >60 (>=60 mL/min/1.73m^2); Estimated GFR (Non-African Ame >60 (>=60 mL/min/1.73m^2); Globulin 3.7 g/dL; Glucose 198 mg/dL (74-106); HDL Cholesterol 45 mg/dL (40-60); Potassium 3.9 mmol/L (3.5-5.1); Sodium 140 mmol/L (136-145); Total Protein 7.2 g/dL (6.4-8.2); Triglycerides 94 mg/dL (<=150); VLDL CHOLESTEROL 18.8 mg/dL
[2024-08-19 08:31] LABS: Hematocrit 41.6 % (42.0-54.0); Hemoglobin 13.9 g/dL (14.0-18.0); Immature Granulocytes Abs Auto 0.03 10^3/uL (0.00-0.03); Immature Granulocytes Pct Auto 0.4 % (0.0-0.5); Lymphocytes Absolute Auto 3.1 10^3/uL (1.2-3.8); Mean Corpuscular HGB Conc 33.4 g/dL (29.9-35.2); Mean Corpuscular Hemoglobin 29.7 pg (25.9-34.0); Mean Corpuscular Volume 88.9 fL (80.0-94.0); Platelet Count 162 10^3/uL (150-450); Red Blood Count 4.68 10^6/uL (4.70-6.10); White Blood Count 8.4 10^3/uL (4.0-11.0)
== END 2024-08-19 07:30 | disposition home or self-care (01) ==
LOC: LAB 07:29
PROVIDERS: PCP Internal Medicine; Visit Provider Internal Medicine
DX: E11.65 Type 2 diabetes mellitus with hyperglycemia (principal); E78.00 Pure hypercholesterolemia, unspecified; I10 Essential (primary) hypertension; Z12.5 Encounter for screening for malignant neoplasm of prostate
CPT/HCPCS: 36415; 80053; 80061; 82043; 82570; 83036; 85025; G0103

== ENCOUNTER 2024-08-25 07:26 | Outpatient (OUT) | payer BC, MEDICARE, SELFPAY ==
--- OUTSIDE RECORDS SUMMARY | 2023-09-29 05:45 | XMS_ITS ---
Author Organization The [facility] in [place] Address [address] [place] [address] Care Team Providers Care Medical Equipment Repairer Name Role Phone None, Unknown or Primary Care Provider Unavailab Alicia Escobar Unavailable [phone] Allergies Allergen (clinical drug ingredient) Drug/Non Drug [...] Encounters Encounter Location Date Provider Diagnosis [facility] (PODIATRY) [address] [place] [address] [place] [address] 09/29/2023 Alicia Hayden Skin callus L84 and Type 2 diabetes mellitus with diabetic neuropathy, unspecified whether shelter insulin use E11.40 Assessments Encounter Date Diagnosis (ICD Code) Assessment Notes Treatment Notes Treatment Clinical Notes Section Notes 09/29/2023 Skin callus (ICD-10 - L84) 09/29/2023 Type 2 diabetes mellitus with diabetic neuropathy, unspecified whether shelter insulin use (ICD-10 - E11.40) Plan Of Treatment No Information Progress Notes * Brandon CATESOB:[birth year] (68 yo M)Acc No.[id number]:09/29/2023 Nurse Visit Patient: Lorelei Burgess JUJU Provider: Andrez Blake PA-C :1955 A ge:68 Y S ex:Male Date:09/29/2023 Address:[address] [place], [place] [id number] Pcp:Unknown or None Check In:09:35 AM ESTCheck [...] diabetes mellitus with diabetic neuropathy, unspecified whether medical terminologist insulin use - E11.40 Plan: * Treatment: * Procedure Codes: 9 9211 OFFICEOUTPT VISIT, EST * * Sign off status: Completed Visit Status: C HK (Check Out) true * Provider: Andrez Blake PA-C Date: 0 09/29/2023 Generated for Printi ng/Leanna/eTransmitting on: 0 08/25/2024 07:28 AM EDT History and Physical Notes * HPI (History of Present Illness) Category Sub-Category Detail Notes Category Not es General Patient in offi ce today for nailcare. Nails were trimmed and filed with no issues.
--- OUTSIDE RECORDS SUMMARY | 2023-12-29 09:00 | XMS_ITS ---
Author Organization The [facility] in [place] Address [address] [place] [address] Care Team Providers Care Credit Investigator Name Role Phone None, Unknown or Primary Care Provider Unavailab Alicia Escobar Unavailable [phone] Allergies Allergen (clinical drug ingredient) Drug/Non Drug [...] Encounters Encounter Location Date Provider Diagnosis [facility] (PODIATRY) [address] [place] [address] [place] [address] 12/29/2023 Alicia Blake Type 2 diabetes mellitus with diabetic neuropathy, unspecified whether skilled nursing insulin use E11.40 ; Tinea unguium B35.1 [...] * Brandon CATESOB:[birth year] (68 yo M)Acc No.[id number]:12/29/2023 Nurse Visit Patient: Lorelei Burgess JUJU Provider: Andrez Blake PA-C :1955 A ge:68 Y S ex:Male Date:12/29/2023 Address:[address] [place], [place] [address] Pcp:Unknown or None Check In:12:55 PM ESTCheck [...] true * Provider: Andrez Blake PA-C Date: 1 02/27/2023 [facility]Leanna/eTransmitting on: 0 08/25/2024 07:28 AM EDT [...]
--- OUTSIDE RECORDS SUMMARY | 2024-03-29 09:00 | XMS_ITS ---
Author Organization [facility] in [place] Address [address] [place] [address] Care Team Providers [facility] Coordinator Name Role Phone None, Unknown or Primary Care Provider Unavailab Alicia Escobar Unavailable [phone] REASON FOR VISIT Nail Care Encounters Encounter Location Date Provider Diagnosis [facility] (PODIATRY) [address] [place] [address] [place] [address] 03/29/2024 Alicia Blake Plan Of Treatment No Information Progress Notes * LOAN BrandonOB:[birth year] (69 yo M)Acc No.[id number]:03/29/2024 UNLOCKED PROGRESS NOTE Nurse Visit Patient: Vero STUARTgess Provider: Andrez Blake PA-C :1955 A ge:68 Y S ex:Male Date:03/29/2024 Address:[address] [place], [place] [id number] Pcp:Unknown or None Subjective: * Chief Complaints: * 1 . Nail Care. * Medical History: Objective: * Vitals: Assessment: Plan: * Treatment: * * Electronic signature of Steph Blake PA-C on 08/25/2024 at 07:28 AM EDT Sign off status: Pending Visit Status: N /S N/C (No Show/No Charge) * Provider: Andrez Blake PA-C Date: 0 03/29/2024 Generated for Printi ng/Faxing/eTransmitting on: 0 08/25/2024 07:28 AM EDT
--- OUTSIDE RECORDS SUMMARY | 2024-08-25 07:28 | XMS_ITS | Patient Health Record ---
Author Organization [facility] [place] Address [address] [place] [address] Care Team Providers Care Metal Hanger Name Role Phone None, Unknown or Primary Care Provider Unavailab Alicia Escobar Unavailable [phone] Allergies Allergen (clinical drug ingredient) Drug/Non Drug [...] Problem Status W/U Status Risk Notes Problem 551513878 Tinea unguium (B35.1) Active confirmed Problem 38756422 Type 2 diabetes mellitus with diabetic neuropathy, unspecified (E11.40) Active confirmed Problem 807579189 Hallux varus (acquired), left foot (M20.32) Active confirmed Problem [id number] Other acquired deformities of left foot (M21.6X2) Active confirmed Problem 309325837 Persons encountering health services in other specified circumstances (Z76.89) Active confirmed Problem 172706163 Skin callus (L84) Active confirmed Problem 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, unspecified hemiplegia type (I69.352) Active confirmed Problem [id number] Type 2 diabetes mellitus with diabetic neuropathy, unspecified whether buttermaker helper insulin use (E11.40) Active confirmed Vital Signs Heart Rate 67 /min 12/29/2023 Temperature 97.1 degrees Fahrenheit 12/29/2023 Oximetry 99 % 12/29/2023 Height 68 in 12/29/2023 Weight 235 lbs 12/29/2023 BMI 35.73 kg/m2 12/29/2023 Encounters Encounter Location Date Provider Diagnosis [facility] ([facility]) [address] [place] [address] [place] [address] 09/29/2023 Alicia Maceen Skin callus L84 and Type 2 diabetes mellitus with diabetic neuropathy, unspecified whether halfway insulin use E11.40 [facility] ([facility]) [address] [place] [address] [place] [address] 12/29/2023 Alicia Hayden Type 2 diabetes mellitus with diabetic neuropathy, unspecified whether halfway insulin use E11.40 ; Tinea unguium B35.1 and 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, unspecified hemiplegia type I69.352 Assessments Encounter Date Diagnosis (ICD Code) Assessment Notes Treatment Notes Treatment Clinical Notes Section Notes 09/29/2023 Skin callus (ICD-10 - L84) 09/29/2023 Type 2 diabetes mellitus with diabetic neuropathy, unspecified whether buttermaker helper insulin use (ICD-10 - E11.40) 12/29/2023 Type 2 diabetes mellitus with diabetic neuropathy, unspecified whether buttermaker helper insulin use (ICD-10 - E11.40) 12/29/2023 Tinea [...] ACCESS PPO PLUS LOCAL PLAN [address] [place] [address] [id number] Burgess Allen Self - patient is the insured [place]IC[place] [address] [id number] Burgess Allen Self - patient is the insured [facility] OUT OF STATE [address] [place] [address] [id number] Burgess Allen Self - patient is the [...]
--- OUTSIDE RECORDS SUMMARY | 2024-08-25 07:28 | XMS_ITS | Clinical Summary ---
Author Organization [facility] Healthcare Address [address] [facility] [place] [address] Care Team Providers Care Community Director Name Role Phone Unavailable Primary Care Provider [...]
--- NOTE | 2024-08-25 08:00 | CA_ITS ---
Patient Name: BURGESS CATES MR#: [id number] : 1955 Exam Date: 08/25/2024 Ordering Doctor: DR BOSSMAN CHAN D.O. ECHOCARDIOGRAM REPORT PROCEDURE: CA ECHO DOPPLER COMPLETE INDICATIONS: Nonrheumatic aortic valve stenosis, hypertension, diabetes, CVA COMPARISON: None. DESCRIPTION: COMPLETE ECHOCARDIOGRAM Real-time transthoracic echocardiography with 2D, M-mode, spectral and color flow Doppler performed. QUALITY: Technical quality was good. LEFT VENTRICLE: Normal chamber size. Mild concentric left ventricular hypertrophy. Calculated left ventricular ejection fraction is 68%. LV EF: Global left ventricular systolic function is hyperdynamic; visually estimated ejection fraction 65 to 70%. No significant wall motion abnormalities. DIASTOLIC: Normal diastolic function. ATRIAL SEPTUM: Inadequately seen. LEFT ATRIUM: Normal chamber size. RIGHT ATRIUM: Normal chamber size. RIGHT VENTRICLE: Normal chamber size. Normal right ventricular systolic function. TRICUSPID VALVE: Normal mobility and thickness. No stenosis with trivial regurgitation. Unable to assess right-sided pressures due to lack of measurable tricuspid regurgitation. MITRAL VALVE: Normal mobility and thickness. No evidence of mitral valve stenosis. Mild mitral annular calcification. No mitral regurgitation. AORTIC VALVE: Normal trileaflet appearance. Moderately calcified aortic valve with diminished mobility. Doppler velocity suggests moderate to severe aortic valve stenosis. DVI 0.25, LOVELY 0.9 cm2, Vmax 3.63 m/s, Mean 31 mmHg. No aortic regurgitation. AORTIC ROOT: Normal diameter and appearance. Ascending aorta is normal in size. PULMONIC VALVE: Normal thickness and mobility. No stenosis. No regurgitation. PERICARDIUM: No evidence of pericardial effusion. IVC: Collapses with inspiration. IVC is dilated (2.5 cm). CONCLUSION: 1. Global left ventricular systolic function is hyperdynamic; visually estimated ejection fraction is 65 to 70% 2. Normal right ventricular size and systolic function 3. Normal diastolic function 4. Mild left ventricular hypertrophy 5. Moderate to severe aortic valve stenosis Adult Echocardiography Procedure Report Left Ventricle LVEDD (3.7 - 5.6 cm): 4.52 cm LVESD (2.2 - 4.0 cm): 2.63 cm LVIVS thickness (0.6 - 1.2 cm): 1.33 cm LVPW thickness (0.5 - 1.0 cm): 1.20 cm e': 0.10 m/s E - e': 8.45 LVOT Max Gradient: 3.31 mm[Hg] LVOT Area (cm2): 0.91 m/s Peak Velocity (LVOT): 0.91 m/s Mean Velocity (LVOT): 0.62 m/s LVOT Diameter 2.04 cm Left Ventricular Ejection Fraction: 67.86 % Left Atrium LA Volume Index (2D A2C): 29.26 ml/m2 Left Atrium Systolic Dimension: 3.62 cm Mitral Valve MV E to A Ratio: 0.81 Mitral Valve A-Wave Peak Velocity: 1.02 m/s Mitral Valve E-Wave Peak Velocity: 0.82 m/s Right Ventricle Aorta AO Root Diam: 3.89 cm Ascending Ao Diam: 3.19 cm Aortic Valve AoV Area (Peak Maximilian): 0.82 cm2, 0.82 cm2, 0.93 cm2, 0.93 cm2 AoV Area (VTI): 0.88 cm2, 0.88 cm2 Peak Velocity(Antegrade Flow): 3.63 m/s, 3.22 m/s, 3.19 m/s Peak Gradient(Antegrade Flow): 40.61 mm[Hg], 52.70 mm[Hg], 41.50 mm[Hg] Mean Velocity(Antegrade Flow): 2.65 m/s, 2.31 m/s Mean Gradient(Antegrade Flow): 31.38 mm[Hg], 24.54 mm[Hg] Velocity Time Integral: 87.10 cm, 81.77 cm Tricuspid Valve Pulmonic Valve Peak Gradient: 6.85 mm[Hg], 6.75 mm[Hg] Right Atrium Right Atrium Systolic Pressure: 51.67 ml, 51.67 ml Dictated by: Akshat Pratt M.D. on 08/26/2024 at 16:14 Approved by: Akshat Pratt M.D. on 08/26/2024 at 16:20
== END 2024-08-25 07:27 | disposition home or self-care (01) ==
LOC: CARD 07:27
PROVIDERS: PCP Internal Medicine; Visit Provider Internal Medicine
DX: I35.0 Nonrheumatic aortic (valve) stenosis (principal)
CPT/HCPCS: 93306

== ENCOUNTER 2024-09-21 13:26 | Outpatient (OUT) | payer BC, MEDICARE, SELFPAY ==
--- OUTSIDE RECORDS SUMMARY | 2023-09-29 05:45 | XMS_ITS ---
Author Organization The [facility] in [place] Address [address] [place] [address] Care Team Providers Care Med Peds Name Role Phone None, Unknown or Primary Care Provider Unavailab Alicia Escobar Unavailable [phone] Allergies Allergen (clinical drug ingredient) Drug/Non Drug [...] former smoker, quit in 2016 Vital Signs Weight 235 lbs 09/29/2023 Height 68 in 09/29/2023 Temperature 97.8 degrees Fahrenheit 09/29/19 24 Heart Rate 72 /min 09/29/2023 BMI 35.73 kg/m2 09/29/2023 Oximetry 98 % 09/29/2023 Encounters Encounter Location Date Provider Diagnosis [facility] (PODIATRY) [address] [place] [address] [place] [address] 09/29/2023 Alicia Hayden Skin callus L84 and Type 2 diabetes mellitus with diabetic neuropathy, unspecified whether shelter insulin use E11.40 Assessments Encounter Date Diagnosis (ICD Code) Assessment Notes Treatment Notes Treatment Clinical Notes Section Notes 09/29/2023 Skin callus (ICD-10 - L84) 09/29/2023 Type 2 diabetes mellitus with diabetic neuropathy, unspecified whether terminal carman insulin use (ICD-10 - E11.40) Plan Of Treatment No Information Progress Notes * Brandon CATESOB:[birth year] (68 yo M)Acc No.[id number]:09/29/2023 Nurse Visit Patient: Lorelei Burgess JUJU Provider: Andrez Blake PA-C :1955 A ge:68 Y S ex:Male Date:09/29/2023 Address:[address] [place], [place] [phone] Pcp:Unknown or None Check In:09:35 AM ESTCheck O ut:09:56 AM EST Subjective: * Chief Complaints: * N ail Care * HPI: G eneral: Patient in office today for nailcare. Nails were trimmed and filed with no issues. * Active Problem List E11.40 Type 2 diabetes carley itus with diabetic neuropathy, unspecified whether shelter insulin use Modified On:12/31/2022/U Status:confirmed E11.40 Type [...] obacco Use/Smoking P atient is a f ormer smoker W hen did you start smoking? 0 02/18/1976 W hen did you stop smoking? 0 02/17/2015 H ow long has it been since you last smoked??5-10 years f ormer smoker, quit in 2015. [...] diabetes mellitus with diabetic neuropathy, unspecified whether terminal carman insulin use - E11.40 Plan: * Treatment: * Procedure Codes: 9 9211 OFFICEOUTPT VISIT, EST * * Sign off status: Completed Visit Status: C HK (Check Out) true * Provider: Andrez Blake PA-C Date: 0 09/29/2023 Generated for Printi ng/Leanna/eTransmitting on: 0 09/21/2024 01:28 PM EDT History and Physical Notes * HPI (History of Present Illness) Category Sub-Category Detail Notes Category Not es General Patient in offi ce today for nailcare. Nails were trimmed and filed with no issues.
--- OUTSIDE RECORDS SUMMARY | 2023-12-29 09:00 | XMS_ITS ---
Author Organization The [facility] in [place] Address [address] [place] [address] Care Team Providers Care Control Room Agent Name Role Phone None, Unknown or Primary Care Provider Unavailab Alicia Escobar Unavailable [phone] Allergies Allergen (clinical drug ingredient) Drug/Non Drug Allergy documented on EMR Reaction Allergy Type Onset Date Status Substance with sulfonamide structure and antibacterial mechanism of action (substance) Sulfa Antibiotics Unknown Drug Allergy Active REASON FOR VISIT NAIL CARE Medications Medication SIG (Take, Route, Frequency, Duration) Notes Start Date End Date Status metFORMIN HCl 1000 MG 1 tablet with a me al Orally Once a day Active Trulicity 3mg/0.5mL 3 mg/0.5mL As directed Subcutaneous Once weekly Active Farxiga 10 MG 1 tablet Orally Once a day Active hydrALAZINE HCl 10 MG 1 tablet with food Orally Four times a day Active Lisinopril-hydroCHLOROthia zide 20-25 MG 1 tablet Orally Once a day Active amLODIPine Besylate 10 MG 1 tablet Orally Once a day Active Atorvastatin Calcium 20 MG 1 tablet Orally Once a day Active Carvedilol 6.25 MG 1 tablet with food O rally Twice a day Active Clopidogrel Bisulfate 75 MG 1 tablet Orally Once a day A ctive Vital Signs Weight 235 lbs 12/29/2023 Height 68 in 12/29/2023 Temperature 97.1 degrees Fahrenheit 12/29/19 24 Heart Rate 67 /min 12/29/2023 BMI 35.73 kg/m2 12/29/2023 Oximetry 99 % 12/29/2023 Encounters Encounter Location Date Provider Diagnosis [facility] (PODIATRY) [address] [place] [address] [place] [address] 12/29/2023 Alicia Blake Type 2 diabetes mellitus with diabetic neuropathy, unspecified whether adjunct faculty for medical terminology insulin use E11.40 ; Tinea unguium B35.1 and 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, unspecified hemiplegia type I69.352 Assessments Encounter Date Diagnosis (ICD Code) Assessment Notes Treatment Notes Treatment Clinical Notes Section Notes 12/29/2023 Type 2 diabetes mellitus with diabetic neuropathy, unspecified whether adjunct faculty for medical terminology insulin use (ICD-10 - E11.40) 12/29/2023 Tinea unguium (ICD-10 - B35.1) 12/29/2023 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 Patient with thickened, discolored and elongated nails 1-10. He is unable to care for himself due to history of stroke and diabetes. N ails were trimmed and filed with no complications. * Active Problem List E11.40 Type 2 diabetes carley itus with diabetic neuropathy, unspecified whether assisted insulin use Modified On:12/31/2022/U Status:confirmed E11.40 Type 2 diabetes carley itus with diabetic neuropathy, unspecified Modified On:10/17/2022U Status:confirmed I69.352 Hemiplegia of left d ominant side due to infarction of brain, unspecified hemiplegia type Modified On:11/20/2022U Status:confirmed L84 Skin callus Modified On:11/14/2023W/U Status:confirmed B35.1 Tinea unguium Modified On:12/31/2022U Status:confirmed M21.6X2 Other acquired defor mities of left foot Modified On:12/31/2022/U Status:confirmed M20.32 Hallux varus (acquir ed), left foot Modified On:12/31/2022/U Status:confirmed Z76.89 Persons encountering health services in other specified circumstances Modified On:05/08/2023 Status:confirmed * Medical History: * Surgical History: * Hospitalization/Major Diagno stic Procedure: * Medications: T akingamLODIPine Besylate 10 MG [...] reconciled with the patient * Allergies: S ulfa Antibiotics Objective: * Vitals: W t:235lbs, Ht: 68 in, Temp:97.1F, HR:67/min, BMI:35.73Index, Pain scale:01-10, Oxygen sat %:99%, Ht-cm: 172.72 cm, Wt-k.59 kg. Assessment: * Assessment: 1. T ype 2 diabetes mellitus with diabetic neuropathy, unspecified whether assisted insulin use - E11.40 (Primary) 2 . T inea unguium - B35.1 3 . H emiplegia of left dominant side due to infarction of brain, unspecified hemiplegia type - I69.352 & #160; Plan: * Treatment: * Procedure Codes: 1 1721 DEBRIDE.NAILS;SIX OR MORE, Modifiers: Q8 * Follow Up: 3 Months * * Sign off status: Completed Visit Status: C HK (Check Out) true * Provider: Andrez Blake PA-C Date: 02/27/2023 [facility]/Leanna/eTransmitting on: 0 09/21/2024 01:27 PM EDT History and Physical Notes * HPI (History of Present Illness) Category Sub-Category Detail Notes Category Not es General Patient in offi ce today for nailcare. Patient with thickened, discolored and elongated nails 1-10. He is unable to care for himself due to history of stroke and diabetes. Nails were trimmed and filed with no complications.
--- OUTSIDE RECORDS SUMMARY | 2024-03-29 09:00 | XMS_ITS ---
Author Organization [facility] in [place] Address [address] [place] [address] Care Team Providers Care Vascular Nurse Name Role Phone None, Unknown or Primary Care Provider Unavailab Alicia Escobar Unavailable [phone] REASON FOR VISIT Nail Care Encounters Encounter Location Date Provider Diagnosis [facility] (PODIATRY) [address] [place] [address] [place] [address] 03/29/2024 Alicia Blake Plan Of Treatment No Information Progress Notes * LOAN BrandonOB:[birth year] (69 yo M)Acc No.[id number]:03/29/2024 UNLOCKED PROGRESS NOTE Nurse Visit Patient: Vero STUARTgess Provider: Andrez Blake PA-C :1955 A ge:68 Y S ex:Male Date:03/29/2024 Address:[address] [place], [place] [id number] Pcp:Unknown or None Subjective: * Chief Complaints: * 1 . Nail Care. * Medical History: Objective: * Vitals: Assessment: Plan: * Treatment: * * Electronic signature of Steph Blake PA-C on 09/21/2024 at 01:27 PM EDT Sign off status: Pending Visit Status: N /S N/C (No Show/No Charge) * Provider: Andrez Blake PA-C Date: 0 03/29/2024 Generated for Printi ng/Faxing/eTransmitting on: 0 09/21/2024 01:27 PM EDT
--- OUTSIDE RECORDS SUMMARY | 2024-09-13 13:15 | XMS_ITS | Encounter Summary ---
Author Organization [facility] Address [address] [place] [address] Care Team Providers Care Tester Electronic Scale Name Role Phone Librado Connor DO Primary Care Provider [phone] Reason for Referral * (Routine) - Pending Review Specialty Diagnoses / Procedures Referred By Contac t Referred To Contact Diagnoses Nonrheumatic aortic valve stenosis Procedures ECG 12 lead unit performed James Lo MD [address] [place] [address] Phone: tel: fax: Referral ID Status Reason Start Date Expiration Date V isits Requested Visits Authorized [id number] Pending Review 09/13/2024 09/13/2025 1 1 * Imaging (Routine) - Pending Review Specialty Diagnoses / Procedures Referred By Contac t Referred To Contact Cardiology Diagnoses Nonrheumatic aortic valve stenosis Procedures Transthoracic echo (TTE) complete James Lo MD [address] [place] [address] Phone: tel: fax: Referral ID Status Reason Start Date Expiration Date Visits Requested Visits Authorized [id number] Pending Review Perform Procedure 09/13/2024 09/13/2025 1 1 Encounter Details Date Type Department Care Team (Late st Contact Info) Description 09/13/2024 1:15 PM EDT Office Visit [facility] [address] [place] [address] James Lo MD [address] [facility] [address] [place] [address] Nonrheumatic aortic valve stenosis (Primary Dx); Primary hypertension; Mixed hyperlipidemia; History of cerebrovascular accident Social History Tobacco Use Types Packs/Day Years Used Date Smoking Tobacco: Former Cigarettes Passive Smoke Exposure: Past Smokeless Tobacco: Never Alcohol Use Standard Drinks/Week Comments Not Currently 0 (1 standard drink = 0.6 oz pur e alcohol) [place] Safety & Environment Answer Date Rec orded Fear of Current or Ex-Partner Not on file Emotionally Abused Not on file 04/10/2023 Physically Abused Not on file 04/10/2023 Sexually Abused Not on file 04/10/2023 Physically or Sexually Abused Not on file Sex and Gender Information Value Date Recorded Sex Assigned at Not on file Legal Sex Male 12:01 AM EDT Gender Identity Not on file Sexual Orientation Not on file documented as of this encounter Last Filed Vital Signs Vital Sign Reading Time Taken Comments Blood Pressure 153/82 09/13/2024 1:22 PM EDT Pulse 72 09/13/2024 1:22 PM EDT Temperature - - Respiratory Rate - - Oxygen Saturation 96% 09/13/2024 1:22 PM EDT Inhaled Oxygen Concentration - - Weight 105 kg (232 lb) 09/13/2024 1:22 PM EDT Height 177.8 cm (5' 10 ) 09/13/2024 1:22 PM EDT Body Mass Index 33.29 09/13/2024 1:22 PM EDT documented in this encounter Progress Notes * James Lo MD - 09/13/2024 1:15 PM EDT Images from the original note were not included. [place] [facility] - [facility] Wade Villa Jr. is a 69 y.o. year old male patient being seen to establish care. Self ref for aortic stenosis. Had recent echo and carotid US. He is on Plavix for history of CVA in 2011. Denies chest pain, SOB, and palpitations. Patient Active Problem List Diagnosis Aortic valve disorder Bilateral carotid bruits Cerebral atherosclerosis Cerebral infarction (CMS/HCC) Diabetes (CMS/HCC) Essential hypertension Hemiplegia affecting nondominant side (CMS/HCC) History of colonic polyps Hyperlipidemia Hyperplastic rectal polyp Lumbar spondylosis BMI 33.0-33.9,adult Pure hypercholesterolemia Tubular adenoma of rectum Family History Problem Relation Name Age of Onset Heart disease Neg Hx Social History Tobacco Use Smoking status: Former Types: Cigarettes Passive exposure: Past Smokeless tobacco: Never Substance Use Topics Alcohol use: Not Currently HPI he is seen as a new patient for aortic valve stenosis. He is a 69-year-old man with history of hypertension, hyperlipidemia and prior stroke in 2011 that appears to have been related to uncontrolled hypertension with residual left-sided weakness. He is known to have aortic valve stenosis by echocardiogram in 2022 which showed moderate aortic valve stenosis. Recent echocardiogram in August 2024 showed progression of aortic stenosis to moderate to severe. Today he reports that he has been doing about the same. He denies chest pain, shortness of breath, and dizziness lightheadedness and syncope. He has left lower extremity edema related to his prior stroke. Review of Systems Cardiovascular: Positive for leg swelling. Negative for chest pain, dyspnea on exertion, irregular heartbeat, orthopnea, palpitations and syncope. Respiratory: Negative for cough and shortness of breath. Musculoskeletal: Negative for arthritis, falls and neck pain. Gastrointestinal: Negative for diarrhea and dysphagia. Neurological: Negative for light-headedness and loss of balance. Objective Visit Vitals BP 153/82 (BP Location: Right arm, Patient Position: Sitting) Pulse 72 Ht 1.778 m (5' 10 ) Wt 105 kg (232 lb) SpO2 96% BMI 33.29 kg/m?? Smoking Status Former BSA 2.28 m?? Physical Exam Constitutional: Appearance: He is well-developed. He is not ill-appearing. HENT: Head: Normocephalic and atraumatic. Nose: Nose normal. Eyes: General: No scleral icterus. Pupils: Pupils are equal, round, and reactive to light. Neck: Thyroid: No thyromegaly. Vascular: No JVD. Cardiovascular: Rate and Rhythm: Normal rate and regular rhythm. Pulses: Radial pulses are 2+ on the right side and 2+ on the left side. Heart sounds: Murmur heard. Systolic (RUSB) murmur is present with a grade of 3/6. No friction rub. No gallop. Pulmonary: Effort: Pulmonary effort is normal. No respiratory distress. Breath sounds: Normal breath sounds. No wheezing or rales. Chest: Chest wall: No tenderness. Abdominal: General: Bowel sounds are normal. There is no distension. Palpations: Abdomen is soft. Tenderness: There is no abdominal tenderness. Musculoskeletal: General: No swelling. Cervical back: Neck supple. Left lower le+ Edema present. Skin: General: Skin is warm and dry. Neurological: General: No focal deficit present. Mental Status: He is alert and oriented to person, place, and time. Motor: Weakness (LUE, LLE) present. Psychiatric: Mood and Affect: Mood normal. Behavior: Behavior is cooperative. Judgment: Judgment normal. Allergies Allergies Allergen Reactions Sulfamethoxazole-Trimethoprim Unknown Medications Current Outpatient Medications: amLODIPine (Norvasc) 10 mg tablet, Take 10 mg by mouth in the morning., Disp: , Rfl: atorvastatin (Lipitor) 20 mg tablet, Take 20 mg by mouth at bedtime., Disp: , Rfl: carvedilol (Coreg) 12.5 mg tablet, Take 12.5 mg by mouth with breakfast and with evening meal., Disp: , Rfl: eplerenone (Inspra) 25 mg tablet, Take 1 tablet by mouth in the morning., Disp: , Rfl: lisinopril 40 mg tablet, Take 1 tablet by mouth in the morning., Disp: , Rfl: metFORMIN (Glucophage) 1,000 mg tablet, Take 1,000 mg by mouth with breakfast., Disp: , Rfl: Plavix 75 mg tablet, Take 75 mg by mouth in the morning., Disp: , Rfl: semaglutide, weight loss, 1 mg/0.5 mL pen injector, Inject under the skin., Disp: , Rfl: hydrALAZINE (Apresoline) 25 mg tablet, Take 1 tablet (25 mg) by mouth two times daily., Disp: 180 tablet, Rfl: 3 Recent Labs Blood testing 08/19/2024: Hemoglobin 13.9, platelets 162, potassium 3.9, BUN 10, creatinine 0.77, EGFR more than 60, hemoglobin A1c 8.3%, LFTs normal, triglycerides 94, cholesterol 111, LDL 47, HDL 45. Imaging and other tests EKG 09/13/2024: Sinus rhythm with first-degree AV block, nonspecific ST abnormality. Abnormal ECG Echocardiogram 08/25/2024: CONCLUSION: 1. Global left ventricular systolic function is hyperdynamic; visually estimated ejection fraction is 65 to 70% 2. Normal right ventricular size and systolic function 3. Normal diastolic function 4. Mild left ventricular hypertrophy 5. Moderate to severe aortic valve stenosis. DVI 0.25,LOVELY 0.9 cm2, Vmax 3.63 m/s, Mean 31 mmHg. Carotid ultrasound 08/09/2024: Right ICA: Less than 50% stenosis. Left ICA: Less than 50% stenosis. High peak systolic velocity in the proximal left common carotid artery. Consider CT angiography forbetter evaluation. Echocardiogram 01/02/2023: CONCLUSION: 1. Global left ventricular systolic function is hyperdynamic; visually estimated ejection fraction is 65 to 70% 2. The right ventricle is normal in size and systolic function 3. Mildly increased left ventricular wall thickness 4. Grade 1 diastolic dysfunction 5. Moderate aortic valve stenosis 6. Anterior free space; trivial effusion versus fat pad DVI 0.3, Vmax 2.9, Mean gradient 20mmHg. Assessment/Plan Diagnoses and all orders for this visit: Nonrheumatic aortic valve stenosis - Transthoracic echo (TTE) complete; Future - ECG 12 lead unit performed Primary hypertension - hydrALAZINE (Apresoline) 25 mg tablet; Take 1 tablet (25 mg) by mouth two times daily. Mixed hyperlipidemia History of cerebrovascular accident 1. Aortic valve stenosis: I explained to him that his aortic valve stenosis has progressed over thepast 2 years. Currently by echocardiogram it is in the moderate to severe, likely severe range according to the information from the echocardiogram report. He however has normal ventricular systolic function and is asymptomatic clinically. I educated him regarding the symptoms of aortic valve stenosis. I explained to him that aortic valve replacement will be indicated in case he develops symptomsand/or left ventricular systolic dysfunction. I told him that at this time there is no need for proceeding with aortic valve replacement. I instructed him to let me know if he develops any symptoms. Otherwise we will plan a follow-up echocardiogram in 6 months. his ECG today showed sinus rhythm with first-degree AV block and nonspecific ST abnormality. I also discussed with him modalities for aortic valve replacement. I told him that when the time comes we will proceed with a full evaluation. His prior stroke with residual motor deficit increases his risk in the perioperative surgical aortic valve replacement surgery and would probably make him abetter candidate for transcatheter aortic valve replacement. 2. Hypertension: Blood pressure is not controlled. I will increase hydralazine to 25 mg twice daily. 3. Hyperlipidemia: This is controlled according to review of his recent lipid profile. Continue current statin therapy. I will see him in follow-up in 6 months. Follow up in about 6 months (around 03/16/2025). James Lo MD documented in this encounter Plan of Treatment Scheduled Orders Name Type Priority Associated Diagnoses Order Schedule Transthoracic echo (TTE) complete Echocardiography Routine Nonrheumatic aortic valve stenosis Expected: 03/16/2025 (Approximate), Expires: 09/13/2026 documented as of this encounter Procedures Procedure Name Priority Date/Time Associated Diagnosis Comments ECG 12 LEAD UNIT PERFORMED Routine 09/13/2024 1:52 PM EDT Nonrheumatic aortic valve stenosis documented in this encounter Results * ECG 12 lead unit performed (09/13/2024 1:52 PM EDT) James Lo MD ECG ORDERABLES Final Result documented in this encounter Visit Diagnoses Diagnosis Nonrheumatic aortic valve stenosis- Primary Primary hypertension Unspecified essential hypertension Mixed hyperlipidemia History of cerebrovascular accident Transient ischemic attack (TIA), and cerebral infarction without residual deficits documented in this encounter Care Teams Tester Electronic Scale Relationship Specialty Start Date End Date Librado Connor DO [address] [place] [id number] PCP - General Internal Medicine 09/10/24 documented as of this encounter
--- OUTSIDE RECORDS SUMMARY | 2024-09-21 13:28 | XMS_ITS | Clinical Summary ---
Author Organization [facility] Address [address] [facility] [place] [address] Care Team Providers Care Refractory Worker Name Role Phone Unavailable Primary Care Provider [...]
--- OUTSIDE RECORDS SUMMARY | 2024-09-21 13:28 | XMS_ITS | Patient Health Record ---
Author Organization [facility] [place] Address [address] [place] [address] Care Team Providers Care General Road Supervisor Name Role Phone None, Unknown or Primary Care Provider Unavailab Alicia Escobar Unavailable [phone] Allergies Allergen (clinical drug ingredient) Drug/Non Drug [...] Problem Status W/U Status Risk Notes Problem 212608158 Tinea unguium (B35.1) Active confirmed Problem 26209253 Type 2 diabetes mellitus with diabetic neuropathy, unspecified (E11.40) Active confirmed Problem 332677215 Hallux varus (acquired), left foot (M20.32) Active confirmed Problem 3486320120253096 Other acquired deformities of left foot (M21.6X2) Active confirmed Problem 984798322 Persons encountering health services in other specified circumstances (Z76.89) Active confirmed Problem 020997043 Skin callus (L84) Active confirmed Problem 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, unspecified hemiplegia type (I69.352) Active confirmed Problem 161911881015941 Type 2 diabetes mellitus with diabetic neuropathy, unspecified whether alf insulin use (E11.40) Active confirmed Vital Signs Heart Rate 67 /min 12/29/2023 Temperature 97.1 degrees Fahrenheit 12/29/2023 Oximetry 99 % 12/29/2023 Height 68 in 12/29/2023 Weight 235 lbs 12/29/2023 BMI 35.73 kg/m2 12/29/2023 Encounters Encounter Location Date Provider Diagnosis [facility] [address] [place] [address] [place] [address] 09/29/2023 Alicia Maceen Skin callus L84 and Type 2 diabetes mellitus with diabetic neuropathy, unspecified whether alf insulin use E11.40 [facility] [address] [place] [address] [place] [address] 12/29/2023 Alicia Hayden Type 2 diabetes mellitus with diabetic neuropathy, unspecified whether alf insulin use E11.40 ; Tinea unguium B35.1 and 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, unspecified hemiplegia type I69.352 Assessments Encounter Date Diagnosis (ICD Code) Assessment Notes Treatment Notes Treatment Clinical Notes Section Notes 09/29/2023 Skin callus (ICD-10 - L84) 09/29/2023 Type 2 diabetes mellitus with diabetic neuropathy, unspecified whether intermediate accountant insulin use (ICD-10 - E11.40) 12/29/2023 Tinea unguium (ICD-10 - B35.1) 12/29/2023 Type 2 diabetes mellitus with diabetic neuropathy, unspecified whether intermediate accountant insulin use (ICD-10 - E11.40) 12/29/2023 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, unspecified hemiplegia type (ICD-10 - I69.352) Plan Of Treatment No Information Insurance Providers Payer Name Payer Address Payer Phone Subscriber Number Group Number Insured Name Patient Relationship to Insured Coverage Start Date Coverage End Date [employer] PPO PLUS LOCAL PLAN [address] [place] [address] [phone] [id number] Burgess Allen Self - patient is the insured [employer] [place] [address] [place] [place] [address] [phone] [id number] Burgess Allen Self - patient is the insured [facility] OUT OF STATE [address] [place] [address] [phone] [id number] Burgess Allen Self - patient is the [...]
--- NOTE | 2024-09-21 14:14 | PM.WCHP ---
Wound Care H&P: HPI History of Present Illness Narrative: The patient is a 69-year-old gentleman with history of type 2 diabetes and prior stroke with residual left-sided hemiparesis who presents for routine toenail care. He has no complaints in regards to his feet at this time. [facility] Medical History (Updated 06/17/24 @ 15:35 by NEERU Soto) Obesity ?E66.9 - Obesity, unspecified (ICD-10) Lumbar spondylosis ?M47.816 - Spondylosis without myelopathy or radiculopathy, lumbar region (ICD-10) Hyperlipidemia ?E78.5 - Hyperlipidemia, unspecified (ICD-10) Hypertension ?I10 - Essential (primary) hypertension (ICD-10) Diabetes ?E11.9 - Type 2 diabetes mellitus without complications (ICD-10) Cerebral infarction ?I63.9 - Cerebral infarction, unspecified (ICD-10) Cerebral atherosclerosis ?I67.2 - Cerebral atherosclerosis (ICD-10) Bilateral carotid bruits ?R09.89 - Other specified symptoms and signs involving the circulatory and respiratory systems (ICD-10) Aortic valve disorder ?I35.9 - Nonrheumatic aortic valve disorder, unspecified (ICD-10) Surgical History (Updated 09/03/22 @ 14:13 by Vivi Hubbard) H/O hammer toe correction ?Z98.890 - Other specified postprocedural states (ICD-10) ?Z87.39 - Personal history of other diseases of the musculoskeletal system and connective tissue (ICD-10) History of appendectomy ?Z90.49 - Acquired absence of other specified parts of digestive tract (ICD-10) H/O colonoscopy ?Z98.890 - Other specified postprocedural states (ICD-10) Family History (Updated 09/03/22 @ 14:14 by Vivi Hubbard) Mother Family history of COPD (chronic obstructive pulmonary disease) Heart disease Father Family history of cancer Sister Heart disease Social History (Updated 09/11/22 @ 06:33 by Deysi Mercado) Within the past year, how often did you have a drink containing alcohol: never Score interpretation: A score less than 4 is consistent with normal alcohol consumption. Smoking status: Former smoker What tobacco products do you use: cigarettes Packs per day: 0.5 Years smoked: 39 Smoking pack-years: 19.50 Smoking quit date/years: <= 15 years ago Non-prescribed substance use: denies use Highest level of school completed/degree received: high school graduate Meds Home Medications and Allergies Home Medications ?Medication ?Instructions ?Recorded ?Confirmed ?Type amlodipine 10 mg tablet 10 mg PO DAILY 09/03/22 09/10/23 History carvedilol 3.125 mg tablet 3.125 mg PO BID 09/03/22 09/10/23 History clopidogrel 75 mg tablet (Plavix) 75 mg PO DAILY 09/03/22 09/10/23 History dapagliflozin propanediol 10 mg 10 mg PO DAILY 09/03/22 09/10/23 History tablet (Farxiga) dulaglutide 3 mg/0.5 mL 4.5 mg subcut QWEEK 09/03/22 09/10/23 History subcutaneous pen injector (Trulicity) hydralazine 10 mg tablet 10 mg PO BID 09/03/22 09/10/23 History lisinopril 20 1 tab PO DAILY 09/03/22 09/10/23 History mg-hydrochlorothiazide 25 mg tablet metformin 1,000 mg tablet 1,000 mg PO BID 09/03/22 09/10/23 History simvastatin 40 mg tablet 40 mg PO DAILY 09/03/22 09/10/23 History ciprofloxacin HCl 500 mg tablet 500 mg PO BID 5 days #10 tabs 09/10/23 Rx (Cipro) Allergies Allergy/AdvReac Type Severity Reaction Status Date / Time sulfamethoxazole (From Allergy Mild Hives Verified 09/10/23 12:25 Bactrim) trimethoprim (From Bactrim) Allergy Mild Hives Verified 09/10/23 12:25 Exam Narrative: Exam Narrative: Derm: Skin is diffusely dry. No ulcerative or preulcerative lesions are noted. Toenails 1 through 10 are elongated, thickened, mycotic, and dystrophic. No evidence of paronychia on examination. Vascular: DP pulses are 2/4 bilaterally. PT pulses nonpalpable bilaterally. Capillary refill is less than 3 seconds. Superficial varicosities are noted bilaterally. Skin is warm to the touch. There is trace foot and ankle edema bilaterally. Digital hair is absent. There is hemosiderin staining of the lower legs bilaterally. Musculoskeletal: Hammertoe deformities of the lesser toes on the left. Mallet toe deformity of the hallux on the left. Generalized weakness noted of the left leg Neuro: Protective sensation intact in 5/5 areas tested with the monofilament on each foot. Vibratory sensation is normal. He is hyperreflexic on the right side and Achilles reflexes absent on the left. Assessment and Plan Assessment and Plan (1) Hemiparesis affecting left side as late effect of cerebrovascular accident: (2) Unsteady gait when walking: (3) Gait instability: (4) Tinea unguium: (5) Type 2 diabetes mellitus with other circulatory complications: Plan Routine toenail care performed without incident. Follow-up in 3 months. Acute Procedures Podiatry Nail Debridement Class B Findings Absent posterior tibial pulse: bilateral Advanced trophic changes as evidenced by any three of the following: decreased hair growth, nail changes (thickening) and skin texture (thin or shiny) Class C Findings Claudication: No Temperature changes: No Edema: Yes Nail debridement paresthesia (abnormal spontaneous sensations in the feet): No Burning: No Qualifies If: Qualifiers If:: A patient qualifies for nail debridement if they have: 1 class A finding (Q7) 2 class B findings (Q8) OR 1 class B & 2 class C findings in addition to a primary condition (Q9) Nail Procedure Nail Procedure Time out: Yes Nail procedure: other (Toenail debridement) Number of affected nails: 10 Location (toes): left and right Procedure successful: Yes Patient tolerated procedure: well and no complications Additional comments: Toenails 1 through 10 were sharply debrided with nail nippers without incident
== END 2024-09-21 13:27 | disposition home or self-care (01) ==
LOC: WC 13:26
PROVIDERS: PCP Internal Medicine; Visit Provider Physician Assistant
DX: B35.1 Tinea unguium (principal); R26.81 Unsteadiness on feet; I69.354 Hemiplegia and hemiparesis following cerebral infarction affecting left non-dominant side; E11.69 Type 2 diabetes mellitus with other specified complication
CPT/HCPCS: 11721

== ENCOUNTER 2024-12-29 13:19 | Outpatient (OUT) | payer BC, MEDICARE, SELFPAY ==
--- OUTSIDE RECORDS SUMMARY | 2024-12-29 13:28 | XMS_ITS | CCD ---
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 Name Role Phone PHYSICIAN, DEFAULT Unavailable Unavailable [...] Care Unavailable NILL, John Soriano Attending Unavailable BALLLIBRADO Referring Unavailable NILL, John Soriano Attending Unavailable NILL, John Soriano Attending Unavailable NILL, John Soriano Attending Unavailable NILL, John Soriano Attending Unavailable BALL, LIBRADO Referring Unavailable MOUKARBELCATRACHO Attending Unavailable Ball Librado STYLES Primary Care Provider Librado Connor DO Attending Provider [phone] Allergies Allergy ClassificationReported Allergen(s)Allergy TypeDate of OnsetReaction(s) Facility (9 sources)Sulfamethoxazole / TrimethoprimDrug AllergyUnknowMetropolitan [facility] [employer] Other (1 source)Sulfonamides (Antibiotic)Drug allergy (disorder)75-95-7718CsqOhio[facility] (13 sources)sulfADIAZINEDrug Xveanho57-26-4721Agzhnwm, Unknown ReactionPremier Health [facility] (1 source)Allergies ReconciledPropensity to adverse reactionsRehabilitation Hospital Of IndianaMiradia Other (6 sources)Substance with sulfonamide structure and antibacterial mechanism of action (substance)Drug allergyUnkcentennial hills hospitalMiradia Other (6 sources)Sulf-10Drug allergySaint [facility] Hospital [employer] Other (6 sources)Sulfamethoxazole-Trimethoprim *ANTI-INFECTIVE AGENPropensity to adverse reactionsSaint Alexius Hospital [employer] Other (1 source)patient allergy list reviewed by nurse or physiciaPropensity to adverse iurcnobxv15-19-9546Iuyefyv:[facility] [employer] Other (2 sources)Sulfamethoxazole / Trimethoprim; Translations: [sulfamethoxazole-trimethoprim]Drug Melpvpl10-62-9395PcimocTrihealth [facility] Repository (7 sources)SulfamethoxazoleDrug Pfnkspb28-53-2942Saxxebs ReactionPremier Health [facility] Center (7 sources)TrimethoprimDrug Grbddys16-40-3190Viuoigr [facility] Medications Current Medications MedicationDrug Class(es)DatesSig (Normalized)Sig (Original)Accu-Chek SmartView - (6 sources)Accu-Chek SmartView - USE TO TEST BLOOD SUGAR ONCE A DAY for 90 ActiveamLODIPine 10 mg oral tablet (20 sources)Dihydropyridine Calcium Channel BlockerStart: 09-21-2023 End: 03-59-6721fjsx 1 tablet by mouth once dailyAmlodipine 10 mg tablet Active 0 .ROUTE .COMPLEX 90 3 September 12, 2024 7:28pm TAKE 1 TABLET BY MOUTHEVERY DAY Complies with drug therapyStart: 06-03-2023 End: 67-39-5296vedh 1 tablet by mouth once dailyAmlodipine 10 mg tablet Discontinued 10 MG PO Daily June 03, 2023 12:00am September 21, 2023 11:51am take 1 tablet by mouth once dailyamLODIPine Besylate 10 MG TAKE 1 TABLET BY MOUTH EVERY DAY Activeatorvastatin 20 mg oral tablet (20 sources)HMG-CoA Reductase InhibitorStart: 18-24-0818lpjj 1 tablet by mouth once daily in the eveningAtorvastatin 20 mg tablet Active 0 .ROUTE .COMPLEX 90 3 August 20, 2024 6:11pm TAKE 1 TABLET BY MOUTH EVERY EVENING FOR 90 DAYS Complies with drug therapyStart: 06-03-2023 End: 76-41-8213olxj 1 tablet by mouth once daily in the eveningAtorvastatin 20 mg tablet Discontinued 20 MG PO Every evening 90 90 November 06, 2023 12:00am August 20, 2024 6:12pmtake 1 tablet by mouth every twenty-four hours Atorvastatin Calcium 20 MG 1 tablet Orally Once a day Activeazithromycin 250 mg oral tablet (1 source)Macrolide AntimicrobialStart: 81-87-9619Ejwgfoqqssol 250 mg tablet Active 250 MG PO .COMPLEX 6 5 0 July 22, 2024 12:00am 2 tabs on first day followed by 1 tab on days 2-5 Complies with drug therapycarvedilol 25 mg oral tablet (20 sources)alpha-Adrenergic Kristen, beta-Adrenergic BlockerStart: 12-10-2024 take 1 tablet by mouth every twelve hoursCarvedilol 25 mg tablet Active 25 MG PO Every 12 hours 180 90 December 10, 2024 11:57am Complieswith drug therapy Start: 11-18-2023 End: 37-26-2384jlsx 1 tablet by mouth twice daily at mealtimeCarvedilol 12.5 mg tablet Discontinued 0 .ROUTE .COMPLEX 180 November 18, 2023 8:52pm December 10, 2024 11:58am TAKE 1 TABLET BY MOUTH TWICE A DAY WITH FOOD FOR 30 DAYS Start: 06-03-2023 End: 11-54-0780gbhp 1 tablet by mouth twice dailyCarvedilol 12.5 mg tablet Discontinued 12.5 MG PO Twice daily June 03, 2023 12:00am November 8:52pmStart: 83-00-6088ptwv 1 tablet by mouth every twelve hoursCarvedilol 12.5 MG 1 tablet with food Orally Twice a day for 30 days Feb, Activetake 1 tablet by mouth every twelve hoursCarvedilol 6.25 MG 1 tablet with food Orally Twice a day Activeclopidogrel 75 mg oral tablet (20 sources)P2Y12 Platelet InhibitorStart: 09-21-2023 End: 20-47-3343zkzd 1 tablet by mouth once dailyClopidogrel 75 mg tablet Active 0 .ROUTE .COMPLEX 90 3 September 12, 2024 7:28pm TAKE 1 TABLET BY MOUTH EVERY DAY Complies with drug therapyStart: 06-03-2023 End: 88-19-2088batf 1 tablet by mouth once dailyClopidogrel 75 mg tablet Discontinued 75 MG PO Daily June 03, 2023 12:00am September 21, 2023 11:51am take 1 tablet by mouth once dailyClopidogrel Bisulfate 75 MG TAKE 1 TABLET BY MOUTH EVERY DAY Activeeplerenone 25 mg oral tablet (3 sources)Aldosterone AntagonistStart: 10-34-0713ntjh 1 tablet by mouth once dailyEplerenone 25 mg tablet Active 0 .ROUTE .COMPLEX 90 3 November 13, 2024 8:36am TAKE 1 TABLET BY MOUTH EVERY DAY Complies with drug therapyStart: 07-14-2024 End: 99-38-5566edmx 1 tablet by mouth once dailyEplerenone 25 mg tablet Discontinued 25 MG PO Daily 30 30 July 14, 2024 12:00am November 13, 2024 8:36amfluocinolone acetonide 0.1 mg/ml otic solution (8 sources)CorticosteroidStart: 03-55-6864Benyaapnktyo Acetonide 0.01 % 5 drops into affected ear Otic weekly as needed for itching for 30 days June, ActiveStart: 82-02-7627Prswhywlnysm Acetonide 0.01 % 5 drops into affected ear Otic weekly as needed for itching for 30 days June, ActivehydrALAZINE hydrochloride 10 mg oral tablet (20 sources)Arteriolar VasodilatorStart: 43-34-5813vlob 1 tablet by mouth twice dailyHydralazine 10 mg tablet Active 0 .ROUTE .COMPLEX 180 3 November 18, 2023 8:52pm TAKE 1 TABLET BY MOUTH TWICE A DAY Complies with drug therapyStart: 06-03-2023 End: 33-47-1172iidf 1 tablet by mouth twice dailyHydralazine 10 mg tablet Discontinued 10 MG PO Twice daily June 03, 2023 12:00am November 18, 2023 8:52pmtake 1 tablet by mouth twice dailyhydrALAZINE HCl 10 MG TAKE 1 TABLET BY MOUTH TWICE A DAY ActivehydroCHLOROthiazide 25 mg / lisinopril 20 mg oral tablet (8 sources)Thiazide Diuretic, Angiotensin Converting Enzyme InhibitorLisinopril- hydroCHLOROthiazide 20-25 MG TAKE 1 TABLET BY MOUTH TWICE A DAY FOR 30 DAYS for 90 Activetake 1 tablet by mouth once dailyLisinopril-hydroCHLOROthiazide 20-25 MG TAKE 1 TABLET BY MOUTH EVERY DAY Activehydrocortisone 10 mg/ml / neomycin 3.5 mg/ml / polymyxin b 81466 unt/ml otic suspension (3 sources)Aminoglycoside Antibacterial, Polymyxin-class Antibacterial, CorticosteroidStart: 01-01-1270Jskvksei-Polymyxin-Hc 3.5-10,000-1 mg/mL-unit/mL-% drops,suspension Active 4 DROPS OTIC Every 8 hours 10 7 0 January 08, 2024 1:00am Complies with drug therapylisinopril 40 mg oral tablet (12 sources)Angiotensin Converting Enzyme InhibitorStart: 53-76-0385nmxo 1 tablet by mouth once dailyLisinopril 40 mg tablet Active 0 .ROUTE .COMPLEX 90 November 18, 2023 8:52pm TAKE 1 TABLET BY MOUTH EVERY DAY FOR 30 DAYS Complies with drug therapyStart: 06-03-2023 End: 48-38-4696urwh 1 tablet by mouth once dailyLisinopril 40 mg tablet Discontinued 40 MG PO Daily June 03, 2023 12:00am November 18, 2023 8:52pm Start: 21-84-8845cfbv 1 tablet by mouth every twenty-four hoursLisinopril 40 MG 1 tablet Orally Once a day for 30 days Feb, ActivemetFORMIN hydrochloride 1000 mg oral tablet (20 sources)BiguanideStart: 17-67-4209bdsb 1 tablet by mouth before breakfast Metformin 1,000 mg tablet Active 0 .ROUTE .COMPLEX 180 July 22, 2024 11:05pm TAKE 1 TABLET BY MOUTH BEFORE BREAKFAST AND EVENING MEAL Complies with drug therapyStart: 11-11-2023 End: 79-29-8843gtqm 1 tablet by mouth once dailyMetformin 1,000 mg tablet Discontinued 1000 MG PO Daily 90 90 November 11, 2023 9:46am July 22, 2024 11:05pmStart: 06-05-2023 End: 37-35-2166uwub 1 tablet by mouth before breakfastMetformin 1,000 mg tablet Discontinued 0 .ROUTE .COMPLEX 180 3 June 05, 2023 7:39am November 11, 2023 9:47am TAKE 1 TABLET BY MOUTH BEFORE BREAKFAST AND EVENING MEALStart: 06-05-2023 End: 70-01-2993uigd 1 tablet by mouth before breakfastMetformin Discontinued 0 .ROUTE .COMPLEX 180 June 05, 2023 7:39am November 11, 2023 9:47am TAKE 1 TABLET BY MOUTH BEFORE BREAKFAST AND EVENING MEALStart: 06-03-2023 End: 60-09-0617wpsf 1 tablet by mouth twice daily at mealtimeMetformin 1,000 mg tablet Discontinued 1000 MG PO Twice daily with meals June 03, 2023 12:00am June 05, 2023 7:39amtake 1 tablet by mouth before breakfastmetFORMIN HCl 1000 MG TAKE 1 TABLET BY MOUTH BEFORE BREAKFAST AND EVENING MEAL ActiveSemaglutide (3 sources)Start: 61-97-4726Ndezycqhjgm (Ozempic) 0.25 mg or 0.5 mg (2 mg/3 mL) pen injector Active 2 MG SUBCUT every week 3 December 10, 2024 11:49am for 4 weeks Complies with drug therapyStart: 03-16-2024 End: 51-23-5675Hactfggmpgk (Ozempic) 0.25 mg or 0.5 mg (2 mg/3 mL) pen injector Discontinued 0.25 MG SUBCUT every week 1.March 16, 2024 1:00December 10, 2024 11:49am for 4 weeksStart: 57-22-7561Ufspzonqjhp (Ozempic) 0.25 mg or 0.5 mg (2 mg/3 mL) pen injector Active 0.25 MG SUBCUT every week 1. 4704 16March 16, 2024 1:00am for 4 weeks Completed/Discontinued Medications MedicationDrug Class(es)DatesSig (Normalized)Sig (Original)amoxicillin 875 mg oral tablet (10 sources)Penicillin-class AntibacterialStart: 01-08-2024 End: 45-08-7865ywbb 1 tablet by mouth twice dailyAmoxicillin 875 mg tablet Discontinued 875 MG PO Twice daily 14 7 0 January 08, 2024 1:00am July 14, 2024 8:32amStart: 06-03-2023 End: 31-35-5147aenv 1 tablet by mouth twice dailyAmoxicillin 875 mg tablet Discontinued 875 MG PO Twice daily 20 10 0 June 03, 2023 12:00am July 10, 2023 8:58am Left otitis media Tinnitus Otitis media, unspecified, left ear Tinnitus, unspecified eardapagliflozin 10 mg oral tablet (20 sources)Sodium-Glucose Cotransporter 2 InhibitorStart: 06-19-2023 End: 02-86-0733uemm 1 tablet by mouth once dailyDapagliflozin Propanediol (Farxiga) 10 mg tablet Discontinued 0 .ROUTE .COMPLEX 90 June 19, 2023 10:52pm March 30, 2024 1:41pm TAKE 1 TABLET BY MOUTH EVERY DAYStart: 06-03-2023 End: 22-79-6770mjve 1 tablet by mouth once dailyDapagliflozin Propanediol (Farxiga) 10 mg tablet Discontinued 10 MG PO Daily June 03, 2023 12:00am June 19, 2023 10:52pmtake 1 tablet by mouth once dailyFarxiga 10 MG TAKE 1 TABLET BY MOUTH EVERY DAY ActiveDulaglutide (12 sources)GLP-1 Receptor AgonistStart: 11-30-2023 End: 72-36-0194ogxyge 4.5 mg by subcutaneous injection every weekDulaglutide (Trulicity) 4.5 mg/0.5 mL pen injector Discontinued 0 .ROUTE .COMPLEX 2 November 30, 2023 12:20pm March 16, 2024 9:52am INJECT 4.5MG SUBCUTANEOUSLY ONCE A WEEK;Start: 08-28-2023 End: 03-38-1912Piblelxgmbf (Trulicity) 4.5 mg/0.5 mL pen injector Discontinued 4.5 MG SUBCUT every week August 12:00am November 30, 2023 12:21pmStart: 06-03-2023 End: 95-12-4411Vwnaspnkbgq (Trulicity) 4.5 mg/0.5 mL pen injector Discontinued 4.5 MG SUBCUT every week June 03, 2023 12:00am July 10, 2023 9:15aminject 0.5 mL by subcutaneous injection every weekTrulicity 4.5 MG/0.5ML INJECT 0.5ML SUBCUTANEOUSLY ONCE A WEEK Subcutaneous weekly Activeinject 0.5 mL by subcutaneous injection every weekTrulicity 4.5 MG/0.5ML INJECT 0.5ML SUBCUTANEOUSLY ONCE A WEEK Subcutaneous weekly for 28 days Activeinject 0.5 mL by subcutaneous injection every weekTrulicity 3 MG/0.5ML INJECT 0.5ML SUBCUTANEOUSLY ONCE A WEEK for 28 ActiveTrulicity 3 MG/0.5ML as directed Subcutaneous ActiveDulaglutide (Trulicity) 4.5 mg/0.5 mL pen injector (13 sources)Start: 11-30-2023 End: 76-85-5286sgihti 4.5 mg by subcutaneous injection every weekDulaglutide (Trulicity) 4.5 mg/0.5 mL pen injector Discontinued 0 .ROUTE .COMPLEX 2 November 30, 2023 12:20pm March 16, 2024 9:52am INJECT 4.5MG SUBCUTANEOUSLY ONCE A WEEK;Start: 62-18-3256ojhxrc 4.5 mg by subcutaneous injection every week Dulaglutide (Trulicity) 4.5 mg/0.5 mL pen injector Active 0 .ROUTE .COMPLEX 2 November 30, 2023 11:20am INJECT 4.5MG SUBCUTANEOUSLY ONCE A WEEK;Start: 08-28-2023 End: 02-18-1229Cdynrpltnnx (Trulicity) 4.5 mg/0.5 mL pen injector Discontinued 4.5 MG SUBCUT every week August 12:00am November 30, 2023 12:21pmStart: 08-28-2023 End: 43-16-9047Ldpxiyaafvi (Trulicity) 4.5 mg/0.5 mL pen injector Discontinued 4.5 MG SUBCUT every week August 11:00pm November 30, 2023 11:21amStart: 75-65-6799Oxxhglejzds (Trulicity) 4.5 mg/0.5 mL pen injector Active 4.5 MG SUBCUT every week August 28, 2023 12:00amStart: 06-03-2023 End: 12-49-9692Rmusntuezwx (Trulicity) 4.5 mg/0.5 mL pen injector Discontinued 4.5 MG SUBCUT every week June 02, 2023 11:00pm July 10, 2023 8:15amStart: 06-03-2023 End: 30-22-1251Ttjgujjweyl (Trulicity) 4.5 mg/0.5 mL pen injector Discontinued 4.5 MG SUBCUT every week June 03, 2023 12:00am July 10, 2023 9:15amStart: 25-75-7005Gycviuhcerm (Trulicity) 4.5 mg/0.5 mL pen injector Active 4.5 MG SUBCUT every week June 022:00amSemaglutide (1 source)Start: 08-12-2023 End: 62-75-4193moeq 7 mg by mouth once dailySemaglutide Discontinued 7 MG PO Daily 30 30 August 12, 2023 5:46pm August 28, 2023 3:36pmsemaglutide 7 mg oral tablet (2 sources)Start: 08-12-2023 End: 94-36-8779ufss 1 tablet by mouth once dailySemaglutide 7 mg tablet Discontinued 7 MG PO Daily 30 30 0 August 12, 2023 5:46pm August 28, 2023 3:36pm Start: 07-10-2023 End: 56-51-3743jqff 1 tablet by mouth once dailySemaglutide (Rybelsus) 3 mg tablet Discontinued 3 MG PO Daily 30 30 0 July 10, 2023 12:00am August 12, 2023 5:46pmSemaglutide (Rybelsus) 3 mg tablet (5 sources)Start: 07-10-2023 End: 97-62-7168gsdb 1 tablet by mouth once dailySemaglutide (Rybelsus) 3 mg tablet Discontinued 3 MG PO Daily 30 30 July 09, 2023 11:00pm August 12, 2023 4:46pmStart: 07-10-2023 End: 02-75-1342baxj 1 tablet by mouth once dailySemaglutide (Rybelsus) 3 mg tablet Discontinued 3 MG PO Daily 30 30 July 10, 2023 12:00am August 12, 2023 5:46pmStart: 84-84-4921zlbw 1 tablet by mouth once dailySemaglutide (Rybelsus) 3 mg tablet Active 3 MG PO Daily 30 30 July 10, 2023 12:00amSemaglutide 7 mg tablet (3 sources)Start: 08-12-2023 End: 57-37-3063zakr 1 tablet by mouth once dailySemaglutide 7 mg tablet Discontinued 7 MG PO Daily August 12, 2023 5:46pm August 28, 2023 3:36pm Start: 08-12-2023 End: 49-76-0415miaz 1 tablet by mouth once dailySemaglutide 7 mg tablet Discontinued 7 MG PO Daily August 12, 2023 4:46pm August 28, 2023 2:36pm simvastatin 40 mg oral tablet (18 sources)HMG-CoA Reductase InhibitorStart: 11-06-2023 End: 91-23-4448rzlq 1 tablet by mouth once dailySimvastatin 40 mg tablet Discontinued 40 MG PO Daily November 06, 2023 12:00am November 06, 2023 12:39pmStart: 07-28-2023 End: 50-12-0008jpqf 1 tablet by mouth once dailySimvastatin 40 mg tablet Discontinued 0 .ROUTE .COMPLEX 90 July 28, 2023 6:03pm September 22, 2023 11:14am TAKE 1 TABLET BY MOUTH EVERY DAYStart: 06-10-2023 End: 09-15-7474tzny 1 tablet by mouth once dailySimvastatin 40 mg tablet Discontinued 40 MG PO Daily June 10, 2023 12:00am July 28, 2023 6:04pmtake 1 tablet by mouth once dailySimvastatin 40 MG TAKE 1 TABLET BY MOUTH EVERY DAY for 90 Active Problems Active Problems Problem ClassificationProblemDateDocumented DateEpisodic/ChronicAcquired foot deformities (20 sources)Acquired claw toes; Translations: [Other deformities of toe(s) (acquired), left foot]EpisodicAcute cerebrovascular disease (15 sources)Cerebral infarction; Translations: [Cerebral infarction, unspecified]80-26-9206EhhzavbCuslrghc mellitus with complications (20 sources)Hyperglycemia due to type 2 diabetes mellitus; Translations: [Type 2 diabetes mellitus with hyperglycemia]ChronicDiabetes mellitus without complication (1 source)Type 2 diabetes mellitus without complication; Translations: [Type 2 diabetes mellitus without complications]ChronicDisorders of lipid metabolism (20 sources)Pure hypercholesterolemia; Translations: [Familial hypercholesterolemia]Onset: 66-69-8697MdlxubbRqyfatxwp hypertension (20 sources)Essential hypertension; Translations: [Essential (primary) hypertension]Onset: 56-65-9302FvkhjrpDnigg valve disorders (20 sources)Aortic valve disorder; Translations: [Nonrheumatic aortic (valve) stenosis]Onset: 94-24-4800JylxbuqSjyllsr on above:Echo: LVEF 65%, LOVELY 1.45, Velocity 292, gradient 34/20 - 01/2023Echo: LVEF 65%, normal RV size/function, (LOVELY 1.45, Velocity 2.92, gradient 34/20) - 01/2023,Echo: LVEF 68%, normal RV size/function, (LOVELY 0.88, velocity 3.63, gradient 40/31) - 08/2024Hyperplasia of prostate (1 source)Benign prostatic hypertrophy without outflow obstruction; Translations: [Hypertrophy (benign) of prostate without urinary obstruction and other lower urinary tract symptoms [LUTS]]Onset: 57-06-1049RikapxqZslhpqbdusrqbv (1 source)Osteoarthritis; Translations: [Unspecified osteoarthritis, unspecified site]ChronicOther acquired deformities (10 sources)Joint contracture of the ankle and/or foot; Translations: [Contracture, left ankle]ChronicOther aftercare (9 sources)H/O: high risk medication; Translations: [Other mcc (current) drug therapy]EpisodicOther aftercare (1 source)Long-term current use of drug therapy; Translations: [Other mcc (current) drug therapy]EpisodicOther and ill-defined cerebrovascular disease (17 sources)Cerebral atherosclerosis; Translations: [Cerebral atherosclerosis] 14-84-8941JoauqhnZcccmam on above:Carotid US: < 50% B/L - 2017Carotid US: < 50% B/L - 2018,Carotid US: < 50% B/L 07/2024Other and ill-defined cerebrovascular disease (9 sources)Cerebral atherosclerosis; Translations: [Cerebral atherosclerosis] ChronicOther and ill-defined cerebrovascular disease (1 source)Cerebrovascular disease; Translations: [Cerebrovascular disease, unspecified]Onset: 31-90-9398KffffvfAptxs and unspecified benign neoplasm (9 sources)Benign neoplasm of colon; Translations: [Benign neoplasm of descending colon]EpisodicOther circulatory disease (10 sources)Cardiovascular symptoms; Translations: [Other specified symptoms and signs involving the circulatory and respiratory systems]EpisodicOther circulatory disease (7 sources)Carotid bruit; Translations: [Other specified symptoms and signs involving the circulatory and respiratory systems]17-86-5263NokmqhwzRzjqs circulatory disease (2 sources)Personal history of transient ischemic attack (TIA), and cerebral infarction without residual deficits; Translations: [Personal history of transient ischemic attack (TIA), and cerebral infarction without residual deficits]Onset: 83-30-2574QagumlfkVhliw congenital anomalies (1 source)Congenital spondylolysis of lumbosacral region; Translations: [Congenital spondylolysis, lumbosacral region]Onset: 85-29-1291QgdatcyJupsp connective tissue disease (9 sources)Pain in limb; Translations: [Pain in left foot]EpisodicOther connective tissue disease (1 source)Pain in left foot; Translations: [Pain in left foot]EpisodicOther ear and sense organ disorders (8 sources)Bilateral auditory canal chronic non-infective otitis externa; Translations: [Other otitis externa,bilateral]ChronicOther ear and sense organ disorders (1 source)Other otitis externa, bilateralChronicOther ear and sense organ disorders (2 sources)Otitis externa; Translations: [Unspecified otitis externa, left ear] 89-09-3553CjzgkpoBnxpv ear and sense organ disorders (1 source)Unspecified otitis externa, left ear; Translations: [Infective otitis externa, unspecified]91-94-7482NlqtamsLuenq ear and sense organ disorders (1 source)Tinnitus; Translations: [Tinnitus, unspecified ear]67-85-3885Tzdhnmic Other ear and sense organ disorders (1 source)Tinnitus, unspecified ear; Translations: [Tinnitus, unspecified] 97-59-3178XvippnhuQalir ear and sense organ disorders (2 sources)Impacted cerumen; Translations: [Impacted cerumen, unspecified ear] 55-58-4712VnehzvboYvzwn ear and sense organ disorders (1 source)Impacted cerumen, unspecified ear; Translations: [Impacted cerumen] 36-44-0505WudvnrffHfbtm non-traumatic joint disorders (10 sources)Arthralgia of the lower leg; Translations: [Pain in left knee] EpisodicOther nutritional; endocrine; and metabolic disorders (9 sources)Body mass index 30+ - obesity; Translations: [Body mass index (BMI) 33.0-33.9, adult]ChronicOther nutritional; endocrine; and metabolic disorders (15 sources)Obesity; Translations: [Other obesity due to excess calories] 58-29-9810AlcjmydUyfug nutritional; endocrine; and metabolic disorders (4 sources)Other obesity due to excess caloriesChronicOther nutritional; endocrine; and metabolic disorders (4 sources)Body mass index (BMI) 33.0-33.9, adultChronicOther nutritional; endocrine; and metabolic disorders (1 source)Obese class I; Translations: [Body mass index 33.0-33.9, adult]Onset: 20-25-2656QqahqqaQhnnj nutritional; endocrine; and metabolic disorders (6 sources)Hypercalcemia; Translations: [Hypercalcemia]31-98-7942PufkybuOlykr nutritional; endocrine; and metabolic disorders (3 sources)Hypercalcemia; Translations: [Hypercalcemia]12-51-0202FphmzbpQpvjy nutritional; endocrine; and metabolic disorders (3 sources)Obesity, unspecified; Translations: [Obesity, unspecified]11-11-2023 ChronicOther screening for suspected conditions (not mental disorders or infectious disease) (8 sources)Encounter for screening for malignant neoplasm of prostate; Translations: [Encounter for screening for malignant neoplasm of colon]Onset: 88-12-8280BbwanmmiMhpsqwa on above:PSA: 0.75 - 54PSA: 0.75 - 06/2023, 0.53 - 7/2024Other upper respiratory infections (1 source)Acute maxillary sinusitis; Translations: [Acute maxillary sinusitis, unspecified]EpisodicOtitis media and related conditions (2 sources)Otitis media of left ear; Translations: [Otitis media, unspecified, left ear]20-45-9253UbiwdtjlIxlwivwoqvx; intervertebral disc disorders; other back problems (17 sources)Lumbar spondylosis; Translations: [Spondylosis without myelopathy or radiculopathy, lumbar region]03-87-7631TrfshxsIzmjmlgjsqm; intervertebral disc disorders; other back problems (1 source)Low back pain; Translations: [Low back pain, unspecified]Episodic Unclassified (1 source)Long-term current use of drug therapy; Translations: [Long-term (current) use of other medications]Onset: 06-24-2017 Past or Other Problems Problem ClassificationProblemDateDocumented DateEpisodic/ChronicAllergic reactions (1 source)Allergic urticaria; Translations: [Allergic urticaria]Onset: 73-82-1158IetisxqmU Codes: Adverse effects of medical drugs (1 source)Adverse reaction to drug; Translations: [Adverse effect of other systemic antibiotics, initial encounter]Onset: 42-75-0413Izrwzpxi Gastrointestinal hemorrhage (1 source)Hematochezia; Translations: [Blood in stool]Onset: 54-97-5280Bfqiufvz Other and unspecified benign neoplasm (1 source)Benign neoplasm of descending colon; Translations: [Benign neoplasm of descending colon]Onset: 71-15-3127WrpsjrfuZzjwd ear and sense organ disorders (1 source)Acute actinic otitis externa; Translations: [Acute actinic otitis externa, bilateral]Onset: 66-84-8251ZpyiewquWrrpztdsp and history of mental health and substance abuse codes (1 source)History of tobacco use; Translations: [Personal history of tobacco use, presenting hazards to health]Onset: 78-29-6286BhflelvaIljolhoszjla (9 sources)Low back pain with radiation; Translations: [Low back pain with radiation]Viral infection (10 sources)Disease caused by 2019-nCoV; Translations: [COVID-19] Results Test NameValueInterpretationReference RfzxcFtqwqkkh93md [id number]'s called back and I informed her of message per Dr. Lo.[facility] 50-55-5037Fznqwj-up visit [id number] Burgess Trevin Cates 1955 M Date Provider Department Center 09/13/2024 [facility] Family History Problem Relation Age of Onset Heart disease Neg Hx Family Status - Relation Status Age at Neg Hx Level of Service:14326 [place] OFFICE/OUTPATIENT NEW MODERATE MDM 45 MINUTES (25) NormalWVUMedicine Harrison Community HospitalBasophils Auto (Bld) [#/Vol]on 48-88-1357Eabsomzhf (Bld) [#/Vol]0.1 10 3/uL0.0-0.1FKettering Health HamiltonBasophils/100 WBC Auto (Bld)on 58-35-9204Halgzfsxz/100 WBC (Bld)0.8 % 0.2-2.0[facility] CenterEosinophils/100 WBC Auto (Bld)on 60-23-3681Wgsnfhynokq/100 WBC (Bld)2.4 %0.9-7.0[facility] Erythrocyte distribution width Auto (RBC) [Ratio]on 90-24-5089Fgxzcrhodym distribution width (RBC) [Ratio]14.5 %11.0-15.0[facility] Estimated glomerular filtration rate (GFR) non- Americanon 09-10-2023 GFR/1.73 sq M.predicted among non-blacks MDRD (S/P/Bld) [Vol rate/Area] mL/min/{1.73_m2}>=60[facility] CenterGlobulin Calc (S) [Mass/Vol]on 50-02-5352Fqltkkqi (S) [Mass/Vol]4.1 g/dLPremier Health Upper Valley Medical CenterHematocrit Auto (Bld) [Volume fraction]on 53-13-4540Avydnfcpbr (Bld) [Volume fraction]48.4 %42.0-54.0[facility] CenterHemoglobin [Mass/volume] in Bloodon 29-27-3628Iggorstpxt (Bld) [Mass/Vol]16.0 g/dL14.0-18.0 [facility] CenterLaboratory - Chemistry and Chemistry - challengeon 17-86-4572Hxufcba [Mass/Vol]4.1 g/dL3.4-5.0[facility] CenterALP [Catalytic activity/Vol]86 U/S74-137KqfbaeffkPremier Health Upper Valley Medical CenterALT [Catalytic activity/Vol]47 U/B80-50AeehgggisPrem[facility] Health [facility] Center AST [Catalytic activity/Vol]23 U/N10-92TphximibdPrem[facility] Health [facility] Center Bilirubin [Mass/Vol]0.6 mg/dL0.2-1.0[facility] CenterCalcium [Mass/Vol]10.2 mg/dLHigh8.5-10.1FKettering Health HamiltonChloride [Moles/Vol]102 mmol/W72-378LchjiuqmtPremier Health Upper Valley Medical CenterCO2 [Moles/Vol]20.7 mmol/LLow21.0-32.0[facility] CenterCreatinine [Mass/Vol]1.01 mg/dL0.70-1.30[facility] CenterGFR/1.73 sq M.predicted MDRD (S/P/Bld) [Vol rate/Area]mL/min/{1.73_m2}>=60[facility] Glucose [Mass/Vol]151 mg/qTJpro68-655UtmaguigtPremier Health Upper Valley Medical CenterPotassium [Moles/Vol]3.9 mmol/L3.5-5.1FKettering Health HamiltonProtein [Mass/Vol] 8.2 g/dL6.4-8.2FOhioHealthodium [Moles/Vol]136 mmol/L 136-145[facility] CenterUrea nitrogen [Mass/Vol]26.0 mg/dLHigh 7.0-18.0[facility] CenterUrea nitrogen/Creatinine [Mass ratio] 25.7 mg/mgPremier Health [facility] Valley Medical CenterLaboratory - Hematology and Cell countson 68-90-2601Zkyfchgp granulocytes/100 WBC (Bld)0.2 %0.0-0.5FKettering Health HamiltonLeukocytes [#/volume] corrected for nucleated erythrocytes in Blood by Automated counon 88-70-6289RAX corrected for nucl RBC Auto (Bld) [#/Vol]12.7 10 3/uLHigh4.0-11.0[facility] Lymphocytes Auto (Bld) [#/Vol]on 89-13-3443Hwbocttwqpc (Bld) [#/Vol]4.5 10 3/uL High1.2-3.8[facility] CenterLymphocytes/100 WBC Auto (Bld)on 03-36-3794Yrbyposafqj/100 WBC (Bld)35.0 %20.5-60.0[facility] CenterMCH Auto (RBC) [Entitic mass]on 52-37-1656BOV (RBC) [Entitic mass]29.1 pg 25.9-34.0[facility] CenterMCHC Auto (RBC) [Mass/Vol]on 25-33-2208MREC (RBC) [Mass/Vol]33.1 g/dL29.9-35.2FKettering Health HamiltonMCV Auto (RBC) [Entitic vol]on 71-62-4907CDS (RBC) [Entitic vol]88.2 fL 80.0-94.0[facility] CenterMonocytes Auto (Bld) [#/Vol]on 65-77-7431Fpfrovnnv (Bld) [#/Vol]1.1 10 3/uLHigh0.3-0.8[facility] CenterMonocytes/100 WBC Auto (Bld)on 44-18-0638Oxcamvjpw/100 WBC (Bld) 8.6 %1.7-12.0[facility] CenterNeutrophils Auto (Bld) [#/Vol]on 17-91-8930Ouduzbdsaaw (Bld) [#/Vol]6.7 10 3/uLHigh1.4-6.5FKettering Health HamiltonNeutrophils/100 WBC Auto (Bld)on 09-50-2862Ndwqdqhtjhh/100 WBC (Bld)53.0 %43.0-75.0[facility] CenterNo Panel Informationon 04-03-0071Popbeagrpfa # (Auto)0.3 10 3/uL0.0-0.7FKettering Health HamiltonImmature Granulocyte # (Auto)0.03 10 3/uL0.00-0.03[facility] CenterPlatelet mean volume Auto (Bld) [Entitic vol]on 98-50-9466Jwezqbae mean volume (Bld) [Entitic vol]10.3 fL9.5-13.5FKettering Health Hamilton Platelets Auto (Bld) [#/Vol]on 91-17-6671Zkuymeems (Bld) [#/Vol]237 10 3/uL 150-450Prem[facility] Medical CenterRBC Auto (Bld) [#/Vol]on 26-76-1468GZU (Bld) [#/Vol]5.49 10 6/uL4.70-6.10Park[facility] Hospitalerum or plasma albumin/globulin mass ratioon 79-10-4593Lhumxxn/Globulin [Mass ratio]1.0 {ratio}Parkwood Hospitalerum or plasma anion gap determination on 64-61-5104Tbbpe gap [Moles/Vol]17.2 mmol/LFKettering Health Hamilton Ambulatory Visit Summaryon 29-28-4000Iaqtchjuks Visit Summary BURGESS CATES JR :1955 Visit [...] subcutaneous solution) hydrALAZINE (hydrALAZINE 10 mg Tab) hydrochlorothiazide-lisinopril (hydrochlorothiazide-lisinopril 25 mg-20 mg Tab) metformin (metformin 1000 [...] By Mouth 2 times a day Unchanged hydrochlorothiazide-lisinopril (hydrochlorothiazide-lisinopril 25 mg- 20 mg Tab) 1 TabletsBy Mouth Every day Unchanged metformin (metformin 1000 mg Tab) 1 Tablets By Mouth 2 times a day Unchanged simvastatin (simvastatin 40 mg Tab) 1 Tablets By Mouth Once a day (in the evening) Allergies sulfamethoxazole-trimethoprim (Unknown) Problems Ongoing - Any problem that you are currently receiving treatment for. Aortic valve disorder Bilateral carotid bruits BMI 33.0-33.9,adult Cerebral atherosclerosis Cerebral infarction Diabetes Essential hypertension Hemiplegia affecting nondominant side History of colon polyps Hyperlipidemia Lumbar spondylosis Obesity Personal history of colonic polyps Pure hypercholesterolemia [facility]amUnc Health Lenoiryara [facility] Office/Clinic Noteon 92-87-4340Blbqpdh Surgery Office/Clinic NoteChief Complaint colonoscopy follow up HPI Staff 20 day post operative follow up post colonoscopy with rectal polypectomy. History of Present Illness s/p surveillance colonoscopy with rectal polypectomy x2, 4 mm tubular adenoma and 4 mm hyperplasticpolyp removed; doing well, denies pain or bleeding. [...] 12/19/2021 Recorded SARS-CoV-2 (COVID-19) Ad26 vaccine 04/24/2020 RecordedUniversity Hospitals Samaritan Medical CenterComment on above:Result Comment: Electronically Signed By: RANDY MILLER, John Tejada\Date and Time Signed: 10/01/22 16:41 EDTReminderson 10-01-2022 Reminders From: Aimee France LPN To: N - Clinical; Sent: 10/01/2022 16:12:00 EDT Show up: 08/13/2027 07:00:00 EDT Subject: colonoscopy recall Due Date/Time: 09/12/2027 07:00:00 EDT Reminder/Recall Patient due for surveillance colonoscopy 09/12/2027.[facility] CenterPathology Noteon 12-51-4431Pzdnklenn Note [id number]#1.00CD:127[facility] Medical CenterOutside Colonoscopyon 84-95-7229Khbhsiz Colonoscopy [id number]#1.00CD:127[facility] Medical CenterLab Reportson 06-58-3962Vlg Reports [id number]:127[facility] Medical CenterAmbulatory Visit Summaryon 11-83-9138Vfvmwcalss Visit Summary BURGESS CATES JR :1955 Visit [...] subcutaneous solution) hydrALAZINE (hydrALAZINE 10 mg Tab) hydrochlorothiazide-lisinopril (hydrochlorothiazide-lisinopril 25 mg-20 mg Tab) metformin (metformin 1000 [...] By Mouth 2 times a day Contact prescribingphysician if questions or concerns Unchanged clopidogrel (Plavix 75 mg Tab) 1 Tablets By Mouth Every day Contact prescribing physicianif questions or concerns Unchanged dapagliflozin (Farxiga 10 [...] prescribing physician if questions or concerns Unchanged hydrochlorothiazide-lisinopril (hydrochlorothiazide-lisinopril 25 mg- 20 mg Tab) 1 TabletsBy Mouth Every day Contact prescribing physician if questions or concerns Unchanged metformin (metformin 1000 mg Tab) 1 Tablets By Mouth 2 times a day Contact prescribing physician if questions or concerns Unchanged simvastatin (simvastatin 40 mg Tab) 1 Tablets By Mouth Once a day (in the evening) Contact prescribing physician if questions or concerns Allergies sulfamethoxazole-trimethoprim (Unknown) Problems Ongoing - Any problem that you are currently receiving treatment for. Aortic valve disorder Bilateral carotid bruits BMI 33.0-33.9,adult Cerebral atherosclerosis Cerebral infarction Diabetes Essential hypertension Hemiplegia affecting nondominant side History of colon polyps Hyperlipidemia Lumbar spondylosis Obesity Personal history of colonic polyps Pure hypercholesterolemia [facility] Medical CenterConsent for Procedure/Surgeryon 19-75-0387Oxdoqru for Procedure/Surgery [id number]#1.00CD:[address] [place], [place] [address]Facesheeton 78-81-6775Ahvsolcej [id number]#1.00CD:[address] [place], [place] [address]A1C with Estimated Average Gluon 01-39-2887A1T with Estimated Average Glu RIDERS Other CBC AUTO DIFFon 94-22-8995QFWV #0.1 103/ulNormal 0.0-0.1The [facility] Health SystemComment on above:Performed By: #### CBC #### [facility] [address] [address] [address] Tai GodwinBasophils/100 WBC (Bld)1.0 %Normal0.2-2.0[facility] Comment on above:Performed By: #### CBC #### [facility] [address] [address] [address] Tai Arroyo #0.1 103/ulNormal0.0-0.7The [facility] SystemComment on above: Performed By: #### CBC #### [facility] [address] [place] [address] Dr. Tai Kwanosinophils/100 WBC (Bld)1.2 %Normal0.9-7.0[facility] Comment on above:Performed By: #### CBC #### [facility] [address] [place] [address] Dr. Tai Kwanrythrocyte distribution width (RBC) [Ratio]14.3 %Ehcrcz42.0-15.0 The [facility] SystemComment on above:Performed By: #### CBC #### [facility] [address] [place] [address] Dr. Tai GodwinHematocrit (Bld) [Volume fraction]45.6 %Uvbpez65.0-54.0The [facility] SystemComment on above:Performed By: #### CBC #### [facility] [address] [place] [address] Dr. Tai GodwinHemoglobin (Bld) [Mass/Vol]15.4 g/xHRogpog59.0-18.0The [facility] SystemComment on above:Performed By: #### CBC #### [facility] [address] [place] [address] Dr. Tai Cano #0.03 10e3/ulNormal0.00-0.03The [facility] SystemComment on above:Performed By: #### CBC #### [facility] [address] [place] [address] Dr. Tai Cano %0.3 %Normal0.0-0.5The [facility] Hospitalment on above: Performed By: #### CBC #### [facility] [address] [address] [address] Tai Lynne #3.1 103/ulNormal1.2-3.8The [facility] on above:Performed By: #### CBC #### [facility] [address] [place] [address] Dr. Tai Medinahocytes/100 WBC (Bld)30.8 %Dwufxz14.5-60.0The [facility] on above:Performed By: #### CBC #### [facility] [address] [place] [address] Dr. Tai Maguire DIFF REQNONormalThe [facility] Health SystemComhealthsource sag[place] on above: Performed By: #### CBC #### [facility] [address] [place] [address] Dr. Tai Cool (RBC) [Entitic mass]29.3 pgWuanbd47.9-34.0The [facility] on above:Performed By: #### CBC #### [facility] [address] [place] [address] Dr. Tai Cool (RBC) [Mass/Vol]33.8 g/vEStsjhs67.9-35.2The [facility] on above:Performed By: #### CBC #### [facility] [address] [place] [address] Dr. Tai Cool (RBC) [Entitic vol]86.9 jTAcepgk77.0-94.0The [facility] on above:Performed By: #### CBC #### [facility] [address] [place] [address] Dr. Tai Hall #0.7 103/ulNormal0.3-0.8The [facility] on above:Performed By: #### CBC #### [facility] [address] [place] [address] Dr. Tai Bradyocytes/100 WBC (Bld)7.3 %Normal1.7-12.0[facility] Comment on above:Performed By: #### CBC #### [facility] [address] [address] [address] Tai ZhaoUT #5.9 103/ulNormal1.4-6.5The [facility] Health SystemComment on above:Performed By: #### CBC #### [facility] [address] [address] [address] Tai Zhaoutrophils/100 WBC (Bld)59.4 %Bqwjix75.0-75.0The [facility] Health SystemComment on above:Performed By: #### CBC #### [facility] [address] [place] [address] Dr. Tai Deanlet mean volume (Bld) [Entitic vol]10.1 fLNormal9.5-13.5The [facility] SystemComment on above:Performed By: #### CBC #### [facility] [address] [place] [address] Dr. Tai GodwinPLT184 103/rnWxiuet701-285Kwi Memorial [facility] SystemComment on above: Performed By: #### CBC #### [facility] [address] [place] [address] Dr. Tai GodwinRBC5.25 106/ulNormal4.70-6.10The [facility] SystemComment on above:Performed By: #### CBC #### [facility] [address] [place] [address] Dr. Tai GodwinWBC9.9 103/ulNormal4.0-11.0The [facility] SystemComment on above: Performed By: #### CBC #### [facility] [address] [place] [address] Dr. Tai Kcpletluiza Blood Count and Diffon 74-89-4950Umsrneqymvfz Ql (Bld) RIDERS Other Basophilic stippling LM Ql (Bld)RIDERS Other RBC morphology finding Nom (Bld)RIDERS Other Comprehensive Metabolic Panelon 49-41-0951Dofebsx [Mass/Vol]4.405139 g/dL3.4-5.0 g/dLPeacehealth Kn[place] Other Calcium [Mass/Vol]9.2187371 mg/dL8.5-10.1 mg/dLPeacehealth [place] Other CO2 [Moles/Vol]26.26318041 mmol/L21.0-32.0 mmol/LNCatholic Health [place] Other Creatinine [Mass/Vol]0.51011360 mg/dL0.70-1.30 mg/dL [facility] Other Potassium [Moles/Vol]3.39987844 mmol/L3.5-5.1 mmol/L [facility] Other Protein [Mass/Vol]8.816919 g/dLCritically high6.4-8.2 g/dLPeacehealth [place] Other Urea nitrogen [Mass/Vol]12.2904057 mg/dL7.0-18.0 mg/dL [facility] Other Comprehensive Metabolic Panelsee noteNoDoylestown Health [place] Other Comprehensive Metabolic Uolbi682 mmol/B251-897 mmol/L [facility] Other Comprehensive Metabolic Bthoq735 mg/dLCritically high 74-106 mg/dLPeacehealth [place] Other Comprehensive Metabolic Panel>60 mL/min/1.73m2>=60 mL/min/1.98q4IinrlPeacehealth [place] Other Comprehensive Metabolic Panel0.5 mg/dL0.2-1.0 mg/dL [facility] Other Comprehensive Metabolic Panel4.4 g/dLPeacehealth [place] Other GLYCOHEMOGLOBIN A1Con 72-49-5682ELC RECOMMENDATIONSEE [facility] HospitalComment on above:Result Comment: ADA RECOMMENDED LIMIT 4.0 - 6.0 ADA THERAPEUTIC TARGET < 7.0 ACTION SUGGESTED > 7.0Performed By: #### A1C #### [facility] [address] [address] [address] Tai GodwinGlucose [Mass/Vol]160 mg/dLNoMansfield HospitalComment on above:Performed By: #### A1C #### [facility] [address] [address] [address] Tai GodwinHbA1c (Bld) [Mass fraction]7.2 %Critically high4.5-6.2The [facility] Health SystemComment on above:Performed By: #### A1C #### [facility] [address] [place] [address] Dr. Tai NazarioID PROFILEon 35-97-7720WCSC-HDL RATIO NORMSEE BELOWKettering Health DaytonComment on above:Result Comment: 3.3 - 4.4 LOW RISK 4.4 - 7.1 AVERAGE RISK 7.1 - 11.0 MODERATE RISK >11.0 HIGH RISKPerformed By: #### LIPID, CMP #### [facility] [address] [place] [address] Dr. Tai Castilloesterol [Mass/Vol]102 mg/dL<=200 mg/dLThe [facility] Comment on above:Performed By: #### LIPID, CMP #### [facility] [address] [place] [address] Dr. Tai Castilloesterol in HDL [Mass/Vol]46 mg/dL40-60 mg/dLThe [facility] Health SystemComment on above:Performed By: #### LIPID, CMP #### [facility] [address] [place] [address] Dr. Tai Castilloesterol in LDL [Mass/Vol]45.2 mg/dLKettering Health DaytonComment on above:Performed By: #### LIPID, CMP #### [facility] [address] [place] [address] Dr. Yilan ChangCholesterol.total/Cholesterol in HDL [Mass ratio]2.2 {ratio}The [facility] Health SystemComment on above:Performed By: #### LIPID, CMP #### [facility] [address] [address] [address] Tai Garcia NORMAL> or = 60 mg/dl - LOW CARDIOVASCULAR RISK <40 mg/dl - HIGH CARDIOVASCULAR RISKKettering Health DaytonComment on above:Performed By: #### LIPID, CMP #### [facility] [address] [address] [address] Tai GodwinLDL CALC NORMALSEE [facility]uclid HospitalComment on above:Result Comment: <100 mg/dl OPTIMAL 100 - 129 mg/dl NEAR OR ABOVE OPTIMAL 130 - 159 mg/dl BORDERLINE HIGH 160 - 189 mg/dl HIGH >190 mg/dl VERY HIGH Performed By: #### LIPID, CMP #### [facility] [address] [address] [address] Tai GodwinTriglyceride [Mass/Vol]54 mg/dL<=150 mg/dLThe [facility] Comment on above:Performed By: #### LIPID, CMP #### [facility] [address] [address] [address] Tai GodwinVLDL CALC10.8 mg/dLNoMansfield HospitalComment on above: Performed By: #### LIPID, CMP #### [facility] [address] [address] [address] Tai GodwinLipid Panelon 79-78-2331Mcwko Panel> or = 60 mg/dl - LOW CARDIOVASCULAR RISK <40 mg/dl - HIGH CARDIOVASCULAR RISKAlma [employer]here[employer] Other Lipid PanelSEE BELOWAlma [employer] Other Lipid Panel45.2 mg/dLPadSquad [employer] Other Lipid Panel10.8 mg/dLPadSquad [employer] Other MICROALBUMIN, RAND URon 50-66-3993zYSF45.1 mg/dLNormal <=30.0The [facility] HospitalComment on above:Performed By: #### MALBR #### [facility] [address] [address] [address] Tai Lindquist 14(COMP METB)on 36-87-8649Oyxvyxw [Mass/Vol]4.0 g/dLNormal 3.4-5.0The [facility] SystemComment on above:Performed By: #### LIPID, CMP #### [facility] [address] [place] [address] Dr. Tai GodwinAlbumin/Globulin [Mass ratio]0.9 {ratio}[facility] Comment on above:Performed By: #### LIPID, CMP #### [facility] [address] [place] [address] Dr. Tai Caraballo [Catalytic activity/Vol]68 U/L46-116 U/[facility] Comment on above:Performed By: #### LIPID, CMP #### [facility] [address] [place] [address] Dr. Tai Angel [Catalytic activity/Vol]58 U/L16-63 U/[facility] Comment on above:Performed By: #### LIPID, CMP #### [facility] [address] [place] [address] Dr. Tai Brody gap [Moles/Vol]15.1 mmol/LTCincinnati Children's Hospital Medical CenterComment on above:Performed By: #### LIPID, CMP #### [facility] [address] [place] [address] Dr. Tai Vega [Catalytic activity/Vol]47 U/LCritically eqrt65-29 U/[facility] HospitalComment on above:Performed By: #### LIPID, CMP #### [facility] [address] [place] [address] Dr. Tai GodwinBilirubin [Mass/Vol]0.5 mg/dLNormal0.2-1.0[facility] Comment on above:Performed By: #### LIPID, CMP #### [facility] [address] [place] [address] Dr. Tai GodwinCalcium [Mass/Vol]9.6 mg/dLNormal8.5-10.1The [facility] Comment on above:Performed By: #### LIPID, CMP #### [facility] [address] [address] [address] Tai GodwinChloride [Moles/Vol]102 mmol/L98-107 mmol/LThe [facility] Comment on above:Performed By: #### LIPID, CMP #### [facility] [address] [address] [address] Tai GodwinCO2 [Moles/Vol]26.4 mmol/ZRvenbb37.0-32.0The [facility] Comment on above:Performed By: #### LIPID, CMP #### [facility] [address] [place] [address] Dr. Tai GodwinCreatinine [Mass/Vol]0.77 mg/dLNormal0.70-1.30The [facility] SystemComment on above:Performed By: #### LIPID, CMP #### [facility] [address] [place] [address] Dr. Tai KwanGFR-AF ARGENTINE>60Normal>=60The [facility] Health SystemComment on above:Performed By: #### LIPID, CMP #### [facility] [address] [place] [address] Dr. Tai KwanGFR-NON AF ARGENTINE>60Normal>=60The [facility] Health SystemComment on above:Performed By: #### LIPID, CMP #### [facility] [address] [place] [address] Dr. Tai GodwinGlobulin (S) [Mass/Vol]4.4 g/dLNormalThe [facility] Health SystemComment on above:Performed By: #### LIPID, CMP #### [facility] [address] [place] [address] Dr. Tai GodwinGlucose [Mass/Vol]159 mg/dLCritically jgjo24-324Vaq [facility] SystemComment on above:Performed By: #### LIPID, CMP #### [facility] [address] [place] [address] Dr. Tai GodwinPotassium [Moles/Vol]3.5 mmol/LNormal3.5-5.1The [facility] Comment on above:Performed By: #### LIPID, CMP #### [facility] [address] [address] [address] Tai GodwinProtein [Mass/Vol]8.4 g/dLCritically high6.4-8.2The [facility] SystemComment on above:Performed By: #### LIPID, CMP #### [facility] [address] [address] [address] Tai GodwinSodium [Moles/Vol]140 mmol/VEwujhm057-605Neb [facility] Comment on above:Performed By: #### LIPID, CMP #### [facility] [address] [place] [address] Dr. Tai GodwinUrea nitrogen [Mass/Vol]12.0 mg/dLNormal7.0-18.0The [facility] SystemComment on above:Performed By: #### LIPID, CMP #### [facility] [address] [place] [address] Dr. Tai Arambula nitrogen/Creatinine [Mass ratio]15.6 mg/mgThe [facility] Health SystemComment on above:Performed By: #### LIPID, CMP #### [facility] [address] [place] [address] Dr. Tai GodwinPhysician Referralon 36-18-2178Entxdzoiu Referral [id number]#1.00CD:127[facility] CenterGLYCOHEMOGLOBIN A1Con 40-11-1616WBE RECOMMENDATIONSEE BELOWKettering Health DaytonComment on above:Result Comment: ADA RECOMMENDED LIMIT 4.0 - 6.0 ADA THERAPEUTIC TARGET < 7.0 ACTION SUGGESTED > 7.0Performed By: #### MALBR #### [facility] [address] [place] [address] Dr. Tai GodwinGlucose [Mass/Vol]174 mg/dLKettering Health DaytonComment on above:Performed By: #### MALBR #### [facility] [address] [place] [address] Dr. Tai GodwinHbA1c (Bld) [Mass fraction]7.7 %Critically high4.5-6.2The [facility] Health SystemComment on above:Performed By: #### MALBR #### [facility] [address] [place] [address] Dr. Tai GodwinGLYCOHEMOGLOBIN A1Con 11-84-5340ANI RECOMMENDATIONSEE BELOWNormal The Memorial Health SystemComment on above:Result Comment: ADA RECOMMENDED LIMIT 4.0 - 6.0 ADA THERAPEUTIC TARGET < 7.0 ACTION SUGGESTED > 7.0Performed By: #### DATA1C #### [facility] [address] [place] [address] Dr. Tai GodwinGlucose [Mass/Vol]192 mg/dLNormalThe Memorial Health SystemComment on above:Performed By: #### DATA1C #### [facility] [address] [place] [address] Dr. Tai HurstA1c (Bld) [Mass fraction]8.3 %Critically high4.5-6.2The [facility] Health SystemComment on above:Performed By: #### DATA1C #### [facility] [address] [place] [address] Dr. Tai Travis AUTO DIFFon 72-76-3261CGLH #0.1 103/ulNormal0.0-0.1The [facility] Health SystemComment on above:Performed By: #### MALBR #### [facility] [address] [place] [address] Dr. Tai GodwinBasophils/100 WBC (Bld)1.1 %Normal0.2-2.0The [facility] Comment on above:Performed By: #### MALBR #### [facility] [address] [place] [address] Dr. Lujan ChangELovely #0.1 103/ulNormal0.0-0.7The [facility] SystemComhealthsource [place] on above: Performed By: #### MALBR #### [facility] [address] [place], [place] [id number] Dr. Tai Kwanosinophils/100 WBC (Bld)1.2 %Normal0.9-7.0The [facility] Comment on above:Performed By: #### MALBR #### [facility] [address] [place] [address] Dr. Tai Kwanrythrocyte distribution width (RBC) [Ratio]14.0 %Cagftv24.0-15.0 The Memorial Health SystemComment on above:Performed By: #### MALBR #### [facility] [address] [place] [address] Dr. Tai GodwinHematocrit (Bld) [Volume fraction]45.7 %Rcwulv72.0-54.0The Memorial Health SystemComment on above:Performed By: #### MALBR #### [facility] [address] [place] [address] Dr. Tai GodwinHemoglobin (Bld) [Mass/Vol]14.9 g/xLYnnojv39.0-18.0The [facility] Health SystemComment on above:Performed By: #### MALBR #### [facility] [address] [place] [address] Dr. Tai Cano #0.02 10e3/ulNormal0.00-0.03The [facility] Health SystemComment on above:Performed By: #### MALBR #### [facility] [address] [place] [address] Dr. Tai Cano %0.2 %Normal0.0-0.5The [facility] Health SystemComment on above: Performed By: #### MALBR #### [facility] [address] [place] [address] Dr. Tai KearneyMPH #3.8 103/ulNormal1.2-3.8The [facility] Health SystemComment on above:Performed By: #### MALBR #### [facility] [address] [place] [address] Dr. Tai Kearneymphocytes/100 WBC (Bld)38.0 %Fmobdn58.5-60.0The [facility] Health SystemComment on above:Performed By: #### MALBR #### [facility] [address] [place] [address] Dr. Tai Maguire DIFF REQNONormalThe [facility] Health SystemComment on above: Performed By: #### MALBR #### [facility] [address] [place] [address] Dr. Tai Cool (RBC) [Entitic mass]29.9 jlBxahsl03.9-34.0The [facility] HospitalComment on above:Performed By: #### MALBR #### [facility] [address] [place] [address] Dr. Tai Cool (RBC) [Mass/Vol]32.6 g/yVUtdror69.9-35.2The [facility] Health SystemComment on above:Performed By: #### MALBR #### [facility] [address] [place] [address] Dr. Tai Cool (RBC) [Entitic vol]91.6 aBXsmuim84.0-94.0The [facility] Health SystemComment on above:Performed By: #### MALBR #### [facility] [address] [place] [address] Dr. Tai Hall #0.7 103/ulNormal0.3-0.8The [facility] Health SystemComment on above:Performed By: #### MALBR #### [facility] [address] [place] [address] Dr. Tai Bradyocytes/100 WBC (Bld)7.0 %Normal1.7-12.0[facility] Comment on above:Performed By: #### MALBR #### [facility] [address] [place] [address] Dr. Tai Tobar #5.3 103/ulNormal1.4-6.5The [facility] Health SystemComment on above:Performed By: #### MALBR #### [facility] [address] [place] [address] Dr. Tai Zhaoutrophils/100 WBC (Bld)52.5 %Wnmrzn92.0-75.0The [facility] Health SystemComment on above:Performed By: #### MALBR #### [facility] [address] [place] [address] Dr. Tai GodwinPlatelet mean volume (Bld) [Entitic vol]10.2 fLNormal9.5-13.5The [facility] Health SystemComment on above:Performed By: #### MALBR #### [facility] [address] [place] [address] Dr. Tai GodwinPLT178 103/drRicewg420-639Qml [facility] SystemComhealthsource [place] on above: Performed By: #### MALBR #### [facility] [address] [place] [address] Dr. Tai GodwinRBC4.99 106/ulNormal4.70-6.10The [facility] Health SystemComment on above:Performed By: #### MALBR #### [facility] [address] [place] [address] Dr. Tai GodwinWBC10.1 103/ulNormal4.0-11.0The [facility] SystemComment on above:Performed By: #### MALBR #### [facility] [address] [place] [address] Dr. Tai GodwinGLYCOHEMOGLOBIN A1Con 96-84-7469ILM RECOMMENDATIONSEE BELOWNormal [facility] HospitalComhealthsource [place] on above:Result Comment: ADA RECOMMENDED LIMIT 4.0 - 6.0 ADA THERAPEUTIC TARGET < 7.0 ACTION SUGGESTED > 7.0Performed By: #### MALBR #### [facility] [address] [place] [address] Dr. Tai GodwinGlucose [Mass/Vol]180 mg/dLNormalThToledo HospitalComhealthsource [place] on above:Performed By: #### MALBR #### [facility] [address] [place] [address] Dr. Tai GodwinHbA1c (Bld) [Mass fraction]7.9 %Critically high4.5-6.2[facility] on above:Performed By: #### MALBR #### [facility] [address] [place] [address] Dr. Tai NazarioID PROFILEon 49-28-4915RUIE-HDL RATIO NORMSOhioHealth Southeastern Medical CenterComment on above:Result Comment: 3.3 - 4.4 LOW RISK 4.4 - 7.1 AVERAGE RISK 7.1 - 11.0 MODERATE RISK >11.0 HIGH RISKPerformed By: #### LIPID, CMP #### [facility] [address] [place] [address] Dr. Tai Castilloesterol [Mass/Vol]110 mg/dLNormal<=200The [facility] Comment on above:Performed By: #### LIPID, CMP #### [facility] [address] [place] [address] Dr. Tai GodwinCholesterol in HDL [Mass/Vol]48 mg/fGGnvwqq56-06FflOhiohealth Mansfield HospitalComment on above:Performed By: #### LIPID, CMP #### [facility] [address] [place] [address] Dr. Tai Castilloesterol in LDL [Mass/Vol]48.0 mg/dLKettering Health DaytonComment on above:Performed By: #### LIPID, CMP #### [facility] [address] [place] [address] Dr. Tai Castilloestercameron.total/Cholesterol in HDL [Mass ratio]2.3 {ratio} NormalOhiohealth Mansfield HospitalComment on above:Performed By: #### LIPID, CMP #### [facility] [address] [place] [address] Dr. Tai Garcia NORMAL> or = 60 mg/dl - LOW CARDIOVASCULAR RISK <40 mg/dl - HIGH CARDIOVASCULAR RISKKettering Health DaytonComment on above:Performed By: #### LIPID, CMP #### [facility] [address] [place] [address] Dr. Tai GodwinLDL CALC NORMALSEE [facility]uclid HospitalComment on above:Result Comment: <100 mg/dl OPTIMAL 100 - 129 mg/dl NEAR OR ABOVE OPTIMAL 130 - 159 mg/dl BORDERLINE HIGH 160 - 189 mg/dl HIGH >190 mg/dl VERY HIGH Performed By: #### LIPID, CMP #### [facility] [address] [address] [address] Tai GodwinTriglyceride [Mass/Vol]70 mg/dLNormal<=150The [facility] Comment on above:Performed By: #### LIPID, CMP #### [facility] [address] [place] [address] Dr. Tai GodwinVLDL CALC14.0 mg/dLNormalThe [facility] Health SystemComment on above: Performed By: #### LIPID, CMP #### [facility] [address] [place] [address] Dr. Tai SalasALBUMIN, RAND URon 65-30-3687nJKY5.4 mg/LNormal<=30.0The [facility] SystemComment on above:Performed By: #### MALBR #### [facility] [address] [place] [address] Dr. Tai GodwinPROF 14(COMP METB)on 35-73-5199Fzwlbjw [Mass/Vol]4.0 g/dLNormal 3.4-5.0The [facility] SystemComment on above:Performed By: #### LIPID, CMP #### [facility] [address] [place] [address] Dr. Tai GodwinAlbumin/Globulin [Mass ratio]0.9 {ratio}NormalThe [facility] Health SystemComment on above:Performed By: #### LIPID, CMP #### [facility] [address] [place] [address] Dr. Tai Caraballo [Catalytic activity/Vol]65 U/JAvdrsl27-561Qhd [facility] SystemComment on above:Performed By: #### LIPID, CMP #### [facility] [address] [place] [address] Dr. Tai Angel [Catalytic activity/Vol]60 U/RBzoccn63-57Ndz [facility] SystemComment on above:Performed By: #### LIPID, CMP #### [facility] [address] [place] [address] Dr. Tai Brody gap [Moles/Vol]14.9 mmol/LNormalOhiohealth Mansfield Hospital Comment on above:Performed By: #### LIPID, CMP #### [facility] [address] [address] [address] Tai GodwinAST [Catalytic activity/Vol]38 U/LCritically rqcj66-97Hfo [facility] SystemComment on above:Performed By: #### LIPID, CMP #### [facility] [address] [place] [address] Dr. Tai GodwinBilirubin [Mass/Vol]0.5 mg/dLNormal0.2-1.0The [facility] Comment on above:Performed By: #### LIPID, CMP #### [facility] [address] [place] [address] Dr. Tai GodwinCalcium [Mass/Vol]9.4 mg/dLNormal8.5-10.1[facility] Comment on above:Performed By: #### LIPID, CMP #### [facility] [address] [place] [address] Dr. Tai GodwinChloride [Moles/Vol]98 mmol/TVyleqh02-463OfpOhiohealth Mansfield Hospital Comment on above:Performed By: #### LIPID, CMP #### [facility] [address] [place] [address] Dr. Tai GodwinCO2 [Moles/Vol]27.3 mmol/WCylpzy64.0-32.0[facility] Comment on above:Performed By: #### LIPID, CMP #### [facility] [address] [place] [address] Dr. Tai GodwinCreatinine [Mass/Vol]0.82 mg/dLNormal0.70-1.30The [facility] SystemComment on above:Performed By: #### LIPID, CMP #### [facility] [address] [place] [address] Dr. Tai Huizar-AF ARGENTINE>60Normal>=60The [facility] Health SystemComment on above:Performed By: #### LIPID, CMP #### [facility] [address] [place] [address] Dr. Yilan ChangEGFR-NON AF ARGENTINE>60Normal>=60The [facility] Health SystemComment on above:Performed By: #### LIPID, CMP #### [facility] [address] [place] [address] Dr. Tai GodwinGlobulin (S) [Mass/Vol]4.4 g/dLNormParkwood HospitalComment on above:Performed By: #### LIPID, CMP #### [facility] [address] [place] [address] Dr. Tai GodwinGlucose [Mass/Vol]178 mg/dLCritically ubkl40-419Dcd [facility] SystemComment on above:Performed By: #### LIPID, CMP #### [facility] [address] [place] [address] Dr. Tai GodwinPotassium [Moles/Vol]4.2 mmol/LNormal3.5-5.1The [facility] Comment on above:Performed By: #### LIPID, CMP #### [facility] [address] [place] [address] Dr. Tai GodwinProtein [Mass/Vol]8.4 g/dLCritically high6.4-8.2[facility] HospitalComment on above:Performed By: #### LIPID, CMP #### [facility] [address] [place] [address] Dr. Tai GodwinSodium [Moles/Vol]136 mmol/CRgapxv613-583Eft [facility] Comment on above:Performed By: #### LIPID, CMP #### [facility] [address] [place] [address] Dr. Tai GodwinUrea nitrogen [Mass/Vol]14.0 mg/dLNormal7.0-18.0The [facility] SystemComment on above:Performed By: #### LIPID, CMP #### [facility] [address] [place] [address] Dr. Tai Arambula nitrogen/Creatinine [Mass ratio]17.1 mg/mgNoMansfield HospitalComment on above:Performed By: #### LIPID, CMP #### [facility] [address] [place] [address] Dr. Tai GodwinHistory and Physicalon 38-36-6185Tzcjcpt and Physical [id number]#1.00[facility] Operative Report - Surgeon/Physicianon 35-58-8251Rhjvrcdzg Report - Surgeon/[id number]#1.00[facility] HealthCoding Summaryon 86-10-7250Ubxxoi SummaryCODING DATE: 09/29/2017 FINAL [facility] STATUS: Home PAYOR: [employer] [id number] Level 2 Lower GI Procedures ADMIT DX: REASON FOR VISIT DX: R19.5 Other fecal abnormalities FINAL DX: PRINCIPAL: D12.6 Benign neoplasm of colon, unspecified SECONDARY: PYMT PROC APC STAT DESCRIPTION DOCTOR NAME DATE 96915 5312 T Colonoscopy, flexible; Sacha Antonio MD 09/19/2017 with removal of tumor(s), polyp(s), or other lesion(s) by snare technique NOTE: The code number assigned matches the documented diagnosis and / or procedure in the patient's chart. However, the narrative phrase printed from the coding software may appear abbreviated, or result in slightly different terminology. Coded By: Carmelita Mcgregor Date Saved: 09/29/2017 01:52 [facility] - AP Resultson 58-36-2213Tvz - AP [id number]#1.00[facility] CenterConsent Formson 10-34-5813Bfvxujr Forms [id number]#1.00[facility] Intraoperative Noteon 91-40-3064Cgzowljmlelmlc Note [id number]#1.00[facility] Intraoperative [id number]#1.00[facility] HealthTelemetry Stripson 80-14-1231Keidthqsk Strips [id number]#1.00OTGTIFFUniversity [facility]als [facility] Inpatient Clinical Summaryon 16-27-5113Yieldxssr Clinical SummaryOhioHealth [facility] SURGERYClinical Discharge SummaryPERSON INFORMATIONName BURGESS CATES Jr Age62 Years 57Sex MALE Language Ethiopian PCP Librado Connor EMarital Status Med Service Ambulatory SurgeryN 16-16-54 Acct# Arrival 09/19/17 06:13:16Visit Reason COLONOSCOPY Acuity LOS 017 20:27Address:[address] [facility] [address]Rkgzjra:PROVIDER INFORMATIONVITALS INFORMATIONVital Sign Triage LatestTemp OralTemp TemporalTemp IntravascularTemp AxillaryTemp Jnzoob83 Sat 98 % 100 %Respiratory Rate 18 [...] ), PO, BID, # 60 tab(s), 0 Refill(s)hydrochlorothiazide-lisinopril (Lisinopril/HCTZ 20/25 mg) 0 Refill(s)metFORMIN (metFORMIN 1000 [...] tablet) 10 mg Oral 2 times a dayhydrochlorothiazide-lisinopril (Lisinopril/HCTZ 20/25 mg)metFORMIN (metFORMIN 1000 mg oral tablet) 1,000 mg Oral 2 times a daysimvastatin (sim vastatin 40 mg oral tablet) 40 mg Oral once a day (at bedtime)SITagliptin (Januvia 100 mg oral tablet) 100 mg Oral every dayComment:Lab and Radiology ResultsLaboratory or Other Results This Visit (last charted value for your 09/19/2017 visit) Nursing Point of Care Testing 09/19/2017 7:05 AM Blood Gl ucose, Capillary. POC: 156 mg/dL -- Normal range between ( 60 and 150 )DIET & ACTIVITYPatient Activity Level:As ToleratedPatient Diet:RegularPatient Activity Restrictions:No drivingDISCHARGE INFORMATIONDischarge Disposition:Discharge Location:DEPART REASON INCOMPLETE INFORMATIONPATIENT EDUCATION INFORMATIONInstructions:Follow up:With: Address: When:Sacha Antonio [address] [place] [address], [address] [place], [place] [id number] Business (1) Within 10 to 12 daysComments:Call for follow up appointmentWith: Address: When:Librado Connor [address] [place] [address] Business (1)DIAGNOSISColonic polyp; Heme positive stoolComment:PHYS DOC NOTESNoProvidence HospitalInpatient Patient Summaryon 16-35-4861Kkdwuhrci Patient [address] [id number] patient Discharge InstructionsName: SHIRAZ CATES Jr: 57 Address: [address] [place] [address] Care Provider:Name: Librado Connor EPhone: After you are discharged if you find you have any questions, please, call [phone] ext [phone] to speak to a nurse.Discharge Diagnosis: Colonic [...] nerves, or sleep? Do not make important pers onal or business decisions or sign any legal documentsKettering Health Greene Memorial would like to thank you forallowing us to assist you with your healthcare needs. The following includes patient education materials and information regarding your injury/illness.BURGESS CATES Jr has been given the followinglist of follow-up instructions, prescriptions, and patient education materials:Follow-up InstructionsWith: Address: When:Sacha Antonio [address] [facility], [address] [place] [address] Business (1) Within 10 to 12 daysComments:Call for follow up appointmentWith: Address: When:Librado Connor [facility] [place] [address] Business (1)MedicationsDuring the course of yourvisit, your medication list was updated with the most current information. The details of those changes are reflected below:Medications to Continue That Have Not ChangedOther MedicationsamLODIPine (amLODIPine 10 mg oral tablet) 1 tab(s) Oral every day.clopidogrel (clopidogrel 75 mg oral tablet) 1 tab(s) Oral every day.dapagliflozin (Farxiga 5 mg oral tablet)hydrALAZINE (hydrALAZINE 10 mg oral tablet) 1 tab(s) Oral 2 times a day.hydrochlorothiazide-lisinopril (Lisinopril/HCTZ 20/25 mg)metFORMIN (metFORMIN 1000 mg oral [...] tablet) 1 tab(s) Oral 2 times a day.hydrochlorothiazide-lisinopril (Lisinopril/HCTZ 20/25 mg)metFORMIN (met FORMIN 1000 mg oral tablet) 1 tab(s) Oral 2 times a day.simvastatin (simvastatin 40 mg oral tablet)1 tab(s) Oral once a day (at bedtime).SITagliptin (Januvia 100 mg oral tablet) 1 tab(s) Oral every day.Take only the medications listed above. Contact your doctor prior to taking any medications not on this list.Diet & ActivityPatient Activity Level: As ToleratedPatient Diet: RegularPatient Acti vity Restrictions: No drivingComment:Patient education materials, if any, will display belowVirusesor BacteriaWhat?s got you sick?Antibiotics only treat bacterial [...] NOUrinary Tract Infection YesAntibiotics Aren?t Always the Answerwww.cdc.gov/getsmart GE TSMARTKnow When Antibiotics Amilcar.[place]. Department of Health and Human ServicesCenters for Disease Control and Prevention October 2013[facility] Intraoperative Recordon 36-37-2314MQAL Endo Intraoperative RecordMAGR Endo Intra-Op Record Summary Primary Physician: Sacha Antonio MD Date/Time: 09/19/17 07:46:44 Pt. Name: BURGESS Monica CATES Jr/Sex: 1955 MALE Med Rec #: [id number] Physician: Sacha Antonio MD Financial #: [id number] Pt. Type: D Room/Bed: / Admit/Disch: 09/19/17 06:13:16 - Institution: Case Times EN MAGR Entry 1 Patient In Room Time 09/19/17 07:20:00 Out Room Time 09/19/17 07:45:00 Anesthesia Start Time 09/19/17 07:27:00 Stop Time 09/19/17 07:44:00 Surgery Start Time 09/19/17 07:27:00 Stop Time 09/19/17 07:44:00 Last Modified By: Geronimo Pedersen 09/19/17 07:45:53 General Comments: 0732 cecum time Case Attendance EN MAGR Entry 1 Entry 2 Entry 3 Case Attendee Sacha Antonio MD, Barbara RN Fresch, Lora RN Role Performed Surgeon - Primary Ore Sampler Ore Sampler Time In 09/19/17 07:20:00 09/19/17 07:20:00 09/19/17 07:20:00 Time Out 09/19/17 07:45:00 09/19/17 07:45:00 09/19/17 07:45:00 Procedure Colonoscopy Colonoscopy Colonoscopy LastModified By: Angie Pedersen RN, Barbara RN Long, Barbara RN 09/19/17 07:45:57 09/19/17 07:45: 07:45:57 Entry 4 Case Attendee Charlene Aguilera [...] Conscious Sedation Surgical Service General Wound Class Clean- Contaminated Last Modified By: Angie Pedersen RN 09/19/17 07:45:47 Post-Care Text: O.730 The patient's care is consistent with the individualized perioperative plan of care General Case Data EN MAGR Pre-Care Text: A.350.1 Classifies surgical wound Entry 1 Case Information OR MAGR Endo Room Case Level Level 3 Wound Class Clean-Contaminated Specialty Gastroenterology ASA Class 2 DiagnosisPreop Diagnosis HEME POSTIVE STOOL Postop Same As Preop No Postop Diagnosis HEME POSTIVE STOOL LastModified By: Angie Pedersen RN 09/19/17 07:22:38 Post-Care Text: O.760 Patient receives consistent and comparable care regardless of the setting Time Out EN MAGR Entry 1 Time out date/time 09/19/17 07:26:00 All team members Yes have introduced themselves by name and role Surgeon, Yes Surgeon reviewsYes anesthesia, nurse critical or confirm patient, unexpected steps, site, procedure operative duration, anticipated blood loss Anesthesia team No Nursing team Yes reviews any reviews sterility patient-specific (including concerns indicator results) and equipment issues/concerns Antibiotic Antibiotic N/A prophylaxis given within the last 60 minutes Is essential N/A imaging displayed? Last Modified By: Angie Pedersen RN 09/19/17 07:33:23 Patient Positioning EN MAGR Pre-Care Text: A.280 Identifiesbaseline musculoskeletal status Im.40 Positions the patient Im.80 Applies safety devices Entry 1 Pro cedure Colonoscopy Body Position Lateral Left Arm Position [...] handling and disposition Entry 1 Cultures Ordered NoSpecimens Ordered Yes Outcome Met (O.40) Yes Last [...] responses to the procedure O.50 Patient's current statusis communicated throughout the continuum of care Case Comments Finalized By: Angie Pedersen RN Document Signatures Signed By: Angie Pedersen RN 09/19/17 07:46Normal [facility] Endo Postoperative Recordon [id number] Endo Postoperative RecordMA Endo Phase II Record Summary Primary Physician: Sacha Antonio MD Date/Time: 09/19/17 08:52:37 Pt. Name: BURGESS Monica CATES Jr/Sex: 1955 MALE Med Rec #: [id number] Physician: Sacha Antonio MD Financial #: [id number] Pt. Type: D Room/Bed: / Admit/Disch: 09/19/17 06:13:16 - Institution: Phase II Case Times EN MAGR Pre- Care Text: Patient is free from s/s of [...] return to preop mental and physical status, opsite/dres sing intact, minimal or absent nausea and vomiting, tolerates po intake. Patient verbalizes adequate pain control. Patient/family express understanding of discharge instructions. Finalized By: Sandra Mckeon RN Document Signatures Signed By: Sandra Mckeon RN 09/19/17 08:52[facility] Endo Preoperative Recordon [id number] Endo Preoperative RecordABRAZO [facility]ROW[facility] Endo Pre-Op Record Summary Primary Physician: Sacha Antonio MD Finalized Date/Time: 09/19/17 07:17:51 Pt. Name: BURGESS Alexia CATES Jr./Sex: 1955 MALE Med Rec #: [id number] Physician: Sacha Antonio MD Financial #: [id number] Pt. Type: D Room/Bed: / Admit/Disch: 09/19/17 [...] consent correct. General Comments: [facility], denies recent cp, sob, new illnesses, pacemaker, defibrillator or sleep apnea Finalized By: Sandra Mckeon RN Document Signatures Signed By: Sandra Mckeon RN 09/19/17 07:17[facility] HospitalOperative Report - Surgeon/Physicianon 90-49-6925Qaykmneyn Report - Surgeon/PhysicianDATE OF PROCEDURE: 09/19/17URGEON: Sacha Antonio MDANESTHESIA: Conscious sedation with Versed 8 mgIV and Demerol 50 mg IV.PREOPERATIVE DIAGNOSIS: Heme positive stools.POSTOPERATIVE DIAGNOSIS: Polypat 45 cm.PROCEDURE: Colonoscopy with snare polypectomy.FINDINGS: As [...] me in 2 weeks.Sacha Antonio M.D.JOB #: [id number]: 09/19/2017T: 09/19/2017[Electronically Signed on: 09/30/2017 16:04 EDT] Sacha Antonio MD[Verified on: 09/30/2017 16:04 EDT] Sacha Antonio MD[Transcribed on: 09/19/2017 08:02 EDT][facility] Vital Signs Date TimeVital SignValuePerforming GmijqfqxfYisyoqor00-42-1410 11:39-0400Body rjmyem438.8 cmBenjamin Ball DO Work Phone: [facility]10-24-2025 11:39-0400 Body mass index (BMI) [Ratio]34.2 kg/u8Yxixvzrd Ball DO Work Phone: [phone]10-24-2025 11:39-0400 Body uctfsr150.18 kgBenjamin Ball DO Work Phone: [phone] [place], [place] [address]10-24-2025 11:39-0400 Diastolic blood mm[Hg]Librado Ball DO Work Phone: [phone]10-24-2025 11:39-0400 Heart rate78 /minBenjamin Ball DO Work Phone: [phone] [place], [place] [address]10-24-2025 11:39-0400 Respiratory rate12 /minBenjamin Ball DO Work Phone: [phone]10-24-2025 11:39-0400 Systolic blood tjlxdizp061 mm[Hg]Librado Ball DO Work Phone: [phone]05-28-2025 08:36-0400 Body wegrke448.8 cmPremier Health [facility] Center05-28-2025 08:36-0400Body mass index (BMI) [Ratio]32.8 kg/b0PfjililgiPremier Health Upper Valley Medical Center05-28-2025 08:36-0400Body cgdicb479.98 kgPremier Health Upper Valley Medical Center05-28-2025 08:36-0400Diastolic blood lgjfdoxs58 mm[Hg][facility] 07-14-2024 08:36-0400Heart rate74 /[facility] 07-14-2024 08:36-0400Respiratory rate12 /[facility] 07-14-2024 08:36-0400Systolic blood uzftcmxj766 mm[Hg][facility]01-28-2025 08:35-0500Body nfmufl539.8 cmPrem[facility] 03-16-2024 08:35-0500Body mass index (BMI) [Ratio]32.5 kg/v6DmsybyytjPrem[facility] Health [facility]01-28-2025 08:35-0500Body cvjokn225.02 kgPrem[facility]01-28-2025 08:35-0500Diastolic blood kxxolxbl64 mm[Hg][facility]01-28-2025 08:35-0500Heart rate67 /[facility]01-28-2025 08:35-0500Respiratory rate12 /[facility]01-28-2025 08:35-0500Systolic blood znocvryg304 mm[Hg][facility]11-21-2024 10:43-0500Body mass index (BMI) [Ratio]33 kg/l0PvdtqyaxgPrem[facility] Health [facility]11-21-2024 10:43-0500Diastolic blood suckmmqi05 mm[Hg][facility]11-21-2024 10:43-0500Systolic blood tirsytcj856 mm[Hg][facility]11-21-2024 10:29-0500 Body .8 cmPrem[facility]11-21-2024 10:29-0500Body .32 kgPrem[facility]11-21-2024 10:29-0500Heart rate 66 /[facility]11-21-2024 10:29-0500Respiratory rate12 /[facility]09-24-2024 09:32-0400Body diyxwd121.8 cm [facility]09-24-2024 09:32-0400Body mass index (BMI) [Ratio]33.3 kg/n9HplqvnqtmPremier Health [facility]09-24-2024 09:32-0400Body exabre067.46 kgPrem[facility]09-24-2024 09:32-0400Diastolic blood ughncmax09 mm[Hg][facility]09-24-2024 09:32-0400 Heart rate65 /[facility]09-24-2024 09:32-0400 Respiratory rate16 /[facility]09-24-2024 09:32-0400 SaO2% (BldA) [Mass fraction]96 %[facility]09-24-2024 09:32-0400Systolic blood ozrtuyey447 mm[Hg][facility] 07-10-2023 08:58-0400Body bvuuwd059.8 cmPrem[facility] 07-10-2023 08:58-0400Body mass index (BMI) [Ratio]33.3 kg/l5KsvqmssyfPremier Health [facility] Center05-23-2024 08:58-0400Body idhmhg276.29 kgPrem[facility]05-23-2024 08:58-0400Diastolic blood kssjyezv90 mm[Hg][facility]05-23-2024 08:58-0400Heart rate69 /[facility]05-23-2024 08:58-0400Respiratory rate12 /[facility]05-23-2024 08:58-0400Systolic blood mm[Hg][facility]04-16-2024 09:35-0400Body utllhf923.8 cmPrem[facility]04-16-2024 09:35-0400Body mass index (BMI) [Ratio]32.7 kg/z7GafwakxshPremier Health [facility] Center04-16-2024 09:35-0400Body inouyd500.41 kg [facility]04-16-2024 09:35-0400Diastolic blood mm[Hg][facility]04-16-2024 09:35-0400Systolic blood wolffrjc625 mm[Hg][facility]01-23-2024 08:30-0500Body ubrdfn216.8 cmBenjamin Ball Other [facility]01-23-2024 08:30-0500 Body mass index (BMI) [Ratio]33.26 kg/h0Elglxpcy Ball Other [employer] Other 01-23-2024 08:30-0500Body qsdrci541.14 kgBenjamin Ball Other [facility]01-23-2024 08:30-0500 Diastolic blood aalrwgvx79 mm[Hg]Librado Ball Other [facility]01-23-2024 08:30-0500 Respiratory rate12 /minBenjamin Ball Other [employer] Other 01-23-2024 08:30-0500Systolic blood refqaehk786 mm[Hg] Librado Ball Other [facility]09-26-2023 10:00-0400 Body pexmzb284.8 cmBenjamin Ball Other [facility] Other 09-26-2023 10:00-0400Body mass index (BMI) [Ratio] 33.34 kg/y6Qrbacdyw Ball Other [place] [facility] [employer] Other 09-26-2023 10:00-0400Body nlylif657.42 kgBenjamin Ball Other [employer] Other 09-26-2023 10:00-0400Diastolic blood lrhllohm14 mm[Hg] Librado Ball Other [employer] Other 09-26-2023 10:00-0400Respiratory rate12 /minBenjamin Ball Other [facility] Other 09-26-2023 10:00-0400Systolic blood euwkrwgj891 mm[Hg] Librado Ball Other [facility] Other 05-15-2023 09:30-0400Body .8 cmBenjamin Ball Other [facility] Other 05-15-2023 09:30-0400Body mass index (BMI) [Ratio] 33.28 kg/j1Lqcefyeb Ball Other [facility] Other 05-15-2023 09:30-0400Body ejyern246.24 kgBenjamin Ball Other [employer] Other 05-15-2023 09:30-0400Diastolic blood gsgoqwqg34 mm[Hg] Librado Ball Other [employer] Other 05-15-2023 09:30-0400Respiratory rate12 /minBenjamin Ball Other [place] [facility] [employer] Other 05-15-2023 09:30-0400Systolic blood lyylpblz607 mm[Hg] Librado Ball Other [employer] Other 05-15-2023 08:30-0400Body zvyvtf191.8 cmBenjamin Ball Other [employer] Other 05-15-2023 08:30-0400Body mass index (BMI) [Ratio] 33.28 kg/e3Mniwapgg Ball Other [facility] Other 05-15-2023 08:30-0400Body gbyysv662.24 kgBenjamin Ball Other [facility] Other 05-15-2023 08:30-0400Diastolic blood jmrpowac73 mm[Hg] Librado Ball Other [facility] Other 05-15-2023 08:30-0400Respiratory rate12 /minBenjamin Ball Other [employer] Other 05-15-2023 08:30-0400Systolic blood mpafeuoc845 mm[Hg] Librado Connor Other [facility] [employer] Other Encounters Encounter DateEncounter TypeCare ProviderFacilityStart: 12-10-2024 End: 45-52-3343jddhdjsblxIybfwjdz Ball DO Work Phone: -[facility] ClinicStart: 12-10-2024 End: 65-92-7998Kjgvkcz encounter procedureBenbaltazar Connor DO-[facility] Work Phone: Start: 09-13-2024 End: 98-81-6708mflcfvusrjTTOPLTMercy Health [facility] Start: 07-14-2024 End: 40-03-9030jjhfkzhzrxBmybmaegpDiley Ridge [facility] Work Phone: Start: 07-14-2024 End: 47-13-4640Vxxkunrxz for general adult medical examination without abnormal findingsParkwood Hospitaltart: 07-14-2024 End: 03-83-7692Ysbaxqf encounter procedureNov[facility] Work Phone: Start: 03-16-2024 End: 51-75-5737elusdkzpkvByrhlsivmDiley [facility] Medical Center Work Phone: Start: 03-16-2024 End: 58-18-6238Ijwdbfl encounter procedureNov[facility] Work Phone: Start: 01-08-2024 End: 50-21-6355calxrfjhncBqdrqptdzDiley Ridge Medical Center Work Phone: Start: 01-08-2024 End: 40-09-1438Xaiuoxj encounter procedureNov[facility] Phys[facility] Work Phone: Start: 11-11-2023 End: 83-07-0642bvcttlsnlfZadcnkwlaDiley Ridge Medical Center Work Phone: Start: 11-11-2023 End: 02-40-6472Uitgkin encounter procedureFirjohnston memorial hospital [facility] Work Phone: Start: 37-53-2907Pvw-patient / Non-visitNov[facility] Work Phone: Start: 07-10-2023 End: 38-18-6972wxhqssxvqmQisvrufcvDiley Ridge Medical Center Work Phone: Start: 07-10-2023 End: 99-55-7316Xbvwhvxew for general adult medical examination without abnormal findingsParkwood Hospitaltart: 07-10-2023 End: 12-74-3848Fhnmtlz encounter procedureNov[facility] Work Phone: Start: 77-54-0058Ofx-patient / Non-visitNov[facility] Work Phone: Start: 06-03-2023 End: 33-72-0830uqhtabyfjjSgioapbveCoshocton [facility] Work Phone: Start: 06-03-2023 End: 67-60-5117Lysdxvy encounter procedureNov[facility] Work Phone: Start: 03-11-2023 End: 15-24-1905ccswfdzkkvHbeelsrn Ball Other [facility] Other Start: 22-99-9352Zhucwz outpatient visit 25 minutes Librado NikolasSelect Medical [facility]Health Rehabilitation Hospitaltart: 03-11-2023 End: 46-11-8286Smxmaza encounter procedureCaty Physician Group-Start: 01-06-2023 End: 21-05-0946rhkqaibkjqVrnwypge Ball Other [facility] Other Start: 59-99-5645Vpuembrio encounterBenbaltazar ConnorRula [facility]val[facility] Hospitaltart: 01-04-2023 End: 53-99-3457hkunbxyfwsAyjltjyn Ball Other [employer] Other Start: 13-62-5610Nhvsobpyk encounterBeyanna Connor Medical ClinicStart: 11-12-2022 End: 84-82-2199ulvzexexxaWvtyeiez Ball Other [employer] Other Start: 54-70-4510Bqxfmu outpatient visit 25 minutes Librado Connor [facility] ClinicStart: 10-01-2022 End: 26-55-2816zcgqhuugeoPitoduq R NILLFacility:[facility] CenterueStart: 09-12-2022 End: 47-60-9507djbsrizmqkKqznpnyc Ball Other [employer] Other Start: 46-15-2437Tcvczjjof encounterBeyanna Connor Medical ClinicStart: 09-11-2022 End: 13-94-1750sldlejvnjePzicaqn R NILLFacility:CD:[id number]: 08-21-2022 End: 08-35-6772hzsltxeemqVdygabh R NILLFacility:[facility] CenterueStart: 07-03-2022 ambulatoryDR LIBRADO BALLFacility:R4Npzoj: 89-54-1853imssrsuvjvPzdbmiu R NILL Facility:[facility] CenterueStart: 05-58-5506wtafdypgvlQfcaqrv R NILLFacility:[facility]tart: 07-01-2022 End: 63-39-2601hoitumybbgQgqcpouw Ball Other [employer] Other Start: 49-90-8870Twfsqmfsl for general adult medical examination without abnormal findingsLibrado Connor Medical ClinicStart: 03-84-1049Qkodqpeh preventive med est patient 65yrs& olderBeyanna Connor Medical ClinicStart: 67-40-8919Rnhvuktax encounterBeyanna Connor Medical ClinicStart: 55-50-6674Pvqdvzwdc for general adult medical examination without abnormal findingsDR LIBRADO CONNOROhio Valley Surgical Hospitaltart: 01-25-2022 End: 05-46-5419seztabionwJP NONE LISTED REQUESTFacility:C7Umnmx: 01-23-2022 End: 57-06-5875jghxebjcbfNB LIBRADO CONNORFacility:S1Lukpq: 01-23-2022 End: 11-75-4855Dmvfesshv for general adult medical examination without abnormal findingsDR LIBRADO CONNORFacility:O7Iagjc: 12-19-2021 End: 11-33-7683zpgoiptxdhNP IVANNA HERNANDEZ .Facility:E3Pmlzn: 10-31-2021 End: 76-83-6220hbmhpuyfasIK NONE LISTED REQUESTFacility:B2Vwqas: 07-13-2021 End: 36-16-9958axtbfvonsoYL LIBRADO CONNORFacility:V5Ebawc: 63-97-7526Iwzpj health examinationBeyanna Connor Other [facility] [employer] Other Start: 09-19-2017 End: 87-35-2104Dsobood encounterRichard WiecekFacility:[facility] HospitalStart: 01-17-2017 End: 73-42-5524CuluzqjbfvDVNYKMO PHYSICIANFacility:[facility] Procedures DateProcedureProcedure DetailPerforming ClinicianStart: 07-03-2022 End: 44-76-5361IUQ screeningDR LIBRADO BALLComment on above:Performed By: #### MALBR #### [facility] [address] [place] [address] Dr. Tai Kunzart: 29-09-9251WUH screeningDR LIBRADO BALLComment on above: Performed By: #### PSASC #### [facility] [address] [place] [address] Dr. Tai Kunzart: 14-05-6490Dygxmdg examination of patientLibrado Connor Other Start: 63-22-1608Rqhiedoay for malignant neoplasm of colonBeyanna Connor Other Start: 42-69-3639Iomdrubbo for malignant neoplasm of prostateBenbaltazar Connor Other Depression screeningBenbaltazar Connor Other Screening for malignant neoplasm of prostateTimurnbaltazar Connor Other Plan of Treatment DateCare ActivityDetailAuthorComprehensive metabolic 1999 panel - Serum or PlasmaPrem[facility] Health [facility] CenterComprehensive metabolic 1999 panel - Serum or PlasmaPrem[facility] Health [facility] Medical CenterMicroalbumin [Mass/volume] in UrinePrem[facility] Health [facility] Medical CenterUS Heart TransthoracicHoag [facility] Immunizations Immunization DateImmunizationNotesCare DrmxiolyYkpjwtvy31-43-4177ngakjcofl, high dose seasonal, preservative-freeBenjavimin Ball DO Work Phone: [facility]09-24-2024influenza, high dose seasonal, preservative-freePrem[facility] Center09-26-2023 influenza virus vaccine, unspecified formulationPrem[facility] Center09-26-2023influenza, high dose seasonal, preservative-freeBenjamin Ball Other [employer] Other [id number] Vaccine Moderna - Documentation Purposes OnlyBenbaltazar Connor Other [facility]10-13-2021influenza virus vaccine, split virus (incl. purified surface antigen)Librado Connor Other [facility] Other [id number] virus vaccine, unspecified formulationPrem[facility] Health [facility] Center10-13-2021influenza, injectable, quadrivalent, preservative freeTimurnbaltazar Connor Other [facility]03-08-2021COVID-19 Vaccine Ayesha - Documentation Purposes OnlyBenbaltazar Connor Other [facility] Payers DatePayer CategoryPayerPolicy [id number] Cross Blue [id number] Cross Blue [id number] [id number] [id number] [id number]-[id number] [id number] 2.0.1.011367.3.57[id number] 2.0.1.747471.3.57[id number] 2.0.1.538672.3.57[id number] 2.840.1.669405.3.57[id number] 2.0.1.849498.3.57[id number] 2.0.1.090694.3.57[id number] 2.840.1.017620.3.57[id number] 2.840.1.278356.[id number] 2.16840.1.890119.3.579.2.593 [id number] 2.16840.1.3[id number] 2.840.1.0[id number] 2..840.1.441760.3.579.2.593 Social History DateTypeDetailFacilitySex [facility]igned [facility] [employer] Other Start: 06-03-2023 End: 81-25-0432Wfztyhb smoking status NHISNever smoked tobacco (finding) [facility]: 28-52-7378Cfh Assigned At [facility]: 01-08-2024 End: 51-30-3312VunNgws (finding)[facility] Medical Equipment Procedure CodeEquipment CodeEquipment Original TextEquipment IdentifierDates Blood Sugar Diagnostic (Accu-Chek Smartview Test Strip) stripStart: 06-20-2023 Blood Sugar Diagnostic (Accu-Chek Smartview Test Strip) stripStart: 06-20-2023 End: 97-81-5628Rtfck Sugar Diagnostic (Accu-Chek Smartview Test Strip) strip Start: 01-08-8140Tvmuc Sugar Diagnostic (Accu-Chek Smartview Test Strip) strip Start: 06-20-2023 End: 83-41-2307Ktcql Sugar Diagnostic (Accu-Chek Smartview Test Strip) strip Start: 48-49-5821Yvtqt Sugar Diagnostic (Accu-Chek Smartview Test Strip) strip Start: 06-20-2023 End: 94-88-5457Zjvgc Sugar Diagnostic (Accu-Chek Smartview Test Strip) strip Start: 27-80-5856Jvfld Sugar Diagnostic (Accu-Chek Smartview Test Strip) strip Start: 06-20-2023 End: 31-90-2544Dxxdp Sugar Diagnostic (Accu-Chek Smartview Test Strip) strip Start: 57-19-4865Meeid Sugar Diagnostic (Accu-Chek Smartview Test Strip) strip Start: 06-20-2023 End: 18-69-5518Uigzi Sugar Diagnostic (Accu-Chek Smartview Test Strip) strip Start: 10-75-1812Usdye Sugar Diagnostic (Accu-Chek Smartview Test Strip) strip Start: 06-20-2023 End: 34-24-1019Lfnnv Sugar Diagnostic (Accu-Chek Smartview Test Strip) strip Start: 06-20-2023 End: 06-20-2023 Clinical Notes 07-01-2022 to 09-13-2024 Note Date & NgopNiakGsvhxsdw94-03-3496 NoteUT Cardiology - [facility] Wade Cates Jr. is a 69 y.o. year old [...] kg (232 lb) SpO2 96% BMI 33.29 kg/m??? Smoking Status Former BSA 2.28 m??? Physical Exam Constitutional: Appearance: He is well-developed. [...] ECG Echocardiogram 08/25/2024: CONCLUSION: 1. Global left ventri (more content not included)...[facility]* Diagnosis Onset Date Resolution Status Admit Date Cerumen impaction acuteNov2023 10:25amEssential (primary) hypertensionacuteNov2023 10:25amExternal otitis of left earacuteNov2023 10:25am Cerebral atherosclerosisacuteJanuary 2024 8:23amEssential (primary) hypertensionacuteJanuary 2024 8:23amHypercholesterolemiaacuteJanuary 2024 8:23amNonrheumatic aortic (valve) stenosisacuteJanuary 2024 8:23am ObesityacuteJanuary 2024 8:23amType 2 diabetes mellitus with hyperglycemia acuteJanuary 2024 8:23am [facility] Work Phone: 1(201) 419-756109-24-2024 Evaluation note* Diagnosis Onset Date Resolution Status Admit Date Cerebral atherosclerosis acuteSeptember 2023 9:23amEssential (primary) hypertensionacuteSeptember 2023 9:23amHypercalcemiaacuteSeptember 2023 9:23am HypercholesterolemiaacuteSeptember 2023 9:23amNonrheumatic aortic (valve) stenosisacuteSeptember 2023 9:23amObesityacuteSeptember 2023 9:23am Type 2 diabetes mellitus with hyperglycemiaacuteSeptember 2023 9:23am [facility] Work Phone: 1(180) 281-205601-23-2024 Evaluation note* Encounter Date Diagnosis Assessment Notes Treatment Notes Treatment Clinical Notes Feb, Type 2 diabetes carley itus with diabetic polyneuropathy, without long-term current use of insulin (ICD-10 - E11.42) Inspect feet daily for cuts and calluses.Recommend diabetic shoes and inserts to prevent callus formation.Fall precautions. Feb,ontrolled type 2 diabetes mellitus with hyperglycemia, without long-term current use of insulin (ICD-10 - E11.65)This patient is following a comprehensive diabetic treatment [...] office visit. Continue regular routine monitoring of A1C,Microalbumin, Dilated eye exam and Foot exam Due for A1C w/ goal < 7% Feb,Essential (primary) hypertension (ICD-10 - I10)This patient is instructed to consume a healthy, low-fat, low-salt diet. They are also encouraged to continue exercise to achieve/maintain a normal BMI. Patient is instructed on home BP measurements: - rest for 5 minutes w/o talking.- positioned w/ feet on floor and arm supported.- average best 2/3 readings w/ goal < 135/85.- update office w/ homereadings in 2 weeks. Increasing Lisinopril to 40mg Increasing Carvedilol to 12.5mg d/c HCTZ may initiated MRA Feb,Nonrheumatic aortic (valve) stenosis (ICD-10 - I35.0)Echo: 07/2020 - LVEF 65%, LAE, LOVELY 1.3, velocity 199, gradient 42/20 ECHO: 12/2022 - LVEF 65 to 70% - Moderate aortic valve stenosis - LOVELY 1.4cm, Velocity 292, Gradient 34/20 Stressed importance of improved BP control. Denies CP, palpitations or lightheadedness Reviewed Echo results and will continue to monitor on annual basis. Feb,Hyperlipidemia type II (ICD-10 - E78.)Instructed on diet and exercise with continued statin therapy.Discussed the beneficial effects of lo wering cholesterol in reducing the risk for cerebrovascular and cardiovascular disease. Feb,erebral atherosclerosis (ICD-10 - I67.2)No focal neurologic deficits. Reviewed stroke symptoms and instructed to go to ER for suspicious symptoms. Contionue secondary preventive measures. Feb,Other obesity due to excess calories (ICD-10 - E66.09)This patient has been instructed on a low-fat, high-fiber diet. They are instructed to reduce calories, portion sizes and snacks. It is recommended that they exercise for 30 minutes, 3-5 times weekly. Feb,ody mass index [BMI] 33.0-33.9, adult (ICD-10 - Z68.33) [facility] Other 11-18-2023 Evaluation note* Encounter Date Diagnosis Assessment Notes Treatment Notes Treatment Clinical Notes Dec, Nonrheumatic aortic (valve) stenosis (ICD-10 - I35.0) Echo: LVEF 65%, LAE, LOVELY 1.3, velocity 199, gradient 2020 Echo: LVEF 65 to 70%, RV is normal, LVH, velocity 292, gradient 34/2022 [facility] Other 11-18-2023 Evaluation note* Encounter Date Diagnosis Assessment Notes Treatment Notes Treatment Clinical Notes Dec, Nonrheumatic aortic (valve) stenosis (ICD-10 - I35.0) Echo: LVEF 65%, LAE, LOVELY 1.3, velocity 199, gradient 2020 Echo: LVEF 65 to 70%, RV is normal, LVH, [facility] Other 09-26-2023 Evaluation note* Encounter Date Diagnosis Assessment Notes Treatment Notes Treatment Clinical Notes Oct, Type 2 diabetes carley itus with diabetic polyneuropathy, without long-term current use of insulin (ICD-10 - E11.42) Inspect feet daily for cuts and calluses.Recommend diabetic shoes and inserts to prevent callus formation.Fall precautions. Oct,ontrolled type 2 diabetes mellitus with hyperglycemia, without long-term current use of insulin (ICD-10 - E11.65)This patient is following a comprehensive diabetic treatment [...] A1C 7.7% Increase Trulicity to 4.5 weekly Oct,Essential (primary) hypertension (ICD-10 - I10)This patient is instructed to consume a healthy, low-fat, low-salt diet. They are also encouraged to continue exercise to achieve/maintain a normal BMI. Increase Lisinopril/HCTZ to bid Patient is instructed on home BP measurements: - rest for 5 minutes w/o talking- positioned w/ feeton floor and arm supported- average best 2/3 readings w/ goal < 135/85 Oct,Nonrheumatic aortic (valve) stenosis (ICD-10 - I35.0)Echo: 07/2020 - LVEF 65%, LAE, LOVELY 1.3, velocity 199, gradient 42/20 Asymptomatic w/o CP, tachycardia or syncope. Must improve control of SBP Echo to quantitate degree of Oct,Hyperlipidemia type II (ICD-10 - E78.01)Instructed on diet and exercise with continued statin therapy.Discussed the beneficial effects of lo wering cholesterol in reducing the risk for cerebrovascular and cardiovascular disease. Oct,erebral atherosclerosis (ICD-10 - I67.2)Continue secondary prevention measures. Continue Plavix despite minor bleeding compliations Oct,Other obesity due to excess calories (ICD-10 - E66.09)This patient has been instructed on a low-fat, high-fiber diet. They are instructed to reduce calories, portion sizes and snacks. It is recommended that they exercise for 30 minutes, 3-5 times weekly. Oct,ody mass index [BMI] 33.0-33.9, adult (ICD-10 - Z68.33)Goal BMI is < 30 Instructed on diet and exercise GLP-1 use for DM should be helpful in reducing caloric intake [facility] Other 07-05-2023 NoteChief Complaint consultation for surveillance [...] Date Status SARS-CoV-2 (COVID-19) (more content not included)...[facility] Comment on above:Result Comment: Electronically Signed By: RANDY MILLER, John Tejada\Date and Time Signed: 08/21/22 13:40 [id number] Evaluation note* Encounter Date Diagnosis Assessment Notes Treatment Notes Treatment Clinical Notes June, Wellness examination (ICD-10 - Z 00.00) Healthy diet and exercise. Reviewed age-appropriate preventive testing recommended. June,Type 2 diabetes mellitus with diabetic polyneuropathy, without long- term current use of insulin (ICD-10 - E11.42)Inspect feet daily for cuts and calluses.Recommend diabetic shoes and inserts to prevent callus formation.Fall precautions. June,ontrolled type 2 diabetes mellitus with hyperglycemia, without long-term current use of insulin (ICD-10 - E11.65)This patient is following a comprehensive diabetic treatment [...] A1C: [ ] Microalbumin: [ ] Eye exam:[ ] Foot exam: [ ] Gradual improvement w/ A1C, goal < 7% June,Essential (primary) hypertension (ICD-10 - I10)This patient is instructed to consume a healthy, low-fat, low-salt diet. They are also encouraged to continue exercise to achieve/maintain a normal BMI. June,Nonrheumatic aortic (valve) stenosis (ICD-10 - I35.0)Mild noted on Echo in 2020 Denies CP, tachycardia or syncope. Plan to repeat next year. Instructed on strict control of BP June,Hyperlipidemia type II (ICD-10 - E78.01)Instructed on diet and exercise with continued statin therapy.Discussed the beneficial effects of lo wering cholesterol in reducing the risk for cerebrovascular and cardiovascular disease. 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) [facility] Other Evaluation noteNo InformationNortWernersville State Hospital Knip Other Evaluation note* Diagnosis Onset Date Resolution Status Left otitis media acuteTinnitusate [facility] Work Phone: Evaluation note* Diagnosis Onset Date Resolution Status Cerebral atherosclerosis acuteEssential (primary) hypertensionacuteHypercholesterolemiaacuteNonrheumatic aortic (valve) stenosisacuteWellness examinationnoneactive [facility] Work Phone: Evaluation note* Diagnosis Onset Date Resolution Status Cerebral atherosclerosis acuteEssential (primary) hypertensionacuteHypercalcemiaacuteHypercholesterolemia acuteNonrheumatic aortic (valve) stenosisacuteObesityacuteType 2 diabetes mellitus with hyperglycemiaacute [facility] Work Phone: Evaluation note* Diagnosis Onset Date Resolution Status Admit Date Cerebral atherosclerosis acuteMay 2024 8:31amEssential (primary) hypertensionacuteMay 2024 8:31amHypercalcemiaacuteMay 2024 8:31amHypercholesterolemiaacuteMay 2024 8:31amNonrheumatic aortic (valve) stenosisacuteMay 2024 8:31am Screening PSA (prostate specific antigen)acuteMay 2024 8:31amType 2 diabetes mellitus with hyperglycemiaacuteMay 2024 8:31amWellness examinationnoneactiveMay 2024 8:31am [facility] Work Phone: Evaluation note* Diagnosis Onset Date Resolution Status Admit Date Cerebral atherosclerosis acuteOctober 2024 11:23amEssential (primary) hypertensionacuteOctober 2024 11:23amHypercalcemiaacuteOctober 2024 11:23am HypercholesterolemiaacuteOctober 2024 11:23amNonrheumatic aortic (valve) stenosisacuteOctober 2024 11:23amType 2 diabetes mellitus with hyperglycemiaacuteOctober 2024 11:23am [facility] Work Phone: History general Narrative - Reported* Type Description Date Medical History Adenomatous polyp of descending colon Medical HistoryCerebral atherosclerosisMedical HistoryHEMIPLEGIA OF LEFT NONDOMINANT SIDE DUE TO CEREBROVASCULAR DISEASEMedical HistoryHyperlipidemia type IIMedical HistoryNonrheumatic aortic (valve) stenosisMedical History Essential (primary) hypertensionMedical HistoryType 2 diabetes mellitus with diabetic polyneuropathy, without long-term current use of insulinMedical History Controlled type 2 diabetes mellitus with hyperglycemia, without long-term current use of insulinMedical HistoryAcute pain of left kneeMedical HistoryCOVID Medical HistoryBilateral carotid bruitsMedical HistoryLumbar spondylosisMedical HistoryLow back pain with radiationMedical HistoryClaw toe, leftMedical History Contracture of left ankleMedical HistoryCalcaneus deformity, acquired, left Medical HistoryFoot pain, leftMedical HistoryHigh risk medication useMedical HistoryCerebrovascular accident (CVA)Surgical HistoryRELEASE OF HAMMERTOE OF LEFT [id number] HistoryFOOT SURGERY - LEFT Surgical [id number] HistorySEE SURGICAL HX [facility]ERS Other History general Narrative - Reported* Type Description Date Medical History Adenomatous polyp of descending colon Medical HistoryCerebral atherosclerosisMedical HistoryHEMIPLEGIA OF LEFT NONDOMINANT SIDE DUE TO CEREBROVASCULAR DISEASEMedical HistoryHyperlipidemia type IIMedical HistoryNonrheumatic aortic (valve) stenosisMedical History Essential (primary) hypertensionMedical HistoryType 2 diabetes mellitus with diabetic polyneuropathy, without long-term current use of insulinMedical History Controlled type 2 diabetes mellitus with hyperglycemia, without long-term current use of insulinMedical HistoryAcute pain of left kneeMedical HistoryCOVID Medical HistoryBilateral carotid bruitsMedical HistoryLumbar spondylosisMedical HistoryLow back pain with radiationMedical HistoryClaw toe, leftMedical History Contracture of left ankleMedical HistoryCalcaneus deformity, acquired, left Medical HistoryFoot pain, leftMedical HistoryHigh risk medication useMedical HistoryCerebrovascular accident (CVA)Surgical HistoryRELEASE OF HAMMERTOE OF LEFT [id number] [id number] HistoryFOOT SURGERY - LEFT Surgical [id number] HistoryColonoscopy w/ polypectomy, repeat in 5 years08/2022Hospitalization HistorySEE SURGICAL [facility]ERS Other Hiscvlg general Narrative - Reported* Type Description Date Medical History Adenomatous polyp of descending colon Medical HistoryCerebral atherosclerosisMedical HistoryHEMIPLEGIA OF LEFT NONDOMINANT SIDE DUE TO CEREBROVASCULAR DISEASEMedical HistoryHyperlipidemia type IIMedical HistoryNonrheumatic aortic (valve) stenosisMedical History Essential (primary) hypertensionMedical HistoryType 2 diabetes mellitus with diabetic polyneuropathy, without long-term current use of insulinMedical History Controlled type 2 diabetes mellitus with hyperglycemia, without long-term current use of insulinMedical HistoryAcute pain of left kneeMedical HistoryCOVID Medical HistoryBilateral carotid bruitsMedical HistoryLumbar spondylosisMedical HistoryLow back pain with radiationMedical HistoryClaw toe, leftMedical History Contracture of left ankleMedical HistoryCalcaneus deformity, acquired, left Medical HistoryFoot pain, leftMedical HistoryHigh risk medication useMedical HistoryCerebrovascular accident (CVA)Surgical HistoryRELEASE OF HAMMERTOE OF LEFT [id number] [id number] HistoryFOOT SURGERY - LEFT Surgical [id number] HistoryColonoscopy w/ polypectomy, repeat in 5 years08/2022Surgical HistoryB/L Cataract extraction08/2022 Hospitalization HistorySEE SURGICAL HX RIDERS Other Refjgx for referral (narrative)* Reason *07/08 Referral for screening colonoscopy Diagnosis 1 Screening for colon cancer (Z12.11) Referral Organization [facility] artie Referring Provider First Name Librado Referring Provider Last Name Nikolas Ref[facility] Referred Provider John Montalvo Referred Address [address] [place], [place],[address] Referred Provider Specialty Surgery Referral Priority Routine General Notes Asymptomatic, low ri sk patient. Naila Sosa 07/01/2022 12:14:34 PM >received today, notes locked, referral faxedClinical [id number] [facility] Other reason for referral (narrative)* Reason 08/21/22 Referral for screening colonoscopy Diagnosis 1 Screening for colon cancer (Z12.11) Referral Organization [facility] artie Referring Provider First Name Librado Referring Provider Last Name Nikolas Referring Provider Specialty Internal Sc dicine Referred Organization [facility] Referred Provider John Montalvo Referred Address [address] [place], [place],[address] Referred Provider Specialty Surgery Referral Priority Routine [...] 07/12/2022 09:56:26 AM >received fax with appt dateClinical [id number] [facility] Other Reason for referral (narrative)No reason for referral information availableDayton [facility] Medical Center Work Phone: Summary Purpose Family History Relationship Condition Age at Onset Recorded Date/T chloé father Malignant neoplasm of esophagus Unknown Malignant neoplasmUnknownNot SpecifiedDisorder of lungUnknownHeart disease UnknownsisterHeart diseaseUnknown Relationship Condition Age at Onset Recorded Date/T chloé father Malignant neoplasm of esophagus Unknown Malignant neoplasmUnknownmotherDisorder of lungUnknownHeart diseaseUnknownsister Heart diseaseUnknown Advance Directives Advance Directive Response Recorded Date/ Time Advance Directives No March 12, 2023 1:04pm Advance Directive Response Recorded Date/ Time Advance Directives No March 12, 2023 12:04pm Chief Complaint and Reason for Visit Chief Complaint 4 Month Follow Up left ear infectionReason for VisitLeft otitis media Tinnitus Chief Complaint left ear infection Amb Documentation 3 month follow upReason for VisitCerebral atherosclerosis Essential (primary) hypertension Hypercholesterolemia Nonrheumatic aortic (valve) [...] 11, 2023 9:23am Essential (primary) hypertension Septemb er 2023 9:23am Hypercalcemia November 11, 2023 9:23am [...] Wellness examination July 14, 2024 8:31 am Chief Complaint Admit Date 4 month f/u December 10, 2024 1 1:23am Reason for Visit Admit Date Cerebral atherosclerosis December 10, 2 025 11:23am Essential (primary) hypertension December 10, 2024 11:23am Hypercalcemia December 10, 2024 1 1:23am Hypercholesterolemia December 10, 2024 11:23am Nonrheumatic aortic (valve) stenosis Oct blaine 2024 11:23am Type 2 diabetes mellitus with hyperglyce joaquin December 10, 2024 11:23am Additional Source Comments (unrecognized sect ion and content) No Status Records FoundNo Status Records FoundNo Status Records FoundNo Status Records FoundNo Status Records FoundNo Status Records Found INFORMATION SOURCE (unrecogn ized section and content) DATE CREATED AUTHOR 08/12/2017 [facility] DATE CREATED AUTHOR AUTHOR'S ORGANIZ ATION 10/07/2017 [facility] DATE CREATED AUTHOR AUTHOR'S ORGANIZ ATION 07/03/2022 [facility] DATE CREATED AUTHOR AUTHOR'S ORGANIZ ATION 07/03/2022 [facility] DATE CREATED AUTHOR AUTHOR'S ORGANIZ ATION 10/02/2022 [facility] DATE CREATED AUTHOR AUTHOR'S ORGANIZ ATION 10/15/2024 [facility] REASON FOR VISIT (unrecogniz ed section [...] Active Start: September 10, 2023 Domonique Loya DOAttending ProviderActiveStart: September 10, 2023 Team Status: Inactive Member Role Status Dates Librado Connor DO Attending Provider Active Sta rt: March 11, 2023 End: March 11, 2023 Team Status: Inactive Member Role Status Dates Librado Connor DO Primary Care Provider Active Start: June 03, 2023 End: June 03, 2023Kinjal Butler APRN WINCHMAN/CRANE OPERATOR-CAttending ProviderActive Start: June 03, 2023 End: June 03, 2023 Team Status: Active Member Role Status Dates Librado Connor DO Primary Care Provider Active Start: June 10, 2023 ANAHY KateAAtapoorva ProviderActiveStart: June 10, 2023 Team Status: Inactive Member Role Status Dates Librado Connor DO Primary Care Provide r, Attending Provider Active Start: July 10, 2023 End: July 10, 2023 Team Status: Inactive Member Role Status Dates Librado Connor DO Primary Care Provide r, Attending Provider Active Start: March 16, 2024 End: March 16, 2024 Team Status: Inactive Member Role Status Dates Librado Connor DO Primary Care Provide r, Attending Provider Active Start: July 14, 2024 End: July 14, 2024 Team Status: Active Member Role/Relationship Status Dates Librado Connor DO Primary Care Provider Active Team Status: Inactive Member Role/Relationship Status Dates Librado Connor DO Primary Care Provider Active Start: December 10, 2024 End: December 10maureen Connor DOAttending ProviderActiveStart: December 10, 2024 End: December 10, 2024 Goals (unrecognized section and content) Goals [...] BE BASED ON THE PRIMARY CLINICAL RECORDS. [facility] [employer] [facility]. provides no warranty or guarantee of the accuracy or completeness of information in this document.
--- NOTE | 2024-12-29 14:03 | PM.WCHP ---
Wound Care H&P: HPI History of Present Illness Narrative: The patient is a 69-year-old gentleman with history of type 2 diabetes and prior stroke with residual left-sided hemiparesis who presents for routine toenail care. He notes pain associated with elongated toenails but has not other complaints at this time. [facility] Medical History (Updated 06/17/24 @ 15:35 by NEERU Soto) Obesity ?E66.9 - Obesity, unspecified (ICD-10) Lumbar spondylosis ?M47.816 - Spondylosis without myelopathy or radiculopathy, lumbar region (ICD-10) Hyperlipidemia ?E78.5 - Hyperlipidemia, unspecified (ICD-10) Hypertension ?I10 - Essential (primary) hypertension (ICD-10) Diabetes ?E11.9 - Type 2 diabetes mellitus without complications (ICD-10) Cerebral infarction ?I63.9 - Cerebral infarction, unspecified (ICD-10) Cerebral atherosclerosis ?I67.2 - Cerebral atherosclerosis (ICD-10) Bilateral carotid bruits ?R09.89 - Other specified symptoms and signs involving the circulatory and respiratory systems (ICD-10) Aortic valve disorder ?I35.9 - Nonrheumatic aortic valve disorder, unspecified (ICD-10) Surgical History (Updated 09/03/22 @ 14:13 by Vivi Hubbard) H/O hammer toe correction ?Z98.890 - Other specified postprocedural states (ICD-10) ?Z87.39 - Personal history of other diseases of the musculoskeletal system and connective tissue (ICD-10) History of appendectomy ?Z90.49 - Acquired absence of other specified parts of digestive tract (ICD-10) H/O colonoscopy ?Z98.890 - Other specified postprocedural states (ICD-10) Family History (Updated 09/03/22 @ 14:14 by Vivi Hubbard) Mother Family history of COPD (chronic obstructive pulmonary disease) Heart disease Father Family history of cancer Sister Heart disease Social History (Updated 09/11/22 @ 06:33 by Deysi Mercado) Within the past year, how often did you have a drink containing alcohol: never Score interpretation: A score less than 4 is consistent with normal alcohol consumption. Smoking status: Former smoker What tobacco products do you use: cigarettes Packs per day: 0.5 Years smoked: 39 Smoking pack-years: 19.50 Smoking quit date/years: <= 15 years ago Non-prescribed substance use: denies use Highest level of school completed/degree received: high school graduate Meds Home Medications and Allergies Home Medications ?Medication ?Instructions ?Recorded ?Confirmed ?Type amlodipine 10 mg tablet 10 mg PO DAILY 09/03/22 09/10/23 History carvedilol 3.125 mg tablet 3.125 mg PO BID 09/03/22 09/10/23 History clopidogrel 75 mg tablet (Plavix) 75 mg PO DAILY 09/03/22 09/10/23 History dapagliflozin propanediol 10 mg 10 mg PO DAILY 09/03/22 09/10/23 History tablet (Farxiga) dulaglutide 3 mg/0.5 mL 4.5 mg subcut QWEEK 09/03/22 09/10/23 History subcutaneous pen injector (Trulicity) hydralazine 10 mg tablet 10 mg PO BID 09/03/22 09/10/23 History lisinopril 20 1 tab PO DAILY 09/03/22 09/10/23 History mg-hydrochlorothiazide 25 mg tablet metformin 1,000 mg tablet 1,000 mg PO BID 09/03/22 09/10/23 History simvastatin 40 mg tablet 40 mg PO DAILY 09/03/22 09/10/23 History ciprofloxacin HCl 500 mg tablet 500 mg PO BID 5 days #10 tabs 09/10/23 Rx (Cipro) Allergies Allergy/AdvReac Type Severity Reaction Status Date / Time sulfamethoxazole (From Allergy Mild Hives Verified 09/10/23 12:25 Bactrim) trimethoprim (From Bactrim) Allergy Mild Hives Verified 09/10/23 12:25 Exam Narrative: Exam Narrative: Derm: Skin is diffusely dry. No ulcerative or preulcerative lesions are noted. Toenails 1 through 10 are elongated, thickened, mycotic, and dystrophic. No evidence of paronychia on examination. Vascular: DP pulses are 2/4 bilaterally. PT pulses nonpalpable bilaterally. Capillary refill is less than 3 seconds. Superficial varicosities are noted bilaterally. Skin is warm to the touch. There is trace foot and ankle edema bilaterally. Digital hair is absent. There is hemosiderin staining of the lower legs bilaterally. Musculoskeletal: Hammertoe deformities of the lesser toes on the left. Mallet toe deformity of the hallux on the left. Generalized weakness noted of the left leg Neuro: Protective sensation intact in 5/5 areas tested with the monofilament on each foot. Vibratory sensation is normal. He is hyperreflexic on the right side and Achilles reflexes absent on the left. Assessment and Plan Assessment and Plan (1) Tinea unguium: (2) Type 2 diabetes mellitus with other circulatory complications: (3) Hemiparesis affecting left side as late effect of cerebrovascular accident: (4) Unsteady gait when walking: (5) Gait instability: Plan Routine toenail care performed without incident. Follow-up in 3 months. Acute Procedures Podiatry Nail Debridement Class B Findings Absent posterior tibial pulse: bilateral Advanced trophic changes as evidenced by any three of the following: decreased hair growth, nail changes (thickening) and skin texture (thin or shiny) Class C Findings Claudication: No Temperature changes: No Edema: Yes Nail debridement paresthesia (abnormal spontaneous sensations in the feet): No Burning: No Qualifies If: Qualifiers If:: A patient qualifies for nail debridement if they have: 1 class A finding (Q7) 2 class B findings (Q8) OR 1 class B & 2 class C findings in addition to a primary condition (Q9) Nail Procedure Nail Procedure Time out: Yes Nail procedure: other (Toenail debridement) Number of affected nails: 10 Location (toes): left and right Procedure successful: Yes Patient tolerated procedure: well and no complications Additional comments: Toenails 1 through 10 were sharply debrided with nail nippers without incident
== END 2024-12-29 13:20 | disposition home or self-care (01) ==
LOC: WC 13:19
PROVIDERS: PCP Internal Medicine; Visit Provider Physician Assistant
DX: B35.1 Tinea unguium (principal); E11.59 Type 2 diabetes mellitus with other circulatory complications; I69.354 Hemiplegia and hemiparesis following cerebral infarction affecting left non-dominant side; R26.81 Unsteadiness on feet; R26.89 Other abnormalities of gait and mobility
CPT/HCPCS: 11721

== ENCOUNTER 2025-01-26 06:56 | Outpatient (OUT) | payer BC, MEDICARE, SELFPAY ==
--- OUTSIDE RECORDS SUMMARY | 2024-03-29 08:00 | XMS_ITS ---
Author Organization The [facility] in [place] Address [address] [place] [address] Care Team Providers Care Filtration Plant Operator Name Role Phone None, Unknown or Primary Care Provider Unavailab Alicia Escobar Unavailable [phone] REASON FOR VISIT Nail Care Encounters Encounter Location Date Provider Diagnosis [facility] (PODIATRY) [address] [place] [address] [place] [address] 03/29/2024 Alicia Blake Plan Of Treatment No Information Progress Notes * Kei CATESsDOB:[birth year] (69 yo M)Acc No.[id number]:03/29/2024 UNLOCKED PROGRESS NOTE Nurse Visit Patient: Lorelei MATUTE :?JAN SotoCDOB:1955???Age:68 Y ???Sex:MaleDate:03/29/2024Phone:[phone]:[facility]MER[id number]:Unknown or None Subjective: * Chief Complaints: * 1 . Nail Care. * Medical History: Objective: * Vitals: Assessment: Plan: * Treatment: * * Electronic signature of Alicia Blake PA-C on 01/26/2025 at 07:00 AM ESTSign off status: PendingVisit Status:?N/S N/C (No Show/No Charge) * Provider: Andrez Blake PA-C Date: 0 03/29/2024 Generated for Printing/Faxing/eTransmitting on:?01/26/2025 07:00 AM EST
--- OUTSIDE RECORDS SUMMARY | 2025-01-26 06:59 | XMS_ITS | CCD ---
Author Organization [facility] Providers Care Nurse Orthopaedic Name Role Phone PHYSICIAN, DEFAULT Unavailable Unavailable [...] Care Provider Librado Connor DO Attending Provider Allergies Allergy ClassificationReported Allergen(s)Allergy TypeDate of OnsetReaction(s) Facility (9 sources)Sulfamethoxazole / TrimethoprimDrug AllergyUnknowMineral Area Regional Medical Center [facility] Other (1 source)Sulfonamides (Antibiotic)Drug allergy (disorder)94-09-9684CdhSt. [facility] (13 sources)sulfADIAZINEDrug Lhqylky03-78-2645Lcezifw, Unknown ReactionSycamore Medical Center (1 source)Allergies ReconciledPropensity to adverse reactionsDekalb Memorial HospitalDevcon Security Services Other (6 sources)Substance with sulfonamide structure and antibacterial mechanism of action (substance)Drug allergyUnkst. rose dominican hospital – san martín campusDevcon Security Services Other (6 sources)Sulf-10Drug allergyWestern [facility] Center [facility] Other (6 sources)Sulfamethoxazole-Trimethoprim *ANTI-INFECTIVE AGENPropensity to adverse reactionsWestern Missouri Mental Health Center [facility] Other (1 source)patient allergy list reviewed by nurse or physiciaPropensity to adverse djybvyvqq67-03-2637Mttqfwm:[facility] Other (2 sources)Sulfamethoxazole / Trimethoprim; Translations: [sulfamethoxazole-trimethoprim]Drug Yltdohd20-08-0241XiilzkTogus Va Medical Center Repository (7 sources)SulfamethoxazoleDrug Pmiwequ26-21-1502Tdwkwww ReactionSycamore Medical Center (7 sources)TrimethoprimDrug Wvzphvg35-75-3382Dmtibex [facility] Medications Current Medications MedicationDrug Class(es)DatesSig (Normalized)Sig (Original)Accu-Chek SmartView - (6 sources)Accu-Chek SmartView - USE TO TEST BLOOD SUGAR ONCE A DAY for 90 ActiveamLODIPine 10 mg oral tablet (20 sources)Dihydropyridine Calcium Channel BlockerStart: 09-21-2023 End: 42-19-0210wnih 1 tablet by mouth once dailyAmlodipine 10 mg tablet Active 0 .ROUTE .COMPLEX 90 3 September 12, 2024 7:28pm TAKE 1 TABLET BY MOUTHEVERY DAY Complies with drug therapyStart: 06-03-2023 End: 12-42-7287dfcb 1 tablet by mouth once dailyAmlodipine 10 mg tablet Discontinued 10 MG PO Daily June 03, 2023 12:00am September 21, 2023 11:51am take 1 tablet by mouth once dailyamLODIPine Besylate 10 MG TAKE 1 TABLET BY MOUTH EVERY DAY Activeatorvastatin 20 mg oral tablet (20 sources)HMG-CoA Reductase InhibitorStart: 03-41-6194yaqy 1 tablet by mouth once daily in the eveningAtorvastatin 20 mg tablet Active 0 .ROUTE .COMPLEX 90 3 August 20, 2024 6:11pm TAKE 1 TABLET BY MOUTH EVERY EVENING FOR 90 DAYS Complies with drug therapyStart: 06-03-2023 End: 06-07-5386hxje 1 tablet by mouth once daily in the eveningAtorvastatin 20 mg tablet Discontinued 20 MG PO Every evening 90 90 November 06, 2023 12:00am August 20, 2024 6:12pmtake 1 tablet by mouth every twenty-four hours Atorvastatin Calcium 20 MG 1 tablet Orally Once a day Activeazithromycin 250 mg oral tablet (1 source)Macrolide AntimicrobialStart: 09-85-8852Lwtzniissvih 250 mg tablet Active 250 MG PO [...] 11:57am Complieswith drug therapy Start: 11-18-2023 End: 96-74-1193jixe 1 tablet by mouth twice daily at mealtimeCarvedilol 12.5 mg tablet Discontinued 0 .ROUTE .COMPLEX 180 November 18, 2023 8:52pm December 10, 2024 11:58am TAKE 1 TABLET BY MOUTH TWICE A DAY WITH FOOD FOR 30 DAYS Start: 06-03-2023 End: 81-54-0976zigo 1 tablet by mouth twice dailyCarvedilol 12.5 mg tablet Discontinued 12.5 MG PO Twice daily June 03, 2023 12:00am November 8:52pmStart: 34-22-5175nhko 1 tablet by mouth every twelve hoursCarvedilol 12.5 MG 1 tablet with food Orally Twice a day for 30 days Feb, Activetake 1 tablet by mouth every twelve hoursCarvedilol 6.25 MG 1 tablet with food Orally Twice a day Activeclopidogrel 75 mg oral tablet (20 sources)P2Y12 Platelet InhibitorStart: 09-21-2023 End: 73-36-7224ageq 1 tablet by mouth once dailyClopidogrel 75 mg tablet Active 0 .ROUTE .COMPLEX 90 3 September 12, 2024 7:28pm TAKE 1 TABLET BY MOUTH EVERY DAY Complies with drug therapyStart: 06-03-2023 End: 00-47-3945nipu 1 tablet by mouth once dailyClopidogrel 75 mg tablet Discontinued 75 MG PO Daily June 03, 2023 12:00am September 21, 2023 11:51am take 1 tablet by mouth once dailyClopidogrel Bisulfate 75 MG TAKE 1 TABLET BY MOUTH EVERY DAY Activeeplerenone 25 mg oral tablet (3 sources)Aldosterone AntagonistStart: 78-26-9582iytg 1 tablet by mouth once dailyEplerenone 25 mg tablet Active 0 .ROUTE .COMPLEX 90 3 November 13, 2024 8:36am TAKE 1 TABLET BY MOUTH EVERY DAY Complies with drug therapyStart: 07-14-2024 End: 43-10-3361eytd 1 tablet by mouth once dailyEplerenone 25 mg tablet Discontinued 25 MG PO Daily 30 30 July 14, 2024 12:00am November 13, 2024 8:36amfluocinolone acetonide 0.1 mg/ml otic solution (8 sources)CorticosteroidStart: 68-31-4830Nkqivwluvhhd Acetonide 0.01 % 5 drops into affected ear Otic weekly as needed for itching for 30 days June, ActiveStart: 20-98-1149Tksgznundvma Acetonide 0.01 % 5 drops into affected ear Otic weekly as needed for itching for 30 days June, ActivehydrALAZINE hydrochloride 10 mg oral tablet (20 sources)Arteriolar VasodilatorStart: 57-80-9703kkfy 1 tablet by mouth twice dailyHydralazine 10 mg tablet Active 0 .ROUTE .COMPLEX 180 3 November 18, 2023 8:52pm TAKE 1 TABLET BY MOUTH TWICE A DAY Complies with drug therapyStart: 06-03-2023 End: 60-24-9380eelq 1 tablet by mouth twice dailyHydralazine 10 [...] / neomycin 3.5 mg/ml / polymyxin b 78662 unt/ml otic suspension (3 sources)Aminoglycoside Antibacterial, Polymyxin-class Antibacterial, CorticosteroidStart: 74-58-2196Hsmbbzry-Polymyxin-Hc 3.5-10,000-1 mg/mL-unit/mL-% drops,suspension Active 4 DROPS OTIC Every 8 hours 10 7 0 January 08, 2024 1:00am Complies with drug therapylisinopril 40 mg oral tablet (12 sources)Angiotensin Converting Enzyme InhibitorStart: 12-16-0516qhey 1 tablet by mouth once dailyLisinopril 40 mg tablet Active 0 .ROUTE .COMPLEX 90 November 18, 2023 8:52pm TAKE 1 TABLET BY MOUTH EVERY DAY FOR 30 DAYS Complies with drug therapyStart: 06-03-2023 End: 69-83-6599eaoe 1 tablet by mouth once dailyLisinopril 40 mg tablet Discontinued 40 MG PO Daily June 03, 2023 12:00am November 18, 2023 8:52pm Start: 94-06-0311nfbv 1 tablet by mouth every twenty-four hoursLisinopril 40 MG 1 tablet Orally Once a day for 30 days Feb, ActivemetFORMIN hydrochloride 1000 mg oral tablet (20 sources)BiguanideStart: 69-19-4140vlcq 1 tablet by mouth before breakfast Metformin 1,000 mg tablet Active 0 .ROUTE .COMPLEX 180 July 22, 2024 11:05pm TAKE 1 TABLET BY MOUTH BEFORE BREAKFAST AND EVENING MEAL Complies with drug therapyStart: 11-11-2023 End: 36-16-5052pwza 1 tablet by mouth once dailyMetformin 1,000 mg tablet Discontinued 1000 MG PO Daily 90 90 November 11, 2023 9:46am July 22, 2024 11:05pmStart: 06-05-2023 End: 35-45-0951hary 1 tablet by mouth before breakfastMetformin 1,000 mg tablet Discontinued 0 .ROUTE .COMPLEX 180 3 June 05, 2023 7:39am November 11, 2023 9:47am TAKE 1 TABLET BY MOUTH BEFORE BREAKFAST AND EVENING MEALStart: 06-05-2023 End: 52-92-3739mckc 1 tablet by mouth before breakfastMetformin Discontinued 0 .ROUTE .COMPLEX 180 June 05, 2023 7:39am November 11, 2023 9:47am TAKE 1 TABLET BY MOUTH BEFORE BREAKFAST AND EVENING MEALStart: 06-03-2023 End: 95-35-3293vywo 1 tablet by mouth twice daily at mealtimeMetformin 1,000 mg tablet Discontinued 1000 MG PO Twice daily with meals June 03, 2023 12:00am June 05, 2023 7:39amtake 1 tablet by mouth before breakfastmetFORMIN HCl 1000 MG TAKE 1 TABLET BY MOUTH BEFORE BREAKFAST AND EVENING MEAL ActiveSemaglutide (3 sources)Start: 15-99-0252Dxwvrmlnsbb (Ozempic) 0.25 mg or 0.5 mg (2 mg/3 mL) pen injector Active 2 MG SUBCUT every week 3 December 10, 2024 11:49am for 4 weeks Complies with drug therapyStart: 03-16-2024 End: 63-30-7021Xotdmhtgqdu (Ozempic) 0.25 mg or 0.5 mg (2 mg/3 mL) pen injector Discontinued 0.25 MG SUBCUT every week 1.March 16, 2024 1:00December 10, 2024 11:49am for 4 weeksStart: 10-75-4328Scmarkpxmop (Ozempic) 0.25 mg or 0.5 mg (2 mg/3 mL) pen injector Active 0.25 MG SUBCUT every week 1. 4704 16March 16, 2024 1:00am for 4 weeks Completed/Discontinued Medications MedicationDrug Class(es)DatesSig (Normalized)Sig (Original)amoxicillin 875 mg oral tablet (10 sources)Penicillin-class AntibacterialStart: 01-08-2024 End: 19-66-9345ieeq 1 tablet by mouth twice dailyAmoxicillin 875 mg tablet Discontinued 875 MG PO Twice daily 14 7 0 January 08, 2024 1:00am July 14, 2024 8:32amStart: 06-03-2023 End: 92-59-0904jcai 1 tablet by mouth twice dailyAmoxicillin 875 mg tablet Discontinued 875 MG PO Twice daily 20 10 0 June 03, 2023 12:00am July 10, 2023 8:58am Left otitis media Tinnitus Otitis media, unspecified, left ear Tinnitus, unspecified eardapagliflozin 10 mg oral tablet (20 sources)Sodium-Glucose Cotransporter 2 InhibitorStart: 06-19-2023 End: 02-24-1155nxjv 1 tablet by mouth once dailyDapagliflozin Propanediol (Farxiga) 10 mg tablet Discontinued 0 .ROUTE .COMPLEX 90 June 19, 2023 10:52pm March 30, 2024 1:41pm TAKE 1 TABLET BY MOUTH EVERY DAYStart: 06-03-2023 End: 64-60-4415owse 1 tablet by mouth once dailyDapagliflozin Propanediol (Farxiga) 10 mg tablet Discontinued 10 MG PO Daily June 03, 2023 12:00am June 19, 2023 10:52pmtake 1 tablet by mouth once dailyFarxiga 10 MG TAKE 1 TABLET BY MOUTH EVERY DAY ActiveDulaglutide (12 sources)GLP-1 Receptor AgonistStart: 11-30-2023 End: 52-20-9260oqvlne 4.5 mg by subcutaneous injection every weekDulaglutide (Trulicity) 4.5 mg/0.5 mL pen injector Discontinued 0 .ROUTE .COMPLEX 2 November 30, 2023 12:20pm March 16, 2024 9:52am INJECT 4.5MG SUBCUTANEOUSLY ONCE A WEEK;Start: 08-28-2023 End: 62-60-9606Mnzjgxndesv (Trulicity) 4.5 mg/0.5 mL pen injector Discontinued 4.5 MG SUBCUT every week August 12:00am November 30, 2023 12:21pmStart: 06-03-2023 End: 95-44-5433Ebekrlbuohr (Trulicity) 4.5 mg/0.5 mL pen injector Discontinued [...] mL pen injector (13 sources)Start: 11-30-2023 End: 02-28-0411mdyxff 4.5 mg by subcutaneous injection every weekDulaglutide (Trulicity) 4.5 mg/0.5 mL pen injector Discontinued 0 .ROUTE .COMPLEX 2 November 30, 2023 12:20pm March 16, 2024 9:52am INJECT 4.5MG SUBCUTANEOUSLY ONCE A WEEK;Start: 47-31-1790nmbixn 4.5 mg by subcutaneous injection every week Dulaglutide (Trulicity) 4.5 mg/0.5 mL pen injector Active 0 .ROUTE .COMPLEX 2 November 30, 2023 11:20am INJECT 4.5MG SUBCUTANEOUSLY ONCE A WEEK;Start: 08-28-2023 End: 52-11-2494Jcjzgixdkhj (Trulicity) 4.5 mg/0.5 mL pen injector Discontinued 4.5 MG SUBCUT every week August 12:00am November 30, 2023 12:21pmStart: 08-28-2023 End: 40-35-2068Cjmynlnvffi (Trulicity) 4.5 mg/0.5 mL pen injector Discontinued 4.5 MG SUBCUT every week August 11:00pm November 30, 2023 11:21amStart: 64-17-7348Sgwxceghvay (Trulicity) 4.5 mg/0.5 mL pen injector Active 4.5 MG SUBCUT every week August 28, 2023 12:00amStart: 06-03-2023 End: 15-84-7614Dzfyegjrfqx (Trulicity) 4.5 mg/0.5 mL pen injector Discontinued 4.5 MG SUBCUT every week June 02, 2023 11:00pm July 10, 2023 8:15amStart: 06-03-2023 End: 44-43-4405Coguomemfqj (Trulicity) 4.5 mg/0.5 mL pen injector Discontinued 4.5 MG SUBCUT every week June 03, 2023 12:00am July 10, 2023 9:15amStart: 36-03-6926Reuhvhxnazk (Trulicity) 4.5 mg/0.5 mL pen injector Active 4.5 MG SUBCUT every week June 022:00amSemaglutide (1 source)Start: 08-12-2023 End: 68-13-8558ewlk 7 mg by mouth once dailySemaglutide Discontinued 7 MG PO Daily 30 30 August 12, 2023 5:46pm August 28, 2023 3:36pmsemaglutide 7 mg oral tablet (2 sources)Start: 08-12-2023 End: 79-32-1268jjcy 1 tablet by mouth once dailySemaglutide 7 mg tablet Discontinued 7 MG PO Daily 30 30 0 August 12, 2023 5:46pm August 28, 2023 3:36pm Start: 07-10-2023 End: 65-35-5780qatk 1 tablet by mouth once dailySemaglutide (Rybelsus) 3 mg tablet Discontinued 3 MG PO Daily 30 30 0 July 10, 2023 12:00am August 12, 2023 5:46pmSemaglutide (Rybelsus) 3 mg tablet (5 sources)Start: 07-10-2023 End: 12-26-9925xmsv 1 tablet by mouth once dailySemaglutide (Rybelsus) 3 mg tablet Discontinued 3 MG PO Daily 30 30 July 09, 2023 11:00pm August 12, 2023 4:46pmStart: 07-10-2023 End: 83-81-0263fmwf 1 tablet by mouth once dailySemaglutide (Rybelsus) 3 mg tablet Discontinued 3 MG PO Daily 30 30 July 10, 2023 12:00am August 12, 2023 5:46pmStart: 12-48-8895nfri 1 tablet by mouth once dailySemaglutide (Rybelsus) 3 mg tablet Active 3 MG PO Daily 30 30 July 10, 2023 12:00amSemaglutide 7 mg tablet (3 sources)Start: 08-12-2023 End: 34-27-3334hhxh 1 tablet by mouth once dailySemaglutide 7 mg tablet Discontinued 7 MG PO Daily August 12, 2023 5:46pm August 28, 2023 3:36pm Start: 08-12-2023 End: 81-39-0913mlxm 1 tablet by mouth once dailySemaglutide 7 mg tablet Discontinued 7 MG PO Daily August 12, 2023 4:46pm August 28, 2023 2:36pm simvastatin 40 mg oral tablet (18 sources)HMG-CoA Reductase InhibitorStart: 11-06-2023 End: 02-26-6224mabk 1 tablet by mouth once dailySimvastatin 40 mg tablet Discontinued 40 MG PO Daily November 06, 2023 12:00am November 06, 2023 12:39pmStart: 07-28-2023 End: 65-49-6290ttqt 1 tablet by mouth once dailySimvastatin 40 mg tablet Discontinued 0 .ROUTE .COMPLEX 90 July 28, 2023 6:03pm September 22, 2023 11:14am TAKE 1 TABLET BY MOUTH EVERY DAYStart: 06-10-2023 End: 65-26-6462kzcp 1 tablet by mouth once dailySimvastatin 40 [...] disease (15 sources)Cerebral infarction; Translations: [Cerebral infarction, unspecified]26-38-6687UzuqbxrZkouiwew mellitus with complications (20 sources)Hyperglycemia due to type 2 diabetes mellitus; Translations: [Type 2 diabetes mellitus with hyperglycemia]ChronicDiabetes mellitus without complication (1 source)Type 2 diabetes mellitus without complication; Translations: [Type 2 diabetes mellitus without complications]ChronicDisorders of lipid metabolism (20 sources)Pure hypercholesterolemia; Translations: [Familial hypercholesterolemia]Onset: 44-85-6894KpysqiqXboiepyfw hypertension (20 sources)Essential hypertension; Translations: [Essential (primary) hypertension]Onset: 99-45-1763AbuqbyzOutdr valve disorders (20 sources)Aortic valve disorder; Translations: [Nonrheumatic aortic (valve) stenosis]Onset: 88-13-0225IswohrbRqlmmdi on above:Echo: LVEF 65%, LOVELY 1.45, Velocity 292, gradient 34/20 - 01/2023Echo: LVEF 65%, normal RV size/function, (LOVELY 1.45, Velocity 2.92, gradient 34/20) - 01/2023,Echo: LVEF 68%, normal RV size/function, (LOVELY 0.88, velocity 3.63, gradient 40/31) - 08/2024Hyperplasia of prostate (1 source)Benign prostatic hypertrophy without outflow obstruction; Translations: [Hypertrophy (benign) of prostate without urinary obstruction and other lower urinary tract symptoms [LUTS]]Onset: 45-28-4890IbmhqukRohkiiwvimulia (1 source)Osteoarthritis; Translations: [Unspecified osteoarthritis, unspecified site]ChronicOther acquired deformities (10 sources)Joint contracture of the ankle and/or foot; Translations: [Contracture, left ankle]ChronicOther aftercare (9 sources)H/O: high risk medication; Translations: [Other care home (current) drug therapy]EpisodicOther aftercare (1 source)Long-term current use of drug therapy; Translations: [Other care home (current) drug therapy]EpisodicOther and ill-defined cerebrovascular disease (17 sources)Cerebral atherosclerosis; Translations: [Cerebral atherosclerosis] 50-55-3368MeueeshGlxdclo on above:Carotid US: < 50% B/L - 2017Carotid US: < 50% B/L - 2018,Carotid US: < 50% B/L 07/2024Other and ill-defined cerebrovascular disease (9 sources)Cerebral atherosclerosis; Translations: [Cerebral atherosclerosis] ChronicOther and ill-defined cerebrovascular disease (1 source)Cerebrovascular disease; Translations: [Cerebrovascular disease, unspecified]Onset: 37-33-3254KnodpspOhrec and unspecified benign neoplasm (9 sources)Benign neoplasm of colon; Translations: [Benign neoplasm of descending colon]EpisodicOther circulatory disease (10 sources)Cardiovascular symptoms; Translations: [Other specified symptoms and signs involving the circulatory and respiratory systems]EpisodicOther circulatory disease (7 sources)Carotid bruit; Translations: [Other specified symptoms and signs involving the circulatory and respiratory systems]33-17-1921ChckdidkScrtt circulatory disease (2 sources)Personal history of transient ischemic attack (TIA), and cerebral infarction without residual deficits; Translations: [Personal history of transient ischemic attack (TIA), and cerebral infarction without residual deficits]Onset: 49-04-6285ZzyggknmDjwmh congenital anomalies (1 source)Congenital spondylolysis of lumbosacral region; Translations: [Congenital spondylolysis, lumbosacral region]Onset: 39-24-1611QrwtubhOmijb connective tissue disease (9 sources)Pain in limb; [...] externa; Translations: [Unspecified otitis externa, left ear] 10-40-0267PeqdlmrDqshz ear and sense organ disorders (1 source)Unspecified otitis externa, left ear; Translations: [Infective otitis externa, unspecified]81-26-5829OtbxrycNnbis ear and sense organ disorders (1 source)Tinnitus; Translations: [Tinnitus, unspecified ear]32-21-5950Xyevtvje Other ear and sense organ disorders (1 source)Tinnitus, unspecified ear; Translations: [Tinnitus, unspecified] 87-06-4568AoxklojwEwuut ear and sense organ disorders (2 sources)Impacted cerumen; Translations: [Impacted cerumen, unspecified ear] 97-62-6377YgfuaizgPpkjy ear and sense organ disorders (1 source)Impacted cerumen, unspecified ear; Translations: [Impacted cerumen] 01-86-0107FhozctbcKtzny non-traumatic joint disorders (10 sources)Arthralgia of the lower leg; Translations: [Pain in left knee] EpisodicOther nutritional; endocrine; and metabolic disorders (9 sources)Body mass index 30+ - obesity; Translations: [Body mass index (BMI) 33.0-33.9, adult]ChronicOther nutritional; endocrine; and metabolic disorders (15 sources)Obesity; Translations: [Other obesity due to excess calories] 55-18-1846KopmswxRrosa nutritional; endocrine; and metabolic disorders (4 sources)Other obesity due to excess caloriesChronicOther nutritional; endocrine; and metabolic disorders (4 sources)Body mass index (BMI) 33.0-33.9, adultChronicOther nutritional; endocrine; and metabolic disorders (1 source)Obese class I; Translations: [Body mass index 33.0-33.9, adult]Onset: 01-88-1510CxhbndaFlvwy nutritional; endocrine; and metabolic disorders (6 sources)Hypercalcemia; Translations: [Hypercalcemia]35-42-8445SkmlahfHryod nutritional; endocrine; and metabolic disorders (3 sources)Hypercalcemia; Translations: [Hypercalcemia]07-37-2737MhfnjqgYczee nutritional; endocrine; and metabolic disorders (3 sources)Obesity, unspecified; Translations: [Obesity, unspecified]11-11-2023 ChronicOther screening for suspected conditions (not mental disorders or infectious disease) (8 sources)Encounter for screening for malignant neoplasm of prostate; Translations: [Encounter for screening for malignant neoplasm of colon]Onset: 44-59-7909JjbcrdbsCzwssgm on above:PSA: 0.75 - 54PSA: 0.75 - 06/2023, 0.53 - 7/2024Other upper respiratory infections (1 source)Acute maxillary sinusitis; Translations: [Acute maxillary sinusitis, unspecified]EpisodicOtitis media and related conditions (2 sources)Otitis media of left ear; Translations: [Otitis media, unspecified, left ear]06-24-9538DqtqbhbqHoszjduqbqn; intervertebral disc disorders; other back problems (17 sources)Lumbar spondylosis; Translations: [Spondylosis without myelopathy or radiculopathy, lumbar region]34-81-6361QacvwgeLfjwwehyqkh; intervertebral disc disorders; other back problems (1 source)Low back pain; Translations: [Low back pain, unspecified]Episodic Unclassified (1 source)Long-term current use of drug therapy; Translations: [Long-term (current) use of other medications]Onset: 06-24-2017 Past or Other Problems Problem ClassificationProblemDateDocumented DateEpisodic/ChronicAllergic reactions (1 source)Allergic urticaria; Translations: [Allergic urticaria]Onset: 27-26-6571SgywowzkD Codes: Adverse effects of medical drugs (1 source)Adverse reaction to drug; Translations: [Adverse effect of other systemic antibiotics, initial encounter]Onset: 38-24-5908Lpkjyero Gastrointestinal hemorrhage (1 source)Hematochezia; Translations: [Blood in stool]Onset: 27-33-3039Scuzdtnf Other and unspecified benign neoplasm (1 source)Benign neoplasm of descending colon; Translations: [Benign neoplasm of descending colon]Onset: 17-76-3560SjbnhflxSmkyr ear and sense organ disorders (1 source)Acute actinic otitis externa; Translations: [Acute actinic otitis externa, bilateral]Onset: 70-04-3954GtdcadhwWpckghbtb and history of mental health and substance abuse codes (1 source)History of tobacco use; Translations: [Personal history of tobacco use, presenting hazards to health]Onset: 22-03-5061FworkrnuBwhocgrwmdvp (9 sources)Low back pain with radiation; Translations: [Low back pain with radiation]Viral infection (10 sources)Disease caused by 2019-nCoV; Translations: [COVID-19] Results Test NameValueInterpretationReference FuoigQgnlovwk99ee 51-85-148100Yfsyriw's called back and I informed her of message per Dr. oL.Normal [facility] HospitalOffice Visiton 86-28-5331Xqzwup-up visit [id number] Burgess Trevin Cates 1955 M Date Provider Department Center 09/13/2024 [facility] Family History Problem Relation Age of Onset Heart disease Neg Hx Family Status - Relation Status Age at Neg Hx Level of Service:37367 GA OFFICE/OUTPATIENT NEW MODERATE MDM 45 MINUTES (25) NormalTrumbull Memorial HospitalBasophils Auto (Bld) [#/Vol]on 56-84-2496Lgrurolnu (Bld) [#/Vol]0.1 10 3/uL0.0-0.1FSheltering Arms HospitalBasophils/100 WBC Auto (Bld)on 77-22-8027Bzvplknls/100 WBC (Bld)0.8 % 0.2-2.0[facility] CenterEosinophils/100 WBC Auto (Bld)on 40-14-3499Jxvhmumbkzo/100 WBC (Bld)2.4 %0.9-7.0[facility] Erythrocyte distribution width Auto (RBC) [Ratio]on 67-77-2237Idfbahzfmar distribution width (RBC) [Ratio]14.5 %11.0-15.0[facility] Estimated glomerular filtration rate (GFR) non- Americanon 09-10-2023 GFR/1.73 sq M.predicted among non-blacks MDRD (S/P/Bld) [Vol rate/Area] mL/min/{1.73_m2}>=60[facility] CenterGlobulin Calc (S) [Mass/Vol]on 31-47-9751Lakahcjm (S) [Mass/Vol]4.1 g/dLSycamore Medical CenterHematocrit Auto (Bld) [Volume fraction]on 15-41-0503Ftrwfbbony (Bld) [Volume fraction]48.4 %42.0-54.0[facility] CenterHemoglobin [Mass/volume] in Bloodon 12-11-3482Qnexlmrhhu (Bld) [Mass/Vol]16.0 g/dL14.0-18.0 [facility] CenterLaboratory - Chemistry and Chemistry - challengeon 26-66-7738Cjkfdzo [Mass/Vol]4.1 g/dL3.4-5.0[facility] CenterALP [Catalytic activity/Vol]86 U/J71-123NkqnmdbfbSycamore Medical CenterALT [Catalytic activity/Vol]47 U/G19-69FexjthkstSycamore Medical Center AST [Catalytic activity/Vol]23 U/C96-11HzfpvidzcSycamore Medical Center Bilirubin [Mass/Vol]0.6 mg/dL0.2-1.0[facility] CenterCalcium [Mass/Vol]10.2 mg/dLHigh8.5-10.1FSheltering Arms HospitalChloride [Moles/Vol]102 mmol/W72-791XlhxsnsoiSycamore Medical CenterCO2 [Moles/Vol]20.7 mmol/LLow21.0-32.0[facility] CenterCreatinine [Mass/Vol]1.01 mg/dL0.70-1.30[facility] CenterGFR/1.73 sq M.predicted MDRD (S/P/Bld) [Vol rate/Area]mL/min/{1.73_m2}>=60[facility] Glucose [Mass/Vol]151 mg/xXKhrn84-332VnofboubsSycamore Medical CenterPotassium [Moles/Vol]3.9 mmol/L3.5-5.1FSheltering Arms HospitalProtein [Mass/Vol] 8.2 g/dL6.4-8.2FMercy Health – The Jewish Hospitalodium [Moles/Vol]136 mmol/L 136-145[facility] Medical CenterUrea nitrogen [Mass/Vol]26.0 mg/dLHigh 7.0-18.0[facility] CenterUrea nitrogen/Creatinine [Mass ratio] 25.7 mg/mgSycamore Medical CenterLaboratory - Hematology and Cell countson 04-43-4574Gmfjahec granulocytes/100 WBC (Bld)0.2 %0.0-0.5FSheltering Arms HospitalLeukocytes [#/volume] corrected for nucleated erythrocytes in Blood by Automated counon 56-17-7424BMZ corrected for nucl RBC Auto (Bld) [#/Vol]12.7 10 3/uLHigh4.0-11.0[facility] Lymphocytes Auto (Bld) [#/Vol]on 17-05-6711Xyfncaoadjj (Bld) [#/Vol]4.5 10 3/uL High1.2-3.8[facility] CenterLymphocytes/100 WBC Auto (Bld)on 61-70-5485Jvhchsjtsqn/100 WBC (Bld)35.0 %20.5-60.0[facility] CenterMCH Auto (RBC) [Entitic mass]on 96-13-7002KCR (RBC) [Entitic mass]29.1 pg 25.9-34.0[facility] CenterMCHC Auto (RBC) [Mass/Vol]on 57-07-0980VWOE (RBC) [Mass/Vol]33.1 g/dL29.9-35.2FSheltering Arms HospitalMCV Auto (RBC) [Entitic vol]on 07-15-3473UUC (RBC) [Entitic vol]88.2 fL 80.0-94.0[facility] CenterMonocytes Auto (Bld) [#/Vol]on 41-34-2853Xevwdvqxu (Bld) [#/Vol]1.1 10 3/uLHigh0.3-0.8[facility] CenterMonocytes/100 WBC Auto (Bld)on 17-05-5576Xiufjrauh/100 WBC (Bld) 8.6 %1.7-12.0[facility] CenterNeutrophils Auto (Bld) [#/Vol]on 16-28-4961Jhlfejjkqyz (Bld) [#/Vol]6.7 10 3/uLHigh1.4-6.5FSheltering Arms HospitalNeutrophils/100 WBC Auto (Bld)on 13-93-3189Cemtesqzisa/100 WBC (Bld)53.0 %43.0-75.0[facility] CenterNo Panel Informationon 70-92-5304Lfaebnmdvoc # (Auto)0.3 10 3/uL0.0-0.7FSheltering Arms HospitalImmature Granulocyte # (Auto)0.03 10 3/uL0.00-0.03[facility] CenterPlatelet mean volume Auto (Bld) [Entitic vol]on 90-41-6722Kafdhpkv mean volume (Bld) [Entitic vol]10.3 fL9.5-13.5FSheltering Arms Hospital Platelets Auto (Bld) [#/Vol]on 57-74-7778Hsomsxnfl (Bld) [#/Vol]237 10 3/uL 150-450[facility] CenterRBC Auto (Bld) [#/Vol]on 65-25-0119HIK (Bld) [#/Vol]5.49 10 6/uL4.70-6.10[facility] Hospitalerum or plasma albumin/globulin mass ratioon 67-67-3900Czllmtf/Globulin [Mass ratio]1.0 {ratio}[facility]erm[facility] Hospitalerum or plasma anion gap determination on 97-39-1090Lyurd gap [Moles/Vol]17.2 mmol/LFSheltering Arms Hospital Ambulatory Visit Summaryon 67-11-6448Ciiqafqall Visit Summary BURGESS CATES JR :1955 Visit [...] Personal history of colonic polyps Pure hypercholesterolemia [facility]amBlue [facility] Hospitalyara [facility] Surgery Office/Clinic Noteon 09-37-2738Szfkivp Surgery Office/Clinic NoteChief Complaint colonoscopy follow up [...] 12/19/2021 Recorded SARS-CoV-2 (COVID-19) Ad26 vaccine 04/24/2020 RecordedMedina HospitalComment on above:Result Comment: Electronically Signed By: RANDY MILLER, John Tejada\Date and Time Signed: 10/01/22 16:41 EDTReminderson 10-01-2022 Reminders From: Aimee France LPN To: N - Clinical; Sent: 10/01/2022 16:12:00 EDT Show up: 08/13/2027 07:00:00 EDT Subject: colonoscopy recall Due Date/Time: 09/12/2027 07:00:00 EDT Reminder/Recall Patient due for surveillance colonoscopy 09/12/2027.[facility] HospitalPathology Noteon 78-92-2687Lywafrnsr Note [id number]#1.00CD:127Medina HospitalOutside Colonoscopyon 57-65-5931Emdfnth Colonoscopy [id number]#1.00CD:127[facility] HospitalLab Reportson 49-00-2690Nna Reports [id number]#1.00CD:127[facility] HospitalAmbulatory Visit Summaryon 38-11-2522Ruwxcqhqci Visit Summary BURGESS CATES JR :1955 Visit [...] Personal history of colonic polyps Pure hypercholesterolemia Med[facility] HospitalConsent for Procedure/Surgeryon 26-84-0467Yrzkijc for Procedure/Surgery [id number]#1.00CD:[address] [place], [place] [address]Facesheeton 48-31-4932Fvozmeane [id number]#1.00CD:[address] [place], [place] [address]A1C with Estimated Average Gluon 82-17-8925H7G with Estimated Average Glu [employer] Other CBC AUTO DIFFon 35-11-7376GZNM #0.1 103/ulNormal 0.0-0.1The [facility] HospitalComment on above:Performed By: #### CBC #### [facility] [address] [address] [address] Tai GodwinBasophils/100 WBC (Bld)1.0 %Normal0.2-2.0The [facility] Comment on above:Performed By: #### CBC #### [facility] [address] [address] [address] Tai Arroyo #0.1 103/ulNormal0.0-0.7The [facility] HospitalComment on above: Performed By: #### CBC #### [facility] [address] [place] [address] Dr. Tai Kwanosinophils/100 WBC (Bld)1.2 %Normal0.9-7.0The [facility] Comment on above:Performed By: #### CBC #### [facility] [address] [place] [address] Dr. Tai Kwanrythrocyte distribution width (RBC) [Ratio]14.3 %Wgyzpw58.0-15.0 The [facility] HospitalComment on above:Performed By: #### CBC #### [facility] [address] [place] [address] Dr. Tai GodwinHematocrit (Bld) [Volume fraction]45.6 %Zqyxie83.0-54.0The [facility] HospitalComment on above:Performed By: #### CBC #### [facility] [address] [place] [address] Dr. Tai GodwinHemoglobin (Bld) [Mass/Vol]15.4 g/zRUztwaj39.0-18.0The [facility] HospitalComment on above:Performed By: #### CBC #### [facility] [address] [place] [address] Dr. Tai Cano #0.03 10e3/ulNormal0.00-0.03The [facility] HospitalComment on above:Performed By: #### CBC #### [facility] [address] [place] [address] Dr. Tai Cano %0.3 %Normal0.0-0.5The [facility] Hospitalment on above: Performed By: #### CBC #### [facility] [address] [address] [address] Tai Lynne #3.1 103/ulNormal1.2-3.8The [facility] on above:Performed By: #### CBC #### [facility] [address] [place] [address] Dr. Tai Medinahocytes/100 WBC (Bld)30.8 %Wlllsp74.5-60.0The [facility] on above:Performed By: #### CBC #### [facility] [address] [place] [address] Dr. Tai Maguire DIFF REQNONormalThe [facility] HospitalComfresenius medical care at [facility] on above: Performed By: #### CBC #### [facility] [address] [place] [address] Dr. Tai Cool (RBC) [Entitic mass]29.3 koRktoqz74.9-34.0The [facility] on above:Performed By: #### CBC #### [facility] [address] [place] [address] Dr. Tai Cool (RBC) [Mass/Vol]33.8 g/nLFcevwm02.9-35.2The [facility] on above:Performed By: #### CBC #### [facility] [address] [place] [address] Dr. Tai Cool (RBC) [Entitic vol]86.9 oDAuynkc46.0-94.0The [facility] on above:Performed By: #### CBC #### [facility] [address] [place] [address] Dr. Tai Hall #0.7 103/ulNormal0.3-0.8The [facility] on above:Performed By: #### CBC #### [facility] [address] [place] [address] Dr. Tai Bradyocytes/100 WBC (Bld)7.3 %Normal1.7-12.0The [facility] Comment on above:Performed By: #### CBC #### [facility] [address] [address] [address] Tai ZhaoUT #5.9 103/ulNormal1.4-6.5The [facility] HospitalComment on above:Performed By: #### CBC #### [facility] [address] [address] [address] Tai Zhaoutrophils/100 WBC (Bld)59.4 %Paoblb81.0-75.0The [facility] HospitalComment on above:Performed By: #### CBC #### [facility] [address] [place] [address] Dr. Tai Deanlet mean volume (Bld) [Entitic vol]10.1 fLNormal9.5-13.5The [facility] HospitalComment on above:Performed By: #### CBC #### [facility] [address] [place] [address] Dr. Tai GodwinPLT184 103/irSxwyag090-422Txd [facility] HospitalComment on above: Performed By: #### CBC #### [facility] [address] [place] [address] Dr. Tai GodwinRBC5.25 106/ulNormal4.70-6.10The [facility] HospitalComment on above:Performed By: #### CBC #### [facility] [address] [place] [address] Dr. Tai GodwinWBC9.9 103/ulNormal4.0-11.0The [facility] HospitalComment on above: Performed By: #### CBC #### [facility] [address] [place] [address] Dr. Tai Kcpletluiza Blood Count and Diffon 02-06-5555Mkwmtntfsvcl Ql (Bld) [employer] Other Basophilic stippling LM Ql (Bld)[employer] Other RBC morphology finding Nom (Bld)[employer] Other Comprehensive Metabolic Panelon 37-39-7681Cqzfktd [Mass/Vol]4.219136 g/dL3.4-5.0 g/dLDeer Park Hospital [place] Other Calcium [Mass/Vol]9.5092798 mg/dL8.5-10.1 mg/dLDeer Park Hospital [place] Other CO2 [Moles/Vol]26.32427721 mmol/L21.0-32.0 mmol/LNKnickerbocker Hospital [place] Other Creatinine [Mass/Vol]0.49210183 mg/dL0.70-1.30 mg/dL [facility] [employer] Other Potassium [Moles/Vol]3.66030472 mmol/L3.5-5.1 mmol/L [facility] [employer] Other Protein [Mass/Vol]8.197576 g/dLCritically high6.4-8.2 g/dLDeer Park Hospital [place] Other Urea nitrogen [Mass/Vol]12.1930872 mg/dL7.0-18.0 mg/dL [facility] [employer] Other Comprehensive Metabolic Panelsee noteNoPaoli Hospital [place] Other Comprehensive Metabolic Aoclv632 mmol/W127-606 mmol/L [facility] [employer] Other Comprehensive Metabolic Phawl699 mg/dLCritically high 74-106 mg/dLDeer Park Hospital [place] Other Comprehensive Metabolic Panel>60 mL/min/1.73m2>=60 mL/min/1.56f1TmwlsDeer Park Hospital [place] Other Comprehensive Metabolic Panel0.5 mg/dL0.2-1.0 mg/dL [facility] [employer] Other Comprehensive Metabolic Panel4.4 g/dLDeer Park Hospital [place] Other GLYCOHEMOGLOBIN A1Con 15-24-4187TNA RECOMMENDATIONSEE [facility] Mary HospitalComment on above:Result Comment: ADA RECOMMENDED LIMIT 4.0 - 6.0 ADA THERAPEUTIC TARGET < 7.0 ACTION SUGGESTED > 7.0Performed By: #### A1C #### [facility] [address] [address] [address] Tai GodwinGlucose [Mass/Vol]160 mg/dLNoRegency Hospital Cleveland EastComment on above:Performed By: #### A1C #### [facility] [address] [address] [address] Tai GodwinHbA1c (Bld) [Mass fraction]7.2 %Critically high4.5-6.2The [facility] HospitalComment on above:Performed By: #### A1C #### [facility] [address] [place] [address] Dr. Tai NazarioID PROFILEon 03-47-8813RGVO-HDL RATIO NORMSEE BELOWMount Carmel Health SystemComment on above:Result Comment: 3.3 - 4.4 LOW RISK 4.4 - 7.1 AVERAGE RISK 7.1 - 11.0 MODERATE RISK >11.0 HIGH RISKPerformed By: #### LIPID, CMP #### [facility] [address] [place] [address] Dr. Tai Castilloesterol [Mass/Vol]102 mg/dL<=200 mg/dLThe [facility] Comment on above:Performed By: #### LIPID, CMP #### [facility] [address] [place] [address] Dr. Tai Castilloesterol in HDL [Mass/Vol]46 mg/dL40-60 mg/dLThe [facility] HospitalComment on above:Performed By: #### LIPID, CMP #### [facility] [address] [place] [address] Dr. Tai Castilloesterol in LDL [Mass/Vol]45.2 mg/dLMount Carmel Health SystemComment on above:Performed By: #### LIPID, CMP #### [facility] [address] [place] [address] Dr. Yilan ChangCholesterol.total/Cholesterol in HDL [Mass ratio]2.2 {ratio}The [facility] HospitalComment on above:Performed By: #### LIPID, CMP #### [facility] [address] [address] [address] Tai Garcia NORMAL> or = 60 mg/dl - LOW CARDIOVASCULAR RISK <40 mg/dl - HIGH CARDIOVASCULAR RISKMount Carmel Health SystemComment on above:Performed By: #### LIPID, CMP #### [facility] [address] [address] [address] Tai GodwinLDL CALC NORMALSEE [facility] St. Mary HospitalComment on above:Result Comment: <100 mg/dl OPTIMAL 100 - 129 mg/dl NEAR OR ABOVE OPTIMAL 130 - 159 mg/dl BORDERLINE HIGH 160 - 189 mg/dl HIGH >190 mg/dl VERY HIGH Performed By: #### LIPID, CMP #### [facility] [address] [address] [address] Tai GodwinTriglyceride [Mass/Vol]54 mg/dL<=150 mg/dLThe [facility] Comment on above:Performed By: #### LIPID, CMP #### [facility] [address] [address] [address] Tai GodwinVLDL CALC10.8 mg/dLNoRegency Hospital Cleveland EastComment on above: Performed By: #### LIPID, CMP #### [facility] [address] [address] [address] Tai GodwinLipid Panelon 11-55-9456Msjej Panel> or = 60 mg/dl - LOW CARDIOVASCULAR RISK <40 mg/dl - HIGH CARDIOVASCULAR RISKSouth Londonderry Reocar Other Lipid PanelSEE BELOWSouth Londonderry Reocar Other Lipid Panel45.2 mg/dLReferBright Reocar Other Lipid Panel10.8 mg/dLReferBright Reocar Other MICROALBUMIN, RAND URon 22-54-8774jJER30.1 mg/dLNormal <=30.0The [facility] HospitalComment on above:Performed By: #### MALBR #### [facility] [address] [address] [address] Tai Lindquist 14(COMP METB)on 86-39-1081Ilfnayv [Mass/Vol]4.0 g/dLNormal 3.4-5.0The [facility] HospitalComment on above:Performed By: #### LIPID, CMP #### [facility] [address] [place] [address] Dr. Tai GodwinAlbumin/Globulin [Mass ratio]0.9 {ratio}The [facility] Comment on above:Performed By: #### LIPID, CMP #### [facility] [address] [place] [address] Dr. Tai Caraballo [Catalytic activity/Vol]68 U/L46-116 U/[facility] Comment on above:Performed By: #### LIPID, CMP #### [facility] [address] [place] [address] Dr. Tai Angel [Catalytic activity/Vol]58 U/L16-63 U/[facility] Comment on above:Performed By: #### LIPID, CMP #### [facility] [address] [place] [address] Dr. Tai Brody gap [Moles/Vol]15.1 mmol/LTGeorgetown Behavioral HospitalComment on above:Performed By: #### LIPID, CMP #### [facility] [address] [place] [address] Dr. Tai Vega [Catalytic activity/Vol]47 U/LCritically fxpr93-60 U/[facility] HospitalComment on above:Performed By: #### LIPID, CMP #### [facility] [address] [place] [address] Dr. Tai GodwinBilirubin [Mass/Vol]0.5 mg/dLNormal0.2-1.0[facility] Comment on above:Performed By: #### LIPID, CMP #### [facility] [address] [place] [address] Dr. Tai GodwinCalcium [Mass/Vol]9.6 mg/dLNormal8.5-10.1The [facility] Comment on above:Performed By: #### LIPID, CMP #### [facility] [address] [address] [address] Tai GodiwnChloride [Moles/Vol]102 mmol/L98-107 mmol/LThe [facility] Comment on above:Performed By: #### LIPID, CMP #### [facility] [address] [address] [address] Tai GodwinCO2 [Moles/Vol]26.4 mmol/QJxtrqm95.0-32.0The [facility] Comment on above:Performed By: #### LIPID, CMP #### [facility] [address] [place] [address] Dr. Tai GodwinCreatinine [Mass/Vol]0.77 mg/dLNormal0.70-1.30The [facility] HospitalComment on above:Performed By: #### LIPID, CMP #### [facility] [address] [place] [address] Dr. Tai KwanGFR-AF COLOMBIAN>60Normal>=60The [facility] HospitalComment on above:Performed By: #### LIPID, CMP #### [facility] [address] [place] [address] Dr. Tai KwanGFR-NON AF COLOMBIAN>60Normal>=60The [facility] HospitalComment on above:Performed By: #### LIPID, CMP #### [facility] [address] [place] [address] Dr. Tai GodwinGlobulin (S) [Mass/Vol]4.4 g/dLNormalThe [facility] HospitalComment on above:Performed By: #### LIPID, CMP #### [facility] [address] [place] [address] Dr. Tai GodwinGlucose [Mass/Vol]159 mg/dLCritically kasl27-063Hbe [facility] HospitalComment on above:Performed By: #### LIPID, CMP #### [facility] [address] [place] [address] Dr. Tai GodwinPotassium [Moles/Vol]3.5 mmol/LNormal3.5-5.1The [facility] Comment on above:Performed By: #### LIPID, CMP #### [facility] [address] [address] [address] Tai GodwinProtein [Mass/Vol]8.4 g/dLCritically high6.4-8.2The [facility] HospitalComment on above:Performed By: #### LIPID, CMP #### [facility] [address] [address] [address] Tai GodwinSodium [Moles/Vol]140 mmol/KIrzaal962-850Dcw [facility] Comment on above:Performed By: #### LIPID, CMP #### [facility] [address] [place] [address] Dr. Tai GodwinUrea nitrogen [Mass/Vol]12.0 mg/dLNormal7.0-18.0The [facility] HospitalComment on above:Performed By: #### LIPID, CMP #### [facility] [address] [place] [address] Dr. Tai Arambula nitrogen/Creatinine [Mass ratio]15.6 mg/mgThe [facility] HospitalComment on above:Performed By: #### LIPID, CMP #### [facility] [address] [place] [address] Dr. Tai GodwinPhysician Referralon 67-35-6234Nneehibvv Referral [id number]#1.00CD:127Medina HospitalGLYCOHEMOGLOBIN A1Con 43-19-7948AAS RECOMMENDATIONSEE BELOWMount Carmel Health SystemComment on above:Result Comment: ADA RECOMMENDED LIMIT 4.0 - 6.0 ADA THERAPEUTIC TARGET < 7.0 ACTION SUGGESTED > 7.0Performed By: #### MALBR #### [facility] [address] [place] [address] Dr. Tai GodwinGlucose [Mass/Vol]174 mg/dLMount Carmel Health SystemComment on above:Performed By: #### MALBR #### [facility] [address] [place] [address] Dr. Tai GodwinHbA1c (Bld) [Mass fraction]7.7 %Critically high4.5-6.2The [facility] HospitalComment on above:Performed By: #### MALBR #### [facility] [address] [place] [address] Dr. Tai GodwinGLYCOHEMOGLOBIN A1Con 17-82-0249NIW RECOMMENDATIONSEE BELOWNormal The [facility] HospitalComment on above:Result Comment: ADA RECOMMENDED LIMIT 4.0 - 6.0 ADA THERAPEUTIC TARGET < 7.0 ACTION SUGGESTED > 7.0Performed By: #### DATA1C #### [facility] [address] [place] [address] Dr. Tai GodwinGlucose [Mass/Vol]192 mg/dLNormalThe [facility] HospitalComment on above:Performed By: #### DATA1C #### [facility] [address] [place] [address] Dr. Tai HurstA1c (Bld) [Mass fraction]8.3 %Critically high4.5-6.2The [facility] HospitalComment on above:Performed By: #### DATA1C #### [facility] [address] [place] [address] Dr. Tai Travis AUTO DIFFon 30-46-4491SODW #0.1 103/ulNormal0.0-0.1The [facility] HospitalComment on above:Performed By: #### MALBR #### [facility] [address] [place] [address] Dr. Tai GodwinBasophils/100 WBC (Bld)1.1 %Normal0.2-2.0The [facility] Comment on above:Performed By: #### MALBR #### [facility] [address] [place] [address] Dr. Lujan ChangELovely #0.1 103/ulNormal0.0-0.7The [facility] HospitalComfresenius medical care at [facility] on above: Performed By: #### MALBR #### [facility] [address] [place], [place] [address] Dr. Tai Kwanosinophils/100 WBC (Bld)1.2 %Normal0.9-7.0The [facility] Comment on above:Performed By: #### MALBR #### [facility] [address] [place] [address] Dr. Tai Kwanrythrocyte distribution width (RBC) [Ratio]14.0 %Umwjnb33.0-15.0 The [facility] HospitalComment on above:Performed By: #### MALBR #### [facility] [address] [place] [address] Dr. Tai GodwinHematocrit (Bld) [Volume fraction]45.7 %Exthxz12.0-54.0The [facility] HospitalComment on above:Performed By: #### MALBR #### [facility] [address] [place] [address] Dr. Tai GodwinHemoglobin (Bld) [Mass/Vol]14.9 g/dOXvmnuy55.0-18.0The [facility] HospitalComment on above:Performed By: #### MALBR #### [facility] [address] [place] [address] Dr. Tai Cano #0.02 10e3/ulNormal0.00-0.03The [facility] HospitalComment on above:Performed By: #### MALBR #### [facility] [address] [place] [address] Dr. Tai Cano %0.2 %Normal0.0-0.5The [facility] HospitalComment on above: Performed By: #### MALBR #### [facility] [address] [place] [address] Dr. Tai KearneyMPH #3.8 103/ulNormal1.2-3.8The [facility] HospitalComment on above:Performed By: #### MALBR #### [facility] [address] [place] [address] Dr. Tai Kearneymphocytes/100 WBC (Bld)38.0 %Vcbgtl63.5-60.0The [facility] HospitalComment on above:Performed By: #### MALBR #### [facility] [address] [place] [address] Dr. Tai Maguire DIFF REQNONormalThe [facility] HospitalComment on above: Performed By: #### MALBR #### [facility] [address] [place] [address] Dr. Tai Cool (RBC) [Entitic mass]29.9 vuVubzfn23.9-34.0The [facility] HospitalComment on above:Performed By: #### MALBR #### [facility] [address] [place] [address] Dr. Tai Cool (RBC) [Mass/Vol]32.6 g/rNGspblw57.9-35.2The [facility] HospitalComment on above:Performed By: #### MALBR #### [facility] [address] [place] [address] Dr. Tai Cool (RBC) [Entitic vol]91.6 wLOxgisg57.0-94.0The [facility] HospitalComment on above:Performed By: #### MALBR #### [facility] [address] [place] [address] Dr. Tai Hall #0.7 103/ulNormal0.3-0.8The [facility] HospitalComment on above:Performed By: #### MALBR #### [facility] [address] [place] [address] Dr. Tai Bradyocytes/100 WBC (Bld)7.0 %Normal1.7-12.0The [facility] Comment on above:Performed By: #### MALBR #### [facility] [address] [place] [address] Dr. Tai Tobar #5.3 103/ulNormal1.4-6.5The [facility] HospitalComment on above:Performed By: #### MALBR #### [facility] [address] [place] [address] Dr. Tai Zhaoutrophils/100 WBC (Bld)52.5 %Hpneml31.0-75.0The [facility] HospitalComment on above:Performed By: #### MALBR #### [facility] [address] [place] [address] Dr. Tai GodwinPlatelet mean volume (Bld) [Entitic vol]10.2 fLNormal9.5-13.5The [facility] HospitalComment on above:Performed By: #### MALBR #### [facility] [address] [place] [address] Dr. Tai GodwinPLT178 103/wyGfcjtf920-745Cty [facility] HospitalComfresenius medical [facility] on above: Performed By: #### MALBR #### [facility] [address] [place] [address] Dr. Tai GodwinRBC4.99 106/ulNormal4.70-6.10The [facility] HospitalComment on above:Performed By: #### MALBR #### [facility] [address] [place] [address] Dr. Tai GodwinWBC10.1 103/ulNormal4.0-11.0The [facility] HospitalComment on above:Performed By: #### MALBR #### [facility] [address] [place] [address] Dr. Tai GodwinGLYCOHEMOGLOBIN A1Con 12-59-3453KDW RECOMMENDATIONSEE BELOWNormal St[facility] Medical CenterComfresenius [facility] on above:Result Comment: ADA RECOMMENDED LIMIT 4.0 - 6.0 ADA THERAPEUTIC TARGET < 7.0 ACTION SUGGESTED > 7.0Performed By: #### MALBR #### [facility] [address] [place] [address] Dr. Tai GodwinGlucose [Mass/Vol]180 mg/dLNormalThTwin City HospitalComfresenius [facility] on above:Performed By: #### MALBR #### [facility] [address] [place] [address] Dr. Tai GodwinHbA1c (Bld) [Mass fraction]7.9 %Critically high4.5-6.2[facility] on above:Performed By: #### MALBR #### [facility] [address] [place] [address] Dr. Tai NazarioID PROFILEon 03-96-6234RSND-HDL RATIO NORMSCleveland Clinic Mercy HospitalComment on above:Result Comment: 3.3 - 4.4 LOW RISK 4.4 - 7.1 AVERAGE RISK 7.1 - 11.0 MODERATE RISK >11.0 HIGH RISKPerformed By: #### LIPID, CMP #### [facility] [address] [place] [address] Dr. Tai Castilloesterol [Mass/Vol]110 mg/dLNormal<=200The [facility] Comment on above:Performed By: #### LIPID, CMP #### [facility] [address] [place] [address] Dr. Tai GodwinCholesterol in HDL [Mass/Vol]48 mg/gCLwphvb04-66NamSt. Mary'S Medical CenterComment on above:Performed By: #### LIPID, CMP #### [facility] [address] [place] [address] Dr. Tai Castilloesterol in LDL [Mass/Vol]48.0 mg/dLMount Carmel Health SystemComment on above:Performed By: #### LIPID, CMP #### [facility] [address] [place] [address] Dr. Tai Castilloestercameron.total/Cholesterol in HDL [Mass ratio]2.3 {ratio} NormalSt. Mary'S Medical CenterComment on above:Performed By: #### LIPID, CMP #### [facility] [address] [place] [address] Dr. Tai Garcia NORMAL> or = 60 mg/dl - LOW CARDIOVASCULAR RISK <40 mg/dl - HIGH CARDIOVASCULAR RISKMount Carmel Health SystemComment on above:Performed By: #### LIPID, CMP #### [facility] [address] [place] [address] Dr. Tai GodwinLDL CALC NORMALSEE [facility] St. Mary HospitalComment on above:Result Comment: <100 mg/dl OPTIMAL 100 - 129 mg/dl NEAR OR ABOVE OPTIMAL 130 - 159 mg/dl BORDERLINE HIGH 160 - 189 mg/dl HIGH >190 mg/dl VERY HIGH Performed By: #### LIPID, CMP #### [facility] [address] [address] [address] Tai GodwinTriglyceride [Mass/Vol]70 mg/dLNormal<=150The [facility] Comment on above:Performed By: #### LIPID, CMP #### [facility] [address] [place] [address] Dr. Tai GodwinVLDL CALC14.0 mg/dLNormalThe [facility] HospitalComment on above: Performed By: #### LIPID, CMP #### [facility] [address] [place] [address] Dr. Tai SalasALBUMIN, RAND URon 16-28-1201yMZY3.4 mg/LNormal<=30.0The [facility] HospitalComment on above:Performed By: #### MALBR #### [facility] [address] [place] [address] Dr. Tai GodwinPROF 14(COMP METB)on 87-69-5341Mcwodzh [Mass/Vol]4.0 g/dLNormal 3.4-5.0The [facility] HospitalComment on above:Performed By: #### LIPID, CMP #### [facility] [address] [place] [address] Dr. Tai GodwinAlbumin/Globulin [Mass ratio]0.9 {ratio}NormalThe [facility] HospitalComment on above:Performed By: #### LIPID, CMP #### [facility] [address] [place] [address] Dr. Tai Caraballo [Catalytic activity/Vol]65 U/VIkryvj49-279Nfv [facility] HospitalComment on above:Performed By: #### LIPID, CMP #### [facility] [address] [place] [address] Dr. Tai Angel [Catalytic activity/Vol]60 U/EKoqwzh43-06Ich [facility] HospitalComment on above:Performed By: #### LIPID, CMP #### [facility] [address] [place] [address] Dr. Tai Brody gap [Moles/Vol]14.9 mmol/LNormalSt. Mary'S Medical Center Comment on above:Performed By: #### LIPID, CMP #### [facility] [address] [address] [address] Tai GodwinAST [Catalytic activity/Vol]38 U/LCritically kfiv59-67Cin [facility] HospitalComment on above:Performed By: #### LIPID, CMP #### [facility] [address] [place] [address] Dr. Tai GodwinBilirubin [Mass/Vol]0.5 mg/dLNormal0.2-1.0The [facility] Comment on above:Performed By: #### LIPID, CMP #### [facility] [address] [place] [address] Dr. Tai GodwinCalcium [Mass/Vol]9.4 mg/dLNormal8.5-10.1[facility] Comment on above:Performed By: #### LIPID, CMP #### [facility] [address] [place] [address] Dr. Tai GodwinChloride [Moles/Vol]98 mmol/EVyomxt98-623CwjSt. Mary'S Medical Center Comment on above:Performed By: #### LIPID, CMP #### [facility] [address] [place] [address] Dr. Tai GodwinCO2 [Moles/Vol]27.3 mmol/WWoziqz34.0-32.0[facility] Comment on above:Performed By: #### LIPID, CMP #### [facility] [address] [place] [address] Dr. Tai GodwinCreatinine [Mass/Vol]0.82 mg/dLNormal0.70-1.30The [facility] HospitalComment on above:Performed By: #### LIPID, CMP #### [facility] [address] [place] [address] Dr. Tai Huizar-AF COLOMBIAN>60Normal>=60The [facility] HospitalComment on above:Performed By: #### LIPID, CMP #### [facility] [address] [place] [address] Dr. Yilan ChangEGFR-NON AF COLOMBIAN>60Normal>=60The [facility] HospitalComment on above:Performed By: #### LIPID, CMP #### [facility] [address] [place] [address] Dr. Tai GodwinGlobulin (S) [Mass/Vol]4.4 g/dLNormKnox Community HospitalComment on above:Performed By: #### LIPID, CMP #### [facility] [address] [place] [address] Dr. Tai GodwinGlucose [Mass/Vol]178 mg/dLCritically hmwu33-299Eii [facility] HospitalComment on above:Performed By: #### LIPID, CMP #### [facility] [address] [place] [address] Dr. Tai GodwinPotassium [Moles/Vol]4.2 mmol/LNormal3.5-5.1The [facility] Comment on above:Performed By: #### LIPID, CMP #### [facility] [address] [place] [address] Dr. Tai GodwinProtein [Mass/Vol]8.4 g/dLCritically high6.4-8.2St. Mary'S Medical CenterComment on above:Performed By: #### LIPID, CMP #### [facility] [address] [place] [address] Dr. Tai GodwinSodium [Moles/Vol]136 mmol/HFrifmo103-703Vmw [facility] Comment on above:Performed By: #### LIPID, CMP #### [facility] [address] [place] [address] Dr. Tai GodwinUrea nitrogen [Mass/Vol]14.0 mg/dLNormal7.0-18.0The [facility] HospitalComment on above:Performed By: #### LIPID, CMP #### [facility] [address] [place] [address] Dr. Tai Arambula nitrogen/Creatinine [Mass ratio]17.1 mg/mgNoRegency Hospital Cleveland EastComment on above:Performed By: #### LIPID, CMP #### [facility] [address] [place] [address] Dr. Tai GodwinHistory and Physicalon 73-45-3491Dzcdych and Physical [id number]#1.00[facility] Operative Report - Surgeon/Physicianon 96-79-3447Uhpsefxar Report - Surgeon/[id number]#1.00[facility] HospitalCoding Summaryon 01-75-9142Sxddid SummaryCODING DATE: 09/29/2017 FINAL [facility] STATUS: Home PAYOR: [employer] [id number] Level 2 Lower GI Procedures ADMIT DX: REASON FOR VISIT DX: R19.5 Other fecal abnormalities FINAL DX: PRINCIPAL: D12.6 Benign neoplasm of colon, unspecified SECONDARY: PYMT PROC APC STAT DESCRIPTION DOCTOR NAME DATE 65131 5312 T Colonoscopy, flexible; Sacha Antonio MD 09/19/2017 with removal of tumor(s), polyp(s), or other lesion(s) by snare technique NOTE: The code number assigned matches the documented diagnosis and / or procedure in the patient's chart. However, the narrative phrase printed from the coding software may appear abbreviated, or result in slightly different terminology. Coded By: Carmelita Mcgregor Date Saved: 09/29/2017 01:52 [facility] - AP Resultson 56-53-1891Ykm - AP [id number]#1.00[facility] HospitalConsent Formson 86-00-0690Utxcsnf Forms [id number]#1.00[facility] Intraoperative Noteon 85-81-2094Zkxdkgqjebistl Note [id number]#1.00[facility] Intraoperative [id number]#1.00[facility] HospitalTelemetry Stripson 49-06-5183Eqxbldtrs Strips [id number]#1.00OTGTIFFVeterans Health Administration Inpatient Clinical Summaryon 90-92-0884Wjwrtpktt Clinical SummaryMercy Hospital SURGERYClinical Discharge SummaryPERSON INFORMATIONName BURGESS CATES Jr Age62 Years 57Sex MALE Language Mongolian PCP Librado Connor EMarital Status Med Service Ambulatory SurgeryN 16-16-54 Acct# Arrival 09/19/17 06:13:16Visit Reason COLONOSCOPY Acuity LOS 017 20:27Address:[address] [facility] [address]Swwrycz:PROVIDER INFORMATIONVITALS INFORMATIONVital Sign Triage LatestTemp OralTemp TemporalTemp IntravascularTemp AxillaryTemp Crltyu99 Sat 98 % 100 %Respiratory Rate 18 [...] INFORMATIONPATIENT EDUCATION INFORMATIONInstructions:Follow up:With: Address: When:Sacha Antonio [address] [place] [address], [address] [place], [place] [id number] Business (1) Within 10 to 12 daysComments:Call for follow up appointmentWith: Address: When:Librado Connor [address] [place] [address] Business (1)DIAGNOSISColonic polyp; Heme positive stoolComment:PHYS DOC NOTESNoSalem City HospitalInpatient Patient Summaryon 14-62-0737Cqyhabhgm Patient [address] [id number] patient Discharge InstructionsName: SHIRAZ CATES Jr: 57 Address: [address] [place] [address] Care Provider:Name: Librado Connor EPhone: After you are discharged if you find you have any questions, please, call [phone] ext [phone] to speak to a nurse.Discharge [...] or business decisions or sign any legal documentsMercy Health St. Rita'S Medical Center would like to thank you forallowing us to assist you with your healthcare needs. The following includes patient education materials and information regarding your injury/illness.BURGESS CATES Jr has been given the followinglist of follow-up instructions, prescriptions, and patient education materials:Follow-up InstructionsWith: Address: When:Sacha Antonio [address] [facility], [address] [place] [address] Business (1) Within 10 to 12 daysComments:Call for follow up appointmentWith: Address: When:Librado Connor [facility] [place] [address] Business (1)MedicationsDuring the course of [...] ServicesCenters for Disease Control and Prevention October 2013[facility] Endo Intraoperative Recordon 59-68-4181TZUF Endo Intraoperative RecordMAGR Endo Intra-Op Record Summary Primary Physician: Sacha Antonio MD Date/Time: 09/19/17 07:46:44 Pt. Name: BURGESS Monica CATES Jr/Sex: 1955 MALE Med Rec #: [id number] Physician: Sacha Antonio MD Financial #: [id number] Pt. Type: D Room/Bed: / Admit/Disch: 09/19/17 [...] Lora RN Role Performed Surgeon - Primary Brick Offbearer Brick Offbearer Time In 09/19/17 07:20:00 09/19/17 07:20:00 09/19/17 [...] Signed By: Angie Pedersen RN 09/19/17 07:46Normal [facility] Endo Postoperative Recordon 53-16-4972BDRK Endo Postoperative RecordMA Endo Phase II Record Summary Primary Physician: Sacha Antonio MD Date/Time: 09/19/17 08:52:37 Pt. Name: BURGESS Monica CATES Jr/Sex: 1955 MALE Med Rec #: [id number] Physician: Sacha Antonio MD Financial #: [id number] Pt. Type: D Room/Bed: / Admit/Disch: 09/19/17 [...] Signatures Signed By: Sandra Mckeon RN 09/19/17 08:52[facility] Endo Preoperative Recordon 02-24-4365NGTQ Endo Preoperative RecordSAGE [facility] Pre-Op Record Summary Primary Physician: Sacha Antonio MD Finalized Date/Time: 09/19/17 07:17:51 Pt. Name: BURGESS Alexia CATES Jr./Sex: 1955 MALE Med Rec #: [id number] Physician: Sacha Antonio MD Financial #: [id number] Pt. Type: D Room/Bed: / Admit/Disch: 09/19/17 [...] consent correct. General Comments: arrives ambulatory to [facility], denies recent cp, sob, new illnesses, pacemaker, defibrillator or sleep apnea Finalized By: Sandra Mckeon RN Document Signatures Signed By: Sandra Mckeon RN 09/19/17 07:17[facility] HospitalOperative Report - Surgeon/Physicianon 70-34-2933Gxyqakobs Report - Surgeon/PhysicianDATE OF PROCEDURE: 09/19/17URGEON: Sacha [...] me in 2 weeks.Sacha Antonio M.D.JOB #: [id number]: 09/19/2017T: 09/19/2017[Electronically Signed on: 09/30/2017 16:04 EDT] Sacha Antonio MD[Verified on: 09/30/2017 16:04 EDT] Sacha Antonio MD[Transcribed on: 09/19/2017 08:02 EDT][facility] [place] [facility] Vital Signs Date TimeVital SignValuePerforming TwhlxjjfxFcwlnhwy75-55-7405 11:39-0400Body niralp556.8 cmBenjamin Ball DO Work Phone: [facility]10-24-2025 11:39-0400 Body mass index (BMI) [Ratio]34.2 kg/k1Bbknyidl Ball DO Work Phone: [phone]10-24-2025 11:39-0400 Body pxbdca615.18 kgBenjamin Ball DO Work Phone: [phone] [place], [place] [address]324010-24-2025 11:39-0400 Diastolic blood mm[Hg]Librado Ball DO Work Phone: [phone]10-24-2025 11:39-0400 Heart rate78 /minBenjamin Ball DO Work Phone: [phone] [place], [place] [address]324010-24-2025 11:39-0400 Respiratory rate12 /minBenjamin Ball DO Work Phone: [phone]10-24-2025 11:39-0400 Systolic blood uvrabdlw047 mm[Hg]Librado Ball DO Work Phone: [phone]05-28-2025 08:36-0400 Body pafhdm693.8 cmSy[facility]ore [facility] Center05-28-2025 08:36-0400Body mass index (BMI) [Ratio]32.8 kg/o1FqvuxkkzmSycamore Medical Center05-28-2025 08:36-0400Body hofdtm237.98 kgSycamore Medical Center05-28-2025 08:36-0400Diastolic blood mm[Hg][facility] 07-14-2024 08:36-0400Heart rate74 /[facility] 07-14-2024 08:36-0400Respiratory rate12 /[facility] 07-14-2024 08:36-0400Systolic blood mm[Hg][facility]01-28-2025 08:35-0500Body jvgnma652.8 cmSy[facility] 03-16-2024 08:35-0500Body mass index (BMI) [Ratio]32.5 kg/h7OhvdvxqzwSycamore Medical Center01-28-2025 08:35-0500Body rgqets691.02 kgSycamore Medical Center01-28-2025 08:35-0500Diastolic blood iqcklxvc05 mm[Hg][facility]01-28-2025 08:35-0500Heart rate67 /[facility]01-28-2025 08:35-0500Respiratory rate12 /[facility]01-28-2025 08:35-0500Systolic blood mm[Hg][facility]11-21-2024 10:43-0500Body mass index (BMI) [Ratio]33 kg/s4QipmaxtgcSycamore Medical Center11-21-2024 10:43-0500Diastolic blood tmytkfof05 mm[Hg][facility]11-21-2024 10:43-0500Systolic blood lfxyytel623 mm[Hg][facility]11-21-2024 10:29-0500 Body hwidxl090.8 cmSycamore Medical Center11-21-2024 10:29-0500Body ohsrey506.32 kgSycamore Medical Center11-21-2024 10:29-0500Heart rate 66 /[facility]11-21-2024 10:29-0500Respiratory rate12 /[facility]09-24-2024 09:32-0400Body .8 cm [facility]09-24-2024 09:32-0400Body mass index (BMI) [Ratio]33.3 kg/l0OzrtoahstSycamore Medical Center09-24-2024 09:32-0400Body tyznma719.46 kgSycamore Medical Center09-24-2024 09:32-0400Diastolic blood fuchtznc82 mm[Hg][facility]09-24-2024 09:32-0400 Heart rate65 /[facility]09-24-2024 09:32-0400 Respiratory rate16 /[facility]09-24-2024 09:32-0400 SaO2% (BldA) [Mass fraction]96 %[facility]09-24-2024 09:32-0400Systolic blood chimrtjv655 mm[Hg][facility] 07-10-2023 08:58-0400Body uudtjo674.8 cmSy[facility]ore [facility] 07-10-2023 08:58-0400Body mass index (BMI) [Ratio]33.3 kg/s2JwixsrjxmSycamore Medical Center05-23-2024 08:58-0400Body .29 kgSycamore Medical Center05-23-2024 08:58-0400Diastolic blood plwurnba16 mm[Hg][facility]05-23-2024 08:58-0400Heart rate69 /[facility]05-23-2024 08:58-0400Respiratory rate12 /[facility]05-23-2024 08:58-0400Systolic blood qmymaenw635 mm[Hg][facility]04-16-2024 09:35-0400Body joesmb648.8 cmSycamore Medical Center04-16-2024 09:35-0400Body mass index (BMI) [Ratio]32.7 kg/a2KyhorpjnySycamore Medical Center04-16-2024 09:35-0400Body ebanbj070.41 kg [facility]04-16-2024 09:35-0400Diastolic blood qqbydmxc30 mm[Hg][facility]04-16-2024 09:35-0400Systolic blood sogaxzkk797 mm[Hg][facility]01-23-2024 08:30-0500Body chchto875.8 cmBenjamin Ball Other [facility]01-23-2024 08:30-0500 Body mass index (BMI) [Ratio]33.26 kg/q5Rtgzozxb Ball Other [place] [employer] Other 01-23-2024 08:30-0500Body .14 kgBenjamin Ball Other [facility]01-23-2024 08:30-0500 Diastolic blood ilkshort69 mm[Hg]Librado Ball Other [facility]01-23-2024 08:30-0500 Respiratory rate12 /minBenjamin Ball Other [place] [employer] Other 01-23-2024 08:30-0500Systolic blood zhyabgix051 mm[Hg] Librado Ball Other [facility]09-26-2023 10:00-0400 Body .8 cmBenjamin Ball Other [employer] Other 09-26-2023 10:00-0400Body mass index (BMI) [Ratio] 33.34 kg/n5Xjjnmowu Ball Other [facility] [employer] Other 09-26-2023 10:00-0400Body spmbuc929.42 kgBenjamin Ball Other [place] [employer] Other 09-26-2023 10:00-0400Diastolic blood sjfkrvqo17 mm[Hg] Librado Ball Other [employer] Other 09-26-2023 10:00-0400Respiratory rate12 /minBenjamin Ball Other [employer] Other 09-26-2023 10:00-0400Systolic blood oakegocn376 mm[Hg] Librado Ball Other [employer] Other 05-15-2023 09:30-0400Body .8 cmBenjamin Ball Other [employer] Other 05-15-2023 09:30-0400Body mass index (BMI) [Ratio] 33.28 kg/z7Trloruhw Ball Other [employer] Other 05-15-2023 09:30-0400Body .24 kgBenjamin Ball Other [employer] Other 05-15-2023 09:30-0400Diastolic blood itogwmhy97 mm[Hg] Librado Ball Other [employer] Other 05-15-2023 09:30-0400Respiratory rate12 /minBenjamin Ball Other [facility] [employer] Other 05-15-2023 09:30-0400Systolic blood kxuuzrtr717 mm[Hg] Librado Ball Other [employer] Other 05-15-2023 08:30-0400Body vvmcay776.8 cmBenjamin Ball Other [employer] Other 05-15-2023 08:30-0400Body mass index (BMI) [Ratio] 33.28 kg/z9Qrolfryq Ball Other [employer] Other 05-15-2023 08:30-0400Body cmkouw264.24 kgBenjamin Ball Other [employer] Other 05-15-2023 08:30-0400Diastolic blood atvqdmce10 mm[Hg] Librado Ball Other [employer] Other 05-15-2023 08:30-0400Respiratory rate12 /minBenjamin Ball Other [employer] Other 05-15-2023 08:30-0400Systolic blood hekuawvn247 mm[Hg] Librado Connor Other [facility] [employer] Other Encounters Encounter DateEncounter TypeCare ProviderFacilityStart: 12-10-2024 End: 66-60-2598aotyhotdsoBkgueyns Ball DO Work Phone: -[facility] ClinicStart: 12-10-2024 End: 59-26-0084Dirmjuy encounter procedureBenbaltazar Connor DO-[facility] Work Phone: Start: 09-13-2024 End: 95-27-6232pfbciwdsqgYMISVLUK Healthcare Start: 07-14-2024 End: 52-00-5696jfvmkqucmiEwlyyesfqKnox Community Hospital Work Phone: Start: 07-14-2024 End: 92-58-3142Hiaonixnz for general adult medical examination without abnormal findingsMercy Health Clermont Hospitaltart: 07-14-2024 End: 47-02-8482Cfkxrhw encounter procedureC[facility] Work Phone: Start: 03-16-2024 End: 92-07-0321qdhevlodjhVbnlufeajKnox Community Hospital Work Phone: Start: 03-16-2024 End: 88-00-1313Hdgjeit encounter procedureC[facility] Work Phone: Start: 01-08-2024 End: 95-16-1737qxxsoczxpeXuozhetcgKnox Community Hospital Work Phone: Start: 01-08-2024 End: 95-70-1681Zjmvwwe encounter procedureC[facility] Physician [facility] Work Phone: Start: 11-11-2023 End: 92-77-5371ommgvomrvjOnequjxqrKnox Community Hospital Work Phone: Start: 11-11-2023 End: 68-59-4084Iitqirn encounter procedureFirrussell [facility] Work Phone: Start: 73-84-7604Fyh-patient / Non-visitC[facility] Health [facility] Work Phone: Start: 07-10-2023 End: 11-22-0285dlebkmflsvDlcprllniKnox Community Hospital Work Phone: Start: 07-10-2023 End: 44-84-9639Grzrjpcaf for general adult medical examination without abnormal findingsMercy Health Clermont Hospitaltart: 07-10-2023 End: 54-03-8534Yipjrui encounter procedureC[facility] Work Phone: Start: 75-08-5354Itj-patient / Non-visitC[facility] Work Phone: Start: 06-03-2023 End: 33-83-7729qckmbldlypEsnclsanbBrecksville [facility] Work Phone: Start: 06-03-2023 End: 37-34-9951Lylsube encounter procedureC[facility] Work Phone: Start: 03-11-2023 End: 75-61-4522ioetaazbbrPjwaxohi Ball Other [employer] Other Start: 98-82-0580Jqvbgt outpatient visit 25 minutes Librado NikolasGreen Cross Hospitaltart: 03-11-2023 End: 05-74-5799Vataayv encounter procedureCaty Physician Group-Start: 01-06-2023 End: 75-00-4959dgbcyxylotDmvlzbyo Ball Other [employer] Other Start: 69-12-7320Oikiobkoy encounterBenbaltazar ConnorRula Shannon Medical Centertart: 01-04-2023 End: 57-13-2045lrpjmsdxhtWlegaglf Ball Other [employer] Other Start: 92-49-9308Wdqoliijl encounterBeyanna Connor Medical ClinicStart: 11-12-2022 End: 79-46-9261tavovsfrddXzoxmrfs Ball Other [employer] Other Start: 35-80-5313Mvchym outpatient visit 25 minutes Librado Connor [facility] ClinicStart: 10-01-2022 End: 06-19-4125enpxtqniseZdmiils R NILLFacility:[facility]wayueStart: 09-12-2022 End: 05-60-3168wabvnomzomLblazqpg Ball Other [employer] Other Start: 01-85-0101Afyvllxaz encounterBeyanna Connor Medical ClinicStart: 09-11-2022 End: 75-25-8497qzmoqtsustJrletyc R NILLFacility:CD:[id number]: 08-21-2022 End: 64-66-6970enzgeuqwzvFdibgab R NILLFacility:[facility] RahwayueStart: 07-03-2022 ambulatoryDR LIBRADO BALLFacility:E7Ccbsu: 51-09-6277znjfbozlqjEdpppkl R NILL Facility:[facility]wayueStart: 24-90-0777berdgjzgtgSqcrggq R NILLFacility:[facility]art: 07-01-2022 End: 49-06-9063bbgdzoouihEmuskzsm Ball Other [employer] Other Start: 48-44-2648Ydxxewhks for general adult medical examination without abnormal findingsLibrado Connor Medical ClinicStart: 30-30-1162Fnkokjuh preventive med est patient 65yrs& olderBeyanna Connor Medical ClinicStart: 38-91-8912Yeodiukao encounterBeyanna Connor Medical ClinicStart: 13-92-1262Dahaqbtwn for general adult medical examination without abnormal findingsDR LIBRADO CONNORSelect Medical [facility] Hospital - Dublintart: 01-25-2022 End: 98-93-1159qowsqacrplEJ NONE LISTED REQUESTFacility:E0Xdpcq: 01-23-2022 End: 22-06-4989ieybjqgvkoHR LIBRADO CONNORFacility:K4Hnjvr: 01-23-2022 End: 42-55-0226Pzsszxtzl for general adult medical examination without abnormal findingsDR LIBRADO CONNORFacility:T5Fbvpa: 12-19-2021 End: 27-27-2866iyzfucngczUB IVANNA HERNANDEZ .Facility:W6Wcyag: 10-31-2021 End: 64-73-3853bupuorncvqZS NONE LISTED REQUESTFacility:A1Kruew: 07-13-2021 End: 36-17-3094cmrnrovxjzHL LIBRADO CONNORFacility:Q0Jmazn: 56-92-2544Igcly health examinationBeyanna Connor Other [facility] [employer] Other Start: 09-19-2017 End: 34-12-0427Nyfghly encounterRichard WiecekFacility:[facility] HospitalStart: 01-17-2017 End: 91-31-7127TernoiwwbePOOMKZI PHYSICIANFacility:[facility] Procedures DateProcedureProcedure DetailPerforming ClinicianStart: 07-03-2022 End: 43-68-9960NOT screeningDR LIBRADO BALLComment on above:Performed By: #### MALBR #### [facility] [address] [place] [address] Dr. Tai Kunzart: 78-91-8041TYP screeningDR LIBRADO BALLComment on above: Performed By: #### PSASC #### [facility] Laboratory [address] [place] [address] Dr. Tai Kunzart: 60-43-4595Czjlccl examination of patientLibrado Connor Other Start: 55-98-7939Vrejgtqmp for malignant neoplasm of colonBeyanna Connor Other Start: 35-43-2852Ftigixupi for malignant neoplasm of prostateBenbaltazar Connor Other Depression screeningBenbaltazar Connor Other Screening for malignant neoplasm of prostateTimurnbaltazar Connor Other Plan of Treatment DateCare ActivityDetailAuthorComprehensive metabolic 1999 panel - Serum or PlasmaSycamore Medical CenterComprehensive metabolic 1999 panel - Serum or PlasmaSycamore Medical CenterMicroalbumin [Mass/volume] in UrineSycamore Medical CenterUS Heart TransthoracicSonoma Developmental Center Immunizations Immunization DateImmunizationNotesCare YulxwskiMdpxerfs51-60-1079oxyctmtcm, high dose seasonal, preservative-freeBenjavimin Ball DO Work Phone: [facility]09-24-2024influenza, high dose seasonal, preservative-freeSycamore Medical Center09-26-2023 influenza virus vaccine, unspecified formulationSycamore Medical Center09-26-2023influenza, high dose seasonal, preservative-freeBenjamin Ball Other [employer] Other [id number] Vaccine Moderna - Documentation Purposes OnlyBenbaltazar Connor Other [facility]10-13-2021influenza virus vaccine, split virus (incl. purified surface antigen)Librado Connor Other [employer] Other [id number] virus vaccine, unspecified formulationSycamore Medical Center10-13-2021influenza, injectable, quadrivalent, preservative freeTimurnbaltazar Connor Other [facility]03-08-2021COVID-19 Vaccine Ayesha - Documentation Purposes OnlyBenbaltazar Connor Other [facility] Payers DatePayer CategoryPayerPolicy [id number] Cross Blue [id number] Cross Blue [id number] [id number] [id number] [id number]-[id number] [id number] 2.0.1.669712.3.57[id number] 2.0.1.384247.3.57[id number] 2.0.1.560229.3.57[id number] 2.840.1.060254.3.57[id number] 2.0.1.251117.3.57[id number] 2.0.1.833631.3.57[id number] 2.840.1.412442.3.57[id number] 2.840.1.557182.[id number] 2.16840.1.551722.3.579.2.593 [id number] 2.16840.1.0[id number] 2.840.1.585607.3.579.2.007Xfaozjy3801431 2..840.1.522846.3.579.2.593 Social History DateTypeDetailFacilitySex Assigned At [facility] Other Start: 06-03-2023 End: 44-89-1193Ibhihdd smoking status NHISNever smoked tobacco (finding) [facility]: 97-02-5994Neg [facility]: 01-08-2024 End: 93-82-9870GosSslu (finding)[facility] Medical Equipment Procedure CodeEquipment CodeEquipment Original TextEquipment IdentifierDates Blood Sugar Diagnostic (Accu-Chek Smartview Test Strip) stripStart: 06-20-2023 Blood Sugar Diagnostic (Accu-Chek Smartview Test Strip) stripStart: 06-20-2023 End: 65-10-4382Oyevg Sugar Diagnostic (Accu-Chek Smartview Test Strip) strip Start: 20-53-8992Yeeju Sugar Diagnostic (Accu-Chek Smartview Test Strip) strip Start: 06-20-2023 End: 25-12-2226Wcwus Sugar Diagnostic (Accu-Chek Smartview Test Strip) strip Start: 42-79-7457Dglzf Sugar Diagnostic (Accu-Chek Smartview Test Strip) strip Start: 06-20-2023 End: 13-71-4815Ttvlp Sugar Diagnostic (Accu-Chek Smartview Test Strip) strip Start: 63-10-4189Exvam Sugar Diagnostic (Accu-Chek Smartview Test Strip) strip Start: 06-20-2023 End: 92-91-0724Wests Sugar Diagnostic (Accu-Chek Smartview Test Strip) strip Start: 66-00-2220Hyfmr Sugar Diagnostic (Accu-Chek Smartview Test Strip) strip Start: 06-20-2023 End: 41-38-2082Zalsb Sugar Diagnostic (Accu-Chek Smartview Test Strip) strip Start: 61-00-2236Bowcl Sugar Diagnostic (Accu-Chek Smartview Test Strip) strip Start: 06-20-2023 End: 92-18-1694Vwpdg Sugar Diagnostic (Accu-Chek Smartview Test Strip) strip Start: 06-20-2023 End: 06-20-2023 Clinical Notes 07-01-2022 to 09-13-2024 Note Date & WbvgLolbRizcugfi51-01-8784 NoteUT Cardiology - [facility] Wade Cates Jr. is a 69 [...] 1. Global left ventri (more content not included)...[facility]11-21-2024 Evaluation note* Diagnosis Onset Date Resolution Status Admit Date Cerumen impaction acuteNov2023 10:25amEssential (primary) hypertensionacuteNov2023 10:25amExternal otitis of left earacuteNov2023 10:25am Cerebral atherosclerosisacuteJanuary 2024 8:23amEssential (primary) hypertensionacuteJanuary 2024 8:23amHypercholesterolemiaacuteJanuary 2024 8:23amNonrheumatic aortic (valve) stenosisacuteJanuary 2024 8:23am ObesityacuteJanuary 2024 8:23amType 2 diabetes mellitus with hyperglycemia acuteJanuary 2024 8:23am [facility] Work Phone: 1(717) 781-812709-24-2024 Evaluation note* Diagnosis Onset Date Resolution Status Admit Date Cerebral atherosclerosis acuteSeptember 2023 9:23amEssential (primary) hypertensionacuteSeptember 2023 9:23amHypercalcemiaacuteSeptember 2023 9:23am HypercholesterolemiaacuteSeptember 2023 9:23amNonrheumatic aortic (valve) stenosisacuteSeptember 2023 9:23amObesityacuteSeptember 2023 9:23am Type 2 diabetes mellitus with hyperglycemiaacuteSeptember 2023 9:23am [facility] Work Phone: 1(579) 979-996701-23-2024 Evaluation note* Encounter Date Diagnosis Assessment Notes [...] index [BMI] 33.0-33.9, adult (ICD-10 - Z68.33) [employer] Other 11-18-2023 Evaluation note* Encounter Date Diagnosis Assessment Notes Treatment Notes Treatment Clinical Notes Dec, Nonrheumatic aortic (valve) stenosis (ICD-10 - I35.0) Echo: LVEF 65%, LAE, LOVELY 1.3, velocity 199, gradient 2020 Echo: LVEF 65 to 70%, RV is normal, LVH, velocity 292, gradient 34/2022 [employer] Other 11-18-2023 Evaluation note* Encounter Date Diagnosis Assessment Notes Treatment Notes Treatment Clinical Notes Dec, Nonrheumatic aortic (valve) stenosis (ICD-10 - I35.0) Echo: LVEF 65%, LAE, LOVELY 1.3, velocity 199, gradient 2020 Echo: LVEF 65 to 70%, RV is normal, LVH, [employer] Other 09-26-2023 Evaluation note* Encounter Date Diagnosis [...] should be helpful in reducing caloric intake [employer] Other 07-05-2023 NoteChief Complaint consultation for surveillance [...] Date Status SARS-CoV-2 (COVID-19) (more content not included)...[facility] Comment on above:Result Comment: Electronically Signed By: RANDY MILLER, John Tejada\Date and Time Signed: 08/21/22 13:40 [id number] Evaluation note* Encounter Date Diagnosis Assessment Notes [...] June,Screening for colon cancer (ICD-10 - Z12.11) [place] [facility] Other 05-15-2023 Evaluation note* Encounter Date Diagnosis Assessment Notes Treatment Notes Treatment Clinical Notes June, 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 Christopher's Hospital for Children [employer] Other Evaluation note* Diagnosis Onset Date Resolution Status Left otitis media acuteTinnitusate [facility] Work Phone: Evaluation note* Diagnosis Onset Date Resolution Status Cerebral atherosclerosis acuteEssential (primary) hypertensionacuteHypercholesterolemiaacuteNonrheumatic aortic (valve) stenosisacuteWellness examinationnoneactive [facility] Work Phone: Evaluation note* Diagnosis Onset Date Resolution Status Cerebral atherosclerosis acuteEssential (primary) hypertensionacuteHypercalcemiaacuteHypercholesterolemia acuteNonrheumatic aortic (valve) stenosisacuteObesityacuteType 2 diabetes mellitus with hyperglycemiaacute [facility] Work Phone: Evaluation note* Diagnosis Onset Date Resolution Status Admit Date Cerebral atherosclerosis acuteMay 2024 8:31amEssential (primary) hypertensionacuteMay 2024 8:31amHypercalcemiaacuteMay 2024 8:31amHypercholesterolemiaacuteMay 2024 8:31amNonrheumatic aortic (valve) stenosisacuteMay 2024 8:31am Screening PSA (prostate specific antigen)acuteMay 2024 8:31amType 2 diabetes mellitus with hyperglycemiaacuteMay 2024 8:31amWellness examinationnoneactiveMay 2024 8:31am [facility] Work Phone: Evaluation note* Diagnosis Onset Date Resolution Status Admit Date Cerebral atherosclerosis acuteOctober 2024 11:23amEssential (primary) hypertensionacuteOctober 2024 11:23amHypercalcemiaacuteOctober 2024 11:23am HypercholesterolemiaacuteOctober 2024 11:23amNonrheumatic aortic (valve) stenosisacuteOctober 2024 11:23amType 2 diabetes mellitus with hyperglycemiaacuteOctober 2024 11:23am [facility] Work Phone: History general Narrative - [...] accident (CVA)Surgical HistoryRELEASE OF HAMMERTOE OF LEFT [id number] JqezodxAVWFUYKHYTEB5060Rkweftum HistoryFOOT SURGERY - LEFT Surgical WesyffwVQHPYQTCCJO5563Bepkqsujsgwgqnk HistorySEE SURGICAL HX [employer] Other History general Narrative - Reported* Type [...] accident (CVA)Surgical HistoryRELEASE OF HAMMERTOE OF LEFT [id number] MbayaxpVVHVCLPHGDRZ5865Lkcrfbqx HistoryFOOT SURGERY - LEFT Surgical GklloyyWLQROAYHGIM2573Xeffqwou HistoryColonoscopy w/ polypectomy, repeat in 5 years08/2022Hospitalization HistorySEE SURGICAL [employer] Other [facility] Narrative - Reported* Type Description Date [...] accident (CVA)Surgical HistoryRELEASE OF HAMMERTOE OF LEFT [id number] EscmedvGADZPBLLDAYV6714Bquozddt HistoryFOOT SURGERY - LEFT Surgical GmqscshUJFHFOHHYQH7441Orlyeplx HistoryColonoscopy w/ polypectomy, repeat in 5 years08/2022Surgical HistoryB/L Cataract extraction08/2022 Hospitalization HistorySEE SURGICAL HX [employer] Other Recwwi for referral (narrative)* Reason *07/08 Referral for screening colonoscopy Diagnosis 1 Screening for colon cancer (Z12.11) Referral Organization [facility] artie Referring Provider First Name Librado Referring Provider Last Name Nikolas Referring Provider Specialty [facility] Referred Organization [facility] Referred Provider John Montalvo Referred Address [address] [place], [place],[address] Referred Provider Specialty Surgery Referral Priority Routine General Notes Asymptomatic, low ri sk patient. Naila Sosa 07/01/2022 12:14:34 PM >received today, notes locked, referral faxedClinical [id number] [employer] Other reason for referral (narrative)* Reason 08/21/22 Referral for screening colonoscopy Diagnosis 1 Screening for colon cancer (Z12.11) Referral Organization [facility] artie Referring Provider First Name Librado Referring Provider Last Name Nikolas Referring Provider Specialty Internal Pa dicine Referred Organization [facility] Referred Provider John Montalvo Referred Address [address], [place],[address] Referred Provider Specialty Surgery Referral Priority Routine [...] 09:56:26 AM >received fax with appt dateClinical [id number] [employer] Other Reason for referral (narrative)No reason for referral information availableSamaritan Hospital Work Phone: Summary Purpose Family History Relationship [...] section and content) DATE CREATED AUTHOR 08/12/2017 [facility] DATE CREATED AUTHOR AUTHOR'S ORGANIZ ATION 10/07/[address] [facility] DATE CREATED AUTHOR AUTHOR'S ORGANIZ ATION 07/03/2022 [facility] DATE CREATED AUTHOR AUTHOR'S ORGANIZ ATION 07/03/2022 [facility] DATE CREATED AUTHOR AUTHOR'S ORGANIZ ATION 10/02/2022 [facility] DATE CREATED AUTHOR AUTHOR'S ORGANIZ ATION 10/15/2024 [facility] REASON FOR VISIT (unrecogniz ed section [...] 2023 End: June 03, 2023Kinjal Butler APRN BIOASSAYIST-CAttending ProviderActive Start: June 03, 2023 End: June [...] BE BASED ON THE PRIMARY CLINICAL RECORDS. [facility] [facility]. provides no warranty or guarantee of the accuracy or completeness of information in this document.
--- NOTE | 2025-01-26 07:00 | CA_ITS ---
Patient Name: BURGESS CATES MR#: [id number] : 1955 Exam Date: 01/26/2025 Ordering Doctor: DR CATRACHO WALLER M.D. ECHOCARDIOGRAM REPORT PROCEDURE: CA ECHO DOPPLER COMPLETE INDICATIONS: Aortic valve stenosis COMPARISON: None. DESCRIPTION: COMPLETE ECHOCARDIOGRAM Real-time transthoracic echocardiography with 2D, M-mode, spectral and color flow Doppler performed. QUALITY: Technical quality was good. LEFT VENTRICLE: Normal chamber size. Moderate concentric left ventricular hypertrophy. LV EF: Global left ventricular systolic function is hyperdynamic; visually estimated ejection fraction 65 to 70%. No significant wall motion abnormalities. DIASTOLIC: Diastolic function is indeterminate. ATRIAL SEPTUM: Inadequately seen. LEFT ATRIUM: Mild dilatation. RIGHT ATRIUM: Mild dilatation. RIGHT VENTRICLE: Mild dilatation. Normal right ventricular systolic function. TRICUSPID VALVE: Normal mobility and thickness. No stenosis with trivial regurgitation. No evidence of pulmonary hypertension. Unable to assess right-sided pressures due to lack of significant tricuspid regurgitation. MITRAL VALVE: Normal mobility and thickness. No evidence of mitral valve stenosis. There is no mitral annular calcification. Trivial mitral regurgitation. AORTIC VALVE: The aortic valve is probably tricuspid with a fused raphe. Severely calcified aortic valve with diminished mobility. Doppler velocity suggests moderate aortic valve stenosis. LOVELY 1.1cm2, Vmax 3.4m/s, peak/mean gradients 51/28mmHg. DVI 0.24 suggests severe aortic stenosis. No aortic regurgitation. AORTIC ROOT: Normal diameter and appearance. The aortic root measures 3.3cm. The ascending aorta measures 2.9cm. PULMONIC VALVE: Normal thickness and mobility. No stenosis. Trivial regurgitation. PERICARDIUM: Anterior free space; trivial effusion versus fat pad. IVC: Collapses with inspiration. The IVC is normal in size measuring 1.7cm. STRAIN: Global longitudinal strain four-chamber -13.1%; 2 chamber -14.1%; APLAX -13.0%; average -13.4%. Strain measurements are reduced. CONCLUSION: 1. Global left ventricular systolic function is hyperdynamic; visually estimated ejection fraction is 65 to 70% 2. Moderate left ventricular hypertrophy 3. Biatrial dilatation 4. The right ventricle is mildly dilated with normal systolic function 5. The aortic valve is probably tricuspid with a fused raphe: Doppler velocity and aortic valve area consistent with moderate aortic valve stenosis, DVI of 0.24 suggest severe aortic valve stenosis Adult Echocardiography Procedure Report Left Ventricle LVEDD (3.7 - 5.6 cm): 4.84 cm LVESD (2.2 - 4.0 cm): 2.93 cm LVIVS thickness (0.6 - 1.2 cm): 1.50 cm LVPW thickness (0.5 - 1.0 cm): 1.56 cm e': 0.08 m/s E - e': 8.44 LVOT Max Gradient: 2.81 mm[Hg] LVOT Area (cm2): 0.84 m/s Peak Velocity (LVOT): 0.84 m/s Mean Velocity (LVOT): 0.61 m/s LVOT Diameter 2.39 cm Left Ventricular Ejection Fraction: 66.35 % Left Atrium LA Volume Index (2D A2C): 41.04 ml/m2 Left Atrium Systolic Dimension: 3.82 cm Mitral Valve MV E to A Ratio: 0.72 Mitral Valve A-Wave Peak Velocity: 0.90 m/s Mitral Valve E-Wave Peak Velocity: 0.65 m/s Right Ventricle RV Internal Diastolic Dimension: 4.25 cm Aorta AO Root Diam: 3.28 cm Ascending Ao Diam: 2.86 cm Aortic Valve AoV Area (Peak Maximilian): 1.08 cm2, 1.11 cm2 AoV Area (VTI): 1.28 cm2, 1.31 cm2 Peak Velocity(Antegrade Flow): 3.39 m/s, 3.55 m/s, 3.54 m/s Peak Gradient(Antegrade Flow): 46.03 mm[Hg], 50.51 mm[Hg], 50.04 mm[Hg] Mean Velocity(Antegrade Flow): 2.33 m/s, 2.48 m/s, 2.37 m/s Mean Gradient(Antegrade Flow): 24.60 mm[Hg], 27.66 mm[Hg], 25.84 mm[Hg] Velocity Time Integral: 80.81 cm, 82.67 cm, 83.89 cm Tricuspid Valve Peak Velocity (Regurgitant Flow): 1.91 m/s, 1.84 m/s Pulmonic Valve Mean Gradient: 2.40 mm[Hg], 1.84 mm[Hg] Mean Velocity: 0.71 m/s, 0.62 m/s Peak Velocity: 0.98 m/s Peak Gradient: 4.39 mm[Hg], 3.32 mm[Hg] Right Atrium Right Atrium Systolic Pressure: 71.40 ml, 71.40 ml Dictated by: Akshat Pratt M.D. on 01/26/2025 at 11:08 Approved by: Akshat Pratt M.D. on 01/26/2025 at 11:18
--- OUTSIDE RECORDS SUMMARY | 2025-01-26 07:00 | XMS_ITS | Clinical Summary ---
Author Organization [facility] Healthcare Address [address] [facility] [place] [address] Care Team Providers Care Presentation Team Member Name Role Phone Unavailable Primary Care Provider Unavailabl e Social History Tobacco UseTypesPacks/DayYears UsedDateSmoking Tobacco: Never AssessedSex and Gender InformationValueDate RecordedSex Assigned at BirthNot on fileLegal Sex Male05/01/2022 6:58 PM EDTGender IdentityNot on fileSexual OrientationNot on file Last Filed Vital Signs Vital SignReadingTime TakenCommentsBlood Srdwlgqq709/7607 12:00 PM EDT Pulse--Temperature--Respiratory Rate--Oxygen Saturation--Inhaled Oxygen Concentration--Xsregk324 kg (233 lb)08/28/2020 12:00 PM MXNNghwnd935.2 cm (5' 7 )08/28/2020 12:00 PM EDTBody Mass Index36.49008/28/2020 12:00 PM EDT Plan of Treatment Not on file
--- OUTSIDE RECORDS SUMMARY | 2025-01-26 07:00 | XMS_ITS | Clinical Summary ---
Author Organization [facility] Address [address] [place] [address] Care Team Providers Care Receptionist Telephone Operator Name Role Phone Librado Connor DO Primary Care Provider [phone] Allergies Active AllergyReactionsCriticalityNoted DateComments Sulfamethoxazole-MqwaniiybmblJccbryk53/28/2025 Medications MedicationSigDispense QuantityRefillsLast FilledStart DateEnd DateStatus carvedilol (Coreg) 12.5 mg tablet Take 12.5 mg by mouth with breakfast and with evening meal.07/03/2024tive lisinopril 40 mg tablet Take 1 tablet by mouth in the morning.07/03/2024tive metFORMIN (Glucophage) 1,000 mg tablet Take 1,000 mg by mouth with breakfast.Active amLODIPine (Norvasc) 10 mg tablet Take 10 mg by mouth in the morning.08/14/2022ctive atorvastatin (Lipitor) 20 mg tablet Take 20 mg by mouth at bedtime.08/20/2024tive Plavix 75 mg tablet Take 75 mg by mouth in the morning.08/14/2022ctive eplerenone (Inspra) 25 mg tablet Take 1 tablet by mouth in the morning.08/16/2024tive semaglutide, weight loss, 1 mg/0.5 mL pen injector Inject under the skin.Active hydrALAZINE (Apresoline) 25 mg tablet Indications:Primary hypertensionTake 1 tablet (25 mg) by mouth two times daily. 180 tablet ctive Active Problems ProblemNoted DateDiagnosed DateAortic valve hjaisgps09/28/2025ilateral carotid pkvqkc5509/13/2024erebral tgxxyzjopkintfl41/28/2025erebral whpcgkpokn58/28/2025 Ktnisxeq11/28/2025Essential nmlsfsbakvfu52/28/2025Hemiplegia affecting nondominant side09/13/2024History of colonic lqwltr0009/13/2024Hyperlipidemia 09/13/2024Hyperplastic rectal polyp09/13/2024Lumbar vsuaafmhtxh42/28/2025MI 33.0-33.9,adult09/13/2024Pure xqdglkczkjujdjvbkain81/28/2025Tubular adenoma of uzkcgg9009/13/2024 Family History Medical HistoryRelationNameCommentsHeart diseaseNeg Hx Social History Tobacco UseTypesPacks/DayYears UsedDateSmoking Tobacco: FormerCigarettesPassive Smoke Exposure: PastSmokeless Tobacco: NeverAlcohol UseStandard Drinks/Week CommentsNot Currently0 (1 standard drink = 0.6 oz pure alcohol)UT Safety & EnvironmentAnswerDate RecordedFear of Current or Ex-PartnerNot on file04/10/2023 Emotionally AbusedNot on file04/10/2023hysically AbusedNot on file04/10/2023 Sexually AbusedNot on file04/10/2023hysically or Sexually AbusedNot on file 04/10/2023Sex and Gender InformationValueDate RecordedSex Assigned at BirthNot on fileLegal TxiRsrs9108/16/2021 12:01 AM EDTGender IdentityNot on fileSexual OrientationNot on file Last Filed Vital Signs Vital SignReadingTime TakenCommentsBlood Cxwqevpx525/8209/13/2024 1:22 PM EDT Qeupp3611/28/2025 1:22 PM EDTTemperature--Respiratory Rate--Oxygen Wlpnmrxikf76% 09/13/2024 1:22 PM EDTInhaled Oxygen Concentration--Ntyelp415 kg (232 lb) 09/13/2024 1:22 PM KATEfbebo065.8 cm (5' 10 )09/13/2024 1:22 PM EDTBody Mass Index33.29009/13/2024 1:22 PM EDT Plan of Treatment DateTypeDepartmentCare Team (Latest Contact Info)Atyzndpsczo94/19/2025 11:45 AM ESTOffice Visit [facility] [address] [place] [address] James Lo MD [address] [facility] [place] [address] Health MaintenanceDue DateLast DoneCommentsCT Wchxqifhkuqe71/04/1957Diabetes: Hemoglobin A1C1956FIT-DNA1956FIT1956FOBT1956Medicare Annual Wellness (AWV)1955 7777Gyllrccwfumuo73/04/1957Diabetes: Retinopathy Tmjlxhzke71/04/1967Depression Lglujlhop19/04/1969Diabetes: Urine Protein Aqljnotmi83/04/1976Pneumococcal Vaccine: 50+ Years (1 of 2 - PCV)07/22/1975Adult Mdxeqal8407/21/1978Zoster Vaccines (1 of 2)2006Fall Risk Qmvqxewzy87/04/2022 COVID-19 Vaccine ( season), 12/19/2021, 04/24/20204415Vpqpzuuczcd68/26/203307/, 09/19/2017Colorectal Cancer Screening 09/11/2032Influenza IxnnwwyOnejqchwe91/24/2025, 11/11/2023, 11/29/2020HIB VaccinesAged OutNo longer eligible based on patient's age to complete this topic HPV VaccinesAged OutNo longer eligible based on patient's age to complete this topicIPV VaccinesAged OutNo longer eligible based on patient's age to complete this topicMeningococcal B VaccineAged OutNo longer eligible based on patient's age to complete this topicMeningococcal VaccineAged OutNo longer eligible based on patient's age to complete this topicRotavirus VaccinesAged OutNo longer eligible based on patient's age to complete this topic Insurance * Guarantor: Burgess Billy Cates.Account TypeRelation to PatientDate of PhoneBilling AddressPersonal/UphevpSdln17/04/1956 [facility] [place] [address] Care Teams Team MemberRelationshipSpecialtyStart DateEnd Date Librado Connor DO [address] [facility] [place] [address] PCP - GeneralInternal Medicine09/10/24
--- OUTSIDE RECORDS SUMMARY | 2025-01-26 07:00 | XMS_ITS | Patient Health Record ---
Author Organization [facility] in [place] Address [address] [place] [address] Care Team Providers Care Day Spa Manager Name Role Phone None, Unknown or Primary Care Provider Unavailab Alicia Escobar Unavailable [phone] Allergies Allergen (clinical drug ingredient) Drug/Non Drug Allergy documented on EMR Reaction Allergy Type Onset Date Status Substance with sulfonamide s tructure and antibacterial mechanism of action (substance) Sulfa Antibiotics Unknown Drug Allergy Active Reason For Referral No Information Medications Medication SIG (Take, Route, Frequency, Duration) Notes Start Date End Date Status metFORMIN HCl 1000 MG 1 tablet with a meal Orall y Once a day ActiveTrulicity 3mg/0.5mL 3 mg/0.5mLAs directed Subcutaneous Once weeklyActive amLODIPine Besylate 10 MG1 tablet Orally Once a dayActiveAtorvastatin Calcium 20 MG1 tablet Orally Once a dayActiveCarvedilol 6.25 MG1 tablet with food Orally Twice a dayActiveClopidogrel Bisulfate 75 MG1 tablet Orally Once a dayActive Farxiga 10 MG1 tablet Orally Once a dayActivehydrALAZINE HCl 10 MG1 tablet with food Orally Four times a dayActiveLisinopril-hydroCHLOROthiazide 20-25 MG1 tablet Orally Once a dayActive Social History Tobacco Use: Social History Observation Description Date Details (start date - stop date) Former Smoker 02/18/1976 - 02/17/2015 Tobacco Use/Smoking Question Answer Notes Patient is a former smoker When did you start smoking?02/18/1976When did you stop smoking?02/17/2015How long has it been since you last smoked?5-10 yearsSection Notes: former smoker, quit in 2016 former smoker, quit in 2015 former smoker, quit in 2015 former smoker, quit in 2015 former smoker, quit in 2016 Problems Problem Type SNOMED Code ICD Code Onset Dates Problem Status W/U Status Risk Notes Problem Tinea unguium (229497527) Tinea unguium ( B35.1) ActiveconfirmedProblemDiabetic peripheral neuropathy associated with type 2 diabetes mellitus (6442995901924)Type 2 diabetes mellitus with diabetic neuropathy, unspecified (E11.40)ActiveconfirmedProblemAcquired hallux varus (61249424)Hallux varus (acquired), left foot (M20.32)ActiveconfirmedProblem Acquired deformity of left foot (disorder) (589700752)Other acquired deformities of left foot (M21.6X2)ActiveconfirmedProblemCounseling requested (508385365) Persons encountering health services in other specified circumstances (Z76.89) ActiveconfirmedProblemSkin callus (35530820)Skin callus (L84)Activeconfirmed ProblemHemiplegia of dominant side as late effect of cerebrovascular disease (053383123)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, unspecified hemiplegia type (I69.352)ActiveconfirmedProblemDiabetic peripheral neuropathy associated with type 2 diabetes mellitus (1910855467504)Type 2 diabetes mellitus with diabetic neuropathy, unspecified 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 (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)Activeconfirmed Plan Of Treatment No Information Insurance Providers Payer Name Payer Address Payer Phone Subscriber Number Group Number Insured Name Patient Relationship to Insured Coverage Start Date Coverage End Date [employer] PPO PLUS LOCAL PLAN [address] [place] [address] [id number] Burgess Allen Self - patient is the insured [place] [id number] Fina Villaelf - [facility] the [facility] [address] [place] [id number], BurgessSelf - patient is the insured Medical (General) [...] release of hammertoe left foot 2013 appendectomy 196 Hospitalization History Reason Date(Month/Year) see above
== END 2025-01-26 06:57 | disposition home or self-care (01) ==
LOC: CARD 06:56
PROVIDERS: PCP Internal Medicine; Visit Provider Internal Medicine Interventional Cardiology
DX: I35.0 Nonrheumatic aortic (valve) stenosis (principal)
CPT/HCPCS: 93306; 93356